=== PATIENT | female | born 1960 | race Caucasian/White ===

== ENCOUNTER 2016-09-11 18:04 | Emergency (ER) | payer BC, OTHER ==
[~2016-09-11] VITALS: Ht 167.6 cm; Wt 145.0 kg
[~2016-09-11 18:04] MED LIST: ALBUAER19 INH; ALPR-411 PO; OXYC30TA35 PO
[2016-09-11 18:11] VITALS: TEMP 36.8; Ht 167.6 cm; Wt 145.0 kg
[2016-09-11] MEDS ORDERED: ONDANSETRON INJ 2 MG/ML 2 ML VIAL IV STA (19:07)
[2016-09-11] MEDS ORDERED: MoRPHine SULFATE 10 MG/ML CARP/VIAL IV STA (19:07)
[2016-09-11 19:19] LABS: BASO % 0.4 %; BASO ABS # 0.03 K/uL (0-0.2); COMPLETE YES; EOS % 3.8 %; HEMATOCRIT 42.3 % (37-47); IG% 0.3 %; LYMPH ABS # 2.69 K/uL (1.2-3.4); MEAN CELL VOLUME 83.1 fL (80-100); MEAN CORPUSCULAR HEMOGLOBIN 26.3 pg (25-34); MEAN CORPUSCULAR HGB CONC 31.7 g/dl (32-36); MEAN PLATELET VOLUME 10.1 fL (7.4-10.4); MONO % 12.6 %; NEUT % 45.9 %; PLATELET COUNT 185 K/uL (130-400); RED BLOOD COUNT 5.09 M/uL (4.2-5.4); WHITE BLOOD COUNT 7.28 K/uL (4.8-10.8)
[2016-09-11 19:24] VITALS: O2SAT 96
[2016-09-11 19:30] LABS: PARTIAL THROMBOPLASTIN RATIO 1.1
[2016-09-11 19:35] LABS: CALCIUM 8.8 mg/dl (8.5-10.1); CREATININE 0.95 mg/dl (0.60-1.20); POTASSIUM 4.1 mmol/L (3.5-5.1)
[2016-09-11 19:38] LABS: ALB/GLOB RATIO 0.9 (0.9-2)
--- NOTE | 2016-09-11 20:35 | DIAGNOSTIC IMAGING REPORT ---
Limited abdominal ultrasound ABDOMEN FOR HERNIA CLINICAL HISTORY: LLQ abdominal buldge, painful non reducible TECHNIQUE: Ultrasound COMPARISON STUDY: CT dated 03/01/2016 FINDINGS: Probable nonreducible lateral hernia left lateral abdomen. It contains fat exclusively measures 6 x 3 x 2 cm. IMPRESSION: 1. Nonreducible lateral wall abdominal hernia containing fat exclusively. 2. This is consistent with a Spigelian hernia. Electronically signed by: Wilner Gonzalez M.D. 09/11/2016 8:33 PM Dictated Date/Time: 09/11/2016 8:29 PM
[2016-09-11 21:52] LABS: URINE APPEARANCE CLOUDY (CLEAR); URINE BILIRUBIN NEG (NEG); URINE COLOR YELLOW; URINE NITRITE NEG (NEG); URINE SPECIFIC GRAVITY 1.006 (1.000-1.030); UROBILINOGEN NEG (NEG)
[2016-09-11 21:53] LABS: MANUAL MICROSCOPIC REQUIRED? NO; REVIEW REQ? NO; ZZURINE CULT IF INDIC CATH NO
[2016-09-11] MEDS ORDERED: MoRPHine SULFATE 4 MG/ML 1 ML CARP\\VIAL IV STA (22:09)
--- NOTE | 2016-09-11 22:16 | EMERGENCY ROOM VISIT NOTE ---
History First contact with patient: 18:41 Chief Complaint: ABDOMINAL PAIN Stated Complaint: LF SIDE PAIN History of Present Illness The patient is a 55 year old female who presents to the Emergency Room via private vehicle with complaints of "left side pain". The patient states that approximately 3 weeks ago she noticed a small lump in the left lower quadrant just above the left iliac crest. She states the pain has been progressively worsening as well as the bump. She states that used to be soft in nature, and now it is hardening and feels warm to the touch. She states that when she lays on her right side the pain is alleviated. She notes pain is worst when she is sitting. She is taken the hydrocodone tablet earlier today which did not help her pain. She states that she does have some nausea at this time. She denies any vomiting, diarrhea, lightheadedness. She denies any history of hernias. Her last bowel movement was earlier today. Review of Systems A complete 10-point Review of Systems was discussed with the patient, with pertinent positives and negatives listed in the History of Present Illness. All remaining Review of Systems questions can be considered negative unless otherwise specified. Past Medical/Surgical History Medical Problems: (1) Abrasion, scalp with infection (2) Abrasion, scalp with infection (3) Acute postoperative pain of right foot (4) Arm pain, right (5) Asthma (6) Asthma, Unspecified (7) Back pain (8) blood clot, L Arm (9) Cellulitis (10) Contusion of left hip (11) E. Coli Infect Nos (12) Encounter for removal of sutures (13) Enlargement Lymph Nodes (14) Fall (15) Fall (16) Headache (17) History of neck injury (18) History of neck problems (19) Hypertension Nos (20) Left hip pain (21) Morbid Obesity (22) Otitis externa (23) Toe fracture Surgical Problems: (1) History of nephrectomy Family History Cancer Diabetes mellitus FH: kidney disease Gallbladder disease Heart disease Hypertension Lung disease Social History Smoking Status: Current Some Day Smoker Alcohol Use: none Drug Use: none Housing Status: lives with family Occupation Status: unemployed Current/Historical Medications Scheduled Hydrochlorothiazide (Hctz), 50 MG PO DAILY Levothyroxine Sodium (Synthroid), 300 MCG PO DAILY Lisinopril (Prinivil), 10 MG PO QAM Oxycodone Hcl (Oxycontin), 30 MG PO Q12 Spironolactone (Aldactone), 50 MG PO QAM Scheduled PRN Albuterol Inhaler (Ventolin Inhaler), 2 PUFFS INH Q4H PRN for Asthma Symptoms Alprazolam (Xanax), 0.5 MG PO TID PRN for Panic Attack Fluticasone Prop/Salmeterol (Advair Diskus 250/50 60 Dose), 1 PUFF INH BID PRN for Asthma Symptoms Hydrocodone/Acetaminophen ([place] 10/325 Tab), 1 TAB PO TID PRN for Pain Allergies Coded Allergies: No Known Allergies (Verified , 09/11/16) Physical Exam Vital Signs Date Time Temp Pulse Resp B/P (MAP) Pulse Ox O2 Delivery O2 Flow Rate FiO2 09/11/16 22:28 78 20 140/76 96 Room Air 09/11/16 21:47 66 20 137/72 95 Room Air 09/11/16 20:34 65 20 135/74 96 09/11/16 19:29 64 09/11/16 19:25 70 20 148/94 95 Room Air 09/11/16 19:24 96 Room Air 09/11/16 18:11 36.8 71 20 151/74 97 Room Air Physical Exam VITAL SIGNS - Vital signs and nursing notes were reviewed. Patient is afebrile , hypertensive at 151/74, non-tachycardic and is saturating well on room air 97% . GENERAL -55-year-old female appearing her stated age who is in no acute distress. Communicates well with provider and answers questions appropriately. SKIN - Without rashes. The skin overlying the left lower quadrant is unremarkable. No erythema. LUNGS - Chest wall symmetric without accessory muscle use, intercostals retractions, or central cyanosis. Normal vesicular breath sounds CTA B/L. No wheezes, rales, or rhonchi appreciated. CARDIAC - RRR with S1/S2. No murmur, rubs, or gallops appreciated. ABDOMEN - Abdominal contour without pulsations or visible masses. BS normoactive all four quadrants. In the left lower quadrant, favoring the left lateral abdominal region just superior to the left iliac crest there is a 4 cm x 4 cm palpable, nonreducible tender region. This is slightly raised. This is concerning for hernia. Medical Decision & Procedures ER Provider Diagnostic Interpretation: Limited abdominal ultrasound ABDOMEN FOR HERNIA CLINICAL HISTORY: LLQ abdominal buldge, painful non reducible TECHNIQUE: Ultrasound COMPARISON STUDY: CT dated 03/01/2016 FINDINGS: Probable nonreducible lateral hernia left lateral abdomen. It contains fat exclusively measures 6 x 3 x 2 cm. IMPRESSION: 1. Nonreducible lateral wall abdominal hernia containing fat exclusively. 2. This is consistent with a Spigelian hernia. Electronically signed by: Wilner Gonzalez M.D. 09/11/2016 8:33 PM Dictated Date/Time: 09/11/2016 8:29 PM Laboratory Results 09/11/16 19:00 Red Blood Count 5.09, Mean Corpuscular Volume 83.1, Mean Corpuscular Hemoglobin 26.3, Mean Corpuscular Hemoglobin Concent 31.7, Mean Platelet Volume 10.1, Neutrophils (%) (Auto) 45.9, Lymphocytes (%) (Auto) 37.0, Monocytes (%) (Auto) 12.6, Eosinophils (%) (Auto) 3.8, Basophils (%) (Auto) 0.4, Neutrophils # (Auto ) 3.34, Lymphocytes # (Auto) 2.69, Monocytes # (Auto) 0.92, Eosinophils # (Auto ) 0.28, Basophils # (Auto) 0.03 09/11/16 19:00 Test 09/11/16 19:00 09/11/16 21:20 White Blood Count 7.28 K/uL (4.8-10.8) Red Blood Count 5.09 M/uL (4.2-5.4) Hemoglobin 13.4 g/dL (12.0-16.0) Hematocrit 42.3 % (37-47) Mean Corpuscular Volume 83.1 fL (80-100) Mean Corpuscular Hemoglobin 26.3 pg (25-34) Mean Corpuscular Hemoglobin Concent 31.7 g/dl (32-36) Platelet Count 185 K/uL (130-400) Mean Platelet Volume 10.1 fL (7.4-10.4) Neutrophils (%) (Auto) 45.9 % Lymphocytes (%) (Auto) 37.0 % Monocytes (%) (Auto) 12.6 % Eosinophils (%) (Auto) 3.8 % Basophils (%) (Auto) 0.4 % Neutrophils # (Auto) 3.34 K/uL (1.4-6.5) Lymphocytes # (Auto) 2.69 K/uL (1.2-3.4) Monocytes # (Auto) 0.92 K/uL (0.11-0.59) Eosinophils # (Auto) 0.28 K/uL (0-0.5) Basophils # (Auto) 0.03 K/uL (0-0.2) RDW Standard Deviation 43.4 fL (36.4-46.3) RDW Coefficient of Variation 14.1 % (11.5-14.5) Immature Granulocyte % (Auto) 0.3 % Immature Granulocyte # (Auto) 0.02 K/uL (0.00-0.02) Prothrombin Time 11.0 SECONDS (9.0-12.0) Prothromb Time International Ratio 1.0 (0.9-1.1) Activated Partial Thromboplast Time 27.4 SECONDS (21.0-31.0) Partial Thromboplastin Ratio 1.1 Anion Gap 6.0 mmol/L (3-11) Est Creatinine Clear Calc Drug Dose 97.7 ml/min Estimated GFR () 77.6 Estimated GFR (Non- 67.0 BUN/Creatinine Ratio 16.0 (10-20) Calcium Level 8.8 mg/dl (8.5-10.1) Total Bilirubin 0.4 mg/dl (0.2-1) Aspartate Amino Transf (AST/SGOT) 27 U/L (15-37) Alanine Aminotransferase (ALT/SGPT) 32 U/L (12-78) Alkaline Phosphatase 95 U/L (45-117) Total Protein 7.5 gm/dl (6.4-8.2) Albumin 3.6 gm/dl (3.4-5.0) Globulin 3.9 gm/dl (2.5-4.0) Albumin/Globulin Ratio 0.9 (0.9-2) Lipase 184 U/L (73-393) Urine Color YELLOW Urine Appearance CLOUDY (CLEAR) Urine pH 6.0 (4.5-7.5) Urine Specific [place] 1.006 (1.000-1.030) Urine Protein NEG (NEG) Urine Glucose (UA) NEG (NEG) Urine Ketones NEG (NEG) Urine Occult Blood NEG (NEG) Urine Nitrite NEG (NEG) Urine Bilirubin NEG (NEG) Urine Urobilinogen NEG (NEG) Urine Leukocyte Esterase NEG (NEG) Urine WBC (Auto) 1-5 /hpf (0-5) Urine RBC (Auto) 0-4 /hpf (0-4) Urine Hyaline Casts (Auto) 0 /lpf (0-5) Urine Epithelial Cells (Auto) 10-20 /lpf (0-5) Urine Bacteria (Auto) 1+ (NEG) Medications Administered Medications (Trade) Dose Ordered Sig/Morgan Route Start Time Stop Time Status Last Admin Dose Admin Morphine Sulfate (MoRPHine SULFATE INJ) 10 mg NOW STAT IV 09/11/16 19:07 09/11/16 19:09 DC 09/11/16 19:07 10 MG Ondansetron HCl (Zofran Inj) 4 mg NOW STAT IV 09/11/16 19:07 09/11/16 19:09 DC 09/11/16 19:07 4 MG Morphine Sulfate (MoRPHine SULFATE INJ) 4 mg NOW STAT IV 09/11/16 22:09 09/11/16 22:10 DC 09/11/16 22:26 4 MG Medical Decision Patient was seen and evaluated as above. After obtaining a thorough history and physical examination IV access was initiated and the above workup was performed. She presents to us today with left lower quadrant abdominal pain, and clinically appears well. Her vital signs are stable. She is out of antihypertensive that was educated upon this, and is to follow-up with her family doctor. She requests something for pain, therefore was given 10 mg of morphine, and 4 mg of Zofran for any potential nausea. CBC reveals no leukocytosis or concerning anemia. Coagulation studies are unremarkable. CMP completely unremarkable. Urine reveals 10-20 epithelial cells, and 1+ urine bacteria. This was a catheterized sample as the patient noted that she would have great difficulty giving a clean-catch sample. The patient case was reviewed with my attending. My attending also personally evaluated the patient. Ultrasound was obtained and does reveal a exclusively fat containing hernia, without bowel. This is likely nonreproducible which I would agree clinically. There is no evidence of infection at this time. The patient I believe can follow-up in the outpatient setting for this. She is a follow-up with her family doctor, but was also provided the number for the on-call general surgeon. She was given 4 mg of morphine prior to departure. She indicated she'll he had pain medication at home that she could use. She certainly was educated upon worrisome symptoms which to return, to include but not limited to worsening abdominal pain and she was informed that the exclusive he fat-containing hernia that was present now could turn into a bowel containing hernia which would be an emergency and she certainly is to return with symptoms that would suggest this of which she was educated upon thoroughly. She had questions prior to discharge, and was discharged home in good condition. Female was driving. In evaluation treatment this patient following differential diagnoses entertained: Hernia, epiploic appendage appendicitis, mesenteric adenitis, diverticulitis, among others. Impression Primary Impression: Spigelian hernia Additional Impression: fat containing hernia of abdomen Departure Information Dispostion Home / Self-Care Condition GOOD Referrals Aly Duarte M.D. (PCP) Patient Instructions My [facility] Additional Instructions You have been treated in the Emergency Department your Abdominal Pain. Laboratory results and imaging studies have ruled out any emergent causes for your abdominal pain which would warrant admission or surgery. Your ultrasound does reveal a fat-containing hernia in your left lower quadrant. Please follow-up with your family doctor regarding this. You were also provided the phone number for a general surgeon which you may follow-up with by calling them. You may take your regular scheduled medications. Drink plenty of water and stay well hydrated. As with any trip to the Emergency Department, you should follow-up with your Primary Care Provider from today's visit. Please call them first thing tomorrow morning to schedule follow-up. If your abdominal pain was worsened, please return immediately. (DR. GIPSON [phone]) (Dr. Turk, Return to the emergency department if your symptoms persist despite treatment plan outlined above or if the following symptoms occur: increased fevers, chills , worsening nausea/vomiting, blood in your stool or urine. Please return to the emergency department with any new/concerning symptoms. Problem Qualifiers
[2016-09-11 22:28] VITALS: BP 140/76; PULSE 78; O2SAT 96
--- NOTE | 2016-09-12 01:24 | EMERGENCY ROOM VISIT NOTE ---
ED Visit Note First contact with patient: 18:41 I have personally seen and evaluated the patient with the PA. I agree with the diagnosis and management decisions and have been personally involved in the case. Patient's imaging studies were reviewed. It appears to be a fat- containing abdominal hernia. Patient is complaining of some dysuria and states she is not able to give a clean catch specimen due to a hand injury and her morbid obesity. Catheterized specimen was obtained and is negative for UTI. Patient will be referred for outpatient management. Please see NICOLE Wallis's notes for further details of the history, physical and visit.
[2016-09-17] MEDS ORDERED: LISI10TA PO (06:52)
[2016-09-17] MEDS ORDERED: HYDR50TA3 PO (07:10)
[2016-09-17] MEDS ORDERED: HYDR-4383 PO (14:31)
[2017-02-10] MEDS ORDERED: CITA40TA4 PO (08:46)
[2017-02-10] MEDS ORDERED: OXYC1TAB PO (08:46)
[2017-02-10] MEDS ORDERED: VSC/5 PO (08:46)
[2017-02-10] MEDS ORDERED: SERT-234 PO (08:46)
[2017-02-25] MEDS ORDERED: CIPR-255 PO (06:08)
[2017-02-25] MEDS ORDERED: PHEN-775 PO (07:05)
[2017-02-25] MEDS ORDERED: CEPH500C2 PO (07:05)
[2017-02-25] MEDS ORDERED: CEPH500C PO (08:02)
== END 2016-09-11 22:42 | disposition home or self-care (01) ==
LOC: C.EDB 18:05 → C.EDC 22:42
DX: K43.9 Ventral hernia without obstruction or gangrene (principal); J45.909 Unspecified asthma, uncomplicated; I10 Essential (primary) hypertension; E66.01 Morbid (severe) obesity due to excess calories; Z80.9 Family history of malignant neoplasm, unspecified; Z83.3 Family history of diabetes mellitus; Z84.1 Family history of disorders of kidney and ureter; Z82.49 Family history of ischemic heart disease and other diseases of the circulatory system; Z83.6 Family history of other diseases of the respiratory system; F17.210 Nicotine dependence, cigarettes, uncomplicated; Z79.899 Other long term (current) drug therapy

== ENCOUNTER 2016-09-17 16:16 | Emergency (ER) | payer BC, OTHER ==
[~2016-09-17] VITALS: Ht 167.6 cm; Wt 145.1 kg
[~2016-09-17 16:16] MED LIST changes: +HYDR-4383 PO; +HYDR50TA3 PO; +LISI10TA PO
[2016-09-17 16:29] VITALS: TEMP 36.7; Ht 167.6 cm; Wt 145.1 kg
[2016-09-17] MEDS ORDERED: OXYCODONE HCL IR 5 MG TAB (IMMEDIATE RELEASE) PO STA (16:44)
[2016-09-17] MEDS ORDERED: VNTHFA/IN INH (16:50)
[2016-09-17] MEDS ORDERED: OXYC20TA50 PO (16:50)
[2016-09-17] MEDS ORDERED: ADVIN25/60 INH (17:04)
[2016-09-17 17:26] LABS: BASO % 0.4 %; BASO ABS # 0.03 K/uL (0-0.2); COMPLETE YES; EOS % 3.3 %; IG% 0.1 %; LYMPH % 29.9 %; LYMPH ABS # 2.08 K/uL (1.2-3.4); MEAN CELL VOLUME 84.7 fL (80-100); MEAN CORPUSCULAR HEMOGLOBIN 27.5 pg (25-34); MEAN CORPUSCULAR HGB CONC 32.4 g/dl (32-36); MEAN PLATELET VOLUME 9.8 fL (7.4-10.4); MONO % 12.5 %; NEUT % 53.8 %; PLATELET COUNT 167 K/uL (130-400); RED BLOOD COUNT 4.84 M/uL (4.2-5.4); WHITE BLOOD COUNT 6.95 K/uL (4.8-10.8)
[2016-09-17 17:47] LABS: BLOOD UREA NITROGEN 15 mg/dl (7-18); BUN/CREATININE RATIO 15.7 (10-20); CALCIUM 8.6 mg/dl (8.5-10.1); CARBON DIOXIDE 29 mmol/L (21-32); CHLORIDE 106 mmol/L (98-107); CREATININE 0.93 mg/dl (0.60-1.20); GLUCOSE 112 mg/dl (70-99); SODIUM 140 mmol/L (136-145)
--- NOTE | 2016-09-17 18:10 | DIAGNOSTIC IMAGING REPORT ---
LEFT UPPER EXTREMITY VENOUS DOPPLER HISTORY: Left arm pain, no injury. Hx DVT COMPARISON STUDY: None. FINDINGS: The left internal jugular vein is patent. There is normal flow within the left subclavian vein. There is normal flow and compressibility within the left axillary, basilic, brachial, radial, ulnar, and visualized cephalic veins. IMPRESSION: No DVT within the left upper extremity. Electronically signed by: Quang Lee M.D. 09/17/2016 6:09 PM Dictated Date/Time: 09/17/2016 6:08 PM
[2016-09-17 18:30] VITALS: O2SAT 96
[2016-09-17 18:31] VITALS: BP 144/89; PULSE 73; O2SAT 96
--- NOTE | 2016-09-17 18:39 | EMERGENCY ROOM VISIT NOTE ---
ED Visit Note First contact with patient: 16:32 I have seen and examined this patient with Dao Melendez and generally agree with the treatment plan as discussed. Problem List Medical Problems: (1) Abrasion, scalp with infection Status: Resolved (2) Abrasion, scalp with infection Status: Resolved (3) Acute postoperative pain of right foot Status: Resolved (4) Arm pain, right Status: Resolved (5) Asthma Status: Chronic (6) Asthma, Unspecified Status: Chronic (7) Back pain Status: Resolved (8) blood clot, L Arm Status: Resolved (9) Cellulitis Status: Resolved (10) Contusion of left hip Status: Resolved (11) E. Coli Infect Nos Status: Resolved (12) Encounter for removal of sutures Status: Resolved (13) Enlargement Lymph Nodes Status: Resolved (14) Fall Status: Resolved (15) Fall Status: Resolved (16) Headache Status: Resolved (17) History of neck injury Status: Chronic (18) History of neck problems Status: Chronic (19) Hypertension Nos Status: Chronic (20) Left hip pain Status: Resolved (21) Morbid Obesity Status: Chronic (22) Otitis externa Status: Resolved (23) Toe fracture Status: Resolved Current/Historical Medications Scheduled Hydrochlorothiazide (Hctz), 50 MG PO DAILY Levothyroxine Sodium (Synthroid), 300 MCG PO DAILY Lisinopril (Prinivil), 10 MG PO QPM Spironolactone (Aldactone), 50 MG PO QPM Scheduled PRN Albuterol Hfa (Ventolin Hfa), 2 PUFFS INH Q4 PRN for Shortness of Breath Alprazolam (Xanax), 0.5 MG PO TID PRN for Panic Attack Fluticasone Prop/Salmeterol (Advair Diskus 250/50 60 Dose), 1 PUFF INH BID PRN for Asthma Symptoms Hydrocodone/Acetaminophen ([place] 10/325 Tab), 1 TAB PO TID PRN for Pain Oxycodone Hcl (Oxycontin), 30 MG PO Q12 PRN for Pain Allergies Coded Allergies: No Known Allergies (Verified , 09/17/16) Vital Signs Date Time Temp Pulse Resp B/P (MAP) Pulse Ox O2 Delivery O2 Flow Rate FiO2 09/17/16 18:31 73 19 144/89 96 09/17/16 18:30 96 Room Air 09/17/16 16:29 36.7 20 154/86 Room Air Laboratory Results 09/17/16 17:15 Red Blood Count 4.84, Mean Corpuscular Volume 84.7, Mean Corpuscular Hemoglobin 27.5, Mean Corpuscular Hemoglobin Concent 32.4, Mean Platelet Volume 9.8, Neutrophils (%) (Auto) 53.8, Lymphocytes (%) (Auto) 29.9, Monocytes (%) (Auto) 12.5, Eosinophils (%) (Auto) 3.3, Basophils (%) (Auto) 0.4, Neutrophils # (Auto ) 3.73, Lymphocytes # (Auto) 2.08, Monocytes # (Auto) 0.87, Eosinophils # (Auto ) 0.23, Basophils # (Auto) 0.03 09/17/16 17:15 Test 09/17/16 17:15 White Blood Count 6.95 K/uL (4.8-10.8) Red Blood Count 4.84 M/uL (4.2-5.4) Hemoglobin 13.3 g/dL (12.0-16.0) Hematocrit 41.0 % (37-47) Mean Corpuscular Volume 84.7 fL (80-100) Mean Corpuscular Hemoglobin 27.5 pg (25-34) Mean Corpuscular Hemoglobin Concent 32.4 g/dl (32-36) Platelet Count 167 K/uL (130-400) Mean Platelet Volume 9.8 fL (7.4-10.4) Neutrophils (%) (Auto) 53.8 % Lymphocytes (%) (Auto) 29.9 % Monocytes (%) (Auto) 12.5 % Eosinophils (%) (Auto) 3.3 % Basophils (%) (Auto) 0.4 % Neutrophils # (Auto) 3.73 K/uL (1.4-6.5) Lymphocytes # (Auto) 2.08 K/uL (1.2-3.4) Monocytes # (Auto) 0.87 K/uL (0.11-0.59) Eosinophils # (Auto) 0.23 K/uL (0-0.5) Basophils # (Auto) 0.03 K/uL (0-0.2) RDW Standard Deviation 44.8 fL (36.4-46.3) RDW Coefficient of Variation 14.5 % (11.5-14.5) Immature Granulocyte % (Auto) 0.1 % Immature Granulocyte # (Auto) 0.01 K/uL (0.00-0.02) Anion Gap 5.0 mmol/L (3-11) Est Creatinine Clear Calc Drug Dose 99.8 ml/min Estimated GFR () 79.6 Estimated GFR (Non- 68.7 BUN/Creatinine Ratio 15.7 (10-20) Calcium Level 8.6 mg/dl (8.5-10.1) Troponin I < 0.015 ng/ml (0-0.045) Medications Administered Medications (Trade) Dose Ordered Sig/Morgan Route Start Time Stop Time Status Last Admin Dose Admin Oxycodone HCl (Roxicodone Immediate Rel Tab) 5 mg NOW STAT PO 09/17/16 16:44 09/17/16 16:46 DC 09/17/16 17:10 5 MG Departure Information Referrals Aly Duarte M.D. (PCP) Patient Instructions My [facility]
--- NOTE | 2016-09-17 18:49 | EMERGENCY ROOM VISIT NOTE ---
History First contact with patient: 16:32 Chief Complaint: ARM PAIN Stated Complaint: LEFT ARM PAIN History of Present Illness The patient is a 55 year old female who presents to the Emergency Room via private vehicle accompanied by female with complaints of "left arm pain". The patient states that yesterday her left arm began throbbing throughout the entire left upper extremity. She states is from her left hand to her shoulder. She is unable to identify any trauma to the region. There is no numbness or tingling in this region. She rates her pain as a 8/10. She has pain meds at home of which have not been helping. She is really seen here in the emergency Department for a hernia and notes this pain is worse. She denies any chest pain or shortness of breath, history of heart attack or stroke. Review of Systems A complete 6-point Review of Systems was discussed with the patient, with pertinent positives and negatives listed in the History of Present Illness. All remaining Review of Systems questions can be considered negative unless otherwise specified. Past Medical/Surgical History Medical Problems: (1) Abrasion, scalp with infection (2) Abrasion, scalp with infection (3) Acute postoperative pain of right foot (4) Arm pain, right (5) Asthma (6) Asthma, Unspecified (7) Back pain (8) blood clot, L Arm (9) Cellulitis (10) Contusion of left hip (11) E. Coli Infect Nos (12) Encounter for removal of sutures (13) Enlargement Lymph Nodes (14) Fall (15) Fall (16) Headache (17) History of neck injury (18) History of neck problems (19) Hypertension Nos (20) Left hip pain (21) Morbid Obesity (22) Otitis externa (23) Toe fracture Surgical Problems: (1) History of nephrectomy Family History Cancer Diabetes mellitus FH: kidney disease Gallbladder disease Heart disease Hypertension Lung disease Social History Smoking Status: Current Some Day Smoker Alcohol Use: none Drug Use: none Housing Status: lives with family Occupation Status: unemployed Current/Historical Medications Scheduled Hydrochlorothiazide (Hctz), 50 MG PO DAILY Levothyroxine Sodium (Synthroid), 300 MCG PO DAILY Lisinopril (Prinivil), 10 MG PO QPM Spironolactone (Aldactone), 50 MG PO QPM Scheduled PRN Albuterol Hfa (Ventolin Hfa), 2 PUFFS INH Q4 PRN for Shortness of Breath Alprazolam (Xanax), 0.5 MG PO TID PRN for Panic Attack Fluticasone Prop/Salmeterol (Advair Diskus 250/50 60 Dose), 1 PUFF INH BID PRN for Asthma Symptoms Hydrocodone/Acetaminophen ([place] 10/325 Tab), 1 TAB PO TID PRN for Pain Oxycodone Hcl (Oxycontin), 30 MG PO Q12 PRN for Pain Allergies Coded Allergies: No Known Allergies (Verified , 09/17/16) Physical Exam Vital Signs Date Time Temp Pulse Resp B/P (MAP) Pulse Ox O2 Delivery O2 Flow Rate FiO2 09/17/16 18:31 73 19 144/89 96 09/17/16 18:30 96 Room Air 09/17/16 16:29 36.7 20 154/86 Room Air Physical Exam VITAL SIGNS - Vital signs and nursing notes were reviewed. Patient is afebrile , hypertensive at 154/86, non-tachycardic. GENERAL -55-year-old female appearing her stated age who is in no acute distress. Communicates well with provider and answers questions appropriately. SKIN - Without rashes. Skin overlying the left arm is unremarkable. HEAD - NC/AT. NECK: No meningismus or trauma evident. LUNGS - Chest wall symmetric without accessory muscle use, intercostals retractions, or central cyanosis. Normal vesicular breath sounds CTA B/L. No wheezes, rales, or rhonchi appreciated. CARDIAC - RRR with S1/S2. No murmur, rubs, or gallops appreciated. EXTREMITIES - No clubbing or peripheral cyanosis. No pretibial edema present. There is decreased range of motion of the entire left upper extremity, which is most noted at the left shoulder region. She is neurovascularly intact in this region. Medical Decision & Procedures ER Provider Diagnostic Interpretation: LEFT UPPER EXTREMITY VENOUS DOPPLER HISTORY: Left arm pain, no injury. Hx DVT COMPARISON STUDY: None. FINDINGS: The left internal jugular vein is patent. There is normal flow within the left subclavian vein. There is normal flow and compressibility within the left axillary, basilic, brachial, radial, ulnar, and visualized cephalic veins. IMPRESSION: No DVT within the left upper extremity. Electronically signed by: Quang Lee M.D. 09/17/2016 6:09 PM Dictated Date/Time: 09/17/2016 6:08 PM Laboratory Results 09/17/16 17:15 Red Blood Count 4.84, Mean Corpuscular Volume 84.7, Mean Corpuscular Hemoglobin 27.5, Mean Corpuscular Hemoglobin Concent 32.4, Mean Platelet Volume 9.8, Neutrophils (%) (Auto) 53.8, Lymphocytes (%) (Auto) 29.9, Monocytes (%) (Auto) 12.5, Eosinophils (%) (Auto) 3.3, Basophils (%) (Auto) 0.4, Neutrophils # (Auto ) 3.73, Lymphocytes # (Auto) 2.08, Monocytes # (Auto) 0.87, Eosinophils # (Auto ) 0.23, Basophils # (Auto) 0.03 09/17/16 17:15 Test 09/17/16 17:15 White Blood Count 6.95 K/uL (4.8-10.8) Red Blood Count 4.84 M/uL (4.2-5.4) Hemoglobin 13.3 g/dL (12.0-16.0) Hematocrit 41.0 % (37-47) Mean Corpuscular Volume 84.7 fL (80-100) Mean Corpuscular Hemoglobin 27.5 pg (25-34) Mean Corpuscular Hemoglobin Concent 32.4 g/dl (32-36) Platelet Count 167 K/uL (130-400) Mean Platelet Volume 9.8 fL (7.4-10.4) Neutrophils (%) (Auto) 53.8 % Lymphocytes (%) (Auto) 29.9 % Monocytes (%) (Auto) 12.5 % Eosinophils (%) (Auto) 3.3 % Basophils (%) (Auto) 0.4 % Neutrophils # (Auto) 3.73 K/uL (1.4-6.5) Lymphocytes # (Auto) 2.08 K/uL (1.2-3.4) Monocytes # (Auto) 0.87 K/uL (0.11-0.59) Eosinophils # (Auto) 0.23 K/uL (0-0.5) Basophils # (Auto) 0.03 K/uL (0-0.2) RDW Standard Deviation 44.8 fL (36.4-46.3) RDW Coefficient of Variation 14.5 % (11.5-14.5) Immature Granulocyte % (Auto) 0.1 % Immature Granulocyte # (Auto) 0.01 K/uL (0.00-0.02) Anion Gap 5.0 mmol/L (3-11) Est Creatinine Clear Calc Drug Dose 99.8 ml/min Estimated GFR () 79.6 Estimated GFR (Non- 68.7 BUN/Creatinine Ratio 15.7 (10-20) Calcium Level 8.6 mg/dl (8.5-10.1) Troponin I < 0.015 ng/ml (0-0.045) Medications Administered Medications (Trade) Dose Ordered Sig/Morgan Route Start Time Stop Time Status Last Admin Dose Admin Oxycodone HCl (Roxicodone Immediate Rel Tab) 5 mg NOW STAT PO 09/17/16 16:44 09/17/16 16:46 DC 09/17/16 17:10 5 MG Medical Decision Patient was seen and evaluated as above. After obtaining a thorough history and physical examination IV access was initiated above workup was performed. Patient presents to us today with atraumatic left upper extremity pain. She states it is throbbing in nature. This certainly could be from a neck etiology , however cardiac and thrombus cannot be eliminated. EKG unremarkable. Troponin negative. Ultrasound of the left upper extremity unremarkable. She was given 1 OxyIR tablet for her pain. CBC reveals no leukocytosis or anemia. PRP unremarkable. Troponin negative. EKG reveals normal sinus rhythm, and was compared to EKG of 05/10/2015. No significant change was found. I do not suspect any cardiac causes, I do not suspect any venous [place]. I suspect the patient is likely experiencing minor referred pain from the neck, or muscle pain. The patient could've slept in a position of which cause this pain. However, I do believe that follow-up is important with orthopedic doctor do not suspect any emergent cause of which would require immediate management or inpatient mission. Patient was informed upon today's findings, appeared stable for treatment the outpatient setting. She has pain medication at home. She was educated upon worrisome symptoms which to return, was fitted with an arm sling and educated upon use, had questions prior to discharge, and was discharged home in good condition. She is to follow up regarding her elevated blood pressure. 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 In the evaluation and treatment of this patient, the following differential diagnoses were considered: Shoulder Contusion, Shoulder Fracture, DE, PE, Shoulder Dislocation, Thoracic Outlet Syndrome, Adhesive Capsulitis, Rotator Cuff Tear, Proximal Clavicle Head Fracture, Apical Pneumonia, Pneumothorax, Hemothorax, or TB. Impression Primary Impression: Arm pain, left Departure Information Dispostion Home / Self-Care Condition GOOD Referrals Aly Duarte M.D. (PCP) Mg Alvarez M.D. Patient Instructions [facility] Additional Instructions You have been treated in the Emergency Department for left arm pain. You have received pain medicine in the emergency department which impairs your ability to operate a vehicle. It is illegal for you to drive after receiving these medicines. You may use your regular prescribed medication for pain. If this is a recent injury (<24 hrs), ice can be applied to the area of pain for the first 3 days to help decrease pain and inflammation. You have been provided the number for an Orthopaedic Surgeon. You should call this number as soon as possible to establish a follow-up visit from today's Emergency Department visit. Keep the shoulder brace/sling in place until evaluated by Orthopedics. Continue to perform range of motion exercises several times per day to help prevent the development of a "frozen shoulder". Return to the Emergency Department if your current symptoms worsen despite treatment course outlined above, or if you develop any of the following symptoms : intractable pain despite aforementioned treatment course or new onset of numbness or tingling of the arm. Please return to the emergency department with any new/concerning symptoms.
[2016-09-17] MEDS ORDERED: LEVO300T2 PO (21:17)
[2016-09-17] MEDS ORDERED: SPIR50TA2 PO (23:51)
[2017-02-10] MEDS ORDERED: OXYC1TAB PO (08:46)
[2017-02-10] MEDS ORDERED: VSC/5 PO (08:46)
[2017-02-10] MEDS ORDERED: CITA40TA4 PO (08:46)
[2017-02-10] MEDS ORDERED: SERT-234 PO (08:46)
[2017-02-25] MEDS ORDERED: CIPR-255 PO (06:08)
[2017-02-25] MEDS ORDERED: CEPH500C2 PO (07:05)
[2017-02-25] MEDS ORDERED: PHEN-775 PO (07:05)
[2017-02-25] MEDS ORDERED: CEPH500C PO (08:02)
== END 2016-09-17 19:41 | disposition home or self-care (01) ==
LOC: C.EDB 16:17 → C.EDD 19:41
DX: M79.622 Pain in left upper arm (principal); I10 Essential (primary) hypertension; J45.909 Unspecified asthma, uncomplicated; F17.200 Nicotine dependence, unspecified, uncomplicated; Z86.19 Personal history of other infectious and parasitic diseases; Z87.81 Personal history of (healed) traumatic fracture; Z91.81 History of falling; Z79.899 Other long term (current) drug therapy; Z98.890 Other specified postprocedural states; Z80.9 Family history of malignant neoplasm, unspecified; Z83.3 Family history of diabetes mellitus; Z84.1 Family history of disorders of kidney and ureter; Z83.79 Family history of other diseases of the digestive system; Z82.49 Family history of ischemic heart disease and other diseases of the circulatory system

== ENCOUNTER → 2016-11-12 | Outpatient (CLI) | payer BC, OTHER ==
[~2016-11-12] MED LIST changes: +ADVIN25/60 INH; -ALBUAER19 INH; +LEVO300T2 PO; +OXYC20TA50 PO; -OXYC30TA35 PO; +SPIR50TA2 PO; +VNTHFA/IN INH
--- NOTE | 2016-11-12 16:32 | DIAGNOSTIC IMAGING REPORT ---
ABD/PELVIS NO IV OR ORAL CONT CT DOSE: 1267.70 mGycm HISTORY: Pain ABDOMINAL PAIN TECHNIQUE: Multiaxial CT images of the abdomen and pelvis were performed without contrast. A dose lowering technique was utilized adhering to the principles of ALARA. COMPARISON STUDY: 03/01/2016. Limited abdominal ultrasound 09/11/2016 FINDINGS: Lung bases are clear. Liver spleen pancreas are unremarkable. Fatty replacement of the pancreas. Stable calcified granuloma central spleen. Prior left nephrectomy. Subtle nodularity right adrenal unchanged. Right kidney shows moderate cortical scarring but is negative for hydronephrosis. Small lateral spigelian hernia at the level of the inferior margin of the spleen evident maximum transaxial dimension of 2.2 cm. No evidence for associated bowel herniation. Appears to be exclusively fat-containing. Abdominal wall is otherwise intact. Bladder is midline. Prior left hip arthroplasty with associated heterotopic bone formation. This is unchanged. IMPRESSION: 1. Small left flank spigelian hernia containing fat exclusively. 2. This correlates with the patient's prior ultrasound evaluation and currently has a maximum dimension of 2.2 cm not including the extruded fat component. 3. No evidence of bowel containment or obstructive characteristics. 4. Chronic changes as noted The above report was generated using voice recognition software. It may contain grammatical, syntax or spelling errors. Electronically signed by: Wilner Gonzalez M.D. 11/12/2016 4:30 PM Dictated Date/Time: 11/12/2016 4:25 PM
== END | disposition home or self-care (01) ==
LOC: C.CTS 16:07
PROVIDERS: ATTEND Surgery
DX: R10.9 Unspecified abdominal pain (principal); K43.9 Ventral hernia without obstruction or gangrene

== ENCOUNTER → 2017-02-25 | Day surgery (SDC) | payer BC, OTHER ==
[2017-02-10 08:47] VITALS: BMI 51.0
--- NOTE | 2017-02-10 09:23 | PAT Medication Instructions ---
Service Date Feb 10, 2017. Current Home Medication List Albuterol Hfa (Ventolin Hfa), 2 PUFFS INH Q4 PRN for Shortness of Breath Alprazolam (Xanax), 0.5 MG PO TID PRN for Panic Attack Citalopram (Citalopram Hydrobromide), 1 TAB PO DAILY Fluticasone Prop/Salmeterol (Advair Diskus 250/50 60 Dose), 1 PUFF INH BID PRN for Asthma Symptoms Hydrocodone/Acetaminophen ([place] 10/325 Tab), 1 TAB PO TID PRN for Pain Levothyroxine Sodium (Synthroid), 300 MCG PO HS Oxycodone Ir (Roxicodone Ir), 1 TAB PO BID PRN for N Sertraline (Zoloft), 100 MG PO HS Solifenacin (Vesicare), 5 MG PO HS Spironolactone (Aldactone), 50 MG PO QPM Medication Instructions For Your Scheduled Surgery - Take the following medications the morning of surgery with a sip of water: Oxycodone Ir (Roxicodone Ir), 1 TAB PO BID PRN for N (okay to take up to 4 hours prior to surgery if needed) Hydrocodone/Acetaminophen ([place] 10/325 Tab), 1 TAB PO TID PRN for Pain (okay to take up to 4 hours prior to surgery if needed) Fluticasone Prop/Salmeterol (Advair Diskus 250/50 60 Dose), 1 PUFF INH BID PRN for Asthma Symptoms (if needed) Albuterol Hfa (Ventolin Hfa), 2 PUFFS INH Q4 PRN for Shortness of Breath (if needed) Alprazolam (Xanax), 0.5 MG PO TID PRN for Panic Attack (if needed) Citalopram (Citalopram Hydrobromide), 1 TAB PO DAILY (if needed) - Take the following medications as scheduled the night before surgery: Spironolactone (Aldactone), 50 MG PO QPM Sertraline (Zoloft), 100 MG PO HS Solifenacin (Vesicare), 5 MG PO HS Oxycodone Ir (Roxicodone Ir), 1 TAB PO BID PRN for N (if needed) Levothyroxine Sodium (Synthroid), 300 MCG PO HS Hydrocodone/Acetaminophen ([place] 10/325 Tab), 1 TAB PO TID PRN for Pain (if needed) Fluticasone Prop/Salmeterol (Advair Diskus 250/50 60 Dose), 1 PUFF INH BID PRN for Asthma Symptoms (if needed) Albuterol Hfa (Ventolin Hfa), 2 PUFFS INH Q4 PRN for Shortness of Breath (if needed) Alprazolam (Xanax), 0.5 MG PO TID PRN for Panic Attack (if needed) If you have any questions please call us at [phone] or [phone] or [phone]
--- NOTE | 2017-02-10 09:53 | DIAGNOSTIC IMAGING REPORT ---
CHEST PREADMISSION(PA/LAT) CLINICAL HISTORY: Preoperative chest COMPARISON STUDY: May 10, 2015 FINDINGS: The cardiac and mediastinal contours are normal. There is no evidence of focal pulmonary consolidation. There is no evidence of failure. No pleural effusions are visualized.[ IMPRESSION: No active disease in the chest. Electronically signed by: Jamal Nguyễn M.D. 02/10/2017 9:52 AM Dictated Date/Time: 02/10/2017 9:52 AM
[2017-02-10 10:09] LABS: BASO % 0.3 %; BASO ABS # 0.02 K/uL (0-0.2); COMPLETE YES; EOS % 2.9 %; HEMATOCRIT 41.4 % (37-47); IG% 0.3 %; LYMPH % 34.1 %; LYMPH ABS # 2.14 K/uL (1.2-3.4); MEAN CELL VOLUME 83.8 fL (80-100); MEAN CORPUSCULAR HEMOGLOBIN 27.9 pg (25-34); MEAN CORPUSCULAR HGB CONC 33.3 g/dl (32-36); MEAN PLATELET VOLUME 10.8 fL (7.4-10.4); MONO % 8.3 %; NEUT % 54.1 %; PLATELET COUNT 191 K/uL (130-400); RED BLOOD COUNT 4.94 M/uL (4.2-5.4); WHITE BLOOD COUNT 6.28 K/uL (4.8-10.8)
[2017-02-10 10:21] LABS: BUN/CREATININE RATIO 19.2 (10-20); CALCIUM 9.3 mg/dl (8.5-10.1); CREATININE 0.98 mg/dl (0.60-1.20); POTASSIUM 4.2 mmol/L (3.5-5.1)
[2017-02-10 10:25] LABS: URINE APPEARANCE CLEAR (CLEAR); URINE BILIRUBIN NEG (NEG); URINE COLOR YELLOW; URINE NITRITE NEG (NEG); URINE SPECIFIC GRAVITY 1.021 (1.000-1.030); UROBILINOGEN NEG (NEG)
[2017-02-10 10:34] LABS: MANUAL MICROSCOPIC REQUIRED? NO; REVIEW REQ? NO
[~2017-02-25] VITALS: Ht 162.6 cm; Wt 136.4 kg
[~2017-02-25] MED LIST changes: +ATROPINE SULFATE 0.1 MG/ML 5ML SYR IV PRN; +CEFAZOLIN 3000MG IV PUSH 15 ML IV SCH; +CEPH500C PO; +CEPH500C2 PO; +CIPR-255 PO; +CITA40TA4 PO; +CONRAY 30% 150ML BOTTLE ONE; +EpHEDrine SULFATE INJ 50 MG/ML AMP IV PRN; +FENTANYL CITRATE INJ 50 MCG/1 ML 2 ML VIAL IV PRN; +FENTANYL CITRATE INJ 50 MCG/1 ML 2 ML VIAL ONE; -HYDR50TA3 PO; +HYDROmorphone INJ 1 MG/ML SYR IV PRN; +KETAMINE HCL INJ 50 MG/ML 10 ML VIAL ONE; +LACTATED RINGER'S 1000ML 1,000 ML IV SCH; +LIDOCAINE HCL 2% 2 ML VIAL (20MG/ML) ONE; -LISI10TA PO; +MIDAZOLAM HCL 1 MG/ML 2ML VIAL ONE; +NAPR-1169 PO; +ONDANSETRON INJ 2 MG/ML 2 ML VIAL IV PRN; +OXYC1TAB PO; -OXYC20TA50 PO; +OXYCODONE/ACETAMINOPHEN 7.5-325 TAB PO PRN; +PHEN-775 PO; +PHENYLEPHRINE HCL INJ 10 MG/ML VIAL ONE; +PROMETHAZINE HCL INJ 12.5 MG in SODIUM CHLORIDE 0.9% 50ML 50 ML IV PRN; +PROPOFOL IV EMULSION 10 MG/ML 20 ML VIAL IV ONE; +SERT-234 PO; +VSC/5 PO
[2017-02-25 06:10] VITALS: BP 158/97; PULSE 65; TEMP 36.5; O2SAT 97; Ht 162.6 cm; Wt 136.4 kg
--- NOTE | 2017-02-25 07:00 | History & Physical Bridge Note ---
H&P Re-Evaluation Bridge Note: I have examined the patient, reviewed the History & Physical and in the interval since the performance of the History & Physical I have noted the following changes of clinical significance: No changes noted
--- NOTE | 2017-02-25 07:03 | [facility] Operative Report ---
Operative Report Operative Date Feb 25, 2017. 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 Bladder has signs of significant cystitis cystica and bullous edema likely from long standing chronic inflammation. Significant grade 3 cystocele. Specimens None Drains None Anesthesia MAC Complication(s) None Disposition Recovery Room / PACU Indications Hematuria and dysuria with complicated urologic history. Description of Procedure Patient was consented and brought back to the operating room. Patient was placed under anesthesia in the supine position. Patient was prepped and draped in the regular sterile fashion. A time out was completed. A 30degree Cystoscope was placed into the bladder and the entire bladder was examined. The UO's were identified. The Right was cannulized with a catheter and a retrograde pyelogram was completed. The left kidney is surgically absent. Throughout the bladder multiple cystic lesions, likely bullous edema and cystitis cystica. Due to wide spread, inflammed nature, no biopsy was taken. Images were saved and added to the patient's chart. The bladder was emptied. The scope was removed. The patient was cleaned, aroused from anesthesia, and transferred to the pacu in stable condition having tolerated the procedure well with no complications. I was present and participated in all aspects of the procedure. The patient will be monitored in the PACU until transferred. I attest to the content of the Intraoperative Record and any orders documented therein. Any exceptions are noted below.
--- NOTE | 2017-02-25 07:11 | Discharge Instructions ---
Discharge Instructions Date of Service Feb 25, 2017. Admission Reason for Admission: Urine Incontinence Discharge Discharge Diagnosis / Problem: Hematuria, Dysuria, Incontinence Discharge Goals Goal(s): Decrease discomfort, Improve function Activity Recommendations Activity Limitations: resume your previous activity Lifting Limitations: none Exercise/Sports Limitations: none Shower/Bathe: no limitations . Instructions / Follow-Up Instructions / Follow-Up May have pelvic discomfort and blood in urine. Call if any issues. Call if any fevers. Current Hospital Diet Patient's current hospital diet: Reg Discharge Diet Recommended Diet: Regular Diet Procedures Procedures Performed: Cystoscopy, Right Retrograde pyelogram Pending Studies Studies pending at discharge: no Medical Emergencies . Who to Call and When: Medical Emergencies: If at any time you feel your situation is an emergency, please call 911 immediately. . Non-Emergent Contact Non-Emergency issues call your: Primary Care Provider, Urologist Call Non-Emergent contact if: you have a fever, temperature is above 101, temperature is above 101.5, your pain is not controlled, your pain is worsening . . "Provider Documentation" section prepared by Trever Méndez,. . VTE Core Measure Inpt VTE Proph given/why not?: Kurtis Rg, SCD's
--- NOTE | 2017-02-25 08:01 | Anesthesiology Progress Note ---
Anesthesia Post Op Note Date & Time Feb 25, 2017 at 08:00 Vital Signs Pain Intensity: 0 Vital Signs Past 12 Hours Date Time Temp Pulse Resp B/P (MAP) Pulse Ox O2 Delivery O2 Flow Rate FiO2 02/25/17 07:50 69 19 167/71 97 Room Air 02/25/17 07:44 36.8 72 18 185/92 100 Oxymask 10 02/25/17 06:10 36.5 65 18 158/97 (117) 97 Room Air Notes Mental Status: alert / awake / arousable, participated in evaluation Pt Amnestic to Procedure: Yes Nausea / Vomiting: adequately controlled Pain: adequately controlled Airway Patency, RR, SpO2: stable & adequate BP & HR: stable & adequate Hydration State: stable & adequate Anesthetic Complications: no major complications apparent Awake, doing well, no complaints. VSS
[2017-02-25 08:05] VITALS: BP 137/68; PULSE 65; TEMP 36.5; O2SAT 96
[2017-02-25 09:05] VITALS: BP 138/65; PULSE 72; TEMP 36.6; O2SAT 97
--- NOTE | 2017-02-25 09:11 | DIAGNOSTIC IMAGING REPORT ---
RETROGRADE INCLUDES KUB HISTORY: 56 years-old Female RT CYSTO/RETROGRADE prior left-sided nephrectomy. COMPARISON: CT abdomen and pelvis 11/12/2016 TECHNIQUE: 4 spot fluoroscopic images of the right abdomen and pelvis were obtained utilizing 4.9 seconds fluoroscopy time. FINDINGS: Right-sided ureteroscope is noted. There is contrast opacification of a nondilated right ureter, right renal pelvis and renal collecting system. There is mild prominence of the superior pole calyces without focal filling defect identified. IMPRESSION: Fluoroscopic assistance as above. Please see procedural report for further details. The above report was generated using voice recognition software. It may contain grammatical, syntax or spelling errors. Electronically signed by: Zachary Troy M.D. 02/25/2017 9:10 AM Dictated Date/Time: 02/25/2017 9:07 AM
== END | disposition home or self-care (01) ==
LOC: C.ACU 05:33
PROVIDERS: ATTEND Urology
DX: N30.81 Other cystitis with hematuria (principal); N81.10 Cystocele, unspecified; E03.9 Hypothyroidism, unspecified; J45.909 Unspecified asthma, uncomplicated; F41.9 Anxiety disorder, unspecified; F32.9 Major depressive disorder, single episode, unspecified; E66.01 Morbid (severe) obesity due to excess calories; E28.2 Polycystic ovarian syndrome; Q60.0 Renal agenesis, unilateral; N18.9 Chronic kidney disease, unspecified; Z79.899 Other long term (current) drug therapy

== ENCOUNTER 2017-03-02 07:12 | Emergency (ER) | payer BC, OTHER ==
[~2017-03-02] VITALS: Ht 167.6 cm; Wt 139.0 kg
[~2017-03-02 07:12] MED LIST changes: -ATROPINE SULFATE 0.1 MG/ML 5ML SYR IV PRN; -CEFAZOLIN 3000MG IV PUSH 15 ML IV SCH; -CEPH500C2 PO; -CONRAY 30% 150ML BOTTLE ONE; -EpHEDrine SULFATE INJ 50 MG/ML AMP IV PRN; -FENTANYL CITRATE INJ 50 MCG/1 ML 2 ML VIAL IV PRN; -FENTANYL CITRATE INJ 50 MCG/1 ML 2 ML VIAL ONE; -HYDROmorphone INJ 1 MG/ML SYR IV PRN; -KETAMINE HCL INJ 50 MG/ML 10 ML VIAL ONE; -LACTATED RINGER'S 1000ML 1,000 ML IV SCH; -LIDOCAINE HCL 2% 2 ML VIAL (20MG/ML) ONE; -MIDAZOLAM HCL 1 MG/ML 2ML VIAL ONE; -NAPR-1169 PO; -ONDANSETRON INJ 2 MG/ML 2 ML VIAL IV PRN; -OXYCODONE/ACETAMINOPHEN 7.5-325 TAB PO PRN; -PHENYLEPHRINE HCL INJ 10 MG/ML VIAL ONE; -PROMETHAZINE HCL INJ 12.5 MG in SODIUM CHLORIDE 0.9% 50ML 50 ML IV PRN; -PROPOFOL IV EMULSION 10 MG/ML 20 ML VIAL IV ONE
[2017-03-02 07:19] VITALS: TEMP 36.6; Ht 167.6 cm; Wt 139.0 kg
[2017-03-02 08:12] LABS: BASO % 0.5 %; BASO ABS # 0.03 K/uL (0-0.2); COMPLETE YES; EOS % 3.3 %; HEMATOCRIT 39.8 % (37-47); IG% 0.2 %; LYMPH % 34.7 %; LYMPH ABS # 2.19 K/uL (1.2-3.4); MEAN CELL VOLUME 83.8 fL (80-100); MEAN CORPUSCULAR HEMOGLOBIN 27.8 pg (25-34); MEAN CORPUSCULAR HGB CONC 33.2 g/dl (32-36); MEAN PLATELET VOLUME 10.7 fL (7.4-10.4); MONO % 11.6 %; NEUT % 49.7 %; PLATELET COUNT 171 K/uL (130-400); RED BLOOD COUNT 4.75 M/uL (4.2-5.4); WHITE BLOOD COUNT 6.31 K/uL (4.8-10.8)
[2017-03-02 08:26] LABS: INR 1.1 (0.9-1.1); PROTHROMBIN TIME (PATIENT) 11.5 SECONDS (9.0-12.0)
[2017-03-02 08:34] LABS: BUN/CREATININE RATIO 15.6 (10-20); CALCIUM 8.8 mg/dl (8.5-10.1); CREATININE 1.02 mg/dl (0.60-1.20); POTASSIUM 4.1 mmol/L (3.5-5.1)
--- NOTE | 2017-03-02 08:37 | DIAGNOSTIC IMAGING REPORT ---
RIGHT KNEE 3 VIEWS CLINICAL HISTORY: Right knee pain. No reported history of trauma. FINDINGS: AP, crosstable lateral, and sunrise views of the right knee are compared to study dated 04/10/2012. The skeletal structures are osteopenic. No fracture is seen. There is moderate tricompartmental degenerative joint space narrowing. There are patellar enthesophytes, marginal osteophytes, and degenerative beaking of the tibial spine. Chondrocalcinosis is seen in the medial and lateral compartments. A calcified fabella is incidentally noted. There is no large joint effusion. Mild soft tissue swelling is seen around the knee. Venous varicosities are noted in the overlying soft tissues. IMPRESSION: 1. Soft tissue swelling with no acute bony abnormality identified. 2. Osteopenia with arthritic change and chondrocalcinosis as above. Electronically signed by: Akash Glover M.D. 03/02/2017 8:36 AM Dictated Date/Time: 03/02/2017 8:34 AM
--- NOTE | 2017-03-02 08:47 | DIAGNOSTIC IMAGING REPORT ---
LEFT KNEE 3 VIEWS CLINICAL HISTORY: Left knee pain. No reported history of trauma. FINDINGS: AP, crosstable lateral, and sunrise views of the left knee are obtained. No prior studies are available for comparison at the time of dictation. The AP view is significantly degraded by patient rotation. The skeletal structures are osteopenic. No fracture is seen. There is moderate tricompartmental degenerative joint space narrowing. There are patellar enthesophytes, marginal osteophytes, and degenerative beaking of the tibial spine. Chondrocalcinosis is suggested in the medial and lateral compartments which are not well evaluated. There is no large joint effusion. Mild soft tissue swelling is seen around the knee. Venous varicosities are noted in the overlying soft tissues. IMPRESSION: 1. Soft tissue swelling with no acute bony abnormality identified. 2. Osteopenia and arthritic change as above. Electronically signed by: Akash Glover M.D. 03/02/2017 8:46 AM Dictated Date/Time: 03/02/2017 8:37 AM
[2017-03-02] MEDS ORDERED: ONDANSETRON INJ 2 MG/ML 2 ML VIAL IV STA (09:00)
[2017-03-02] MEDS ORDERED: MoRPHine SULFATE 4 MG/ML 1 ML CARP\\VIAL IV STA (09:00)
--- NOTE | 2017-03-02 09:20 | DIAGNOSTIC IMAGING REPORT ---
ULTRASOUND BILATERAL LOWER EXTREMITY VENOUS CLINICAL HISTORY: Bilateral knee pain and leg swelling. COMPARISON STUDY: Bilateral lower extremity venous ultrasound dated 05/10/15. TECHNIQUE: Real-time, grayscale, and color Doppler sonography of the deep veins of the right and left lower extremity was performed from the inguinal crease to the calf. Compression and augmentation were utilized. FINDINGS: There is no sonographic evidence of deep venous thrombosis identified in the right or left lower extremity. The common femoral, superficial femoral, and popliteal veins are patent and normally compressible bilaterally. The greater saphenous vein and the profunda femoris vein at the junction with the common femoral vein are clear in both legs. The visualized calf veins are patent bilaterally. IMPRESSION: There is no sonographic evidence of deep venous thrombosis identified in the right or left lower extremity. Electronically signed by: Akash Glover M.D. 03/02/2017 9:18 AM Dictated Date/Time: 03/02/2017 9:18 AM
[2017-03-02] MEDS ORDERED: NAPR-1169 PO (10:45)
[2017-03-02 11:04] VITALS: BP 143/81; PULSE 57; O2SAT 97
--- NOTE | 2017-03-02 15:49 | EMERGENCY ROOM VISIT NOTE ---
ED Visit Note First contact with patient: 07:21 Chief Complaint: My knees hurt. History of Present Illness: Ms. Lovell is a 56-year-old white female who ambulates into the ED complaining of bilateral knee pain. Historically patient reports on February 24 she had a cystoscope under conscious sedation and was diagnosed with a urinary tract infection. She reports after the procedure she had bilateral knee pain. She reports that she felt the knee pain was she just related to positioning during her procedure but it has been persistent. She contacted her family doctor who recommended that she come to the emergency department to rule out DVT. Historically patient does reports she's had a left upper extremity DVT in the past. Currently patient is complaining of bilateral knee pain. She reports at rest her pain as an achy sensation in mild but with flexion and extension and movement the pain is more intense and is sharp. She currently rates her discomfort 5/10. Pain is primarily located over the anterior and medial aspects of the knees. She has been using Percocet for pain with minimal relief of her discomfort. Associated with her pain she does report she feels like her left knee is swelling over the anterior aspect. Associated with her pain she does reports she's been having some chills but no alba fevers. She denies any recent trauma to the knees, previous surgeries on the knees, skin eruptions, skin color changes, upper respiratory tract symptoms, chest pain , shortness of breath, palpitations, abdominal pain, decreased appetite, cramping, claudication, leg weakness/numbness/tingling. Review of Systems: As noted above in history of present illness. All body systems were reviewed and found to be negative as noted above. Past Medical History: As previously noted, asthma, bronchitis, cellulitis, hypertension, kidney stones, morbid obesity, status post nephrectomy. Current Medications: Medications Dose Route/Sig Max Daily Dose Days Date Category Keflex (Cephalexin Monohydrate) 500 Mg Cap 500 Mg PO BID 02/25/17 Rx Roxicodone Ir (Oxycodone HCl) 30 Mg Tab 1 Tab PO BID PRN 02/10/17 Reported Zoloft (Sertraline HCl) 100 Mg Tab 100 Mg PO HS 02/10/17 Reported Citalopram Hydrobromide (Citalopram) 40 Mg Tab 1 Tab PO DAILY 90 02/10/17 Reported Vesicare (Solifenacin) 5 Mg Tab 5 Mg PO HS 02/10/17 Reported Ventolin Hfa (Albuterol) 200 Puffs/44130 Mcg Aers 2 Puffs INH Q4 PRN 09/17/16 Reported Advair Diskus 250/50 60 Dose (Fluticasone Prop/Salmeterol) 1 Ea Aerp 1 Puff INH BID PRN 06/29/14 Reported [place] 10/325 Tab (Acetaminophen/Hydrocodone Bitart) 1 Tab Tab 1 Tab PO TID PRN 12/31/13 Reported Synthroid (Levothyroxine Sodium) 300 Mcg Tab 300 Mcg PO HS 04/10/12 Reported Xanax (Alprazolam) 0.5 Mg Tab 0.5 Mg PO TID PRN 04/13/11 Reported Aldactone (Spironolactone) 50 Mg Tab 50 Mg PO QPM 01/06/11 Reported Allergies to Medications: Trospium Social History: Patient is unemployed; she feels safe in her home environment; she denies tobacco and alcohol use. Physical Examination: Vital Signs: Date Time Temp Pulse Resp B/P (MAP) Pulse Ox O2 Delivery O2 Flow Rate FiO2 03/02/17 11:04 57 18 143/81 97 03/02/17 09:08 52 18 156/82 95 03/02/17 07:19 36.6 64 20 151/80 94 Room Air GENERAL: 56-year-old female in mild to moderate distress due to pain, nontoxic- appearing, afebrile and hemodynamically stable. NEUROLOGICAL: Awake, alert and oriented to person, place and time. Answering questions appropriately and following commands. Normal gait. Good hand eye coordination. No focal motor sensory deficits. SKIN: Warm, dry and pink. HEENT: Atraumatic and normocephalic. Sclera white and conjunctiva pink. Airway patent. Pharynx is nonerythematous or edematous. Speech normal. No lymphadenopathy. Trachea midline. No jugular venous distention. THORAX: Lungs sounds are clear to auscultation and equal bilaterally with symmetrical chest wall. No wheezing, rales or rhonchi. No crepitus, tenderness , subcutaneous air or deformities noted. HEART: Regular rate and rhythm. No gallops, rubs or murmurs are appreciated. ABDOMEN: Obese, soft and nontender. Positive bowel sounds in all quadrants. No guarding, rigidity or organomegaly. LOWER EXTREMITIES: No gross bony deformity. No shortening or malrotation. No tenderness over the hips, thighs, ankles or feet. Mild tenderness over the anterior medial aspect of the left knee with mild swelling. No bony deformity or crepitus. Full range of motion in flexion and extension. No laxity of the collateral cruciate ligaments. Negative ballottement test. Negative patellar apprehension test. No tenderness over the [place] tendon or quadriceps tendon structures. Difficulty to assess meniscus due to morbid obesity. The right knee shows minimal tenderness over the anterior medial aspect of the knee. Negative ballottement test. Negative patellar apprehension test. No laxity of the collateral cruciate ligaments. Meniscus task was difficult to obtain due to morbid obesity. Full range of motion in flexion and extension. Bilateral dependent edema was noted. No calf tenderness or cords. Distal pulses were intact and equal bilaterally. Capillary refill is brisk. She was able to distinguish light sensations through all dermatomes of the feet. ED Course: Patient is assessed as noted above. Patient's medication list was reviewed. Laboratory Testing: Test 03/02/17 07:54 Range/Units White Blood Count 6.31 4.8-10.8 K/uL Red Blood Count 4.75 4.2-5.4 M/uL Hemoglobin 13.2 12.0-16.0 g/dL Hematocrit 39.8 37-47 % Mean Corpuscular Volume 83.8 80-100 fL Mean Corpuscular Hemoglobin 27.8 25-34 pg Mean Corpuscular Hemoglobin Concent 33.2 32-36 g/dl Platelet Count 171 130-400 K/uL Mean Platelet Volume 10.7 7.4-10.4 fL Neutrophils (%) (Auto) 49.7 % Lymphocytes (%) (Auto) 34.7 % Monocytes (%) (Auto) 11.6 % Eosinophils (%) (Auto) 3.3 % Basophils (%) (Auto) 0.5 % Neutrophils # (Auto) 3.14 1.4-6.5 K/uL Lymphocytes # (Auto) 2.19 1.2-3.4 K/uL Monocytes # (Auto) 0.73 0.11-0.59 K/uL Eosinophils # (Auto) 0.21 0-0.5 K/uL Basophils # (Auto) 0.03 0-0.2 K/uL RDW Standard Deviation 41.3 36.4-46.3 fL RDW Coefficient of Variation 13.5 11.5-14.5 % Immature Granulocyte % (Auto) 0.2 % Immature Granulocyte # (Auto) 0.01 0.00-0.02 K/uL Prothrombin Time 11.5 9.0-12.0 SECONDS Prothromb Time International Ratio 1.1 0.9-1.1 Activated Partial Thromboplast Time 27.2 21.0-31.0 SECONDS Partial Thromboplastin Ratio 1.0 Sodium Level 136 136-145 mmol/L Potassium Level 4.1 3.5-5.1 mmol/L Chloride Level 102 98-107 mmol/L Carbon Dioxide Level 27 21-32 mmol/L Anion Gap 7.0 3-11 mmol/L Blood Urea Nitrogen 16 7-18 mg/dl Creatinine 1.02 0.60-1.20 mg/dl Est Creatinine Clear Calc Drug Dose 87.6 ml/min Estimated GFR () 70.7 Estimated GFR (Non- 61.0 BUN/Creatinine Ratio 15.6 10-20 Random Glucose 86 70-99 mg/dl Calcium Level 8.8 8.5-10.1 mg/dl Total Bilirubin 0.3 0.2-1 mg/dl Direct Bilirubin 0-0.2 mg/dl Aspartate Amino Transf (AST/SGOT) 25 15-37 U/L Alanine Aminotransferase (ALT/SGPT) 19 12-78 U/L Alkaline Phosphatase 84 45-117 U/L Total Protein 7.3 6.4-8.2 gm/dl Albumin 3.5 3.4-5.0 gm/dl Chemistry Specimen Hemolysis Right Knee X-Rays: Was read by myself and read by the radiologist showing no acute fractures or dislocations. Moderate tricompartment degenerative changes. Mild soft tissue swelling around the knee. Left Knee X-Rays: Was read by myself and the radiologist showing no acute fractures or dislocations. Moderate tricompartment degenerative changes. Mild soft tissue swelling around the knee. Bilateral Lower Leg Venous Doppler Ultrasound: Was reviewed by myself and read by the radiologist showing no sonographic evidence of deep vein thrombus. Patient received 4 mg of morphine IV for pain and 4 mg of Zofran IV. Patient was reassessed multiple times during her stay in the emergency department. Patient was educated about today's findings and instructed on her treatment plan ; she verbalized understanding and agreement with this plan. Clinical Impression: Bilateral knee pain. Decision-Making: Initially in the differential diagnosis I consider DVTs, gout, arthritis exacerbation, ligamentous strain, occult fractures and other causes. Patient's blood pressure: Elevated Blood pressure disposition: Situational Disposition: Patient discharged home in stable condition accompanied by her ; prior to departure she was reassessed and subjectively reported she was feeling well and rated her discomfort 4/10. Plan: Patient was encouraged to continue prescribed medications. Patient was prescribed 500 mg of Naprosyn every 6 hours as needed for pain. Other comfort measures including rest, ice and elevation were discussed with the patient. Patient is encouraged to contact her family physician and request follow-up care and treatment. Patient was encouraged return ED for worsening pain, worsening swelling, leg weakness/numbness/tingling or any new/concerning symptoms.
== END 2017-03-02 11:06 | disposition home or self-care (01) ==
LOC: C.EDB 07:13 → C.EDA 11:06
DX: M25.561 Pain in right knee (principal); M25.562 Pain in left knee; J45.909 Unspecified asthma, uncomplicated; I10 Essential (primary) hypertension; Z87.442 Personal history of urinary calculi; E66.01 Morbid (severe) obesity due to excess calories

== ENCOUNTER 2017-04-11 06:24 | Emergency (ER) | payer BC, OTHER ==
[~2017-04-11] VITALS: Ht 167.6 cm; Wt 142.0 kg
[~2017-04-11 06:24] MED LIST changes: -CIPR-255 PO; -PHEN-775 PO
[2017-04-11 06:28] VITALS: TEMP 36.4; Ht 167.6 cm; Wt 142.0 kg
--- NOTE | 2017-04-11 06:52 | EMERGENCY ROOM VISIT NOTE ---
History Report prepared by Iban: Nathaniel Bella Under the Supervision of: Dr. Rivas Rosales M.D. First contact with patient: 06:33 Chief Complaint: ANKLE PAIN Stated Complaint: LUMP ABOVE RT ANKLE History of Present Illness The patient is a 56 year old female who presents to the Emergency Room with concerns over a lump in her right ankle that she first noticed last night. The patient is also concerned about noticing "veins sticking out of the top of her foot" when she stands for a prolonged time. The patient has had surgery on the right ankle. She has a history of blood clots. She is not currently on any blood thinners. 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 A total of 6 systems reviewed and were otherwise negative. Past Medical & Surgical Medical Problems: (1) Abrasion, scalp with infection (2) Abrasion, scalp with infection (3) Acute postoperative pain of right foot (4) Arm pain, right (5) Asthma (6) Asthma, Unspecified (7) Back pain (8) blood clot, L Arm (9) Cellulitis (10) Contusion of left hip (11) E. Coli Infect Nos (12) Encounter for removal of sutures (13) Enlargement Lymph Nodes (14) Fall (15) Fall (16) Headache (17) History of neck injury (18) History of neck problems (19) Hypertension Nos (20) Left hip pain (21) Morbid Obesity (22) Otitis externa (23) Toe fracture Surgical Problems: (1) History of nephrectomy Family History Cancer Diabetes mellitus FH: kidney disease Gallbladder disease Heart disease Hypertension Lung disease Social History Smoking Status: Former Smoker Alcohol Use: none Drug Use: none Housing Status: lives with family Occupation Status: unemployed Current/Historical Medications Scheduled Citalopram (Citalopram Hydrobromide), 40 MG PO DAILY Levothyroxine Sodium (Synthroid), 300 MCG PO HS Solifenacin (Vesicare), 5 MG PO HS Spironolactone (Aldactone), 50 MG PO QPM Scheduled PRN Albuterol Hfa (Ventolin Hfa), 2 PUFFS INH Q4 PRN for Shortness of Breath Alprazolam (Xanax), 0.5 MG PO TID PRN for Panic Attack Fluticasone Prop/Salmeterol (Advair Diskus 250/50 60 Dose), 1 PUFF INH BID PRN for Asthma Symptoms Hydrocodone/Acetaminophen ([place] 10/325 Tab), 1 TAB PO TID PRN for Pain Oxycodone Ir (Roxicodone Ir), 30 MG PO BID PRN for Pain Allergies Coded Allergies: Trospium (Verified Allergy, Unknown, TROSPIUM CHLORIDE-URINARY RETNETION, 04/11/17) Physical Exam Vital Signs Date Time Temp Pulse Resp B/P (MAP) Pulse Ox O2 Delivery O2 Flow Rate FiO2 04/11/17 09:00 59 18 148/86 95 04/11/17 08:14 53 18 138/75 95 Room Air 04/11/17 06:28 36.4 60 20 162/95 97 Room Air Physical Exam GENERAL: Patient is a healthy-appearing well-nourished female HEAD: Normocephalic atraumatic EYES: Ocular movements intact pupils equal and react to light OROPHARYNX mucous membranes are moist no exudates present no erythema or edema present NECK: Supple no nuchal rigidity CHEST: Good equal expansion LUNGS: Clear and equal to auscultation CARDIAC: Normal S1 and S2 ABDOMEN: Soft nontender no guarding BACK: No CVA tenderness EXTREMITIES: No pain upon palpation normal muscle strength in all groups no clubbing cyanosis or edema NEURO: Patient is following commands and answering questions appropriately. Alert and oriented x3 Cranial Nerves 2-12 grossly intact Medical Decision & Procedures ER Provider Diagnostic Interpretation: Radiology results as stated below per my review and radiologist interpretation: ULTRASOUND RIGHT LOWER EXTREMITY VENOUS CLINICAL HISTORY: Right leg swelling. COMPARISON STUDY: Bilateral lower extremity venous ultrasound dated 03/02/2017. TECHNIQUE: Real-time, grayscale, and color Doppler sonography of the deep veins of the right lower extremity was performed from the inguinal crease to the calf. Compression and augmentation were utilized. FINDINGS: There is no sonographic evidence of deep venous thrombosis identified in the right lower extremity. The common femoral, superficial femoral, and popliteal veins are patent and normally compressible. The greater saphenous vein and the profunda femoris vein at the junction with the common femoral vein are clear. The visualized calf veins are patent. A 4.8 x 1.5 x 3.4 cm popliteal cyst is noted. IMPRESSION: 1. There is no sonographic evidence of deep venous thrombosis identified in the right lower extremity. 2. Popliteal cyst. Electronically signed by: Akash Glover M.D. 04/11/2017 7:57 AM Dictated Date/Time: 04/11/2017 7:56 AM ED Course 0646: Past medical records reviewed. The patient was evaluated in room A2. A complete history and physical examination was performed. 0832: Upon reexamination the patient is in no distress. I discussed results and treatment plan with the patient. She verbalizes agreement and understanding. The patient is ready for discharge. Medical Decision Differential Diagnosis Includes; Deep vein thrombosis, Superficial clot, ankle fracture, ankle dislocation, ankle subluxation. This is a 56-year-old female who presents emergency department complaining of bulging veins in her right foot. I do believe that the patient is most likely suffering from varicose veins. She has had surgery at this area in the past. There is no evidence of cellulitis or infection at the area. Ultrasound of the right lower extremity does not show any evidence of a blood clot. I stressed wearing compression stockings to the patient and asked her to follow-up with orthopedics. Patient was in agreement with the treatment plan. Impression Primary Impression: Swelling of right ankle joint Scribe Attestation The scribe's documentation has been prepared under my direction and personally reviewed by me in its entirety. I confirm that the note above accurately reflects all work, treatment, procedures, and medical decision making performed by me. Departure Information Dispostion Home / Self-Care Referrals Mani Alvarado PA-C (PCP) Forms HOME CARE DOCUMENTATION FORM, IMPORTANT VISIT INFORMATION Patient Instructions My [facility] Additional Instructions Follow up with DR Tucker's office You have been examined and treated today on an emergency basis only. This is not a substitute for, or an effort to provide, complete comprehensive medical care. It is impossible to recognize and treat all injuries or illnesses in a single emergency department visit. It is therefore important that you follow up closely with your PCP. Call as soon as possible for an appointment. Thank you for your time and consideration. I look forward to speaking with you again soon. Please don't hesitate to call us if you have any questions.
[2017-04-11] MEDS ORDERED: OXYC1TAB PO (06:58)
--- NOTE | 2017-04-11 07:58 | DIAGNOSTIC IMAGING REPORT ---
ULTRASOUND RIGHT LOWER EXTREMITY VENOUS CLINICAL HISTORY: Right leg swelling. COMPARISON STUDY: Bilateral lower extremity venous ultrasound dated 03/02/2017. TECHNIQUE: Real-time, grayscale, and color Doppler sonography of the deep veins of the right lower extremity was performed from the inguinal crease to the calf. Compression and augmentation were utilized. FINDINGS: There is no sonographic evidence of deep venous thrombosis identified in the right lower extremity. The common femoral, superficial femoral, and popliteal veins are patent and normally compressible. The greater saphenous vein and the profunda femoris vein at the junction with the common femoral vein are clear. The visualized calf veins are patent. A 4.8 x 1.5 x 3.4 cm popliteal cyst is noted. IMPRESSION: 1. There is no sonographic evidence of deep venous thrombosis identified in the right lower extremity. 2. Popliteal cyst. Electronically signed by: Akash Glover M.D. 04/11/2017 7:57 AM Dictated Date/Time: 04/11/2017 7:56 AM
[2017-04-11 09:00] VITALS: BP 148/86; PULSE 59; O2SAT 95
== END 2017-04-11 09:05 | disposition home or self-care (01) ==
LOC: C.EDB 06:25 → C.EDA 09:05
DX: M79.89 Other specified soft tissue disorders (principal); Z86.718 Personal history of other venous thrombosis and embolism; J45.909 Unspecified asthma, uncomplicated; I10 Essential (primary) hypertension; E66.01 Morbid (severe) obesity due to excess calories; Z80.9 Family history of malignant neoplasm, unspecified; Z83.3 Family history of diabetes mellitus; Z84.1 Family history of disorders of kidney and ureter; Z82.49 Family history of ischemic heart disease and other diseases of the circulatory system; Z83.6 Family history of other diseases of the respiratory system; Z87.891 Personal history of nicotine dependence; Z79.899 Other long term (current) drug therapy

== ENCOUNTER → 2017-06-11 | Outpatient (CLI) | payer BC, OTHER ==
[~2017-06-11] MED LIST changes: -CEPH500C PO; -SERT-234 PO
== END | disposition home or self-care (01) ==
LOC: C.LABSPEC 10:32
PROVIDERS: ATTEND Urology
DX: N39.0 Urinary tract infection, site not specified (principal); R39.15 Urgency of urination

== ENCOUNTER 2023-10-23 21:22 | Inpatient (IN) ==
[2023-10-23 22:29] LABS: Basophils # (auto) 0.04 K/uL (0.00-0.20); Basophils % (auto) 0.6 %; Eosinophils # (auto) 0.17 K/uL (0.00-0.50); Eosinophils % (auto) 2.6 %; Hematocrit (blood only) 43.7 % (37.0-47.0); Hemoglobin 14.3 g/dl (12.0-16.0); Immature Granulocytes # (auto) 0.03 K/uL (0.01-0.20); Immature Granulocytes % (auto) 0.5 %; Lymphocytes # (auto) 1.18 K/uL (1.20-3.40); Lymphocytes % (auto) 18.4 %; Mean Corpuscular Hemoglobin 27.3 pg (25.0-34.0); Mean Corpuscular Hgb Conc 32.7 g/dL (32.0-36.0); Mean Corpuscular Volume 83.6 fL (80.0-100.0); Mean Platelet Volume 10.2 fL (9.4-12.4); Monocytes # (auto) 0.58 K/uL (0.11-0.59); Neutrophils # (auto) 4.43 K/uL (1.40-6.50); Neutrophils % (auto) 68.9 %; Platelet Count 164 K/uL (130-400); RDW Coefficient of Variation 13.5 % (11.5-14.5); RDW Standard Deviation 41.2 fL (36.4-46.3); Red Blood Count 5.23 M/uL (4.20-5.40); White Blood Count 6.43 K/ul (4.8-10.8)
--- NOTE | 2023-10-23 22:29 | Emergency Department Note ---
Impression & Plan Exertional dyspnea, Orthopnea ED Provider Note NAME: LISS VALLEJO AGE: 62 SEX: F : 1960 ARRIVES VIA: Walk-In INFORMANT: Patient, ED PROVIDER(S): Uziel Seymour MD CHIEF COMPLAINT: Shortness of breath HPI: This is a 62-year-old female presenting for shortness of breath. Patient states with past 2 days she has had increasing shortness of breath. She has exertional dyspnea as well. She is having trouble laying flat which is new for her. She has new/worsening lower extremity edema. This never happened before. She notes slight chest discomfort specifically with breathing as well. No pleurisy however. No nausea, vomiting or diarrhea. She has no history of asthma and has had a slight headache with this as well. ROS: See above HPI for pertinent positives & negatives. A total of 10 systems reviewed and were otherwise negative. PHYSICAL EXAMINATION: General: resting comfortably in no acute distress, significant elevated BMI Head: Normocephalic and atraumatic Eyes: Normal inspection, extraocular muscles intact Ear, nose, throat: Normal external exam Neck: Normal range of motion Respiratory: lungs clear to auscultation bilaterally Cardiovascular: Regular rate/rhythm, no murmur GI: soft, nontender, no guarding or rebound Extremities: nontender, moves all extremities, 2+ pitting edema to bilateral extremities Neuro: The patient awake and alert, appropriately conversive, no focal deficits, symmetric faces Skin: Warm, dry, and intact MEDICAL DECISION MAKING: This is a 62-year-old female presenting for shortness of breath. Concern for CHF versus asthma exacerbation, low concern for PE as patient not hypoxic, tachycardic or tachypneic. She does have slight wheezing in the upper lobes with crackles at the bases. -Blood work shows no anemia, electrolytes show a slight hyponatremia to 133. Otherwise glucose elevated. BNP is not significantly elevated however patient is standing out of BMI, possibly also negative. TSH is reviewed with normal T4. -Chest Xray independently interpreted by me showing no pneumothorax, focal opacity, or pleural effusions. -Patient has no orthopnea, exertional dyspnea, leg swelling. Concern for new onset CHF. Will admit for further workup. Differential diagnosis: CHF, pneumonia, PE, dissection, ACS ER treatment provided: See below Diagnostics interpreted by me: ECG: ECG independently interpreted by me with normal sinus rhythm, rate of 75, normal NJ, normal QRS, normal QTc, no ST segment elevations consistent with STEMI criteria Cardiac Monitoring: An order was placed for continuous cardiac monitoring. The monitor shows a rate of 75 with sinus rhythm. Laboratory studies: As stated above and show below. Imaging studies: See below. Past Med/Surg History Problem List (Updated 10/25/23 @ 11:14 by Uziel Seymour MD) Orthopnea (Acute) Exertional dyspnea (Acute) Hypercalcemia SOB (shortness of breath) Mixed incontinence Seroma of breast Malignant neoplasm of central portion of right breast in female, estrogen receptor positive (Chronic 11/30/21) Dyspnea Encounter for removal of sutures Contusion of left hip Vaginitis Urge incontinence of urine Invasive ductal carcinoma of right breast Biopsy on 11/30/21 Interstitial cystitis Per records, pt unaware Urge and stress incontinence Urinary urgency S/P hip replacement left History of neck problems from remote traumatic accident History of neck injury from remote traumatic accident History of nephrectomy left (from a stone that may have damaged the kidney from childhood) Morbid obesity with BMI of 50.0-59.9, adult Medical History History of DVT (deep vein thrombosis) ~2012, previously on AC (per remote anesthesia records) Left arm History of blood transfusion s/p blood transfusion Osteoarthritis Chronic back pain Hypothyroidism History of strabismus Hypertension Post traumatic stress disorder Depression Anxiety Asthma stable Cellulitis Surgical History History of lumpectomy of right breast (01/01/22) Right Breast Central Lumpectomy, right axillary [place] Lymph Node Biopsy(Right) - Klaus Reyes DO History of breast biopsy 11/2021 -- right breast cancer History of difficult intubation Left SUHA: 02/19/2006: per records done under GA (no mention of reason for GA; DL --> LMA --> fiberoptic with difficulty seeing cords//per operative report, patient had bronchospasm as well which was treated medically) S/P SONNY-BSO History of dilatation and curettage History of open reduction and internal fixation (ORIF) procedure right ankle - metal hardware in place History of incision and drainage left hip wound x2 () History of cystoscopy History of tonsillectomy Family History Son Family history of diabetes mellitus Daughter Family history of diabetes mellitus Mother , 72yo COPD (chronic obstructive pulmonary disease) Hypertension Diabetes Endometrial cancer Father , in his 60s Cirrhosis of liver Alcoholism Brother Medical history unknown Sister Suicide Sister COVID Sister Gastric bypass status for obesity Smoker Sister Diabetes Hypertension Endometrial cancer Daughter Prematurity Son Diabetes Daughter Diabetes Daughter Hypertension Social History Smoking Status: Former smoker Second Hand Exposure: Yes; Do You Dip or Chew Tobacco: No; Hx Alcohol Use: Yes Hx Substance Use: Yes Non-Prescribed Medications: Marijuana Last Used Substance: Unknown Last Used Substance Other:: 1 weeks ago Preferred Language: Beninese Communication Ability: Effective Visual Impairment: No Limitations Hearing Ability: Normal Winch Operator Required: No Beliefs That Will Affect Care: None marital status: Current Living Situation: Family Current Living Situation Comment: Lives with daughter and grandson current occupational status: disabled How many Children do You have: 3 Feels Safe at Home: Yes Safety Concerns: Feels Safe At This Time Diet: regular caffeine: Yes (3 cups/day) during the past year weight has: remained stable Assistive Devices: Walker Allergies Allergies Allergy/AdvReac Type Severity Reaction Status Date / Time No Known Allergies Allergy Verified 10/23/23 22:35 Home Meds Home Medications Medication Instructions Recorded Confirmed albuterol sulfate 90 mcg/actuation 2 puff inhalation Q4H PRN 03/19/18 10/23/23 aerosol inhaler (Ventolin HFA) Shortness Of Breath Or Wheezing alprazolam 0.5 mg tablet 0.5 mg PO TID PRN Anxiety 03/19/18 10/23/23 fluticasone 250 mcg-salmeterol 50 1 inh inhalation BID PRN Shortness 03/19/18 10/23/23 mcg/dose blistr powdr for Of Breath Or Wheezing inhalation (Advair Diskus) levothyroxine 300 mcg tablet 300 mcg PO QAM 03/19/18 10/23/23 spironolactone 50 mg tablet 50 mg PO QAM 03/19/18 10/23/23 hydrocodone 10 mg-acetaminophen 1 - 2 tab PO Q6H PRN Pain 01/29/19 10/23/23 325 mg tablet sertraline 100 mg tablet 200 mg PO QAM 01/29/19 10/23/23 buspirone 10 mg tablet 10 mg PO BID 01/29/22 10/23/23 oxycodone 30 mg tablet 30 mg PO BID PRN Pain 10/24/23 10/24/23 Results & Data (ED) Vital Signs Vital Signs - 24 hr 10/23/23 21:24 10/23/23 22:00 10/23/23 22:00 Temperature 36.8 C Temperature Source Temporal Artery Scan Pulse Rate 93 H Respiratory Rate 22 Respiratory Effort / Characteristics Non-Labored Respiratory Depth Normal Respiratory Pattern Regular Blood Pressure 181/90 H Blood Pressure Mean 120 Pulse Oximetry 96 93 Oxygen Delivery Method Room Air Room Air Room Air Sepsis Recent Fever Within 48 Hours No Sepsis New/Unexplained Change in Mental Status N/A Sepsis Action Taken by Nursing No Action Required Pulse Oximetry Post Tiitration 93 Laboratory Data 10/25/23 07:22 10/25/23 07:22 Lab Results 10/23/23 Range/Units 22:10 WBC 6.43 (4.8-10.8) K/ul RBC 5.23 (4.20-5.40) M/uL Hgb 14.3 (12.0-16.0) g/dl Hct 43.7 (37.0-47.0) % MCV 83.6 (80.0-100.0) fL MCH 27.3 (25.0-34.0) pg MCHC 32.7 (32.0-36.0) g/dL RDW Std Deviation 41.2 (36.4-46.3) fL RDW Coeff of Ada 13.5 (11.5-14.5) % Plt Count 164 (130-400) K/uL MPV 10.2 (9.4-12.4) fL Immature Gran % (Auto) 0.5 % Neut % (Auto) 68.9 % Lymph % (Auto) 18.4 % Holmes % (Auto) 9.0 % Eos % (Auto) 2.6 % Baso % (Auto) 0.6 % Neut # (Auto) 4.43 (1.40-6.50) K/uL Lymph # (Auto) 1.18 L (1.20-3.40) K/uL Holmes # (Auto) 0.58 (0.11-0.59) K/uL Eos # (Auto) 0.17 (0.00-0.50) K/uL Baso # (Auto) 0.04 (0.00-0.20) K/uL Immature Gran # (Auto) 0.03 (0.01-0.20) K/uL PT 11.4 (9.0-12.0) Seconds INR 1.1 (0.9-1.1) APTT 25 (21-31) Seconds PTT Ratio 0.9 Sodium 133 L (136-145) mmol/L Potassium 4.3 (3.5-5.1) mmol/L Chloride 100 (98-107) mmol/L Carbon Dioxide 28 (21-32) mmol/L Anion Gap 5 (3-11) BUN 15 (6-23) mg/dl Creatinine 0.86 (0.6-1.2) mg/dl Est Cr Clr Drug Dosing 97.6 ml/min Est GFR ( Amer) 83.3 ml/min Est GFR (Non-Af Amer) 71.9 ml/min BUN/Creatinine Ratio 17.4 (10-20) Glucose 228 H (70-99(Fasting)) mg/dl Calcium 11.4 H (8.6-10.3) mg/dl Phosphorus 2.7 (2.5-4.9) mg/dl Magnesium 1.7 (1.7-2.4) mg/dl Total Bilirubin 0.9 (0.2-1.0) mg/dl AST 25 (13-39) U/L ALT 21 (7-52) U/L Alkaline Phosphatase 117 H (34-104) U/L Troponin I High Sens 6.2 (0-14) pg/ml B-Natriuretic Peptide 22 (0-100) pg/ml Total Protein 7.4 (6.0-8.3) gm/dl Albumin 4.0 (3.4-5.0) gm/dl Globulin 3.4 (2.5-4.0) gm/dl Albumin/Globulin Ratio 1.2 (0.9-2) TSH 6.080 H (0.300-4.500) uIu/ml Free T4 0.90 (0.61-1.60) ng/dl Administered Medications Acetaminophen (Acetaminophen 325 Mg Tab) 325 mg PO Q6H PRN PRN Reason: fever/pain Stop: 11/23/23 06:38 Last Admin: 10/25/23 06:36 Dose: 325 mg Documented By: IGLESIA Hydrocodone Bitart/Acetaminophen (Hydrocodone/Acetaminophen 10/325 Tab) 1 - 2 tab PO Q6H PRN PRN Reason: Pain Stop: 11/07/23 06:04 Last Admin: 10/25/23 10:59 Dose: 2 tab Documented By: Admin: 10/24/23 15:54 Dose: 1 tab Documented By: Admin: 10/24/23 06:14 Dose: 2 tab Documented By: SUPRIYA Alprazolam (Alprazolam 0.5 Mg Tablet) 0.5 mg PO TID PRN PRN Reason: Anxiety Stop: 11/23/23 00:43 Last Admin: 10/24/23 21:33 Dose: 0.5 mg Documented By: IGLESIA Buspirone HCl (Buspirone 5 Mg Tab) 10 mg PO BID [facility] Stop: 11/23/23 08:59 Last Admin: 10/25/23 08:43 Dose: 10 mg Documented By: Admin: 10/24/23 21:34 Dose: 10 mg Documented By: Admin: 10/24/23 09:20 Dose: 10 mg Documented By: HELEN Doxycycline Hyclate (Doxycycline Hyclate 100 Mg Cap) 100 mg PO BID [facility] Stop: 10/31/23 20:59 Last Admin: 10/25/23 08:44 Dose: 100 mg Documented By: Admin: 10/24/23 21:34 Dose: 100 mg Documented By: IGLESIA Enoxaparin Sodium (Enoxaparin Inj 40 Mg/0.4 Ml Syr) 40 mg SQ QAM ABDULKADIR Stop: 11/23/23 08:59 Last Admin: 10/25/23 08:42 Dose: 40 mg Documented By: Admin: 10/24/23 09:20 Dose: 40 mg Documented By: HELEN Ergocalciferol (Ergocalciferol 1250 Mcg (50,000 Units) Cap) 1,250 mcg PO Q7D [facility] Stop: 11/23/23 12:59 Last Admin: 10/24/23 18:13 Dose: 1,250 mcg Documented By: ARUN Ceftriaxone Sodium (Rocephin) 2,000 mg in 50 mls @ 100 mls/hr IV Q24H [facility] Stop: 11/04/23 05:59 Last Infusion: 10/25/23 07:03 Dose: Infused Documented By: Admin: 10/25/23 06:33 Dose: 100 mls/hr Documented By: IGLESIA Insulin Aspart (Insulin Aspart Per Unit Charge) 0 units SC ACHS [facility] Stop: 11/23/23 07:29 Last Admin: 10/25/23 08:49 Dose: 10 units Documented By: ADOLPH Co-signed By: ARNOL Admin: 10/24/23 21:32 Dose: 1 units Documented By: IGLESIA Co-signed By: LUCHO Admin: 10/24/23 17:20 Dose: 7 units Documented By: PETERSON Co-signed By: ARUN Admin: 10/24/23 13:03 Dose: 7 units Documented By: HELEN Co-signed By: KIRAN Admin: 10/24/23 09:19 Dose: 6 units Documented By: HELEN Co-signed By: KIRK Insulin Glargine (Lantus Per Unit Charge) 10 units SC DAILY [facility] Stop: 11/24/23 08:59 Last Admin: 10/25/23 08:57 Dose: 10 units Documented By: ADOLPH Co-signed By: [id number] Levothyroxine Sodium (Levothyroxine Sodium 150 Mcg Tablet) 300 mcg PO DAILYBB [facility] Stop: 11/23/23 06:29 Last Admin: 10/25/23 06:16 Dose: 300 mcg Documented By: Admin: 10/24/23 08:10 Dose: 300 mcg Documented By: HELEN Oxycodone HCl (Oxycodone Hcl Ir 5 Mg Tab (Immediate Release)) 30 mg PO BID PRN PRN Reason: Pain-not relieved by Hydrocodo Stop: 11/07/23 11:48 Last Admin: 10/25/23 04:04 Dose: 30 mg Documented By: Admin: 10/24/23 12:01 Dose: 30 mg Documented By: HELEN Sertraline HCl (Sertraline Hcl 100 Mg Tablet) 200 mg PO QAM [facility] Stop: 11/23/23 08:59 Last Admin: 10/25/23 08:43 Dose: 200 mg Documented By: Admin: 10/24/23 09:20 Dose: 200 mg Documented By: HELEN Spironolactone (Spironolactone 25 Mg Tab) 50 mg PO QAM ABDULKADIR Stop: 11/23/23 08:59 Last Admin: 10/25/23 08:43 Dose: 50 mg Documented By: Admin: 10/24/23 09:20 Dose: 50 mg Documented By: HELEN Discontinued Medications Acetaminophen (Acetaminophen 325 Mg Tab) 650 mg PO QID PRN PRN Reason: pain/fever Stop: 11/23/23 00:43 Last Admin: 10/24/23 02:16 Dose: 650 mg Documented By: SUPRIYA Albuterol (Albut/Ipratrop 3mg/0.5mg Neb 3 Ml Vial) 3 ml NEB NOW STA; Protocol Stop: 10/24/23 03:25 Last Admin: 10/24/23 06:04 Dose: Not Given Documented By: SUPRIYA Furosemide (Furosemide Inj 20 Mg/2 Ml Vial) 20 mg IV ONE STA Stop: 10/24/23 03:13 Last Admin: 10/24/23 04:19 Dose: 20 mg Documented By: SUPRIYA Albumin Human (Albumin 25%) 25 gm in 100 mls @ 50 mls/hr IV ONE STA Stop: 10/24/23 02:12 Last Infusion: 10/24/23 03:23 Dose: Infused Documented By: Admin: 10/24/23 00:56 Dose: 50 mls/hr Documented By: SUPRIYA Doxycycline Hyclate 100 mg/ (Dextrose) 100 mls @ 50 mls/hr IV NOW STA Stop: 10/24/23 05:16 Last Infusion: 10/24/23 06:33 Dose: Infused Documented By: Admin: 10/24/23 04:22 Dose: 50 mls/hr Documented By: SUPRIYA Ceftriaxone Sodium (Rocephin) 2,000 mg in 50 mls @ 100 mls/hr IV ONE STA Stop: 10/24/23 04:02 Last Infusion: 10/24/23 06:06 Dose: Infused Documented By: Admin: 10/24/23 04:22 Dose: 100 mls/hr Documented By: SUPRIYA Magnesium Sulfate/Dextrose (Magnesium Sulfate / D5w) 1 gm in 100 mls @ 50 mls/hr IV Q2H ABDULKADIR Stop: 10/24/23 16:59 Last Infusion: 10/24/23 17:51 Dose: Infused Documented By: Admin: 10/24/23 15:51 Dose: 50 mls/hr Documented By: Infusion: 10/24/23 15:51 Dose: Infused Documented By: Admin: 10/24/23 14:06 Dose: 50 mls/hr Documented By: BRITTANIE Insulin Aspart (Insulin Aspart Per Unit Charge) 0 units SC ONE STA Stop: 10/24/23 00:52 Last Admin: 10/24/23 01:43 Dose: 3 units Documented By: SUPRIYA Co-signed By: WESLEY Insulin Glargine (Lantus Per Unit Charge) 5 units SQ ONE STA Stop: 10/24/23 02:54 Last Admin: 10/24/23 03:19 Dose: 5 units Documented By: SUPRIYA Co-signed By: KRISTAL Insulin Glargine (Lantus Per Unit Charge) 10 units SQ 1630 ONE Stop: 10/24/23 16:31 Last Admin: 10/24/23 17:13 Dose: 10 units Documented By: PETERSON Co-signed By: ARUN Ioversol (Optiray 320 125ml) 119 ml IV ONCE ONE Stop: 10/24/23 01:31 Last Admin: 10/24/23 01:30 Dose: 119 ml Documented By: HUSSEIN Oxycodone HCl (Oxycodone Hcl Ir 5 Mg Tab (Immediate Release)) 5 - 10 mg PO QID PRN PRN Reason: Pain Stop: 11/07/23 00:44 Last Admin: 10/24/23 03:24 Dose: 5 mg Documented By: SUPRIYA Discharge Plan Visit Data Chief Complaint: Shortness of Breath/Dyspnea Stated Complaint: SOB, COUGH, FATIGUE, HAS ASTHMA ED Provider: Uziel Seymour Discharge Problem: Exertional dyspnea, Orthopnea Patient Disposition: Admitted As Inpatient Discharge Instructions Interventions: ED Discharge Assessment Last Done: 10/24/23 06:01
[2023-10-23 22:49] LABS: Albumin Globulin Ratio 1.2 (0.9-2); BUN Creatinine Ratio 17.4 (10-20); Bilirubin,Total 0.9 mg/dl (0.2-1.0); Calcium 11.4 mg/dl (8.6-10.3); Creatinine Clr Calc Pharmacy 97.6 ml/min; Est GFR (African American) 83.3 ml/min; Est GFR (Non-African American) 71.9 ml/min; Globulin 3.4 gm/dl (2.5-4.0); Potassium 4.3 mmol/L (3.5-5.1); Total Protein 7.4 gm/dl (6.0-8.3)
[2023-10-23 22:56] LABS: Troponin I High Sensitivity 6.2 pg/ml (0-14)
[2023-10-23 23:00] LABS: INR 1.1 (0.9-1.1); Partial Thromboplastin Ratio 0.9; Partial Thromboplastin Time 25 Seconds (21-31); Prothrombin Time 11.4 Seconds (9.0-12.0)
--- NOTE | 2023-10-24 00:38 | History & Physical Report ---
Date of Service October 24, 2023 Assessment & Plan (1) SOB (shortness of breath): Plan: Secondary to atypical pneumonia No sepsis for now Anxiety contributory Complicated UTI, no sepsis for now Hypercalcemia likely from primary hyperparathyroidism Bilateral leg swelling rule out DVT hypertension, stable bronchial asthma, not in acute exacerbation right breast cancer status post surgery/incomplete radiation hx upper extremity DVT status post Coumadin hypothyroidism, TSH slightly elevated hx urolithiasis status post surgery Marked hyperglycemia likely DM, noted on from 2021 Admit to medical telemetry Doxycycline for atypical pneumonia Anxiolytic as needed Urine CS, Ceftriaxone Lasix 1 dose for hypercalcemia given presence of peripheral edema Nephrology consult Re: Hypercalcemia, primary hyperparathyroidism LE venous Dopplers rule out DVT Basal bolus insulin, ISS BG goal 1 10-1 40, carb count coverage, check hemoglobin A1c DM education contingent on hemoglobin A1c results Recheck TSH next month DVT prophylaxis. Lovenox subcu Full code Text document was generated using [employer], a division of [employer] voice recognition software. It may contain grammatical or spelling errors. Kindly contact undersigned for clarification of any documentation item in questi on. History of Present Illness Chief Complaint: Shortness of breath Primary Care Provider: Mani Alvarado PA-C History obtained from patient and records. Medical history significant for hypertension, bronchial asthma, right breast cancer status post surgery/incomplete radiation, upper extremity DVT status post Coumadin, hypothyroidism, urolithiasis status post surgery, morbid obesity, anxiety/mood disorder, chronic pain, past tobacco abuse. Last confinement 2009 for left-sided chest pain. Few days history of shortness of breath with transient left-sided pleuritic chest pain. Dry cough symptoms. Patient not sure about sick contacts. Denies aspiration. Bilateral leg swelling without recollection of recent trauma. Denies weight gain, patient actually losing weight. Past sleep study negative for sleep apnea as per patient Not moving a lot the last few weeks due to depression denies suicidality. Transient achy abdominal discomfort possibly from nerves as per patient. 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 Allergies Allergy/AdvReac Type Severity Reaction Status Date / Time No Known Allergies Allergy Verified 10/23/23 22:35 Home Medications Medication Instructions Recorded Confirmed Type albuterol sulfate 90 mcg/actuation 2 puff inhalation Q4H PRN 03/19/18 10/23/23 History aerosol inhaler (Ventolin HFA) Shortness Of Breath Or Wheezing alprazolam 0.5 mg tablet 0.5 mg PO TID PRN Anxiety 03/19/18 10/23/23 History fluticasone 250 mcg-salmeterol 50 1 inh inhalation BID PRN Shortness 03/19/18 10/23/23 History mcg/dose blistr powdr for Of Breath Or Wheezing inhalation (Advair Diskus) levothyroxine 300 mcg tablet 300 mcg PO QAM 03/19/18 10/23/23 History oxycodone 30 mg tablet,crush 30 mg PO BID PRN Pain 03/19/18 10/23/23 History resistant,extended release 12 hr spironolactone 50 mg tablet 50 mg PO QAM 03/19/18 10/23/23 History hydrocodone 10 mg-acetaminophen 1 - 2 tab PO Q6H PRN Pain 01/29/19 10/23/23 History 325 mg tablet sertraline 100 mg tablet 200 mg PO QAM 01/29/19 10/23/23 History buspirone 10 mg tablet 10 mg PO BID 01/29/22 10/23/23 History Past Med/Surg History Problem List (Updated 10/24/23 @ 03:22 by Franco Mccullough MD) SOB (shortness of breath) Mixed incontinence Seroma of breast Malignant neoplasm of central portion of right breast in female, estrogen receptor positive (Chronic 11/30/21) Dyspnea Encounter for removal of sutures Contusion of left hip Vaginitis Urge incontinence of urine Invasive ductal carcinoma of right breast Biopsy on 11/30/21 Interstitial cystitis Per records, pt unaware Urge and stress incontinence Urinary urgency S/P hip replacement left History of neck problems from remote traumatic accident History of neck injury from remote traumatic accident History of nephrectomy left (from a stone that may have damaged the kidney from childhood) Morbid obesity with BMI of 50.0-59.9, adult Medical History History of DVT (deep vein thrombosis) ~2012, previously on AC (per remote anesthesia records) Left arm History of blood transfusion 1980's s/p blood transfusion Osteoarthritis Chronic back pain Hypothyroidism History of strabismus Hypertension Post traumatic stress disorder Depression Anxiety Asthma stable Cellulitis Surgical History History of lumpectomy of right breast (01/01/22) Right Breast Central Lumpectomy, right axillary [place] Lymph Node Biopsy(Right) - Klaus Reyes, History of breast biopsy 11/2021 -- right breast cancer History of difficult intubation Left SUHA: 02/19/2006: per records done under [place] (no mention of reason for GA; DL --> LMA --> fiberoptic with difficulty seeing cords//per operative report, patient had bronchospasm as well which was treated medically) S/P SONNY-BSO History of dilatation and curettage History of open reduction and internal fixation (ORIF) procedure right ankle - metal hardware in place History of incision and drainage left hip wound x2 () History of cystoscopy History of tonsillectomy Family History Son Family history of diabetes mellitus Daughter Family history of diabetes mellitus Mother , 72yo COPD (chronic obstructive pulmonary disease) Hypertension Diabetes Endometrial cancer Father , in his 60s Cirrhosis of liver Alcoholism Brother Medical history unknown Sister Suicide Sister COVID Sister Gastric bypass status for obesity Smoker Sister Diabetes Hypertension Endometrial cancer Daughter Prematurity Son Diabetes Daughter Diabetes Daughter Hypertension Social History Smoking Status: Former smoker Second Hand Exposure: Yes; Do You Dip or Chew Tobacco: No; Hx Alcohol Use: No Hx Substance Use: Yes (Once in awhile) Non-Prescribed Medications: Marijuana Last Used Substance Other:: 1 weeks ago Preferred Language: Indonesian Communication Ability: Effective Visual Impairment: No Limitations Hearing Ability: Normal Sugar Cane Grower Required: No Beliefs That Will Affect Care: None marital status: Current Living Situation: Spouse and Family Current Living Situation Comment: Lives w/ and daughter current occupational status: disabled How many Children do You have: 3 Feels Safe at Home: Yes Diet: regular caffeine: Yes (3 cups/day) during the past year weight has: remained stable Assistive Devices: Walker Review of Systems Review of Systems: As per HPI, all other systems reviewed and negative Physical Exam Physical Exam: GENERAL: Comfortable, morbidly obese, slightly anxious, no respiratory distress SKIN: Normal color, warm HEENT: [place] palpebral conjunctivae, no ptosis, dry buccal mucosa NECK : Supple, short neck, no tenderness CHEST : Decreased breath sounds, no tenderness HEART : RRR, no obvious murmurs ABDOMEN: Marked distention, minimal hypogastric tenderness EXTREMITIES : Bilateral LE swelling without LE tenderness, no other conspicuous deformities noted NEUROLOGIC : Coherent, no facial asymmetry, no other gross focality Results & Data Results & Data Vital Signs (Past 12 Hours) Vital Signs Temp Pulse Pulse Resp BP BP Pulse Ox 10/24/23 00:03 63 10/23/23 22:35 68 16 134/69 96 10/23/23 22:00 93 10/23/23 22:00 10/23/23 21:24 36.8 C 93 H 22 181/90 H 96 O2 Del Method 10/24/23 00:03 10/23/23 22:35 Room Air 10/23/23 22:00 Room Air 10/23/23 22:00 Room Air 10/23/23 21:24 Room Air Laboratory Results Laboratory Results WBC 6.43 K/ul (4.8-10.8) 10/23/23 22:10 RBC 5.23 M/uL (4.20-5.40) 10/23/23 22:10 Hgb 14.3 g/dl (12.0-16.0) 10/23/23 22:10 Hct 43.7 % (37.0-47.0) 10/23/23 22:10 MCV 83.6 fL (80.0-100.0) 10/23/23 22:10 MCH 27.3 pg (25.0-34.0) 10/23/23 22:10 MCHC 32.7 g/dL (32.0-36.0) 10/23/23 22:10 RDW Std Deviation 41.2 fL (36.4-46.3) 10/23/23 22:10 RDW Coeff of Ada 13.5 % (11.5-14.5) 10/23/23 22:10 Plt Count 164 K/uL (130-400) 10/23/23 22:10 MPV 10.2 fL (9.4-12.4) 10/23/23 22:10 Immature Gran % (Auto) 0.5 % 10/23/23 22:10 Neut % (Auto) 68.9 % 10/23/23 22:10 Lymph % (Auto) 18.4 % 10/23/23 22:10 [place] % (Auto) 9.0 % 10/23/23 22:10 Eos % (Auto) 2.6 % 10/23/23 22:10 Baso % (Auto) 0.6 % 10/23/23 22:10 Neut # (Auto) 4.43 K/uL (1.40-6.50) 10/23/23 22:10 Lymph # (Auto) 1.18 K/uL (1.20-3.40) L 10/23/23 22:10 [place] # (Auto) 0.58 K/uL (0.11-0.59) 10/23/23 22:10 Eos # (Auto) 0.17 K/uL (0.00-0.50) 10/23/23 22:10 Baso # (Auto) 0.04 K/uL (0.00-0.20) 10/23/23 22:10 Immature Gran # (Auto) 0.03 K/uL (0.01-0.20) 10/23/23 22:10 PT 11.4 Seconds (9.0-12.0) 10/23/23 22:10 INR 1.1 (0.9-1.1) 10/23/23 22:10 APTT 25 Seconds (21-31) 10/23/23 22:10 PTT Ratio 0.9 10/23/23 22:10 Sodium 133 mmol/L (136-145) L 10/23/23 22:10 Potassium 4.3 mmol/L (3.5-5.1) 10/23/23 22:10 Chloride 100 mmol/L (98-107) 10/23/23 22:10 Carbon Dioxide 28 mmol/L (21-32) 10/23/23 22:10 Anion Gap 5 (3-11) 10/23/23 22:10 BUN 15 mg/dl (6-23) 10/23/23 22:10 Creatinine 0.86 mg/dl (0.6-1.2) 10/23/23 22:10 Est Cr Clr Drug Dosing 97.6 ml/min 10/23/23 22:10 Est GFR ( Amer) 83.3 ml/min 10/23/23 22:10 Est GFR (Non-Af Amer) 71.9 ml/min 10/23/23 22:10 BUN/Creatinine Ratio 17.4 (10-20) 10/23/23 22:10 Glucose 228 mg/dl (70-99(Fasting)) H 10/23/23 22:10 Calcium 11.4 mg/dl (8.6-10.3) H 10/23/23 22:10 Total Bilirubin 0.9 mg/dl (0.2-1.0) 10/23/23 22:10 AST 25 U/L (13-39) 10/23/23 22:10 ALT 21 U/L (7-52) 10/23/23 22:10 Alkaline Phosphatase 117 U/L (34-104) H 10/23/23 22:10 Troponin I High Sens 6.2 pg/ml (0-14) 10/23/23 22:10 B-Natriuretic Peptide 22 pg/ml (0-100) 10/23/23 22:10 Total Protein 7.4 gm/dl (6.0-8.3) 10/23/23 22:10 Albumin 4.0 gm/dl (3.4-5.0) 10/23/23 22:10 Globulin 3.4 gm/dl (2.5-4.0) 10/23/23 22:10 Albumin/Globulin Ratio 1.2 (0.9-2) 10/23/23 22:10 CT chest: 1. No acute pulmonary embolism. 2. Linear scarring in the RIGHT upper lobe. Mild superimposed pneumonia not excluded, correlate for RIGHT upper lobe pneumonia. CT abdomen pelvis: No acute findings in the abdomen or pelvis. Diagnostic Findings EKG as per my interpretation : Rate 75, NSR, normal axis, no ischemia
[2023-10-24 00:41] LABS: Magnesium 1.7 mg/dl (1.7-2.4); Phosphorus 2.7 mg/dl (2.5-4.9)
[2023-10-24] MEDS ORDERED: DEXTROSE 50% 50 ML SYRINGE IV PRN (00:43)
[2023-10-24] MEDS ORDERED: CARBOHYDRATES FOR HYPOGLYCEMIA PO PRN (00:43)
[2023-10-24] MEDS ORDERED: GLUCAGON FOR INJ 1 MG VIAL SQ PRN (00:43)
[2023-10-24] MEDS ORDERED: GLUCOSE 10 TAB/TUBE PO PRN (00:43)
[2023-10-24] MEDS ORDERED: GLUCOSE 40% GEL 15 GM TUBE PO PRN (00:43)
[2023-10-24] MEDS ORDERED: oxyCODONE HCL IR 5 MG TAB (IMMEDIATE RELEASE) PO PRN (00:44)
[2023-10-24] MEDS ORDERED: FLUTICASONE/VILANTEROL 100/25MCG 14 PUFFS/INHALER INH PRN (00:53)
[2023-10-24] MEDS: ALBUMIN 25% 25 GM/100 ML VIAL IV STA (00:56)
[2023-10-24 00:57] LABS: Thyroid Stimulating Hormone 6.08 uIu/ml (0.300-4.500)
[2023-10-24] MEDS: OPTIRAY 320 125ml IV ONE (01:30)
[2023-10-24 01:33] LABS: T4 Free Thyroxine 0.9 ng/dl (0.61-1.60)
[2023-10-24] MEDS: INSULIN ASPART PER UNIT CHARGE SC STA (01:43)
[2023-10-24 01:44] LABS: Troponin I High Sensitivity 7.1 pg/ml (0-14)
[2023-10-24] MEDS: ACETAMINOPHEN 325 MG TAB PO PRN (02:16)
[2023-10-24 02:57] LABS: Appearance Urine Cloudy (Clear); Bacteria Urine Automated 4+ (None Seen); Bilirubin Urine Negative (Negative); Blood Urine Negative (Negative); Cast Urine Automated 0-2 /lpf (0-2); Color Urine Yellow; Epithelial Cell Urine Auto 0-2 /hpf (0-2); Glucose Urine UA Negative (Negative); Ketones Urine Negative (Negative); Leukocyte Esterase Urine 3+ (Negative); Nitrite Urine Positive (Negative); Protein Urine Negative (Negative); RBC Urine Automated 0-2 /hpf (0-2); Specific Gravity Urine 1.044 (1.000-1.030); Urobilinogen Urine Negative (Negative); WBC Urine Automated >50 /hpf (0-5)
[2023-10-24 03:07] LABS: Adenovirus PCR Not Detected (NotDetected); Bordetella parapertussis PCR Not Detected (NotDetected); Bordetella pertussis PCR Not Detected (NotDetected); Chlamydia pneumoniae PCR Not Detected (NotDetected); Coronavirus 229E PCR Not Detected (NotDetected); Coronavirus CoV-2 (COVID19)PCR Not Detected (NotDetected); Coronavirus HKU1 PCR Not Detected (NotDetected); Coronavirus NL63 PCR Not Detected (NotDetected); Coronavirus OC43PCR Not Detected (NotDetected); Human Metapneumovirus PCR Not Detected (NotDetected); Influenza A PCR Not Detected (NotDetected); Influenza B PCR Not Detected (NotDetected); Mycoplasma pneumoniae PCR Not Detected (NotDetected); Parainfluenza Virus 1 PCR Not Detected (NotDetected); Parainfluenza Virus 2 PCR Not Detected (NotDetected); Parainfluenza Virus 3 PCR Not Detected (NotDetected); Parainfluenza Virus 4 PCR Not Detected (NotDetected); Respiratory Syncytial VirusPCR Not Detected (NotDetected); Rhinovirus/Enterovirus PCR Not Detected (NotDetected)
--- NOTE | 2023-10-24 03:09 | CT Scan Report ---
Exam(s): CTA CHEST IV Amt: 119 cc opti 320 EXAM: CT Angiography Chest With Intravenous Contrast CLINICAL HISTORY: Reason for exam: cp sob. TECHNIQUE: Axial computed tomographic angiography images of the chest with intravenous contrast. CTDI is 28.14 mGy and DLP is 1542.04 mGy-cm. Automated exposure control was utilized for the study. A dose lowering technique was utilized adhering to the principles of ALARA. MIP reconstructed images were created and reviewed. COMPARISON: No relevant prior studies available. FINDINGS: Pulmonary arteries: Unremarkable. No acute pulmonary embolism. Aorta: No acute findings. No thoracic aortic aneurysm. Lungs: Linear scarring in the RIGHT upper lobe. Mild superimposed pneumonia not excluded, correlate for RIGHT upper lobe pneumonia. Pleural space: Unremarkable. No significant effusion. No pneumothorax. Heart: Unremarkable. No cardiomegaly. No significant pericardial effusion. No evidence of RV dysfunction. Bones/joints: Degenerative changes of the spine. No acute fracture. No dislocation. Soft tissues: Unremarkable. Lymph nodes: Unremarkable. No enlarged lymph nodes. Spleen: Calcified splenic granuloma. IMPRESSION: 1. No acute pulmonary embolism. 2. Linear scarring in the RIGHT upper lobe. Mild superimposed pneumonia not excluded, correlate for RIGHT upper lobe pneumonia. Electronically signed by: Luis Eduardo Beverly MD 10/24/23 03:09 AM
[2023-10-24] MEDS: LANTUS PER UNIT CHARGE SQ STA (03:19)
[2023-10-24] MEDS: oxyCODONE HCL IR 5 MG TAB (IMMEDIATE RELEASE) PO PRN ×2 (03:24→12:01)
--- NOTE | 2023-10-24 03:25 | CT Scan Report ---
Exam(s): CT ABDOMEN + PELVIS With Contrast IV Amt: 119 cc opti 320 EXAM: CT Abdomen and Pelvis With Intravenous Contrast CLINICAL HISTORY: Reason for exam: abd pain. TECHNIQUE: Axial computed tomography images of the abdomen and pelvis with intravenous contrast. CTDI is 28.14 mGy and DLP is 1542.04 mGy-cm. Automated exposure control was utilized for the study. A dose lowering technique was utilized adhering to the principles of ALARA. CONTRAST: Patient received 119 cc opti 320 of IV contrast COMPARISON: 08/14/2018 FINDINGS: Lung bases: Unremarkable. No mass. No consolidation. ABDOMEN: Liver: Fatty infiltration of liver. Gallbladder and bile ducts: Unremarkable. No calcified stones. No ductal dilation. Pancreas: Unremarkable. No mass. No ductal dilation. Spleen: Calcified granulomas within the spleen. Adrenals: 1.3 cm right adrenal gland mass unchanged from prior. Kidneys and ureters: Postoperative changes left nephrectomy. Stomach and bowel: Unremarkable. No obstruction. No mucosal thickening. PELVIS: Appendix: No findings to suggest acute appendicitis. Bladder: Unremarkable. No mass. Reproductive: Unremarkable as visualized. ABDOMEN and PELVIS: Intraperitoneal space: Unremarkable. No free air. No significant fluid collection. Bones/joints: Postoperative changes of left hip arthroplasty. No acute fracture. No dislocation. Soft tissues: Unremarkable. Vasculature: Unremarkable. No abdominal aortic aneurysm. Lymph nodes: Unremarkable. No enlarged lymph nodes. IMPRESSION: No acute findings in the abdomen or pelvis. Electronically signed by: Carrillo Jewell MD 10/24/23 03:24 AM
[2023-10-24] MEDS: FUROSEMIDE INJ 20 MG/2 ML VIAL IV STA (04:19)
[2023-10-24] MEDS: cefTRIAXone SODIUM 2,000 MG/50 ML BAG IV STA (04:22)
[2023-10-24] MEDS: DOXYCYCLINE HYCLATE 100 MG in DEXTROSE 5% MINI-B 100 ML IV STA (04:22)
--- NOTE | 2023-10-24 04:25 | Ultrasound Report ---
Exam(s): US VENOUS BILATERAL LOWER EXTREMITIES EXAM: US Duplex Bilateral Lower Extremities Veins CLINICAL HISTORY: Reason for exam: leg swelling. TECHNIQUE: Real-time duplex ultrasound scan of the bilateral lower extremity veins integrating B-mode two-dimensional vascular structure, Doppler spectral analysis, color flow Doppler imaging and compression. COMPARISON: No relevant prior studies available. FINDINGS: Right deep veins: Unremarkable. No DVT in the right common femoral, femoral, proximal deep femoral or popliteal veins. The veins demonstrate normal color flow, are normally compressible, with normal phasic flow and/or augmentation response. Right superficial veins: Unremarkable. No thrombus in the visualized right great saphenous vein. Left deep veins: Unremarkable. No DVT in the left common femoral, femoral, proximal deep femoral or popliteal veins. The veins demonstrate normal color flow, are normally compressible, with normal phasic flow and/or augmentation response. Left superficial veins: Unremarkable. No thrombus in the visualized left great saphenous vein. Soft tissues: No acute findings. No popliteal cyst. IMPRESSION: Normal bilateral lower extremity duplex venous ultrasound. Electronically signed by: Carrillo Jewell MD 10/24/23 04:24 AM
[2023-10-24] MEDS: ALBUT/IPRATROP 3MG/0.5MG NEB 3 ML VIAL NEB STA (06:04)
[2023-10-24] MEDS ORDERED: oxyCODONE HCL 15 MG TABCR (OxyCONTIN) PO PRN (06:05)
[2023-10-24] MEDS: HYDROcodone/ACETAMINOPHEN 10/325 TAB PO PRN (06:14)
[2023-10-24] MEDS ORDERED: oxyCODONE HCL IR 30 MG TAB (IMMEDIATE RELEASE) PO PRN (06:43)
[2023-10-24 07:22] LABS: Estimated Average Glucose 278 mg/dl; Hemoglobin A1C 11.3 % (4.5-5.6)
[2023-10-24 07:29] LABS: Basophils # (auto) 0.06 K/uL (0.00-0.20); Eosinophils # (auto) 0.17 K/uL (0.00-0.50); Eosinophils % (auto) 2.7 %; Hematocrit (blood only) 41.4 % (37.0-47.0); Hemoglobin 13.8 g/dl (12.0-16.0); Immature Granulocytes # (auto) 0.02 K/uL (0.01-0.20); Immature Granulocytes % (auto) 0.3 %; Lymphocytes # (auto) 1.73 K/uL (1.20-3.40); Lymphocytes % (auto) 27.8 %; Mean Corpuscular Hemoglobin 27.4 pg (25.0-34.0); Mean Corpuscular Hgb Conc 33.3 g/dL (32.0-36.0); Mean Corpuscular Volume 82.1 fL (80.0-100.0); Mean Platelet Volume 9.9 fL (9.4-12.4); Monocytes # (auto) 0.61 K/uL (0.11-0.59); Monocytes % (auto) 9.8 %; Neutrophils # (auto) 3.63 K/uL (1.40-6.50); Neutrophils % (auto) 58.4 %; Platelet Count 150 K/uL (130-400); RDW Coefficient of Variation 13.7 % (11.5-14.5); RDW Standard Deviation 40.9 fL (36.4-46.3); Red Blood Count 5.04 M/uL (4.20-5.40); White Blood Count 6.22 K/ul (4.8-10.8)
[2023-10-24 07:46] LABS: BUN Creatinine Ratio 19.2 (10-20); Creatinine Clr Calc Pharmacy 106.1 ml/min; Est GFR (African American) 93.8 ml/min; Est GFR (Non-African American) 80.9 ml/min
--- NOTE | 2023-10-24 07:52 | XRay Report ---
XR chest 1V not portable HISTORY: 62 years-old Female Chest pain, nonspecific COMPARISON: CTA chest 10/24/2023, 08/20/2023. TECHNIQUE: AP view of the chest FINDINGS: Cardiomediastinal and hilar silhouettes are within normal limits. Mild emphysema. Right lung volume l oss with linear scarring in the right upper lobe. Right hemidiaphragmatic elevation. No pneumothorax, pleural effusion or pulmonary edema. Bones appear grossly intact. IMPRESSION: 1. No acute process. 2. Linear scarring of the right upper lobe redemonstrated. ACT 112: Negative or not required by law. The above report was generated using voice recognition software. It may contain grammatical, syntax o r spelling errors. Electronically signed by: Drake Troy M.D. 10/24/2023 7:51 AM
[2023-10-24] MEDS: LEVOTHYROXINE SODIUM 150 MCG TABLET PO SCH (08:10)
[2023-10-24] MEDS: INSULIN ASPART PER UNIT CHARGE SC SCH (09:19)
[2023-10-24] MEDS: busPIRone 5 MG TAB PO SCH (09:20)
[2023-10-24] MEDS: SERTRALINE HCL 100 MG TABLET PO SCH (09:20)
[2023-10-24] MEDS: SPIRONOLACTONE 25 MG TAB PO SCH (09:20)
[2023-10-24] MEDS: ENOXAPARIN INJ 40 MG/0.4 ML SYR SQ SCH (09:20)
[2023-10-24 11:42] LABS: Albumin Level 3.9 gm/dl (3.4-5.0); Calcium 10.9 mg/dl (8.6-10.3); Creatinine Clr Calc Pharmacy 92.9 ml/min; Est GFR (African American) 79.9 ml/min; Magnesium 1.6 mg/dl (1.7-2.4); Phosphorus 2.5 mg/dl (2.5-4.9); Potassium 3.7 mmol/L (3.5-5.1)
--- NOTE | 2023-10-24 12:37 | Nephrology Consultation ---
Date of Consultation October 24, 2023 Assessment & Plan (1) Hypercalcemia: she has had hypercalcemia for the last few months at least. Calcium was 10.9 even back in July 2023. calcium on admission was 11.4 with associated high PTH level of 141. kidney function was normal. Given this combination quite possible she has primary hyperparathyroidism. however worth noting that she only has single kidney and in this situation even though PTH is high there is no absolute guarantee that this is a case of p rimary hyperparathyroidism. would still do PTH related peptide as well as vitamin-D level and 125 dihydroxy vitamin-D level. will also do parathyroid nuclear scan. will also do 24 hour urine for calcium and creatinine. the results will not be back at the time of discharge but that is acceptable and will continue the workup and further evaluation as an outpatient. her most recent calcium is already down to 10.9 which although high is not at critical range. Given that time planning to do nuclear scan would prefer not to give her calcitonin or Zometa. in any case she does not need for the current level of 10.9. (2) SOB (shortness of breath): she has history of asthma with exacerbation. On current imaging there is some suspicion of pneumonia in the right upper lobe which is being treated with antibiotics. Plan time spent 50 minutes History of Present Illness Reason for Consultation: Hypercalcemia Attending Physician: Sonido Whiting MD History of Present Illness 62-year-old female who has had intermittent hypercalcemia for the last 6 months or so. her left kidney was removed in the 1980s because of kidney stone complication but despite that she has normal kidney function. Her last outpatient blood work from July 2023 also showed serum calcium of 10.9. creatinine of 0.9. she presented to the hospital yesterday because of shortness of breath. she has history of DVT so CT angiogram was done and was negative for PE as well as duplex for DVT. CT abdomen and pelvis was also done and was unremarkable. no kidney stone noted. she was found to have serum calcium of 11.4. She did not get a IV fluid but actually got Lasix 1 dose. it does not appear patient is taking any vitamin-D supplement or calcium supplement. This morning serum calcium is now down to 10.9. PTH was inappropriately elevated at 141. she does not recall any family members having issues with primary hyperparathyroidism. review of systems positive for shortness of breath with dry cough. She did have some chest pressure but otherwise no fever chills rigors. she does have some edema related with her obesity but was not any worse than usual. otherwise 12 systems reviewed and negative. physical examination middle-aged white female who does appear. to be in some mild respiratory distress. awake alert oriented x3. Normal speech. obesity + with a BMI of 52 neck is short and can not appreciate JVD supple. mucous membrane is moist chest bilateral decreased breath sound poor inspiratory effort occasional wheezing CVS S1 and S2 regular no murmur heard abdomen is soft nontender obese extremities shows 1+ edema related with the obesity Allergies Allergy/AdvReac Type Severity Reaction Status Date / Time No Known Allergies Allergy Verified 10/23/23 22:35 Home Medications Medication Instructions Recorded Confirmed Type albuterol sulfate 90 mcg/actuation 2 puff inhalation Q4H PRN 03/19/18 10/23/23 History aerosol inhaler (Ventolin HFA) Shortness Of Breath Or Wheezing alprazolam 0.5 mg tablet 0.5 mg PO TID PRN Anxiety 03/19/18 10/23/23 History fluticasone 250 mcg-salmeterol 50 1 inh inhalation BID PRN Shortness 03/19/18 10/23/23 History mcg/dose blistr powdr for Of Breath Or Wheezing inhalation (Advair Diskus) levothyroxine 300 mcg tablet 300 mcg PO QAM 03/19/18 10/23/23 History spironolactone 50 mg tablet 50 mg PO QAM 03/19/18 10/23/23 History hydrocodone 10 mg-acetaminophen 1 - 2 tab PO Q6H PRN Pain 01/29/19 10/23/23 History 325 mg tablet sertraline 100 mg tablet 200 mg PO QAM 01/29/19 10/23/23 History buspirone 10 mg tablet 10 mg PO BID 01/29/22 10/23/23 History oxycodone 30 mg tablet 30 mg PO BID PRN Pain 10/24/23 10/24/23 History Patient History Medical History History of DVT (deep vein thrombosis) ~2012, previously on AC (per remote anesthesia records) Left arm History of blood transfusion s/p blood transfusion Osteoarthritis Chronic back pain Hypothyroidism History of strabismus Hypertension Post traumatic stress disorder Depression Anxiety Asthma stable Cellulitis Surgical History History of lumpectomy of right breast (01/01/22) Right Breast Central Lumpectomy, right axillary [place] Lymph Node Biopsy(Right) - Klaus Reyes DO History of breast biopsy 11/2021 -- right breast cancer History of difficult intubation Left SUHA: 02/19/2006: per records done under [place] (no mention of reason for GA; DL --> LMA --> fiberoptic with difficulty seeing cords//per operative report, patient had bronchospasm as well which was treated medically) S/P SONNY-BSO History of dilatation and curettage History of open reduction and internal fixation (ORIF) procedure right ankle - metal hardware in place History of incision and drainage left hip wound x2 () History of cystoscopy History of tonsillectomy Family History Son Family history of diabetes mellitus Daughter Family history of diabetes mellitus Mother , 72yo COPD (chronic obstructive pulmonary disease) Hypertension Diabetes Endometrial cancer Father , in his 60s Cirrhosis of liver Alcoholism Brother Medical history unknown Sister Suicide Sister COVID Sister Gastric bypass status for obesity Smoker Sister Diabetes Hypertension Endometrial cancer Daughter Prematurity Son Diabetes Daughter Diabetes Daughter Hypertension Social History Smoking Status: Former smoker Second Hand Exposure: Yes; Do You Dip or Chew Tobacco: No; Hx Alcohol Use: Yes Hx Substance Use: Yes Non-Prescribed Medications: Marijuana Last Used Substance: Unknown Last Used Substance Other:: 1 weeks ago Preferred Language: Kazakh Communication Ability: Effective Visual Impairment: No Limitations Hearing Ability: Normal Light Fixture 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 Required: No Beliefs That Will Affect Care: None marital status: Current Living Situation: Family Current Living Situation Comment: Lives with daughter and grandson current occupational status: disabled How many Children do You have: 3 Feels Safe at Home: Yes Safety Concerns: Feels Safe At This Time Diet: regular caffeine: Yes (3 cups/day) during the past year weight has: remained stable Assistive Devices: Walker Results & Data Vital Signs (Past 12 Hours) Vital Signs Temp Pulse Pulse Resp BP BP Pulse Ox 10/24/23 11:56 36.9 C 63 19 136/69 96 10/24/23 09:00 71 16 141/72 H 94 10/24/23 06:54 62 10/24/23 06:36 36.8 C 60 18 138/76 96 10/24/23 06:33 60 15 138/76 96 10/24/23 06:01 10/24/23 04:26 59 L Pulse Ox O2 Del Method O2 Del Method 10/24/23 11:56 Room Air 10/24/23 09:00 Room Air 10/24/23 06:54 10/24/23 06:36 Room Air 10/24/23 06:33 Room Air 10/24/23 06:01 96 Room Air 10/24/23 04:26 Laboratory Results reviewed her recent outpatient renal panel from July 2023. all the labs done as an inpatient which includes CBC renal panel CT angiogram of the chest CT abdomen and pelvis chest x-ray duplex of the lower extremity were all reviewed in detail
--- NOTE | 2023-10-24 12:52 | Communication Note ---
Date of Service: October 24, 2023 Patient was seen and examined at bedside. 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 Patient also reported some dry cough for about the same duration. Patient denies aspiration. She is being managed for the following: Shortness of breath/likely atypical pneumonia: No sepsis POA Admitting chest imaging negative for PE, concern for mild right upper lobe pneumonia. Admitting CTAP with no acute finding. RVP neg. Patient reports improving shortness of breath and dry cough. Continue doxycycline 10/23. Will need follow-up chest imaging in about 6 weeks time to document resolution. 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 Continue with Rocephin 10/23, follow urine culture. Mild hyponatremia: Appears chronic, continue to monitor. Likely T2DM: New diagnosis, A1c of 11.3 this admission. agricultural extension educator consulted, glycemic pharmacy consult. Patient will likely need oral medication and insulin at discharge. Such as been discussed with the patient, she is agreeable. Repeat A1c in 3 months. Lifestyle modification including daily exercise regimen and cooperation has been discussed with the patient. Hypercalcemia/Likely primary hyperparathyroidism: Calcium of 11.4 at presentation, PTH 141.3. nephrology on board, follow-up on PTH RP/vitamin D level, 24-hour urine for calcium and creatinine, parathyroid scan. Vitamin D deficiency: Vitamin D level of 12.7 at presentation, initiate vitamin D supplementation. Elevated TSH iso acute illness/ ho hypothyroidism: TSH at 6.08 with free T4 of 0.90. Continue with home levothyroxine 300 mcg daily. Repeat TFT in 6 weeks time. Bilateral leg swelling, rule out DVT: Admitting US venous Doppler BLE negative for DVT. Other chronic medical conditions: Continue with/resume home meds as and when able. hypertension, stable bronchial asthma, not in acute exacerbation right breast cancer status post surgery/incomplete radiation hx upper extremity DVT status post Coumadin hx urolithiasis status post surgery DVT prophylaxis. Lovenox subcu Full code For detailed information on the patient, refer to today's H&P note. Text document was generated using [employer] voice recognition software. It may contain grammatical or spelling errors. Kindly contact undersigned for clarification of any documentation item in question.
[2023-10-24] MEDS ORDERED: PHARMACY GLYCEMIC MGMT CONSULT PRN (13:28)
[2023-10-24] MEDS: MAGNESIUM SULFATE / D5W 1 GM/100 ML BAG IV SCH (14:06)
--- NOTE | 2023-10-24 14:11 | Pharmacy Report ---
Pharmacy Glycemic Short Note 2 - Date of Service October 24, 2023 - Glycemic Short BSG Results (Last 24 hours): 10/23/23 10/24/23 10/24/23 22:10 01:14 07:15 Glucose 228 H 189 H POC Glucose 207 H 10/24/23 10/24/23 10/24/23 09:06 11:02 11:52 Glucose 250 H POC Glucose 192 H 221 H OUTPATIENT ANTIDIABETIC REGIMEN: * none * A1c = 11.3% ASSESSMENT: * Melia is a 62 yo F who presented with shortness of breath. Also found to have hyperglycemia. A1c = 11.3%. New DM diagnosis. * Basal + bolus SC insulin initiated. Patient received Lantus 5 units overnight and 6 units of Novolog with breakfast. BSG continues to trend upward. * Will give additional basal insulin with dinner and tighten carb coverage. Continue to titrate insulin dosing per BSG trend. PLAN FOR INPATIENT GLYCEMIC CONTROL: * Basal insulin * Lantus 10 units SQ with dinner x 1 * Reassess basal insulin on 10/24 * Bolus insulin * NovoLog per scale ACHS or Q6hrs while NPO * Goal Range: Low 110 mg/dL - High 140 mg/dL * Correction Factor: 25 mg/dL/unit * Nutritional / Prandial insulin per carb ratio of 1 unit per 9 grams CHO consumed
[2023-10-24] MEDS: LANTUS PER UNIT CHARGE SQ ONE (17:13)
[2023-10-24] MEDS: ERGOCALCIFEROL 1250 MCG (50,000 UNITS) CAP PO SCH (18:13)
--- NOTE | 2023-10-24 20:59 | Electrocardiogram Report ---
Test Reason : Blood Pressure : / mmHG Vent. Rate : 075 BPM Atrial Rate : 075 BPM P-R Int : 176 ms QRS Dur : 092 ms QT Int : 374 ms P-R-T Axes : 042 012 045 degrees QTc Int : 417 ms Normal sinus rhythm Normal ECG When compared with ECG of 19-AUG-2023 20:40, No significant change was found Confirmed by Issa Joe ([id number]) on 10/24/2023 8:59:20 PM Referred By: REFERRED SELF Confirmed By:Issa Joe
[2023-10-24] MEDS: ALPRAZolam 0.5 MG TABLET PO PRN (21:33)
[2023-10-24] MEDS: DOXYCYCLINE HYCLATE 100 MG CAP PO SCH (21:34)
[2023-10-25] MEDS: cefTRIAXone SODIUM 2,000 MG/50 ML BAG IV SCH (06:33)
[2023-10-25] MEDS: ACETAMINOPHEN 325 MG TAB PO PRN (06:36)
[2023-10-25 07:45] LABS: Hematocrit (blood only) 40.8 % (37.0-47.0); Hemoglobin 13.4 g/dl (12.0-16.0); Mean Corpuscular Hemoglobin 27.3 pg (25.0-34.0); Mean Corpuscular Hgb Conc 32.8 g/dL (32.0-36.0); Mean Corpuscular Volume 83.1 fL (80.0-100.0); Mean Platelet Volume 10.2 fL (9.4-12.4); Platelet Count 156 K/uL (130-400); RDW Coefficient of Variation 13.4 % (11.5-14.5); Red Blood Count 4.91 M/uL (4.20-5.40); White Blood Count 4.81 K/ul (4.8-10.8)
[2023-10-25 08:15] LABS: BUN Creatinine Ratio 18.1 (10-20); Calcium 10.2 mg/dl (8.6-10.3); Creatinine Clr Calc Pharmacy 88.5 ml/min; Est GFR (African American) 74.8 ml/min; Est GFR (Non-African American) 64.6 ml/min; Magnesium 1.8 mg/dl (1.7-2.4); Phosphorus 2.9 mg/dl (2.5-4.9); Potassium 4.2 mmol/L (3.5-5.1)
[2023-10-25] MEDS: LANTUS PER UNIT CHARGE SC SCH (08:57)
[2023-10-25] MEDS ORDERED: LANTUS PER UNIT CHARGE SQ SCH (09:00)
--- NOTE | 2023-10-25 14:34 | Pharmacy Report ---
Pharmacy Glycemic Short Note 2 - Date of Service October 25, 2023 - Glycemic Short BSG Results (Last 24 hours): 10/24/23 10/24/23 10/25/23 16:33 20:25 07:22 Glucose 220 H POC Glucose 168 H 146 H 10/25/23 10/25/23 08:14 12:03 Glucose POC Glucose 200 H 98 OUTPATIENT ANTIDIABETIC REGIMEN: * none * A1c = 11.3% ASSESSMENT: 10/24: * Melia received 36 units of insulin yesterday (15 were basal) * Fasting BSG this AM above goal range, will not adjust at this time to account for basal deficiency, will consider adjustment tomorrow if fasting BSG still elevated * Metformin ER started at dinner (do not carry 750mg tablets as recommended per CDE for discharge), Novolog loosened some to account for additional coverage with metformin. * She continues on ceftriaxone and oral doxycycline. 10/23: * Melia is a 62 yo F who presented with shortness of breath. Also found to have hyperglycemia. A1c = 11.3%. New DM diagnosis. * Basal + bolus SC insulin initiated. Patient received Lantus 5 units overnight and 6 units of Novolog with breakfast. BSG continues to trend upward. * Will give additional basal insulin with dinner and tighten carb coverage. Continue to titrate insulin dosing per BSG trend. PLAN FOR INPATIENT GLYCEMIC CONTROL: * Basal insulin * Lantus 10 units SQ QAM * Bolus insulin * NovoLog per scale ACHS or Q6hrs while NPO * Goal Range: Low 110 mg/dL - High 140 mg/dL * Correction Factor: 30 mg/dL/unit * Nutritional / Prandial insulin per carb ratio of 1 unit per 11 grams CHO consumed
--- NOTE | 2023-10-25 15:52 | Hospitalist Progress Note ---
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 Patient also reported some dry cough for about the same duration. Patient denies aspiration. She is being managed for the following: Shortness of breath/likely atypical pneumonia: No sepsis POA Admitting chest imaging negative for PE, concern for mild right upper lobe pneumonia. Admitting CTAP with no acute finding. RVP neg. Continue doxycycline 10/23. Will need follow-up chest imaging in about 6 weeks time to document resolution. 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 Continue with Rocephin 10/23, follow urine culture. Likely T2DM: New diagnosis, A1c of 11.3 this admission. welfare investigator consulted, glycemic pharmacy consult. Patient will likely need oral medication and insulin at discharge. Such as been discussed with the patient, she is agreeable. Repeat A1c in 3 months. Lifestyle modification including daily e xercise regimen and cooperation has been discussed with the patient. Hypercalcemia/Likely primary hyperparathyroidism: Calcium of 11.4 at presentation, PTH 141.3. nephrology on board, follow-up on PTH RP/vitamin D level, 24-hour urine for calcium and creatinine, parathyroid scan. Mild hyponatremia: Appears chronic, continue to monitor. Vitamin D deficiency: Vitamin D level of 12.7 at presentation, c/w vitamin D supplementation. Elevated TSH iso acute illness/ ho hypothyroidism: TSH at 6.08 with free T4 of 0.90. Continue with home levothyroxine 300 mcg daily. Repeat TFT in 6 weeks time. Bilateral leg swelling, rule out DVT: Admitting US venous Doppler BLE negative for DVT. Other chronic medical conditions: Continue with/resume home meds as and when able. hypertension, stable bronchial asthma, not in acute exacerbation right breast cancer status post surgery/incomplete radiation hx upper extremity DVT status post Coumadin hx urolithiasis status post surgery DVT prophylaxis. Lovenox subcu Full code Text document was generated using [employer] voice recognition software. It may contain grammatical or spelling errors. Kindly contact undersigned for clarification of any documentation item in question. Admission and Anticipated Discharge Date Admission Date: October 24, 2023 Subjective Patient was seen and examined at bedside. Patient was lying in bed, on room air, NAD, not in any acute distress. Patient reports cough, start making mucus. Patient reports eating okay. Denies fever. Denies any new acute event overnight. Physical Exam Physical Exam: GENERAL: Comfortable, morbidly obese, slightly anxious, no respiratory distress SKIN: Normal color, warm HEENT: [place] palpebral conjunctivae, no ptosis, moist buccal mucosa NECK : Supple, short neck, no tenderness CHEST : Decreased breath sounds, no tenderness HEART : RRR, no obvious murmurs ABDOMEN: Marked distention, minimal hypogastric tenderness EXTREMITIES : Bilateral LE swelling without LE tenderness, no other conspicuous deformities noted NEUROLOGIC : Coherent, no facial asymmetry, no other gross focality Results & Data Results & Data Vital Signs (Past 12 Hours) Vital Signs Temp Pulse Pulse Resp BP Pulse Ox O2 Del Method 10/25/23 15:41 36.7 C 71 18 142/71 H 95 Room Air 10/25/23 11:52 36.4 C L 67 16 121/84 95 Room Air 10/25/23 08:26 36.4 C L 72 16 152/79 H 96 Room Air 10/25/23 08:00 Room Air 10/25/23 07:34 65 10/25/23 04:01 36.6 C 58 L 18 127/77 93 Room Air
[2023-10-25] MEDS: metFORMIN HCL ER 500 MG TABCR PO SCH (17:42)
[2023-10-25 21:29] LABS: Creatinine 24 Hour Urine 1.8 gm/24 HR (0.6-2.5)
[2023-10-26 07:40] LABS: Hematocrit (blood only) 42.3 % (37.0-47.0); Hemoglobin 13.8 g/dl (12.0-16.0); Mean Corpuscular Hemoglobin 27.3 pg (25.0-34.0); Mean Corpuscular Hgb Conc 32.6 g/dL (32.0-36.0); Mean Corpuscular Volume 83.8 fL (80.0-100.0); Platelet Count 149 K/uL (130-400); RDW Coefficient of Variation 13.4 % (11.5-14.5); RDW Standard Deviation 41.2 fL (36.4-46.3); Red Blood Count 5.05 M/uL (4.20-5.40); White Blood Count 4.52 K/ul (4.8-10.8)
[2023-10-26 08:08] LABS: BUN Creatinine Ratio 21.2 (10-20); Calcium 10.2 mg/dl (8.6-10.3); Creatinine Clr Calc Pharmacy 97.8 ml/min; Est GFR (African American) 84.5 ml/min; Est GFR (Non-African American) 72.9 ml/min; Magnesium 1.7 mg/dl (1.7-2.4); Phosphorus 2.7 mg/dl (2.5-4.9); Potassium 3.9 mmol/L (3.5-5.1)
--- NOTE | 2023-10-26 15:26 | Hospitalist Progress Note ---
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 Patient also reported some dry cough for about the same duration. Patient denies aspiration. She is being managed for the following: Shortness of breath/likely atypical pneumonia: No sepsis POA Admitting chest imaging negative for PE, concern for mild right upper lobe pneumonia. Admitting CTAP with no acute finding. RVP neg. Continue doxycycline 10/23. Still w/ some sob, will add steroid. Will send nocturnal pulse ox. she will benefit from OP sleep study. Will need follow-up chest imaging in about 6 weeks time to document resolution. Complicated UTI: Patient reported burning with passing urine for 1 day ENGINEER. Continue with Rocephin 10/23. Likely T2DM: New diagnosis, A1c of 11.3 this admission. natural resources extension educator consulted, glycemic pharmacy consult. Patient will likely need oral medication and insulin at discharge. Such as been discussed with the patient, she is agreeable. Repeat A1c in 3 months. Lifestyle modification including daily exercise regimen and cooperation has been discussed with the patient. Hypercalcemia/Likely primary hyperparathyroidism: Calcium of 11.4 at presentation, PTH 141.3. nephrology on board, follow-up on PTH RP/vitamin D level, 24-hour urine for calcium and creatinine, parathyroid scan. Mild hyponatremia: Appears chronic, continue to monitor. Vitamin D deficiency: Vitamin D level of 12.7 at presentation, c/w vitamin D supplementation. Elevated TSH iso acute illness/ ho hypothyroidism: TSH at 6.08 with free T4 of 0.90. Continue with home levothyroxine 300 mcg daily. Repeat TFT in 6 weeks time. Bilateral leg swelling, rule out DVT: Admitting US venous Doppler BLE negative for DVT. Swelling improved. Other chronic medical conditions: Continue with/resume home meds as and when able. hypertension, stable bronchial asthma, not in acute exacerbation right breast cancer status post surgery/incomplete radiation hx upper extremity DVT status post Coumadin hx urolithiasis status post surgery DVT prophylaxis. Lovenox subcu Full code Text document was generated using [employer] voice recognition software. It may contain grammatical or spelling errors. Kindly contact undersigned for clarification of any documentation item in question. Admission and Anticipated Discharge Date Admission Date: October 24, 2023 Subjective Patient was seen and examined at bedside. Patient was sitting up in chair, on room air, NAD, not in any acute distress. Patient reports cough, sob w/ lying down. Patient reports eating okay. Denies fever. Pt's son guilherme at bedside, updated him and answered all his questions. Physical Exam Physical Exam: GENERAL: Comfortable, morbidly obese, slightly anxious, no respiratory distress SKIN: Normal color, warm HEENT: [place] palpebral conjunctivae, no ptosis, moist buccal mucosa NECK : Supple, short neck, no tenderness CHEST : Decreased breath sounds, no tenderness, no wheeze noted. HEART : RRR, no obvious murmurs ABDOMEN: Marked distention, minimal hypogastric tenderness EXTREMITIES : -ve ble edema, no other conspicuous deformities noted NEUROLOGIC : Coherent, no facial asymmetry, no other gross focality Results & Data Results & Data Vital Signs (Past 12 Hours) Vital Signs Temp Pulse Resp BP Pulse Ox O2 Del Method 10/26/23 07:12 36.5 C 60 18 153/84 H 93 Room Air 10/26/23 07:10 Room Air
[2023-10-26] MEDS: FUROSEMIDE 40 MG/4 ML VIAL IV ONE (17:35)
[2023-10-26] MEDS: methylPREDNISolone 40 MG in SYRINGE 0 ML IV ONE (17:44)
[2023-10-26] MEDS: predniSONE 20 MG TAB PO STA (21:27)
[2023-10-26] MEDS: FUROSEMIDE 40 MG TAB PO ONE (21:27)
[2023-10-26] MEDS: PROMETHAZINE HCL 12.5 MG in SODIUM CHLORIDE 0.9% 50 ML IV PRN (21:42)
[2023-10-27] MEDS: LANTUS PER UNIT CHARGE SC SCH (09:58)
[2023-10-27] MEDS: CEFDINIR 300 MG CAP PO SCH (10:01)
[2023-10-27] MEDS: predniSONE 20 MG TAB PO SCH (10:02)
[2023-10-27 10:26] LABS: BUN Creatinine Ratio 20.8 (10-20); Calcium 10.8 mg/dl (8.6-10.3); Creatinine Clr Calc Pharmacy 86.6 ml/min; Est GFR (African American) 72.9 ml/min; Est GFR (Non-African American) 62.9 ml/min; Magnesium 1.7 mg/dl (1.7-2.4); Phosphorus 2.3 mg/dl (2.5-4.9); Potassium 4.1 mmol/L (3.5-5.1)
--- NOTE | 2023-10-27 11:16 | Pharmacy Report ---
Pharmacy Glycemic Short Note 2 - Date of Service October 27, 2023 - Glycemic Short BSG Results (Last 24 hours): 10/26/23 10/26/23 10/26/23 11:27 16:45 20:56 Glucose POC Glucose 111 H 181 H 181 H 10/27/23 10/27/23 07:43 09:47 Glucose 292 H POC Glucose 278 H OUTPATIENT ANTIDIABETIC REGIMEN: * none * A1c = 11.3% ASSESSMENT: 10/26: * BSGs largely within goal yesterday: [phone]/dL. Fasting BSG elevated this AM to 278mg/dL. Received 10 units of basal and 22 units of bolus insulin yesterday. * Continues on antibiotics and tolerating PO. Steroids initiated yesterday (prednisone 40mg daily). * Increase basal to 15 units this AM given elevated fasting BSG. Novolog tightened for improved prandial coverage in setting of steroids. 10/24: * Melia received 36 units of insulin yesterday (15 were basal) * Fasting BSG this AM above goal range, will not adjust at this time to account for basal deficiency, will consider adjustment tomorrow if fasting BSG still elevated * Metformin ER started at dinner (do not carry 750mg tablets as recommended per CDE for discharge), Novolog loosened some to account for additional coverage with metformin. * She continues on ceftriaxone and oral doxycycline. 10/23: * Melia is a 62 yo F who presented with shortness of breath. Also found to have hyperglycemia. A1c = 11.3%. New DM diagnosis. * Basal + bolus SC insulin initiated. Patient received Lantus 5 units overnight and 6 units of Novolog with breakfast. BSG continues to trend upward. * Will give additional basal insulin with dinner and tighten carb coverage. Continue to titrate insulin dosing per BSG trend. PLAN FOR INPATIENT GLYCEMIC CONTROL: * Basal insulin * Lantus 15 units SQ QAM * Bolus insulin * NovoLog per scale ACHS or Q6hrs while NPO * Goal Range: Low 110 mg/dL - High 140 mg/dL * Correction Factor: 25 mg/dL/unit * Nutritional / Prandial insulin per carb ratio of 1 unit per 8 grams CHO consumed
--- NOTE | 2023-10-27 14:35 | Nuclear Medicine Report ---
NM parathyroid CLINICAL HISTORY: 62 years-old Female with Hypercalcemia with high PTH. TECHNIQUE: Following the intravenous injection of 20.3 mCi of technetium-99m Sestamibi, images of th e neck and upper chest were acquired at approximately 15 min and 2 hours. SPECT images were not obtai katiana due to the patient's body habitus. COMPARISON: None. FINDINGS: There is expected tracer uptake in the salivary glands, thyroid, heart, liver and spleen. There is a persistent focus of radiotracer uptake on the delayed sequences adjacent to the lower pole the left thyroid lobe. IMPRESSION: A small persistent focus of radiotracer uptake on the delayed sequences adjacent to the lower pole of the left thyroid lobe. This could represent a parathyroid adenoma. ACT 112: Negative or not required by law. Electronically signed by: Quang Lee M.D. 10/27/2023 2:34 PM
--- NOTE | 2023-10-27 15:08 | Hospitalist Progress Note ---
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 Patient also reported some dry cough for about the same duration. Patient denies aspiration. She is being managed for the following: Shortness of breath/likely atypical pneumonia: No sepsis POA Admitting chest imaging negative for PE, concern for mild right upper lobe pneumonia. Admitting CTAP with no acute finding. RVP neg. Continue doxycycline 10/23. Still w/ some sob, added steroid 10/25-->Taper. Nocturnal pulse oximetry positive, will need HS oxygen at discharge.She will benefit from OP sleep study. Will need follow-up chest imaging in about 6 weeks time to document resolution. Will possibly benefit from two-step test prior to discharge. 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 Continue with Rocephin 10/23 --> Cefdinir 10/26. Likely T2DM: New diagnosis, A1c of 11.3 this admission. peer educator consulted, glycemic pharmacy consult. Patient will likely need oral medication and insulin at discharge. Such as been discussed with the patient, she is agreeable. Repeat A1c in 3 months. Lifestyle modification including daily exercise regimen and cooperation has been discussed with the patient. Hypercalcemia/Likely primary hyperparathyroidism: Calcium of 11.4 at presentation, PTH 141.3. nephrology on board, follow-up on PTH RP/vitamin D level, 24-hour urine for calcium and creatinine. 10/26 parathyroid scan s/o parathyroid adenoma. Mild hyponatremia: Appears chronic, continue to monitor. Vitamin D deficiency: Vitamin D level of 12.7 at presentation, c/w vitamin D supplementation. Elevated TSH iso acute illness/ ho hypothyroidism: TSH at 6.08 with free T4 of 0.90. Continue with home levothyroxine 300 mcg daily. Repeat TFT in 6 weeks time. Bilateral leg swelling, rule out DVT: Admitting US venous Doppler BLE negative for DVT. Swelling improved. Other chronic medical conditions: Continue with/resume home meds as and when able. hypertension, stable bronchial asthma, not in acute exacerbation right breast cancer status post surgery/incomplete radiation hx upper extremity DVT status post Coumadin hx urolithiasis status post surgery DVT prophylaxis. Lovenox subcu Full code Text document was generated using [facility] voice recognition software. It may contain grammatical or spelling errors. Kindly contact undersigned for clarification of any documentation item in question. Admission and Anticipated Discharge Date Admission Date: October 24, 2023 Subjective Patient was seen and examined at bedside. Patient was sitting up in chair, on room air, NAD, not in any acute distress. Patient reports improving cough, some improvement in her shortness of breath. Patient reports eating okay and moving bowels okay, denies fever. Physical Exam Physical Exam: GENERAL: Comfortable, morbidly obese, slightly anxious, no respiratory distress SKIN: Normal color, warm HEENT: [place] palpebral conjunctivae, no ptosis, moist buccal mucosa NECK : Supple, short neck, no tenderness CHEST : Decreased breath sounds, no tenderness, no wheeze noted. HEART : RRR, no obvious murmurs ABDOMEN: Marked distention, minimal hypogastric tenderness EXTREMITIES : -ve ble edema, no other conspicuous deformities noted NEUROLOGIC : Coherent, no facial asymmetry, no other gross focality Results & Data Results & Data Vital Signs (Past 12 Hours) Vital Signs Temp Pulse Pulse Resp BP Pulse Ox Pulse Ox 10/27/23 07:46 10/27/23 07:16 36.6 C 65 16 102/65 94 10/27/23 04:30 62 92 O2 Del Method O2 Del Method 10/27/23 07:46 Room Air 10/27/23 07:16 Room Air 10/27/23 04:30 Room Air
[2023-10-28 08:41] LABS: BUN Creatinine Ratio 23.3 (10-20); Calcium 10.4 mg/dl (8.6-10.3); Creatinine Clr Calc Pharmacy 92.4 ml/min; Est GFR (African American) 78.9 ml/min; Magnesium 1.6 mg/dl (1.7-2.4); Phosphorus 2.3 mg/dl (2.5-4.9); Potassium 3.8 mmol/L (3.5-5.1)
[2023-10-28] MEDS: LANTUS PER UNIT CHARGE SC SCH (08:54)
[2023-10-28] MEDS: ALBUT/IPRATROP 3MG/0.5MG NEB 3 ML VIAL NEB PRN (09:19)
[2023-10-28] MEDS: DOCUSATE SODIUM/SENNA 50/8.6MG TAB PO SCH (09:33)
[2023-10-28] MEDS: POLYETHYLENE (MIRALAX) 17 GM PACK PO PRN (11:53)
--- NOTE | 2023-10-28 14:50 | Pharmacy Report ---
Pharmacy Glycemic Short Note 2 - Date of Service October 28, 2023 - Glycemic Short BSG Results (Last 24 hours): 10/27/23 10/27/23 10/28/23 17:24 20:43 07:44 Glucose 194 H POC Glucose 271 H 256 H 10/28/23 10/28/23 08:00 11:28 Glucose POC Glucose 184 H 228 H OUTPATIENT ANTIDIABETIC REGIMEN: * none * A1c = 11.3% ASSESSMENT: 10/27: * BSGs yesterday were elevated [phone] mg/dl. Fasting BSG today was 184 mg/dl. * Basal insulin increased to 25 units this morning. Patient continues on Prednisone 40 mg daily. * Novolog parameters tightened to stress of 3 for steroids. 10/26: * BSGs largely within goal yesterday: [phone]/dL. Fasting BSG elevated this AM to 278mg/dL. Received 10 units of basal and 22 units of bolus insulin yesterday. * Continues on antibiotics and tolerating PO. Steroids initiated yesterday (prednisone 40mg daily). * Increase basal to 15 units this AM given elevated fasting BSG. Novolog tightened for improved prandial coverage in setting of steroids. 10/24: * Melia received 36 units of insulin yesterday (15 were basal) * Fasting BSG this AM above goal range, will not adjust at this time to account for basal deficiency, will consider adjustment tomorrow if fasting BSG still elevated * Metformin ER started at dinner (do not carry 750mg tablets as recommended per CDE for discharge), Novolog loosened some to account for additional coverage with metformin. * She continues on ceftriaxone and oral doxycycline. 10/23: * Melia is a 62 yo F who presented with shortness of breath. Also found to have hyperglycemia. A1c = 11.3%. New DM diagnosis. * Basal + bolus SC insulin initiated. Patient received Lantus 5 units overnight and 6 units of Novolog with breakfast. BSG continues to trend upward. * Will give additional basal insulin with dinner and tighten carb coverage. Continue to titrate insulin dosing per BSG trend. PLAN FOR INPATIENT GLYCEMIC CONTROL: * Basal insulin * Lantus 25 units SQ QAM * Bolus insulin * NovoLog per scale ACHS or Q6hrs while NPO * Goal Range: Low 110 mg/dL - High 140 mg/dL * Correction Factor: 20 mg/dL/unit * Nutritional / Prandial insulin per carb ratio of 1 unit per 6 grams CHO consumed
--- NOTE | 2023-10-28 15:09 | XRay Report ---
XR chest 1V portable CLINICAL HISTORY: f/u pna, still w/ some sob. TECHNIQUE: Single frontal radiograph of the chest was obtained. Comparison: Comparison is made to chest radiograph 10/23/2023 FINDINGS: Exam is limited by underpenetration. Cardiomegaly is noted. Linear scarring of the right upper lobe i s seen. Lungs are otherwise clear. No evidence of pleural effusion or pneumothorax. IMPRESSION: No acute abnormalities and in particular no radiographic evidence of pneumonia. ACT 112: Negative or not required by law. Electronically signed by: Gary Olsen M.D. 10/28/2023 3:08 PM
--- NOTE | 2023-10-28 17:00 | Hospitalist Progress Note ---
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 Patient also reported some dry cough for about the same duration. Patient denies aspiration. She is being managed for the following: Shortness of breath/likely atypical pneumonia: No sepsis POA Admitting chest imaging negative for PE, concern for mild right upper lobe pneumonia. Admitting CTAP with no acute finding. RVP neg. Continue doxycycline 10/23. Still w/ some sob, added steroid 10/25-->Taper. Nocturnal pulse oximetry positive, will need HS oxygen at discharge.She will benefit from OP sleep study. Will need follow-up chest imaging in about 6 weeks time to document resolution. Will possibly benefit from two-step test prior to discharge. 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 Continue with Rocephin 10/23 --> Cefdinir 10/26. Likely T2DM: New diagnosis, A1c of 11.3 this admission. diabetic educator consulted, glycemic pharmacy consult. Patient will likely need oral medication and insulin at discharge. Such as been discussed with the patient, she is agreeable. Repeat A1c in 3 months. Lifestyle modification including daily exercise regimen and cooperation has been discussed with the patient. D/w art educator, appreciate recs. Hypercalcemia/Likely primary hyperparathyroidism: Calcium of 11.4 at presentation, PTH 141.3. nephrology on board, follow-up on PTH RP/vitamin D level, 24-hour urine for calcium and creatinine. 10/26 parathyroid scan s/o parathyroid adenoma. Endo as OP. Mild hyponatremia: Appears chronic, continue to monitor. Vitamin D deficiency: Vitamin D level of 12.7 at presentation, c/w vitamin D supplementation. Elevated TSH iso acute illness/ ho hypothyroidism: TSH at 6.08 with free T4 of 0.90. Continue with home levothyroxine 300 mcg daily. Repeat TFT in 6 weeks time. Bilateral leg swelling, rule out DVT: Admitting US venous Doppler BLE negative for DVT. Swelling improved. Other chronic medical conditions: Continue with/resume home meds as and when able. hypertension, stable bronchial asthma, not in acute exacerbation right breast cancer status post surgery/incomplete radiation hx upper extremity DVT status post Coumadin hx urolithiasis status post surgery DVT prophylaxis. Lovenox subcu Full code Dispo: awaiting snf. Text document was generated using [employer] voice recognition software. It may contain grammatical or spelling errors. Kindly contact undersigned for clarification of any documentation item in question. Admission and Anticipated Discharge Date Admission Date: October 24, 2023 Subjective Patient was seen and examined at bedside. Patient was lying in bed, on room air, NAD, not in any acute distress. Patient reports improving cough, some improvement in her shortness of breath. CXR repeated, no acute findings. Patient reports eating okay and moving bowels okay, denies fever. Physical Exam Physical Exam: GENERAL: Comfortable, morbidly obese, slightly anxious, no respiratory distress SKIN: Normal color, warm HEENT: [place] palpebral conjunctivae, no ptosis, moist buccal mucosa NECK : Supple, short neck, no tenderness CHEST : Decreased breath sounds, no tenderness, no wheeze noted. HEART : RRR, no obvious murmurs ABDOMEN: Marked distention, minimal hypogastric tenderness EXTREMITIES : -ve ble edema, no other conspicuous deformities noted NEUROLOGIC : Coherent, no facial asymmetry, no other gross focality Results & Data Results & Data Vital Signs (Past 12 Hours) Vital Signs Temp Pulse Resp BP Pulse Ox O2 Del Method 10/28/23 15:33 36.8 C 69 16 159/52 H 93 Room Air 10/28/23 09:19 82 18 97 Room Air 10/28/23 07:43 36.7 C 59 L 16 131/79 95 Room Air 10/28/23 07:35 Room Air
[2023-10-28] MEDS: POLYETHYLENE (MIRALAX) 17 GM PACK PO ONE (17:14)
[2023-10-28] MEDS: LACTULOSE SYRUP 20 GM/30 ML UDC PO ONE (17:14)
[2023-10-28] MEDS: POT PHOSPHATE MONOBASIC W/ SOD TAB PO SCH (17:38)
[2023-10-28] MEDS: MAGNESIUM OXIDE 400 MG TAB PO SCH (20:41)
[2023-10-29] MEDS: LANTUS PER UNIT CHARGE SC SCH (08:45)
[2023-10-29 08:53] LABS: BUN Creatinine Ratio 24.7 (10-20); Calcium 10.2 mg/dl (8.6-10.3); Creatinine Clr Calc Pharmacy 97.8 ml/min; Est GFR (African American) 84.5 ml/min; Est GFR (Non-African American) 72.9 ml/min; Magnesium 1.8 mg/dl (1.7-2.4); Potassium 4.2 mmol/L (3.5-5.1)
[2023-10-29] MEDS ORDERED: INSULIN HUMAN NPH SC SCH (09:00)
--- NOTE | 2023-10-29 10:22 | Communication Note ---
Date of Service: October 29, 2023 Neph consulted this admission for hypercalcemia attributed after our eval to primary HPTH. Calcium remains wnl. Reference labs such as PTHrp, specialized vitamin D levels still pending >> drawn 10/23. NM parathyroid scan completed. >Agree w/ OP endocrine evaluation of this issue. No further nephro follow up needed as inpt or outpt; pls call us if ?.
--- NOTE | 2023-10-29 14:51 | Hospitalist Progress Note ---
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 Patient also reported some dry cough for about the same duration. Patient denies aspiration. She is being managed for the following: Shortness of breath/likely atypical pneumonia: No sepsis POA Admitting chest imaging negative for PE, concern for mild right upper lobe pneumonia. Admitting CTAP with no acute finding. RVP neg. Currently on doxycycline Reports history of asthma Reduced prednisone dose to 20mg to complete 5 days treatment Nocturnal pulse oximetry noted spO2 <88% for 5min 38sec. CM provided script for nocturnal oxygen TTE showed EF 65-70%, mild conc LVH, no gross valvular abnormalities Patient needs sleep study outpatient PCP can get follow-up chest imaging in about 6 weeks time to document resolution. 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 UCx grew E coli Was on ceftriaxone now transitioned to cefdinir to complete treatment Likely T2DM: New diagnosis, A1c of 11.3 this admission. DM educator provided education about DM, insulin Provided more education on DM, Lifestyle modification including daily exercise regimen Plan to dc on once daily Lantus and po Metformin ER 500mg with dinner Hypercalcemia Likely primary hyperparathyroidism: Calcium of 11.4 at presentation, PTH 141.3. Nephrology eval noted Follow-up on PTH RP/vitamin D level, 24-hour urine for calcium and creatinine. 10/26 parathyroid scan noted findings suggestive of parathyroid adenoma. Patient needs to follow up Endocrinology outpatient Suspicion for Metabolic syndrome as well Mild hyponatremia: Appears chronic, continue to monitor. Vitamin D deficiency: Vitamin D level of 12.7 at presentation, c/w vitamin D supplementation. Elevated TSH iso acute illness/ ho hypothyroidism: TSH at 6.08 with free T4 of 0.90. Continue with home levothyroxine 300 mcg daily. Repeat TFT in 6 weeks time. Bilateral leg swelling, rule out DVT: Admitting US venous Doppler BLE negative for DVT. Swelling improved. Other chronic medical conditions: Continue with/resume home meds as and when able. hypertension, stable bronchial asthma, not in acute exacerbation right breast cancer status post surgery/incomplete radiation hx upper extremity DVT status post Coumadin hx urolithiasis status post surgery DVT prophylaxis. Lovenox subcu Full code Dispo: awaiting snf. I spent a total of 50 minutes coordinating, documenting and providing care for this patient excluding time spent in performance of separately billed services Admission and Anticipated Discharge Date Admission Date: October 24, 2023 Subjective Reports dyspnea especially with exertion Reports feeling flushing earlier Denied chest pain, cough, nausea, vomiting Reports some weakness No fever, chills No diarrhea, dysuria, freq, urgency Physical Exam Constitutional: + well hydrated and + morbidly obese; no acute distress Eyes: PERRL, conjunctivae normal, anicteric sclerae ENMT: external ear and nose normal, oropharynx normal Respiratory: normal respiratory effort, lungs clear to auscultation Cardiovascular: Rate/Rhythm: regular rate and regular rhythm Gastrointestinal (Abdomen): normal bowel sounds, soft, nontender, no hepatosplenomegaly Musculoskeletal: No pedal edema Neurologic: PERRL, EOMI, accommodation nl, no face palsy, no dysarthria Psychiatric: A+Ox3, euthymic affect Results & Data Results & Data Vital Signs (Past 12 Hours) Vital Signs Temp Pulse Resp BP Pulse Ox O2 Del Method 10/29/23 11:24 36.8 C 77 17 170/76 H 93 Room Air 10/29/23 10:56 67 16 96 Room Air 10/29/23 07:40 Room Air 10/29/23 07:29 36.6 C 63 17 146/82 H 95 Room Air Laboratory Results Abnormal lab results 10/28/23 10/28/23 10/29/23 Range/Units 16:40 19:50 07:28 Sodium (136-145) mmol/L BUN/Creatinine Ratio (10-20) Glucose (70-99(Fasting)) mg/dl POC Glucose 249 H 287 H 224 H (70-99) mg/dl 10/29/23 10/29/23 Range/Units 08:04 11:29 Sodium 134 L (136-145) mmol/L BUN/Creatinine Ratio 24.7 H (10-20) Glucose 203 H (70-99(Fasting)) mg/dl POC Glucose 215 H (70-99) mg/dl
[2023-10-29] MEDS: metFORMIN HCL ER 500 MG TABCR PO SCH (17:34)
[2023-10-30 07:05] LABS: Hematocrit (blood only) 39.8 % (37.0-47.0); Mean Corpuscular Hemoglobin 27.5 pg (25.0-34.0); Mean Corpuscular Hgb Conc 32.7 g/dL (32.0-36.0); Mean Corpuscular Volume 84.1 fL (80.0-100.0); Platelet Count 176 K/uL (130-400); RDW Coefficient of Variation 13.8 % (11.5-14.5); RDW Standard Deviation 42.2 fL (36.4-46.3); Red Blood Count 4.73 M/uL (4.20-5.40); White Blood Count 8.27 K/ul (4.8-10.8)
[2023-10-30 07:25] LABS: BUN Creatinine Ratio 24.4 (10-20); Calcium 10.1 mg/dl (8.6-10.3); Creatinine Clr Calc Pharmacy 106.6 ml/min; Est GFR (African American) 93.8 ml/min; Est GFR (Non-African American) 80.9 ml/min; Potassium 4.1 mmol/L (3.5-5.1)
[2023-10-30] MEDS: LANTUS PER UNIT CHARGE SC SCH (08:26)
[2023-10-30] MEDS: predniSONE 20 MG TAB PO SCH (08:27)
--- NOTE | 2023-10-30 14:01 | Hospitalist Progress Note ---
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 Wilma ent also reported some dry cough for about the same duration. Patient denies aspiration. She is being managed for the following: Shortness of breath/likely atypical pneumonia: No sepsis POA Admitting chest imaging negative for PE, concern for mild right upper lobe pneumonia. Admitting CTAP with no acute finding. RVP neg. Reports history of asthma On prednisone taper Complete doxycycline today Nocturnal pulse oximetry noted spO2 <88% for 5min 38sec. CM provided script for nocturnal oxygen TTE showed EF 65-70%, mild conc LVH, no gross valvular abnormalities Patient needs sleep study outpatient PCP can get follow-up chest imaging in about 6 weeks time to document resolution. 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 UCx grew E coli Was on ceftriaxone now transitioned to cefdinir to complete treatment Likely T2DM: New diagnosis, A1c of 11.3 this admission. DM educator provided education about DM, insulin Provided more education on DM, Lifestyle modification including daily exercise regimen Plan to dc on once daily Lantus and po Metformin ER 500mg with dinner Hypercalcemia Likely primary hyperparathyroidism: Calcium of 11.4 at presentation, PTH 141.3. Nephrology eval noted Follow-up on PTH RP/vitamin D level, 24-hour urine for calcium and creatinine. 10/26 parathyroid scan noted findings suggestive of parathyroid adenoma. Patient needs to follow up Endocrinology outpatient Suspicion for Metabolic syndrome as well Mild hyponatremia: Appears chronic, continue to monitor. Vitamin D deficiency: Vitamin D level of 12.7 at presentation, c/w vitamin D supplementation. Elevated TSH iso acute illness/ ho hypothyroidism: TSH at 6.08 with free T4 of 0.90. Continue with home levothyroxine 300 mcg daily. Repeat TFT in 6 weeks time. Bilateral leg swelling, rule out DVT: Admitting US venous Doppler BLE negative for DVT. Swelling improved. Other chronic medical conditions: Continue with/resume home meds as and when able. hypertension, stable bronchial asthma, not in acute exacerbation right breast cancer status post surgery/incomplete radiation hx upper extremity DVT status post Coumadin hx urolithiasis status post surgery DVT prophylaxis. Lovenox subcu Full code Dispo: awaiting snf. I spent a total of 45 minutes coordinating, documenting and providing care for this patient excluding time spent in performance of separately billed services Admission and Anticipated Discharge Date Admission Date: October 24, 2023 Subjective Patient seen and examined Reports feeling better today. No SOB or CHEN today Reports weakness is improving Denied other complaints Physical Exam Constitutional: + well hydrated and + morbidly obese; no acute distress Eyes: PERRL, conjunctivae normal, anicteric sclerae ENMT: external ear and nose normal, oropharynx normal Respiratory: normal respiratory effort, lungs clear to auscultation Cardiovascular: Rate/Rhythm: regular rate and regular rhythm S1 S2 Gastrointestinal (Abdomen): normal bowel sounds, soft, nontender, no hepatosplenomegaly Musculoskeletal: No pedal edema Neurologic: PERRL, EOMI, accommodation nl, no face palsy, no dysarthria Psychiatric: A+Ox3, euthymic affect Results & Data Results & Data Vital Signs (Past 12 Hours) Vital Signs Temp Pulse Resp BP Pulse Ox O2 Del Method O2 Flow Rate 10/30/23 08:49 94 H 20 96 10/30/23 07:38 Room Air, Nasal Cannula 2 10/30/23 07:34 36.4 C L 61 18 118/78 97 Room Air Laboratory Results Abnormal lab results 10/29/23 10/29/23 10/30/23 Range/Units 16:27 20:27 05:41 BUN/Creatinine Ratio 24.4 H (10-20) Glucose 133 H (70-99(Fasting)) mg/dl POC Glucose 275 H 187 H (70-99) mg/dl 10/30/23 10/30/23 Range/Units 07:31 11:39 BUN/Creatinine Ratio (10-20) Glucose (70-99(Fasting)) mg/dl POC Glucose 153 H 235 H (70-99) mg/dl
[2023-10-31 08:01] VITALS: RESP 16
[2023-10-31] MEDS: LANTUS PER UNIT CHARGE SC SCH (09:17)
[2023-10-31] MEDS: amLODIPine BESYLATE 5 MG TAB PO SCH (10:36)
--- NOTE | 2023-10-31 13:43 | Discharge Summary ---
Date of Service October 31, 2023 Admission HPI Per Admitting Provider History obtained from patient and records. Medical history significant for hypertension, bronchial asthma, right breast cancer status post surgery/incomplete radiation, upper extremity DVT status post Coumadin, hypothyroidism, urolithiasis status post surgery, morbid obesity, anxiety/mood disorder, chronic pain, past tobacco abuse. Last confinement 2009 for left-sided chest pain. Few days history of shortness of breath with transient left-sided pleuritic chest pain. Dry cough symptoms. Patient not sure about sick contacts. Denies aspiration. Bilateral leg swelling without recollection of recent trauma. Denies weight gain, patient actually losing weight. Past sleep study negative for sleep apnea as per patient Not moving a lot the last few weeks due to depression denies suicidality. Transient achy abdominal discomfort possibly from nerves as per patient. 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 Admission Exam Per Admitting Provider GENERAL: Comfortable, morbidly obese, slightly anxious, no respiratory distress SKIN: Normal color, warm HEENT: [place] palpebral conjunctivae, no ptosis, dry buccal mucosa NECK : Supple, short neck, no tenderness CHEST : Decreased breath sounds, no tenderness HEART : RRR, no obvious murmurs ABDOMEN: Marked distention, minimal hypogastric tenderness EXTREMITIES : Bilateral LE swelling without LE tenderness, no other conspicuous deformities noted NEUROLOGIC : Coherent, no facial asymmetry, no other gross focality Principal Diagnosis Urinary tract infection Asthma excerbation New Diabetes mellitus Hypercalcemia Vitamin D deficiency Hypertension Discharge Exam Constitutional + well hydrated and + morbidly obese; no acute distress Eyes PERRL, conjunctivae normal, anicteric sclerae ENMT external ear and nose normal, oropharynx normal Respiratory normal respiratory effort, lungs clear to auscultation Cardiovascular Rate/Rhythm: regular rate and regular rhythm Gastrointestinal (Abdomen) normal bowel sounds, soft, nontender, no hepatosplenomegaly Musculoskeletal No pedal edema Neurologic PERRL, EOMI, accommodation nl, no face palsy, no dysarthria Psychiatric A+Ox3, euthymic affect Discharge Data Allergies Allergy/AdvReac Type Severity Reaction Status Date / Time No Known Allergies Allergy Verified 07/25/24 22:35 Consultations 10/24/23 00:15 ED Decision to Admit Stat Ordered Studies 10/24/23 00:42 CT Abd and Pelvis [CT abd pelvis IV con only] Stat CT angio chest PE protocol Stat US venous doppler LE BI Stat Diabetes Follow up Diabetes Follow-up Needed for HgbA1c >9%,Newly Diagnosed Diabetes Hospital Course (1) Urinary tract infection: Plan 62-year-old lady with PMH of HTN, bronchial asthma, right breast cancer status post surgery/incomplete radiation, upper extremity DVT status post Coumadin, hypothyroidism, urolithiasis status post surgery, morbid obesity, anxiety/mood disorder, chronic pain, past tobacco abuse presented to the ED with complaint of shortness of breath associated with pleuritic chest pain for 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 Patient also reported some dry cough for about the same duration. Patient denies aspiration. She is being managed for the following: Shortness of breath Possible pneumonia Possible asthma exacerbation No sepsis POA Admitting chest imaging negative for PE, concern for mild right upper lobe pneumonia. Admitting CTA noted linear scarring in RUL. Superimposed pneumonia cannot be excluded. No PE Reports history of asthma This was managed with nebs, steroid and antibiotics inpatient Nocturnal pulse oximetry noted spO2 <88% for 5min 38sec. 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 UCx grew E coli Was on ceftriaxone now transitioned to cefdinir and completed treatment Urinary symptoms resolved Likely T2DM: New diagnosis, A1c of 11.3 this admission. Provided DM education Discharged on Lantus 15U AM and Metformin ER 500mg with dinner. Script for DM supplies sent to her pharm Advised to keep home blood glucose log for PCP Hypercalcemia Likely primary hyperparathyroidism: Calcium of 11.4 at presentation, PTH 141.3. Nephrology evaluated 10/26 parathyroid scan noted findings suggestive of parathyroid adenoma. PCP to follow-up on PTH RP/vitamin D level, 24-hour urine for calcium and creatinine. Patient needs to follow up Endocrinology outpatient Suspicion for Metabolic syndrome as well Vitamin D deficiency: Vitamin D level of 12.7 at presentation Continue po Vit D repletion. PCP to monitor Elevated TSH iso acute illness/ ho hypothyroidism: TSH at 6.08 with free T4 of 0.90. Continue with home levothyroxine 300 mcg daily. PCP to repeat TFT in 6 weeks time. Other chronic medical conditions: hypertension, stable bronchial asthma, not in acute exacerbation right breast cancer status post surgery/incomplete radiation hx upper extremity DVT status post Coumadin hx urolithiasis status post surgery Total Time Total Time Spent Total Time Spent (In Minutes): 35 Total Time Includes: Examination of the Patient, Discharge Planning, Medication Reconciliation and Other Discharge Plan Discharge Items Patient Disposition: Home - Self-Care Reason For Visit: SOB, HYPERCALCEMIA Discharge Diagnosis: Urinary tract infection Asthma excerbation New Diabetes mellitus Hypercalcemia Vitamin D deficiency Hypertension Activity: Resume your previous activity Non-emergency contact: Primary Care Provider and Specialist Call non-emergency contact if: you have any medication questions Follow-up/Referrals: Mani Alvarado PA-C [Primary Care Provider] - Diet: Carb Consistent or DM2, Heart Healthy and Low Sodium (2gm) Addtl Attending Provider Instructions: Mrs San. You came to the hospital and was managed for the above listed diagnoses. You completed antibiotics in the hospital You were started on diabetes medications. Please take insulin glargine (lantus) 15 Units in the morning and Metformin with dinner. Please monitor your blood glucose and keep a record for your Primary Doctor. You were also started on Vitamin D for low vitamin D levels. Parathyroid scan done was concerning for possible Parathyroid adenoma. Please ensure follow up with Endocrinology for management of these issues as we discussed. Your Family Doctor can assist with making arrangement. You also need to get a sleep study done as you need oxygen at bedtime at 2L while sleeping. You were started on low dose amlodipine for elevated blood pressure. Please ensure follow up with your Primary Doctor. It was a pleasure taking care of you. Pending Studies at Discharge: Yes (Hypercalcemia related labs such as PTrP) Stand-Alone Forms: My [facility], Smoking Cessation Medications and DC Order Prescriptions: New amlodipine [Norvasc] 5 mg Tablet 2.5 mg PO QAM 30 Days Qty: 15 0RF ergocalciferol (vitamin D2) 1,250 mcg (50,000 unit) Capsule 1,250 mcg PO Q7D 30 Days Qty: 5 0RF metformin 500 mg Tablet Extended Release 24 Hr 500 mg PO QDD 30 Days Qty: 30 0RF insulin glargine [Lantus Solostar U-100 Insulin] 100 unit/mL (3 mL) insulin pen 15 unit subcut QAM Qty: 15 0RF (DME) blood-glucose meter [[place]Touch [place]io Flex meter[place] [facility] [place] .Route Qty: 1 0RF Rx Instructions: As directed. Check once a day (DME) OneTouch Verio test strips Strip See Rx Instructions .Route Qty: 100 0RF Rx Instructions: As directed. Check once a day (DME) lancets [OneTouch Delica Plus Lancet] 33 gauge [facility] [place] See Rx Instructions .Route Qty: 100 0RF Rx Instructions: As directed. Check once a day (DME) insulin admin supplies Insulin Pen See Rx Instructions .Route Qty: 1 0RF Rx Instructions: Insulin pen needles. Use once a day with insulin pen Continued fluticasone propion-salmeterol [Advair Diskus] 250-50 mcg/dose Blister With Device 1 inh INHALATION BID PRN (Reason: Shortness Of Breath Or Wheezing) levothyroxine 300 mcg tablet 300 mcg PO QAM alprazolam 0.5 mg tablet 0.5 mg PO TID PRN (Reason: Anxiety) albuterol sulfate [Ventolin HFA] 90 mcg/actuation Hfa Aerosol Inhaler 2 puff INHALATION Q4H PRN (Reason: Shortness Of Breath Or Wheezing) spironolactone 50 mg tablet 50 mg PO QAM buspirone 10 mg tablet 10 mg PO BID sertraline 100 mg tablet 200 mg PO QAM oxycodone 30 mg tablet 30 mg PO BID PRN (Reason: Pain) Discontinued hydrocodone-acetaminophen 10-325 mg tablet 1 - 2 tab PO Q6H PRN (Reason: Pain) Discharge Orders: Discharge Order (Routine); Ordered 10/31/23 Ordered By: Vanessa Zhong Admission Data Admit Date/Time: 10/24/23 00:39 Attending Provider: Vanessa Zhong I. Admit Provider: Franco Mccullough Primary Care Provider: Mani Alvarado Other Providers: Franco Mccullough; [facility]; [place]Care; Alfonzo Dobson [facility]; Sharath Mares,Rehab; [place],Rishikesh Other Interventions: Discharge Summary Assessment (RN) Last Done: 10/31/23 15:43
[2023-10-31 15:32] VITALS: BP 161/91; PULSE 60; TEMP 97.9; O2SAT 95
[2023-10-31 16:02] LABS: PTH Related Protein 9 pg/mL (11-20); Vitamin D 1,25 43 pg/mL (18-72); Vitamin D2,1,25 <8 pg/mL; Vitamin D3,1,25 43 pg/mL
== END 2023-10-31 18:33 | disposition home or self-care (01) | DRG 194 ==
LOC: ED 21:22 → SUATTDRO 10-24 00:39 → EDINP 10-24 00:39 → 2W 10-24 06:01 → 3N 10-25 22:17
DX: Z85.3 Personal history of malignant neoplasm of breast; E66.01 Morbid (severe) obesity due to excess calories; E55.9 Vitamin D deficiency, unspecified; E21.0 Primary hyperparathyroidism; N39.0 Urinary tract infection, site not specified; E87.1 Hypo-osmolality and hyponatremia; Z68.43 Body mass index [BMI] 50.0-59.9, adult; J18.9 Pneumonia, unspecified organism; J45.901 Unspecified asthma with (acute) exacerbation; Z92.3 Personal history of irradiation; Z90.5 Acquired absence of kidney; Z86.718 Personal history of other venous thrombosis and embolism; B96.20 Unspecified Escherichia coli [E. coli] as the cause of diseases classified elsewhere; Z83.3 Family history of diabetes mellitus; E11.65 Type 2 diabetes mellitus with hyperglycemia; Z87.891 Personal history of nicotine dependence; I10 Essential (primary) hypertension; Z79.890 Hormone replacement therapy; E03.9 Hypothyroidism, unspecified

== ENCOUNTER 2024-12-15 22:44 | Inpatient (IN) ==
--- NOTE | 2024-12-15 23:55 | Emergency Department Note ---
Impression & Plan Sepsis, Acute UTI, Elevated troponin admit to the [facility] ED Provider Note NAME: LISS VALLEJO AGE: 64 SEX: Female INFORMANT: Patient ED PROVIDER(S): Saranya Lieberman DO CHIEF COMPLAINT: diaphoresis and urinary symptoms PLAN: Disposition: admit to the [facility] MEDICAL DECISION MAKING: This is a 64-year-old female patient who has been having weakness, diaphoresis, headache and urinary symptoms Intermittently for the past 2 weeks. at 3:00 today, the patient's symptoms seem to worsen significantly. She had persistent sweating, headache, right hip pain and was unable to urinate. Laboratory studies reveal a white blood cell count of 33.6 with normal H&H. There is significant left shift. Both procalcitonin and lactate were elevated. Glucose was 201. The patient's creatinine is elevated at 1.89 along with a troponin at 27.7. Patient was considered septic and bolused with 30 mL/kg of crystalloid According to her ideal body weight. She was also empirically treated with IV cefepime. It took some time for nurses to obtain a urinalysis as initial bladder scan showed no urine in the bladder. Patient remained hemodynamically stable while here in the emergency department. Care/management discussed with: [facility] Triage Nursing notes: reviewed and agree With them. Vital Signs: reviewed and remarkable for tachycardia Chronic Medical/Social Conditions affecting care: morbid obesity Prior/ Outside/ External records reviewed: I reviewed previous inpatient medical records for this patient Differential Diagnosis: sepsis, UTI, hypoglycemia, obstructive uropathy, intra-abdominal pathology Diagnostics, independently interpreted by me: ECG: sinus tachycardia at a rate of 109 with first-degree AV block and PVCs. Cardiac Monitoring: Sinus tachycardia at 113 Imaging studies: portable chest x-ray: no acute pulmonary infiltrate or consolidation as per my independent interpretation HPI: 64 year old Female arrives for evaluation of Diaphoresis, weakness and urinary symptoms. at 3:00 today, the patient's symptoms seem to worsen significantly. She had persistent sweating, headache, right hip pain and was unable to urinate. over the past 2 weeks, patient has been having symptoms intermittently. PAST MEDICAL HISTORY: See Below, PAST SURGICAL HISTORY: See Below, SOCIAL HISTORY: See Below, HOME MEDICATIONS: See list ALLERGIES: none VITALS: See Below PHYSICAL EXAMINATION: HEENT: Head - normocephalic and atraumatic. Pupils are equal, round, and reactive to light. Extraocular eye muscles are intact, and sclera are anicteric. Nose - moist nasal mucosa without discharge. Mouth - moist buccal mucosa. Oropharynx is nonerythematous and there is no tonsillar exudate or edema noted. Neck: Supple; no Cervical lymphadenopathy Heart: tachycardic rate and regular rhythm. There is a normal S1 and S2 with no murmurs, clicks, or gallops appreciated. Lungs: Clear to auscultation bilaterally with no wheezes, rales, or rhonchi. Abdomen: Soft, completely nontender, nondistended, with good bowel sounds. There are no palpable pulsatile masses or hepatosplenomegaly. There is no guarding, rigidity, or rebound noted. Extremities: No evidence of cyanosis, clubbing, or edema. There are easily palpable peripheral pulses. Skin: warm and dry with good turgor and no rashes. Emergency Department treatment: IV normal saline bolus-30 mL/kg; IV cefepime Emergency department course: patient was evaluated in room A-12-B. A complete history and physical was performed. Patient was noted to have a white blood cell count greater than 33,000. A septic protocol was then performed. patient was bolused with IV normal saline. She was given 30 mL/kg of normal saline according to ideal body weight. Bladder scan was performed and did not show much urine within the bladder. She was given a dose of IV cefepime after blood cultures were obtained. Patient was finally able to to be cathed for urine. [facility] will [facility] for further inpatient care. I have personally spent greater than 50 minutes of critical care time in the direct management of this patient. This includes bedside care, interpretation of diagnostic studies, and testing, discussion with consultants, patient, and family members, and other required patient management activities. This 50 minutes is in excess of all separately billable procedures. Past Med/Surg History Problem List Acute kidney injury with acute tubular necrosis Morbidly obese Acute metabolic encephalopathy Severe sepsis with acute organ dysfunction Demand ischemia of myocardium Septic shock due to urinary tract infection Severe sepsis Elevated troponin (Acute) Acute UTI (Acute) Sepsis (Acute) Nephrolithiasis Hypothyroidism Hypertension Depression Primary hyperparathyroidism Diabetes mellitus type 2 in obese Exertional dyspnea (Acute) Hypercalcemia Mixed incontinence (Chronic) Vaginitis Interstitial cystitis Per records, pt unaware History of neck injury from remote traumatic accident History of nephrectomy (Chronic) left (from a stone that may have damaged the kidney from childhood) Morbid obesity with BMI of 50.0-59.9, adult Medical History History of breast cancer Vitamin D deficiency History of DVT (deep vein thrombosis) ~2012, previously on AC (per remote anesthesia records) Left arm History of blood transfusion s/p blood transfusion Osteoarthritis Chronic back pain History of strabismus Post traumatic stress disorder Anxiety Asthma stable Surgical History S/P hip replacement left History of lumpectomy of right breast (01/01/22) Right Breast Central Lumpectomy, right axillary [place] Lymph Node Biopsy(Right) - Klaus Reyes DO History of breast biopsy 11/2021 -- right breast cancer History of difficult intubation Left SUHA: 02/19/2006: per records done under GA (no mention of reason for GA; DL --> LMA --> fiberoptic with difficulty seeing cords//per operative report, patient had bronchospasm as well which was treated medically) S/P SONNY-BSO History of dilatation and curettage History of open reduction and internal fixation (ORIF) procedure right ankle - metal hardware in place History of incision and drainage left hip wound x2 () History of cystoscopy History of tonsillectomy Family History Son Family history of diabetes mellitus Daughter Family history of diabetes mellitus Mother , 72yo COPD (chronic obstructive pulmonary disease) Hypertension Diabetes Endometrial cancer Father , in his 60s Cirrhosis of liver Alcoholism Brother Medical history unknown Sister Suicide Sister COVID Sister Gastric bypass status for obesity Smoker Sister Diabetes Hypertension Endometrial cancer Daughter Prematurity Son Diabetes Daughter Diabetes Daughter Hypertension Social History Smoking Status: Never smoker Tobacco Type: E-cigarettes / Vaping Second Hand Exposure: No; Do You Dip or Chew Tobacco: No; Tobacco Cessation Education Requested by Patient: No Hx Alcohol Use: No Hx Substance Use: Yes Non-Prescribed Medications: Marijuana Last Used Substance: Days (ago) Last Used Substance Other:: 1 weeks ago Preferred Language: Kiswahili Communication Ability: Effective Visual Impairment: No Limitations Hearing Ability: Normal Industrial Chemist Required: No Beliefs That Will Affect Care: None marital status: Current Living Situation: Family Current Living Situation Comment: sister current occupational status: disabled How many Children do You have: 3 Other Information That Helps Us Care for You: No Feels Safe at Home: Yes Safety Concerns: Feels Safe At This Time Diet: regular caffeine: Yes (3 cups/day) during the past year weight has: remained stable Assistive Devices: Hospital Bed and Walker Allergies Allergies Allergy/AdvReac Type Severity Reaction Status Date / Time No Known Allergies Allergy Verified 11/17/24 11:11 Home Meds Home Medications Medication Instructions Recorded Confirmed albuterol sulfate 90 mcg/actuation 2 puff inhalation Q4H PRN 03/19/18 12/15/24 aerosol inhaler (Ventolin HFA) Shortness Of Breath Or Wheezing alprazolam 0.5 mg tablet 0.5 mg PO TID PRN Anxiety 03/19/18 12/15/24 fluticasone 250 mcg-salmeterol 50 1 inh inhalation BID PRN Shortness 03/19/18 12/15/24 mcg/dose blistr powdr for Of Breath Or Wheezing inhalation (Advair Diskus) levothyroxine 300 mcg tablet 300 mcg PO QAM 03/19/18 12/15/24 sertraline 100 mg tablet 200 mg PO QAM 01/29/19 12/15/24 hydrocodone 10 mg-acetaminophen 1 tab PO Q8 PRN Pain 03/05/24 12/15/24 325 mg tablet oxycodone 30 mg tablet 30 mg PO BID 03/05/24 12/15/24 amlodipine 2.5 mg tablet 2.5 mg PO DAILY 05/18/24 12/15/24 aripiprazole 5 mg tablet 5 mg PO DAILY 05/18/24 12/15/24 Previous Rx's Medication Instructions Recorded blood-glucose meter (Arius ResearchTouch #1 ea 10/31/23 Verio Flex Meter) insulin admin supplies #1 ea 10/31/23 lancets 33 gauge (OneTouch Delica #100 ea 10/31/23 Plus Lancet) cholecalciferol (vitamin D3) 50 50 mcg PO DAILY #90 caps 07/01/24 mcg (2,000 unit) capsule metformin 500 mg tablet,extended 500 mg PO BID #180 tabs 08/03/24 release 24 hr sitagliptin phosphate 100 mg 100 mg PO DAILY #30 tabs 09/13/24 tablet (Januvia) blood sugar diagnostic (OneTouch #100 ea 09/24/24 Verio test strips) cholecalciferol (vitamin D3) 1,250 50,000 unit PO .COMPLEX #8 caps 10/04/24 mcg (50,000 unit) capsule insulin glargine 100 unit/mL (3 30 unit (0.3 mL) subcut QAM #45 mL 12/02/24 mL) subcutaneous pen (Lantus Solostar U-100 Insulin) cinacalcet 30 mg tablet 30 mg PO DAILY #90 tabs 12/06/24 Results & Data (ED) Vital Signs Vital Signs - 24 hr 12/16/24 00:18 12/16/24 01:06 12/16/24 01:30 Temperature 36.8 C Temperature Source Oral Pulse Rate 102 H 92 H Pulse Rate [Apical] 100 H Pulse Rate from SpO2 Sensor 92 H Respiratory Rate 17 22 24 Blood Pressure 112/61 112/79 Blood Pressure [Right Arm] 112/79 Blood Pressure Mean 78 90 Blood Pressure Mean [Right Arm] 90 Pulse Oximetry 95 97 97 Oxygen Delivery Method Nasal Cannula Nasal Cannula Nasal Cannula Oxygen Flow Rate 2 2 2 12/16/24 02:09 12/16/24 02:30 Temperature Temperature Source Pulse Rate 97 H 93 H Pulse Rate [Apical] Pulse Rate from SpO2 Sensor 94 H Respiratory Rate 12 18 Blood Pressure Blood Pressure [Right Arm] Blood Pressure Mean Blood Pressure Mean [Right Arm] Pulse Oximetry 97 97 Oxygen Delivery Method Nasal Cannula Nasal Cannula Oxygen Flow Rate 2 2 Laboratory Data 12/16/24 07:52 12/16/24 18:22 Lab Results 12/15/24 12/15/24 12/16/24 Range/Units 23:42 23:43 00:41 WBC 33.69 H* (4.8-10.8) K/ul RBC 5.32 (4.20-5.40) M/uL Hgb 13.5 (12.0-16.0) g/dl Hct 42.4 (37.0-47.0) % MCV 79.7 L (80.0-100.0) fL MCH 25.4 (25.0-34.0) pg MCHC 31.8 L (32.0-36.0) g/dL RDW Std Deviation 40.6 (36.4-46.3) fL RDW Coeff of Ada 14.1 (11.5-14.5) % Plt Count 219 (130-400) K/uL MPV 9.7 (9.4-12.4) fL Immature Gran % (Auto) 1.3 % Neut % (Auto) 95.3 % Lymph % (Auto) 1.4 % [place] % (Auto) 1.5 % Eos % (Auto) 0.0 % Baso % (Auto) 0.5 % Neut # (Auto) 32.09 H (1.40-6.50) K/uL Lymph # (Auto) 0.46 L (1.20-3.40) K/uL [place] # (Auto) 0.51 (0.11-0.59) K/uL Eos # (Auto) 0.01 (0.00-0.50) K/uL Baso # (Auto) 0.17 (0.00-0.20) K/uL Immature Gran # (Auto) 0.45 H (0.01-0.20) K/uL Toxic Vacuolation 1+ Sodium 131 L (136-145) mmol/L Potassium 4.6 (3.5-5.1) mmol/L Chloride 98 (98-107) mmol/L Carbon Dioxide 24 (21-32) mmol/L Anion Gap 9 (3-11) BUN 22 (6-23) mg/dl Creatinine 1.89 H (0.6-1.2) mg/dl Est Cr Clr Drug Dosing 45.1 ml/min eGFR 29.12 BUN/Creatinine Ratio 11.6 (10-20) Glucose 201 H (70-99(Fasting)) mg/dl Lactate 4.1 H* (0.4-2.0) mmol/L Calcium 9.9 (8.6-10.3) mg/dl Magnesium 1.1 L (1.7-2.4) mg/dl Total Bilirubin 0.6 (0.2-1.0) mg/dl AST 29 (13-39) U/L ALT 17 (7-52) U/L Alkaline Phosphatase 124 H (34-104) U/L Troponin I High Sens 27.7 H (0-14) pg/ml Total Protein 7.4 (6.0-8.3) gm/dl Albumin 3.3 L (3.4-5.0) gm/dl Globulin 4.1 H (2.5-4.0) gm/dl Albumin/Globulin Ratio 0.8 L (0.9-2) Procalcitonin 12.20 H (0-0.5) ng/ml TSH 13.171 H (0.300-4.500) uIu/ml Free T4 1.00 (0.61-1.60) ng/dl Urine Color Urine Appearance (Clear) Urine pH (4.5-7.5) Ur Specific [place] (1.000-1.030) Urine Protein (Negative) Urine Glucose (UA) (Negative) Urine Ketones (Negative) Urine Blood (Negative) Urine Nitrite (Negative) Urine Bilirubin (Negative) Urine Urobilinogen (Negative) Ur Leukocyte Esterase (Negative) Urine Comment Enterobacterales (PCR) DETECTED A (NotDetected) E. coli (PCR) DETECTED A (NotDetected) mcr-1 Colistin Res Gene PCR Not Detected (NotDetected) blaIMP Car res Gene PCR Not Detected (NotDetected) KPC-Carbap Res Gene PCR Not Detected (NotDetected) blaNDM Car Res Gene PCR Not Detected (NotDetected) OXA-48 Carbapenem Resis Gene (PCR) Not Detected (NotDetected) blaVIM Car Res Gene PCR Not Detected (NotDetected) CTX-M Gene Resistance (PCR) Not Detected (NotDetected) Bld Cult ID Panel PCR See PCR Comment (NotDetected) 12/16/24 Range/Units 02:14 WBC (4.8-10.8) K/ul RBC (4.20-5.40) M/uL Hgb (12.0-16.0) g/dl Hct (37.0-47.0) % MCV (80.0-100.0) fL MCH (25.0-34.0) pg MCHC (32.0-36.0) g/dL RDW Std Deviation (36.4-46.3) fL RDW Coeff of Ada (11.5-14.5) % Plt Count (130-400) K/uL MPV (9.4-12.4) fL Immature Gran % (Auto) % Neut % (Auto) % Lymph % (Auto) % [place] % (Auto) % Eos % (Auto) % Baso % (Auto) % Neut # (Auto) (1.40-6.50) K/uL Lymph # (Auto) (1.20-3.40) K/uL [place] # (Auto) (0.11-0.59) K/uL Eos # (Auto) (0.00-0.50) K/uL Baso # (Auto) (0.00-0.20) K/uL Immature Gran # (Auto) (0.01-0.20) K/uL Toxic Vacuolation Sodium (136-145) mmol/L Potassium (3.5-5.1) mmol/L Chloride (98-107) mmol/L Carbon Dioxide (21-32) mmol/L Anion Gap (3-11) BUN (6-23) mg/dl Creatinine (0.6-1.2) mg/dl Est Cr Clr Drug Dosing ml/min eGFR BUN/Creatinine Ratio (10-20) Glucose (70-99(Fasting)) mg/dl Lactate (0.4-2.0) mmol/L Calcium (8.6-10.3) mg/dl Magnesium (1.7-2.4) mg/dl Total Bilirubin (0.2-1.0) mg/dl AST (13-39) U/L ALT (7-52) U/L Alkaline Phosphatase (34-104) U/L Troponin I High Sens (0-14) pg/ml Total Protein (6.0-8.3) gm/dl Albumin (3.4-5.0) gm/dl Globulin (2.5-4.0) gm/dl Albumin/Globulin Ratio (0.9-2) Procalcitonin (0-0.5) ng/ml TSH (0.300-4.500) uIu/ml Free T4 (0.61-1.60) ng/dl Urine Color Dark Yellow Urine Appearance Cloudy A (Clear) Urine pH 7.0 (4.5-7.5) Ur Specific [place] 1.020 (1.000-1.030) Urine Protein 3+ H (Negative) Urine Glucose (UA) Negative (Negative) Urine Ketones Negative (Negative) Urine Blood 3+ H (Negative) Urine Nitrite Positive A (Negative) Urine Bilirubin 1+ H (Negative) Urine Urobilinogen Negative (Negative) Ur Leukocyte Esterase Trace H (Negative) Urine Comment Enterobacterales (PCR) (NotDetected) E. coli (PCR) (NotDetected) mcr-1 Colistin Res Gene PCR (NotDetected) blaIMP Car res Gene PCR (NotDetected) KPC-Carbap Res Gene PCR (NotDetected) blaNDM Car Res Gene PCR (NotDetected) OXA-48 Carbapenem Resis Gene (PCR) (NotDetected) blaVIM Car Res Gene PCR (NotDetected) CTX-M Gene Resistance (PCR) (NotDetected) Bld Cult ID Panel PCR (NotDetected) Administered Medications Acetaminophen (Acetaminophen 325 Mg Tab) 650 mg PO QID PRN PRN Reason: pain/fever Stop: 01/15/25 02:49 Last Admin: 12/16/24 16:11 Dose: 650 mg Documented By: ISMAEL Alprazolam (Alprazolam 0.5 Mg Tablet) 0.5 mg PO TID PRN PRN Reason: Anxiety Stop: 01/15/25 02:46 Last Admin: 12/16/24 03:24 Dose: 0.5 mg Documented By: YOGI Aripiprazole (Aripiprazole 5 Mg Tab) 5 mg PO DAILY ABDULKADIR Stop: 01/15/25 08:59 Last Admin: 12/16/24 08:30 Dose: Not Given Documented By: ISMAEL Heparin Sodium (Porcine) (Heparin Sod 5,000 Unit/0.5 Ml Vial) 7,500 units SQ Q8 ABDULKADIR Stop: 01/15/25 21:59 Last Admin: 12/16/24 21:38 Dose: 7,500 units Documented By: ISMAEL Hydromorphone HCl (Hydromorphone Inj 1 Mg/Ml Syringe) 1 mg IV Q6H PRN PRN Reason: Pain Stop: 12/30/24 02:48 Last Admin: 12/16/24 11:20 Dose: 1 mg Documented By: Admin: 12/16/24 04:49 Dose: 1 mg Documented By: HORTENSIA Hydromorphone HCl (Hydromorphone Hcl 2 Mg Tab) 2 mg PO Q4H PRN PRN Reason: Pain Stop: 12/30/24 02:49 Last Admin: 12/16/24 17:20 Dose: 2 mg Documented By: ISMAEL Norepinephrine Bitartrate (Levophed/D5w) 4 mg in 250 mls @ 0 mls/hr IV .Q0M REPLACED BY [facility]; Protocol Stop: 01/15/25 05:59 Last Admin: 12/16/24 23:05 Dose: Not Given Documented By: [id number] Titration: 12/16/24 16:42 Dose: 0 mcg/kg/min, 0 mls/hr Documented By: ISMAEL Co-signed By: AMS Titration: 12/16/24 16:24 Dose: 0.01 mcg/kg/min, 5.8 mls/hr Documented By: ISMAEL Co-signed By: AMS Titration: 12/16/24 16:14 Dose: 0.03 mcg/kg/min, 17.4 mls/hr Documented By: ISMAEL Co-signed By: AMS Titration: 12/16/24 16:07 Dose: 0.05 mcg/kg/min, 29.1 mls/hr Documented By: ISMAEL Co-signed By: CB Titration: 12/16/24 15:20 Dose: 0.07 mcg/kg/min, 40.7 mls/hr Documented By: ISMAEL Co-signed By: AMS Titration: 12/16/24 14:50 Dose: 0.09 mcg/kg/min, 52.3 mls/hr Documented By: ISMAEL Co-signed By: AMS Titration: 12/16/24 14:30 Dose: 0.11 mcg/kg/min, 63.9 mls/hr Documented By: ISMAEL Co-signed By: AMS Admin: 12/16/24 14:02 Dose: 0.13 mcg/kg/min, 75.6 mls/hr Documented By: ISMAEL Co-signed By: CB Titration: 12/16/24 13:57 Dose: Infused Documented By: ISMAEL Co-signed By: CB Titration: 12/16/24 11:48 Dose: 0.13 mcg/kg/min, 75.6 mls/hr Documented By: ISMAEL Co-signed By: MTP Titration: 12/16/24 11:21 Dose: 0.11 mcg/kg/min, 63.9 mls/hr Documented By: ISMAEL Co-signed By: JB Admin: 12/16/24 10:34 Dose: 0.13 mcg/kg/min, 75.6 mls/hr Documented By: ISMAEL Co-signed By: AMS Titration: 12/16/24 10:34 Dose: Infused Documented By: ISMAEL Co-signed By: AMS Titration: 12/16/24 09:38 Dose: 0.13 mcg/kg/min, 75.6 mls/hr Documented By: ISMAEL Co-signed By: AMB Titration: 12/16/24 08:10 Dose: 0.11 mcg/kg/min, 63.9 mls/hr Documented By: ISMAEL Co-signed By: AMS Titration: 12/16/24 08:01 Dose: 0.09 mcg/kg/min, 52.3 mls/hr Documented By: ISMAEL Co-signed By: CRW Titration: 12/16/24 07:17 Dose: 0.07 mcg/kg/min, 40.7 mls/hr Documented By: ISMAEL Co-signed By: YASH Admin: 12/16/24 06:56 Dose: 0.05 mcg/kg/min, 29.1 mls/hr Documented By: BRANDON Co-signed By: YASH Lactated Ringer's (Lr) 1,000 mls @ 125 mls/hr IV .Q8H ABDULKADIR Stop: 12/18/24 10:14 Last Admin: 12/16/24 21:43 Dose: 125 mls/hr Documented By: Infusion: 12/16/24 21:43 Dose: Infused Documented By: Admin: 12/16/24 14:41 Dose: 125 mls/hr Documented By: Infusion: 12/16/24 14:41 Dose: Infused Documented By: Admin: 12/16/24 10:32 Dose: 125 mls/hr Documented By: ISMAEL Ceftriaxone Sodium (Rocephin) 2,000 mg in 50 mls @ 100 mls/hr IV Q12H ABDULKADIR Stop: 12/30/24 14:59 Last Infusion: 12/16/24 15:47 Dose: Infused Documented By: Admin: 12/16/24 14:59 Dose: 100 mls/hr Documented By: ISMAEL Insulin Aspart (Insulin Aspart Per Unit Charge) 0 units SC [facility] Stop: 01/15/25 16:29 Last Admin: 12/16/24 20:50 Dose: 4 units Documented By: ISMAEL Co-signed By: TP Admin: 12/16/24 16:54 Dose: 7 units Documented By: ISMAEL Co-signed By: MILY Insulin Glargine (Lantus Per Unit Charge) 15 units SQ [facility] Stop: 01/15/25 08:59 Last Admin: 12/16/24 08:30 Dose: Not Given Documented By: ISMAEL Levothyroxine Sodium (Levothyroxine Sodium 150 Mcg Tablet) [facility] Stop: 01/15/25 06:29 Last Admin: 12/16/24 07:20 Dose: Not Given Documented By: ISMAEL Oxycodone HCl (Oxycodone Hcl Ir 30 Mg Tab (Immediate Release)) 30 mg PO BID REPLACED BY [facility] Stop: 12/30/24 08:59 Last Admin: 12/16/24 20:50 Dose: 30 mg Documented By: Admin: 12/16/24 08:31 Dose: Not Given Documented By: ISMAEL Sertraline HCl (Sertraline Hcl 100 Mg Tablet) 200 mg PO [facility] Stop: 01/15/25 08:59 Last Admin: 12/16/24 08:31 Dose: Not Given Documented By: ISMAEL Tamsulosin HCl (Tamsulosin Hcl 0.4 Mg Cap) 0.4 mg PO [facility] Stop: 01/15/25 08:59 Last Admin: 12/16/24 08:31 Dose: Not Given Documented By: ISMAEL Discontinued Medications Sodium Chloride (Nss) 1,000 mls @ 999 mls/hr IV .Q1H1M ONE Stop: 12/16/24 01:54 Last Infusion: 12/16/24 02:53 Dose: Infused Documented By: Admin: 12/16/24 01:09 Dose: 999 mls/hr Documented By: AISHWARYA Cefepime HCl (Maxipime 2000mg) 2,000 mg in 20 mls @ 5 mls/min IV NOW STA; Protocol Stop: 12/16/24 01:11 Last Admin: 12/16/24 02:01 Dose: 5 mls/min Documented By: AISHWARYA Sodium Chloride (Nss) 500 mls @ 999 mls/hr IV .Q31M ONE Stop: 12/16/24 01:39 Last Infusion: 12/16/24 02:53 Dose: Infused Documented By: Admin: 12/16/24 02:21 Dose: 999 mls/hr Documented By: AISHWARYA Sodium Chloride (Nss) 250 mls @ 999 mls/hr IV .Q16M ONE Stop: 12/16/24 01:24 Last Infusion: 12/16/24 02:53 Dose: Infused Documented By: Admin: 12/16/24 02:21 Dose: 999 mls/hr Documented By: AISHWARYA Magnesium Sulfate/Dextrose (Magnesium Sulfate / D5w) 1 gm in 100 mls @ 50 mls/hr IV Q2H ABDULKADIR Stop: 12/16/24 09:59 Last Infusion: 12/16/24 14:16 Dose: Infused Documented By: Admin: 12/16/24 12:11 Dose: 50 mls/hr Documented By: Infusion: 12/16/24 12:11 Dose: Infused Documented By: Admin: 12/16/24 10:32 Dose: 50 mls/hr Documented By: Infusion: 12/16/24 09:32 Dose: Infused Documented By: Admin: 12/16/24 07:32 Dose: 50 mls/hr Documented By: Infusion: 12/16/24 06:53 Dose: Infused Documented By: Admin: 12/16/24 04:53 Dose: 50 mls/hr Documented By: HORTENSIA Acetaminophen (Ofirmev) 1,000 mg in 100 mls @ 400 mls/hr IV NOW STA Stop: 12/16/24 02:59 Last Infusion: 12/16/24 03:51 Dose: Infused Documented By: Admin: 12/16/24 03:18 Dose: 400 mls/hr Documented By: YOGI Cefepime HCl (Maxipime 2000mg) 2,000 mg in 20 mls @ 5 mls/min IV Q12H ABDULKADIR; Protocol Stop: 12/26/24 13:59 Last Admin: 12/16/24 14:39 Dose: Not Given Documented By: IMSAEL Lactated Ringer's (Lr) 1,000 mls @ 500 mls/hr IV .Q2H STA Stop: 12/16/24 04:54 Last Infusion: 12/16/24 11:18 Dose: Infused Documented By: Admin: 12/16/24 04:45 Dose: 500 mls/hr Documented By: HORTENSIA Lactated Ringer's (Lr) 1,000 mls @ 500 mls/hr IV .Q2H ABDULKADIR Stop: 12/19/24 05:59 Last Admin: 12/16/24 10:28 Dose: Not Given Documented By: Admin: 12/16/24 10:28 Dose: Not Given Documented By: Infusion: 12/16/24 07:59 Dose: Infused Documented By: Admin: 12/16/24 06:00 Dose: 500 mls/hr Documented By: ISMAEL Daptomycin 600 mg/ Syringe 12 mls @ 6 mls/min IV Q2D ABDULKADIR; Protocol Stop: 12/26/24 05:59 Last Admin: 12/16/24 05:42 Dose: 6 mls/min Documented By: HORTENSIA Thiamine HCl 200 mg/ Sodium (Chloride) 52 mls @ 210 mls/hr IV 1030 ONE Stop: 12/16/24 10:44 Last Infusion: 12/16/24 11:42 Dose: Infused Documented By: Admin: 12/16/24 11:10 Dose: 210 mls/hr Documented By: ISMAEL Insulin Aspart (Insulin Aspart Per Unit Charge) 0 units SC Q6 ABDULKADIR Stop: 01/15/25 04:44 Last Admin: 12/16/24 12:10 Dose: 5 units Documented By: ISMAEL Co-signed By: ALYSSIA Admin: 12/16/24 07:19 Dose: Not Given Documented By: ISMAEL Metoprolol Tartrate (Metoprolol Tartrate 1 Mg/Ml Vial) 2.5 mg IV NOW STA Stop: 12/16/24 04:25 Last Admin: 12/16/24 04:59 Dose: 2.5 mg Documented By: HORTENSIA Imaging Data Radiologist's Impression: Chest X-Ray 12/15/24 23:42 EXAM: XR chest 1V portable CLINICAL HISTORY: weakness TECHNIQUE: An X-ray image of the chest was obtained in AP projection. Suboptimal inspiratory effort with low lung volumes. COMPARISON: Compared with X-ray dated 09/08/2024 FINDINGS: Pulmonary Parenchyma: No interval change is seen regarding the atelectatic band in the right middle lung zone. No evidence of consolidation, collapse, or focal opacities. No pulmonary nodules are identified. No evidence of pleural effusion or pleural thickening. Heart and Mediastinum: Heart size and shape are normal. No mediastinal widening or masses are present. No hilar or mediastinal lymphadenopathy. Bony Thorax: The bony thorax appears intact, without fractures or deformities. Soft Tissues: The soft tissues overlying the chest wall are unremarkable. A small right diaphragmatic hump is noted. IMPRESSION: 1. No acute cardiopulmonary abnormalities are identified. 2. No interval change regarding the atelectatic band seen in the right middle lung zone. Electronically signed by Vini Lugo 12-16-2024 02:22 AM Discharge Plan Visit Data Chief Complaint: Weakness Stated Complaint: WEAKNESS ED Provider: Saranya Lieberman Discharge Problem: Sepsis, Acute UTI, Elevated troponin Patient Disposition: Admitted As Inpatient Condition: Critical Discharge Instructions Interventions: ED Discharge Assessment Last Done: 12/16/24 04:29
[2024-12-16 00:13] LABS: Hematocrit (blood only) 42.4 % (37.0-47.0); Hemoglobin 13.5 g/dl (12.0-16.0); Mean Corpuscular Hemoglobin 25.4 pg (25.0-34.0); Mean Corpuscular Volume 79.7 fL (80.0-100.0); Platelet Count 219 K/uL (130-400); RDW Standard Deviation 40.6 fL (36.4-46.3); Red Blood Count 5.32 M/uL (4.20-5.40); White Blood Count 33.69 K/ul (4.8-10.8)
[2024-12-16 00:19] LABS: Alanine Aminotransferase 17.0 U/L (7-52); Albumin Globulin Ratio 0.8 (0.9-2); Albumin Level 3.3 gm/dl (3.4-5.0); Alkaline Phosphatase 124.0 U/L (34-104); Anion Gap 9.0 (3-11); Bilirubin,Total 0.6 mg/dl (0.2-1.0); Blood Urea Nitrogen 22.0 mg/dl (6-23); Calcium 9.9 mg/dl (8.6-10.3); Carbon Dioxide 24.0 mmol/L (21-32); Chloride 98.0 mmol/L (98-107); Creatinine Clr Calc Pharmacy 45.1 ml/min; Globulin 4.1 gm/dl (2.5-4.0); Glucose 201.0 mg/dl (70-99(Fasting)); Immature Granulocytes # (auto) 0.45 K/uL (0.01-0.20); Immature Granulocytes % (auto) 1.3 %; Potassium 4.6 mmol/L (3.5-5.1); Sodium 131.0 mmol/L (136-145); Total Protein 7.4 gm/dl (6.0-8.3); Toxic Vacuolation 1+
[2024-12-16 00:33] LABS: Thyroid Stimulating Hormone 13.171 uIu/ml (0.300-4.500)
[2024-12-16 00:45] LABS: Magnesium 1.1 mg/dl (1.7-2.4)
[2024-12-16] MEDS: SODIUM CHLORIDE 0.9% 1,000 ML IV ONE (01:09)
[2024-12-16 01:52] LABS: T4 Free Thyroxine 1.0 ng/dl (0.61-1.60)
[2024-12-16] MEDS: CEFEPIME 2000MG 2,000 MG/20 ML SYR IV STA (02:01)
[2024-12-16] MEDS: SODIUM CHLORIDE 0.9% 500 ML IV ONE (02:21)
[2024-12-16] MEDS: SODIUM CHLORIDE 0.9% 250 ML IV ONE (02:21)
--- NOTE | 2024-12-16 02:27 | XRay Report ---
EXAM: XR chest 1V portable CLINICAL HISTORY: weakness TECHNIQUE: An X-ray image of the chest was obtained in AP projection. Suboptimal inspiratory effort with low lung volumes. COMPARISON: Compared with X-ray dated 09/08/2024 FINDINGS: Pulmonary Parenchyma: No interval change is seen regarding the atelectatic band in the right middle lung zone. No evidence of consolidation, collapse, or focal opacities. No pulmonary nodules are identified. No evidence of pleural effusion or pleural thickening. Heart and Mediastinum: Heart size and shape are normal. No mediastinal widening or masses are present. No hilar or mediastinal lymphadenopathy. Bony Thorax: The bony thorax appears intact, without fractures or deformities. Soft Tissues: The soft tissues overlying the chest wall are unremarkable. A small right diaphragmatic hump is noted. IMPRESSION: 1. No acute cardiopulmonary abnormalities are identified. 2. No interval change regarding the atelectatic band seen in the right middle lung zone. Electronically signed by Vini Lugo 12-16-2024 02:22 AM
--- NOTE | 2024-12-16 02:30 | History & Physical Report ---
Date of Service December 16, 2024 Assessment & Plan (1) Severe sepsis: Plan: Assessment and plan below following discussion of case with ED provider and reviewing patient history/pertinent normal/abnormal diagnostic test results. Severe sepsis SIRS plus ARF plus lactic acidosis Secondary to complicated UTI Rule out recurrent kidney stone given flank pain complaints, history primary hyperparathyroidism hypertension, slightly elevated secondary to discomfort bronchial asthma not in acute exacerbation DUTCH right breast cancer status post surgery/incomplete radiation, in remission upper extremity DVT status post Coumadin DM 2 insulin requiring, suboptimal control as of recent hemoglobin A1c of 8.8 last month hypothyroidism, TSH elevated with normal T4 morbid obesity anxiety/mood disorder, patient anxious during exam hx chronic pain on [id number] oxycodone Hypomagnesemia past tobacco abuse Admit to medical telemetry CS, cefepime Follow creatinine and lactic acid response to IVF CT abdomen pelvis re: flank pain rule out kidney stone N.p.o. until CT resulted Basal bolus insulin adjusted for n.p.o. status, ISS BG goal 1 10-1 40 Recheck TSH next month DVT prophylaxis. SCDs for now until CT resulted Full code Text document was generated using [employer] voice recognition software. It may contain grammatical or spelling errors. Kindly contact undersigned for clarification of any documentation item in question. ADDENDUM : 5:15 AM Patient SBP noted to be 70 to 80s post IV Lopressor and Dilaudid administration from an hour ago as per RN. Lactic acid 9.[address] abdomen pelvis A small obstructing stone (5 mm) is seen at the right ureterovesical junction, with consequent mild to moderate dilatation of the right pelvicalyceal system and, to a lesser extent, the ureter, with perinephric fat stranding. AP Septic shock Increase maintenance IVF rate Add daptomycin to cefepime Urology consult re: obstructive uropathy/sepsis Hold amlodipine for now. Flomax once normotensive. Outpatient ENT referral for parathyroidectomy given recurrent kidney stones on discharge. Urgent OR contemplated and ICU transfer recommended as per urology provider. IV Levophed initiated for septic shock. History of Present Illness Chief Complaint: Flank pain, migraine headache Primary Care Provider: Mani Alvarado PA-C History obtained from patient and records. Medical history significant for hypertension, bronchial asthma, DUTCH, right breast cancer status post surgery/incomplete radiation, upper extremity DVT status post Coumadin, DM 2 insulin requiring, hypothyroidism, primary hyperparathyroidism, urolithiasis status post surgery, migraine headache, morbid obesity, anxiety/mood disorder, chronic pain, past tobacco abuse. Last confinement October 2023 for complicated UTI and possible pneumonia. Patient feeling ill since last week. Intermittent achy right flank pain which later was noted to be constant. No hematuria. Denies chest pain. SOB from flank pain. Poor appetite with nausea symptoms. Migraine headache from pain. IV cefepime administered at the ER. 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 Allergies Allergy/AdvReac Type Severity Reaction Status Date / Time No Known Allergies Allergy Verified 11/17/24 11:11 Home Medications Medication Instructions Recorded Confirmed Type albuterol sulfate 90 mcg/actuation 2 puff inhalation Q4H PRN 03/19/18 12/15/24 History aerosol inhaler (Ventolin HFA) Shortness Of Breath Or Wheezing alprazolam 0.5 mg tablet 0.5 mg PO TID PRN Anxiety 03/19/18 12/15/24 History fluticasone 250 mcg-salmeterol 50 1 inh inhalation BID PRN Shortness 03/19/18 12/15/24 History mcg/dose blistr powdr for Of Breath Or Wheezing inhalation (Advair Diskus) levothyroxine 300 mcg tablet 300 mcg PO QAM 03/19/18 12/15/24 History sertraline 100 mg tablet 200 mg PO QAM 01/29/19 12/15/24 History blood-glucose meter (BalayaTouch #1 ea 10/31/23 12/15/24 Rx Verio Flex Meter) insulin admin supplies #1 ea 10/31/23 12/15/24 Rx lancets 33 gauge (OneTouch Delica #100 ea 10/31/23 12/15/24 Rx Plus Lancet) hydrocodone 10 mg-acetaminophen 1 tab PO Q8 PRN Pain 03/05/24 12/15/24 History 325 mg tablet oxycodone 30 mg tablet 30 mg PO BID 03/05/24 12/15/24 History amlodipine 2.5 mg tablet 2.5 mg PO DAILY 05/18/24 12/15/24 History aripiprazole 5 mg tablet 5 mg PO DAILY 05/18/24 12/15/24 History cholecalciferol (vitamin D3) 50 50 mcg PO DAILY #90 caps 07/01/24 12/15/24 Rx mcg (2,000 unit) capsule metformin 500 mg tablet,extended 500 mg PO BID #180 tabs 08/03/24 12/15/24 Rx release 24 hr sitagliptin phosphate 100 mg 100 mg PO DAILY #30 tabs 09/13/24 12/15/24 Rx tablet (Januvia) blood sugar diagnostic (OneTouch #100 ea 09/24/24 12/15/24 Rx Verio test strips) cholecalciferol (vitamin D3) 1,250 50,000 unit PO .COMPLEX #8 caps 10/04/24 12/15/24 Rx mcg (50,000 unit) capsule insulin glargine 100 unit/mL (3 30 unit (0.3 mL) subcut QAM #45 mL 12/02/24 12/15/24 Rx mL) subcutaneous pen (Lantus Solostar U-100 Insulin) cinacalcet 30 mg tablet 30 mg PO DAILY #90 tabs 12/06/24 12/15/24 Rx Past Med/Surg History Problem List (Updated 12/16/24 @ 07:21 by Franco Mccullough MD) Severe sepsis Elevated troponin (Acute) Acute UTI (Acute) Sepsis (Acute) Nephrolithiasis Hypothyroidism Hypertension Depression Primary hyperparathyroidism Diabetes mellitus type 2 in obese Exertional dyspnea (Acute) Hypercalcemia Mixed incontinence (Chronic) Vaginitis Interstitial cystitis Per records, pt unaware History of neck injury from remote traumatic accident History of nephrectomy (Chronic) left (from a stone that may have damaged the kidney from childhood) Morbid obesity with BMI of 50.0-59.9, adult Medical History History of breast cancer Vitamin D deficiency History of DVT (deep vein thrombosis) ~2012, previously on AC (per remote anesthesia records) Left arm History of blood transfusion s/p blood transfusion Osteoarthritis Chronic back pain History of strabismus Post traumatic stress disorder Anxiety Asthma stable Surgical History S/P hip replacement left History of lumpectomy of right breast (01/01/22) Right Breast Central Lumpectomy, right axillary [place] Lymph Node Biopsy(Right) - Klaus Reyes, DO History of breast biopsy 11/2021 -- right breast cancer History of difficult intubation Left SUHA: 02/19/2006: per records done under [place] (no mention of reason for GA; DL --> LMA --> fiberoptic with difficulty seeing cords//per operative report, patient had bronchospasm as well which was treated medically) S/P SONNY-BSO History of dilatation and curettage History of open reduction and internal fixation (ORIF) procedure right ankle - metal hardware in place History of incision and drainage left hip wound x2 () History of cystoscopy History of tonsillectomy Family History Son Family history of diabetes mellitus Daughter Family history of diabetes mellitus Mother , 72yo COPD (chronic obstructive pulmonary disease) Hypertension Diabetes Endometrial cancer Father , in his 60s Cirrhosis of liver Alcoholism Brother Medical history unknown Sister Suicide Sister COVID Sister Gastric bypass status for obesity Smoker Sister Diabetes Hypertension Endometrial cancer Daughter Prematurity Son Diabetes Daughter Diabetes Daughter Hypertension Social History Smoking Status: Never smoker Tobacco Type: E-cigarettes / Vaping Second Hand Exposure: No; Do You Dip or Chew Tobacco: No; Tobacco Cessation Education Requested by Patient: No Hx Alcohol Use: No Hx Substance Use: Yes Non-Prescribed Medications: Marijuana Last Used Substance: Days (ago) Last Used Substance Other:: 1 weeks ago Preferred Language: Vincentian Communication Ability: Effective Visual Impairment: No Limitations Hearing Ability: Normal Press Brake Operator Required: No Beliefs That Will Affect Care: None marital status: Current Living Situation: Family Current Living Situation Comment: sister current occupational status: disabled How many Children do You have: 3 Other Information That Helps Us Care for You: No Feels Safe at Home: Yes Safety Concerns: Feels Safe At This Time Diet: regular caffeine: Yes (3 cups/day) during the past year weight has: remained stable Assistive Devices: Denture - Upper, Denture - Lower, Oxygen - at Night and Walker Review of Systems Review of Systems: As per HPI, all other systems reviewed and negative Physical Exam Physical Exam: GENERAL: uncomfortable, morbidly obese, anxious, no respiratory distress SKIN: Normal color, warm HEENT: [place] palpebral conjunctivae, no ptosis, dry buccal mucosa NECK : Supple, short neck, no tenderness CHEST : Decreased breath sounds, no tenderness HEART : RRR, no obvious murmurs ABDOMEN: Marked distention, minimal hypogastric tenderness EXTREMITIES : Bilateral LE swelling without LE tenderness, no other conspicuous deformities noted NEUROLOGIC : Coherent, no facial asymmetry, no other gross focality Results & Data Results & Data Vital Signs (Past 12 Hours) Vital Signs Temp Pulse Pulse Resp BP BP Pulse Ox 12/16/24 02:09 97 H 12 97 12/16/24 01:30 92 H 24 112/79 97 12/16/24 01:06 36.8 C 100 H 22 112/79 97 12/16/24 00:18 102 H 17 112/61 95 12/15/24 22:48 37 C 113 H 26 H 117/84 96 O2 Del Method O2 Flow Rate 12/16/24 02:09 Nasal Cannula 2 12/16/24 01:30 Nasal Cannula 2 12/16/24 01:06 Nasal Cannula 2 12/16/24 00:18 Nasal Cannula 2 12/15/24 22:48 Nasal Cannula 2 Laboratory Results Laboratory Results WBC 33.69 K/ul (4.8-10.8) H* 12/15/24 23:42 RBC 5.32 M/uL (4.20-5.40) 12/15/24 23:42 Hgb 13.5 g/dl (12.0-16.0) 12/15/24 23:42 Hct 42.4 % (37.0-47.0) 12/15/24 23:42 MCV 79.7 fL (80.0-100.0) L 12/15/24 23:42 MCH 25.4 pg (25.0-34.0) 12/15/24 23:42 MCHC 31.8 g/dL (32.0-36.0) L 12/15/24 23:42 RDW Std Deviation 40.6 fL (36.4-46.3) 12/15/24 23:42 RDW Coeff of Ada 14.1 % (11.5-14.5) 12/15/24 23:42 Plt Count 219 K/uL (130-400) 12/15/24 23:42 MPV 9.7 fL (9.4-12.4) 12/15/24 23:42 Immature Gran % (Auto) 1.3 % 12/15/24 23:42 Neut % (Auto) 95.3 % 12/15/24 23:42 Lymph % (Auto) 1.4 % 12/15/24 23:42 [place] % (Auto) 1.5 % 12/15/24 23:42 Eos % (Auto) 0.0 % 12/15/24 23:42 Baso % (Auto) 0.5 % 12/15/24 23:42 Neut # (Auto) 32.09 K/uL (1.40-6.50) H 12/15/24 23:42 Lymph # (Auto) 0.46 K/uL (1.20-3.40) L 12/15/24 23:42 [place] # (Auto) 0.51 K/uL (0.11-0.59) 12/15/24 23:42 Eos # (Auto) 0.01 K/uL (0.00-0.50) 12/15/24 23:42 Baso # (Auto) 0.17 K/uL (0.00-0.20) 12/15/24 23:42 Immature Gran # (Auto) 0.45 K/uL (0.01-0.20) H 12/15/24 23:42 Toxic Vacuolation 1+ 12/15/24 23:42 Sodium 131 mmol/L (136-145) L 12/15/24 23:42 Potassium 4.6 mmol/L (3.5-5.1) 12/15/24 23:42 Chloride 98 mmol/L (98-107) 12/15/24 23:42 Carbon Dioxide 24 mmol/L (21-32) 12/15/24 23:42 Anion Gap 9 (3-11) 12/15/24 23:42 BUN 22 mg/dl (6-23) 12/15/24 23:42 Creatinine 1.89 mg/dl (0.6-1.2) H 12/15/24 23:42 Est Cr Clr Drug Dosing 45.1 ml/min 12/15/24 23:42 eGFR 29.12 12/15/24 23:42 BUN/Creatinine Ratio 11.6 (10-20) 12/15/24 23:42 Glucose 201 mg/dl (70-99(Fasting)) H 12/15/24 23:42 Lactate 4.1 mmol/L (0.4-2.0) H* 12/16/24 00:41 Calcium 9.9 mg/dl (8.6-10.3) 12/15/24 23:42 Magnesium 1.1 mg/dl (1.7-2.4) L 12/15/24 23:42 Total Bilirubin 0.6 mg/dl (0.2-1.0) 12/15/24 23:42 AST 29 U/L (13-39) 12/15/24 23:42 ALT 17 U/L (7-52) 12/15/24 23:42 Alkaline Phosphatase 124 U/L (34-104) H 12/15/24 23:42 Troponin I High Sens 27.7 pg/ml (0-14) H 12/15/24 23:42 Total Protein 7.4 gm/dl (6.0-8.3) 12/15/24 23:42 Albumin 3.3 gm/dl (3.4-5.0) L 12/15/24 23:42 Globulin 4.1 gm/dl (2.5-4.0) H 12/15/24 23:42 Albumin/Globulin Ratio 0.8 (0.9-2) L 12/15/24 23:42 Procalcitonin 12.20 ng/ml (0-0.5) H 12/15/24 23:43 TSH 13.171 uIu/ml (0.300-4.500) H 12/15/24 23:42 Free T4 1.00 ng/dl (0.61-1.60) 12/15/24 23:42 Impressions Chest X-Ray 12/15/24 23:42 EXAM: XR chest 1V portable CLINICAL HISTORY: weakness TECHNIQUE: An X-ray image of the chest was obtained in AP projection. Suboptimal inspiratory effort with low lung volumes. COMPARISON: Compared with X-ray dated 09/08/2024 FINDINGS: Pulmonary Parenchyma: No interval change is seen regarding the atelectatic band in the right middle lung zone. No evidence of consolidation, collapse, or focal opacities. No pulmonary nodules are identified. No evidence of pleural effusion or pleural thickening. Heart and Mediastinum: Heart size and shape are normal. No mediastinal widening or masses are present. No hilar or mediastinal lymphadenopathy. Bony Thorax: The bony thorax appears intact, without fractures or deformities. Soft Tissues: The soft tissues overlying the chest wall are unremarkable. A small right diaphragmatic hump is noted. IMPRESSION: 1. No acute cardiopulmonary abnormalities are identified. 2. No interval change regarding the atelectatic band seen in the right middle lung zone. Electronically signed by Vini Lugo 12-16-2024 02:22 AM Diagnostic Findings EKG as per my interpretation :Rate 110, sinus tachycardia, normal axis, 1 AVB, no ischemia, PVCs
[2024-12-16] MEDS ORDERED: PROMETHAZINE 12.5 MG/50.5 ML BAG IV PRN (02:50)
[2024-12-16 02:52] LABS: Appearance Urine Cloudy (Clear); Glucose Urine UA Negative (Negative)
[2024-12-16] MEDS: ACETAMINOPHEN 1,000 MG/100 ML VIAL IV STA (03:18)
[2024-12-16] MEDS ORDERED: CARBOHYDRATES FOR HYPOGLYCEMIA PO PRN (04:28)
[2024-12-16] MEDS ORDERED: GLUCAGON FOR INJ 1 MG VIAL SQ PRN (04:28)
[2024-12-16] MEDS ORDERED: GLUCOSE 10 TAB/TUBE PO PRN (04:28)
[2024-12-16] MEDS ORDERED: DEXTROSE 50% 50 ML SYRINGE IV PRN (04:28)
[2024-12-16] MEDS ORDERED: GLUCOSE 40% GEL 15 GM TUBE PO PRN (04:28)
[2024-12-16 04:42] LABS: Chlamydia pneumoniae PCR Not Detected (NotDetected); Coronavirus 229E PCR Not Detected (NotDetected); Coronavirus CoV-2 (COVID19)PCR Not Detected (NotDetected); Coronavirus HKU1 PCR Not Detected (NotDetected); Coronavirus NL63 PCR Not Detected (NotDetected); Coronavirus OC43PCR Not Detected (NotDetected); Human Metapneumovirus PCR Not Detected (NotDetected); Parainfluenza Virus 1 PCR Not Detected (NotDetected); Parainfluenza Virus 2 PCR Not Detected (NotDetected); Parainfluenza Virus 3 PCR Not Detected (NotDetected); Parainfluenza Virus 4 PCR Not Detected (NotDetected); Respiratory Syncytial VirusPCR Not Detected (NotDetected); Rhinovirus/Enterovirus PCR Not Detected (NotDetected)
[2024-12-16] MEDS: LACTATED RINGER'S 1,000 ML IV STA (04:45)
[2024-12-16] MEDS: HYDROmorphone INJ 1 MG/ML SYRINGE IV PRN (04:49)
[2024-12-16] MEDS: MAGNESIUM SULFATE / D5W 1 GM/100 ML BAG IV SCH (04:53)
[2024-12-16] MEDS: METOPROLOL TARTRATE 1 MG/ML VIAL IV STA (04:59)
--- NOTE | 2024-12-16 05:25 | CT Scan Report ---
EXAM: CT abd pelvis wo con CLINICAL HISTORY: R flank pain TECHNIQUE: Non-contrast CT of the abdomen and pelvis was performed, using the following protocol: axial images, as well as reconstructed coronal and sagittal images. No intravenous contrast was administered. One of the following dose reduction techniques was utilized for this exam: automated exposure control, adjustment of the mA and/or kV according to patient size, and use of iterative reconstruction. COMPARISON: 10/24/2023 FINDINGS: Abdomen: Liver: Fatty infiltration of the liver. No focal lesions, cysts, or masses are identified. Gallbladder and Biliary System: The gallbladder is normal in size and shape. No wall thickening, pericholecystic fluid, or gallstones are identified. Pancreas: The pancreatic head, body, and tail are visualized and appear normal in size and density, except for fatty atrophy. No pancreatic masses or calcifications are noted. Spleen: Mildly enlarged in size (147 mm). A 2 cm splenule is noted. Few calcific foci are noted (unchanged). No splenic lesions or masses are identified. Kidneys and Adrenal Glands: The left kidney is not visualized, likely surgically removed. Surgical clips are present at the left renal bed and along the course of the left ureter. The right kidney is mildly enlarged in size, with mild to moderate dilatation of its pelvicalyceal system and, to a lesser extent, the ureter, with surrounding fat edema. A small obstructing stone (5 mm) is seen at the right ureterovesical junction. Cortical thickness is within normal limits. A 1.3 cm right adrenal gland nodule, unchanged from prior. Appendix: No findings to suggest acute appendicitis. Pelvis: Urinary bladder: Normal in contour and wall thickness. No intraluminal lesions. Uterus: Small in size. No masses. Ovaries: Not well visualized, but no gross abnormalities are noted. Peritoneal and Retroperitoneal Structures: No free fluid or abnormal fluid collections are identified within the abdomen or pelvis. No lymphadenopathy is noted. Bowel: The visualized bowel loops are normal in caliber and appearance. No evidence of bowel obstruction or wall thickening. Bones and Soft Tissues: Left total hip replacement. Lumbar spondylotic changes. Atrophic changes of rectus abdominis muscles, more pronounced on the left. IMPRESSION: A small obstructing stone (5 mm) is seen at the right ureterovesical junction, with consequent mild to moderate dilatation of the right pelvicalyceal system and, to a lesser extent, the ureter, with perinephric fat stranding. No other interval changes. Electronically signed by Vini Lugo 12-16-2024 05:24 AM
[2024-12-16] MEDS: DAPTOmycin 600 MG in SYRINGE 0 ML IV SCH (05:42)
[2024-12-16] MEDS ORDERED: STAT IV Infusion **Titration per Protocol STA (05:56)
[2024-12-16] MEDS: LACTATED RINGER'S 1,000 ML IV SCH ×2 (06:00→10:32)
--- NOTE | 2024-12-16 06:12 | Urology Consultation ---
Date of Consultation December 16, 2024 Assessment & Plan (1) Nephrolithiasis: I was contacted to evaluate the patient by the hospitalist service at approximately 5:45 AM. I reported the bedside immediately Upon my arrival to the floor the patient was noted to be hypotensive and febrile. Urologic recommendations are as follows: Patient has been n.p.o. appropriately for surgical procedure She is receiving broad-spectrum antibiotics in form of cefepime and vancomycin Appropriate cultures have been sent and these can be used to tailor further antibiotic therapy as these are resulted She is also receiving intravenous fluids As the patient appears septic from urinary source and obstructing kidney stone she will be taken emergently to the operating room for cystoscopy and probable ureteral stent placement I have discussed with the hospitalist service as well as the jammer hooker servicethe patient is currently being transferred to the intensive care unit as it appears that the patient may require vasopressor support The operating room has been notified Additional recommendations will be forthcoming based on operative findings and her postoperative recovery thereafter Supervising Physician Co-Signing Physician Notes Patient seen independently event after discussion with him She was evaluated in the ICU as central line placement was occurring Already on Levophed and still with a blood pressure only of 100 She is an acutely ill female with an obstructing calculus on her right side and she has status post prior left radical nephrectomy This is an acute and life-threatening emergency we will move her to the operating room MARYELLEN in an effort to place a stent and a unobstruct her right kidney She will continue to require ICU support after the surgery as anticipate she could get worse before she improves History of Present Illness Reason for Consultation: Sepsis from obstructing right kidney stone Attending Physician: Ilya Chahal DO History of Present Illness This is a 64-year-old female who was admitted to [facility] earlier this evening. The patient did present to the emergency department secondary to right flank pain as well as urinary symptoms such as difficulty urinating and dysuria. She states that she has been having urinary symptoms for approximately 2 weeks but they have gotten slightly worse over the past few hours prompting her to present to the emergency department. Since arrival/admission to the hospital patient has had labs and imaging which I independently reviewed the chest x-ray showed no evidence of pneumonia. She was admitted to the floor and subsequently had a CT scan of the abdomen pelvis that showed the patient had a 5 mm obstructing kidney stone in the right ureterovesical junction resulting in dilatation of the renal collecting system. Labs including CBC were white blood cell count was elevated 33.6. Hemoglobin and hematocrit were normal. Platelet count was also normal. Chemistry profile showed sodium is 131 with a normal potassium. BUN and creatinine were 22 and 1.8 (her baseline creatinine typically runs within the normal range). Urinalysis showed cloudy urine which was positive for nitrites and had trace leukocyte esterase. At the time of my interview the patient was resting in bed. She continued to have right flank pain. She was in no overt distress however. Allergies Allergy/AdvReac Type Severity Reaction Status Date / Time No Known Allergies Allergy Verified 11/17/24 11:11 Home Medications Medication Instructions Recorded Confirmed Type albuterol sulfate 90 mcg/actuation 2 puff inhalation Q4H PRN 03/19/18 12/15/24 History aerosol inhaler (Ventolin HFA) Shortness Of Breath Or Wheezing alprazolam 0.5 mg tablet 0.5 mg PO TID PRN Anxiety 03/19/18 12/15/24 History fluticasone 250 mcg-salmeterol 50 1 inh inhalation BID PRN Shortness 03/19/18 12/15/24 History mcg/dose blistr powdr for Of Breath Or Wheezing inhalation (Advair Diskus) levothyroxine 300 mcg tablet 300 mcg PO QAM 03/19/18 12/15/24 History sertraline 100 mg tablet 200 mg PO QAM 01/29/19 12/15/24 History blood-glucose meter (OneTouch #1 ea 10/31/23 12/15/24 Rx Verio Flex Meter) insulin admin supplies #1 ea 10/31/23 12/15/24 Rx lancets 33 gauge (OneTouch Delica #100 ea 10/31/23 12/15/24 Rx Plus Lancet) hydrocodone 10 mg-acetaminophen 1 tab PO Q8 PRN Pain 03/05/24 12/15/24 History 325 mg tablet oxycodone 30 mg tablet 30 mg PO BID 03/05/24 12/15/24 History amlodipine 2.5 mg tablet 2.5 mg PO DAILY 05/18/24 12/15/24 History aripiprazole 5 mg tablet 5 mg PO DAILY 05/18/24 12/15/24 History cholecalciferol (vitamin D3) 50 50 mcg PO DAILY #90 caps 07/01/24 12/15/24 Rx mcg (2,000 unit) capsule metformin 500 mg tablet,extended 500 mg PO BID #180 tabs 08/03/24 12/15/24 Rx release 24 hr sitagliptin phosphate 100 mg 100 mg PO DAILY #30 tabs 09/13/24 12/15/24 Rx tablet (Januvia) blood sugar diagnostic (OneTouch #100 ea 09/24/24 12/15/24 Rx Verio test strips) cholecalciferol (vitamin D3) 1,250 50,000 unit PO .COMPLEX #8 caps 10/04/2411/29 Rx mcg (50,000 unit) capsule insulin glargine 100 unit/mL (3 30 unit (0.3 mL) subcut QAM #45 mL 12/02/24 12/15/24 Rx mL) subcutaneous pen (Lantus Solostar U-100 Insulin) cinacalcet 30 mg tablet 30 mg PO DAILY #90 tabs 12/06/24 12/15/24 Rx Patient History Medical History History of breast cancer Vitamin D deficiency History of DVT (deep vein thrombosis) ~2012, previously on AC (per remote anesthesia records) Left arm History of blood transfusion s/p blood transfusion Osteoarthritis Chronic back pain History of strabismus Post traumatic stress disorder Anxiety Asthma stable Surgical History S/P hip replacement left History of lumpectomy of right breast (01/01/22) Right Breast Central Lumpectomy, right axillary [place] Lymph Node Bi opsy(Right) - Klaus Reyes DO History of breast biopsy 11/2021 -- right breast cancer History of difficult intubation Left SUHA: 02/19/2006: per records done under [place] (no mention of reason for GA; DL --> LMA --> fiberoptic with difficulty seeing cords//per operative report, patient had bronchospasm as well which was treated medically) S/P SONNY-BSO History of dilatation and curettage History of open reduction and internal fixation (ORIF) procedure right ankle - metal hardware in place History of incision and drainage left hip wound x2 () History of cystoscopy History of tonsillectomy Family History Son Family history of diabetes mellitus Daughter Family history of diabetes mellitus Mother , 72yo COPD (chronic obstructive pulmonary disease) Hypertension Diabetes Endometrial cancer Father , in his 60s Cirrhosis of liver Alcoholism Brother Medical history unknown Sister Suicide Sister COVID Sister Gastric bypass status for obesity Smoker Sister Diabetes Hypertension Endometrial cancer Daughter Prematurity Son Diabetes Daughter Diabetes Daughter Hypertension Social History Smoking Status: Never smoker Tobacco Type: E-cigarettes / Vaping Second Hand Exposure: No; Do You Dip or Chew Tobacco: No; Tobacco Cessation Education Requested by Patient: No Hx Alcohol Use: No Hx Substance Use: Yes Non-Prescribed Medications: Marijuana Last Used Substance : Days (ago) Last Used Substance Other:: 1 weeks ago Preferred Language: Montserratian Communication Ability: Effective Visual Impairment: No Limitations Hearing Ability: Normal Relay Telegrapher Required: No Beliefs That Will Affect Care: None marital status: Current Living Situation: Family Current Living Situation Comment: sister current occupational status: disabled How many Children do You have: 3 Other Information That Helps Us Care for You: No Feels Safe at Home: Yes Safety Concerns: Feels Safe At This Time Diet: regular caffeine: Yes (3 cups/day) during the past year weight has: remained stable Assistive Devices: Denture - Upper, Denture - Lower, Oxygen - at Night and Walker Review of Systems Review of Systems: All systems reviewed & are unremarkable except as noted in HPI & below Physical Exam Constitutional: + obese; no acute distress Eyes: no conjunctival abnormality ENMT: Ears: no hearing impairment and no external ear abnormality Mouth: no oropharynx abnormality Neck: trachea midline Respiratory: normal respiratory effort; no respiratory distress and no labored breathing Cardiovascular: Rate/Rhythm: regular rate and regular rhythm Gastrointestinal (Abdomen): Abdomen is rotund and soft. There is no rebound tenderness or guarding but some slight tenderness to palpation on the right side Musculoskeletal: No calf tenderness Skin: no rashes Neurologic: moves all extremities Psychiatric: A+Ox3, euthymic affect Genitourinary: CVA tenderness noted with percussion on the right side Results & Data Vital Signs (Past 12 Hours) Vital Signs Temp Pulse Pulse Resp BP BP BP 12/16/24 05:57 98 H 76/44 L 12/16/24 04:59 126 H 172/81 H 12/16/24 04:28 37.5 C 126 H 22 172/81 H 12/16/24 03:48 38.2 C H 133 H 28 H 145/87 H 12/16/24 03:07 94 H 12/16/24 03:00 117 H 26 H 12/16/24 02:30 93 H 18 12/16/24 02:09 97 H 12 12/16/24 01:30 92 H 24 112/79 12/16/24 01:06 36.8 C 100 H 22 112/79 12/16/24 00:18 102 H 17 112/61 12/15/24 22:48 37 C 113 H 26 H 117/84 Pulse Ox O2 Del Method O2 Flow Rate 12/16/24 05:57 12/16/24 04:59 12/16/24 04:28 93 Nasal Cannula 6 12/16/24 03:48 96 Nasal Cannula 2 12/16/24 03:07 12/16/24 03:00 97 Nasal Cannula 2 12/16/24 02:30 97 Nasal Cannula 2 12/16/24 02:09 97 Nasal Cannula 2 12/16/24 01:30 97 Nasal Cannula 2 12/16/24 01:06 97 Nasal Cannula 2 12/16/24 00:18 95 Nasal Cannula 2 12/15/24 22:48 96 Nasal Cannula 2 PG Care Time/CCT Total # of Minutes Spent Total Time Spent with Patient: Total time spent is greater than 50% in coordination of care (as documented) at patient's floor/unit and/or counseling patient: Coding Level of Care Code 69490 INT INP/OBS CARE 75MIN Diagnoses Nephrolithiasis N20.0
[2024-12-16] MEDS ORDERED: PROPOFOL IV EMULSION 10 MG/ML 20 ML VIAL IV ONE (06:47)
[2024-12-16] MEDS ORDERED: LIDOCAINE 2% 2 ML VIAL/AMP(20MG/ML) INFIL ONE (06:47)
[2024-12-16] MEDS: NOREPINEPHRINE/D5W 4 MG/250 ML PLCT IV SCH (06:56)
--- NOTE | 2024-12-16 07:15 | Anesthesiology Consultation ---
Date of Service December 16, 2024 Assessment & Plan Chart Review Chart Review: Acceptable Risk for Surgery and Patient NOT seen in Pre Admission Testing Consults Requested none History Surgery Operation Date: 12/16/24 07:00 Proposed Procedures p Cystoscopy Right Stent Placement - Craig Brasher MD Height/Weight Height: 5 ft 5 in Weight: 153.031 kg Allergies Allergy/AdvReac Type Severity Reaction Status Date / Time No Known Allergies Allergy Verified 11/17/24 11:11 Medications Home Medications Medication Instructions Recorded Confirmed Last Taken albuterol sulfate 90 mcg/actuation 2 puff inhalation Q4H PRN 03/19/18 12/15/24 12/30/21 16:00 aerosol inhaler (Ventolin HFA) Shortness Of Breath Or Wheezing alprazolam 0.5 mg tablet 0.5 mg PO TID PRN Anxiety 03/19/18 12/15/24 01/01/22 04:30 fluticasone 250 mcg-salmeterol 50 1 inh inhalation BID PRN Shortness 03/19/18 12/15/24 12/30/21 14:00 mcg/dose blistr powdr for Of Breath Or Wheezing inhalation (Advair Diskus) levothyroxine 300 mcg tablet 300 mcg PO QAM 03/19/18 12/15/24 10/23/23 sertraline 100 mg tablet 200 mg PO QAM 01/29/19 12/15/24 10/23/23 blood-glucose meter (OneTouch #1 ea 10/31/23 12/15/24 Unknown Verio Flex Meter) insulin admin supplies #1 ea 10/31/23 12/15/24 Unknown lancets 33 gauge (OneTouch Delica #100 ea 10/31/23 12/15/24 Unknown Plus Lancet) hydrocodone 10 mg-acetaminophen 1 tab PO Q8 PRN Pain 03/05/24 12/15/24 Unknown 325 mg tablet oxycodone 30 mg tablet 30 mg PO BID 03/05/24 12/15/24 Unknown amlodipine 2.5 mg tablet 2.5 mg PO DAILY 05/18/24 12/15/24 Unknown aripiprazole 5 mg tablet 5 mg PO DAILY 05/18/24 12/15/24 Unknown cholecalciferol (vitamin D3) 50 50 mcg PO DAILY #90 caps 07/01/24 12/15/24 Unknown mcg (2,000 unit) capsule metformin 500 mg tablet,extended 500 mg PO BID #180 tabs 08/03/24 12/15/24 Unknown release 24 hr sitagliptin phosphate 100 mg 100 mg PO DAILY #30 tabs 09/13/24 12/15/24 Unknown tablet (Januvia) blood sugar diagnostic (OneTouch #100 ea 09/24/24 12/15/24 Unknown Verio test strips) cholecalciferol (vitamin D3) 1,250 50,000 unit PO .COMPLEX #8 caps 10/04/24 12/15/24 Unknown mcg (50,000 unit) capsule insulin glargine 100 unit/mL (3 30 unit (0.3 mL) subcut QAM #45 mL 12/02/24 12/15/24 Unknown mL) subcutaneous pen (Lantus Solostar U-100 Insulin) cinacalcet 30 mg tablet 30 mg PO DAILY #90 tabs 12/06/24 12/15/24 Unknown Active Medications Generic Name Dose Route Start Last Admin Trade Name Freq PRN Reason Stop Dose Admin Alprazolam 0.5 mg 12/16/24 02:47 12/16/24 03:24 Alprazolam 0.5 Mg Tablet PO 01/15/25 02:46 0.5 mg TID PRN Administration Anxiety Hydromorphone HCl 1 mg 12/16/24 02:49 12/16/24 04:49 Hydromorphone Inj 1 Mg/Ml Syringe IV 12/30/24 02:48 1 mg Q6H PRN Administration Pain Magnesium Sulfate/Dextrose 1 gm in 100 mls @ 50 mls/hr 12/16/24 02:00 12/16/24 04:53 Magnesium Sulfate / D5w IV 12/16/24 09:59 50 mls/hr Q2H ABDULKADIR Administration Daptomycin 600 mg/ Syringe 12 mls @ 6 mls/min 12/16/24 06:00 12/16/24 05:42 IV 12/26/24 05:59 6 mls/min Q2D ABDULKADIR Administration Protocol Norepinephrine Bitartrate 4 mg in 250 mls @ 29.063 mls/hr 12/16/24 06:00 12/16/24 06:56 Levophed/D5w IV 01/15/25 05:59 0.05 mcg/kg/min .Q8H37M ABDULKADIR 29.1 mls/hr Administration Protocol 0.05 MCG/KG/MIN Past Medical History Medical History History of breast cancer Vitamin D deficiency History of DVT (deep vein thrombosis) ~2012, previously on AC (per remote anesthesia records) Left arm History of blood transfusion s/p blood transfusion Osteoarthritis Chronic back pain History of strabismus Post traumatic stress disorder Anxiety Asthma stable Past Family History Family History Son Family history of diabetes mellitus Daughter Family history of diabetes mellitus Mother , 72yo COPD (chronic obstructive pulmonary disease) Hypertension Diabetes Endometrial cancer Father , in his 60s Cirrhosis of liver Alcoholism Brother Medical history unknown Sister Suicide Sister COVID Sister Gastric bypass status for obesity Smoker Sister Diabetes Hypertension Endometrial cancer Daughter Prematurity Son Diabetes Daughter Diabetes Daughter Hypertension Past Surgical History Surgical History S/P hip replacement left History of lumpectomy of right breast (01/01/22) Right Breast Central Lumpectomy, right axillary [place] Lymph Node Biopsy(Right) - Klaus Reyes, DO History of breast biopsy 11/2021 -- right breast cancer History of difficult intubation Left SUHA: 02/19/2006: per records done under [place] (no mention of reason for GA; DL --> LMA --> fiberoptic with difficulty seeing cords//per operative report, patient had bronchospasm as well which was treated medically) S/P SONNY-BSO History of dilatation and curettage History of open reduction and internal fixation (ORIF) procedure right ankle - metal hardware in place History of incision and drainage left hip wound x2 () History of cystoscopy History of tonsillectomy Social History Smoking Status: Never smoker tobacco type: cigarettes Do You Dip or Chew Tobacco: No Hx Alcohol Use: No alcohol intake frequency: holidays/special occasions only Hx Substance Use: Yes substance use type: marijuana Last Used Substance: Days (ago) Last Used Substance Other:: 1 weeks ago Physical Exam Vital Signs Last Vital Signs Temp 37.5 C 12/16/24 04:28 Pulse 98 H 12/16/24 05:57 Resp 22 12/16/24 04:28 BP 76/44 L 12/16/24 05:57 Pulse Ox 93 12/16/24 04:28 O2 Del Method Nasal Cannula 12/16/24 04:45 O2 Flow Rate 7 12/16/24 04:45 Testing Laboratory Results 12/15/24 23:42 12/15/24 23:42 Urine Color Dark Yellow 12/16/24 02:14 Urine Appearance Cloudy (Clear) A 12/16/24 02:14 Urine pH 7.0 (4.5-7.5) 12/16/24 02:14 Ur Specific [place] 1.020 (1.000-1.030) 12/16/24 02:14 Urine Protein 3+ (Negative) H 12/16/24 02:14 Urine Glucose (UA) Negative (Negative) 12/16/24 02:14 Urine Ketones Negative (Negative) 12/16/24 02:14 Urine Nitrite Positive (Negative) A 12/16/24 02:14 Ur Leukocyte Esterase Trace (Negative) H 12/16/24 02:14 12/16/24 05:01 POC Glucose 167 H
[2024-12-16] MEDS: INSULIN ASPART PER UNIT CHARGE SC SCH ×2 (07:19→16:54)
[2024-12-16] MEDS: LEVOTHYROXINE SODIUM 150 MCG TABLET PO SCH (07:20)
--- NOTE | 2024-12-16 08:07 | XRay Report ---
EXAM: XR chest 1V portable CLINICAL HISTORY: Central line placement. TECHNIQUE: An X-ray image of the chest was obtained in AP portable projection. COMPARISON: 12/14/2024 CR. FINDINGS: Left central line placement is seen, reaching the left subclavian vein. Pulmonary Parenchyma: No interval change is seen regarding the atelectatic band in the right middle lung zone. There is no evidence of consolidation, collapse, or focal opacities. No pulmonary nodules are identified. There is no evidence of pleural effusion or pleural thickening. Heart and Mediastinum: Mild cardiomegaly is present. There is no mediastinal widening or masses. No hilar or mediastinal lymphadenopathy is seen. Bony Thorax: The bony thorax appears intact, without fractures or deformities. Soft Tissues: The soft tissues overlying the chest wall are unremarkable. IMPRESSION: 1. Left central line placement is seen, with the tip reaching the left subclavian/axillary vein. Repositioning is needed. New. 2. No interval change is seen regarding the atelectatic band in the right middle lung zone. Electronically signed by Vini Lugo 12-16-2024 08:07 AM
[2024-12-16 08:17] LABS: Hematocrit (blood only) 38.0 % (37.0-47.0); Hemoglobin 12.7 g/dl (12.0-16.0); Mean Corpuscular Hemoglobin 27.0 pg (25.0-34.0); Mean Corpuscular Volume 80.7 fL (80.0-100.0); Platelet Count 217 K/uL (130-400); RDW Standard Deviation 41.7 fL (36.4-46.3); Red Blood Count 4.71 M/uL (4.20-5.40); White Blood Count 43.24 K/ul (4.8-10.8)
--- NOTE | 2024-12-16 08:17 | Procedure Note ---
Procedure Note Date of Service December 16, 2024 Procedure: Internal Jugular Central Line Placement Proceduralist: Ernst SALDAÑA (ACNP-[id number]) Attending: Dr. Knapp Indication: Central Drug Administration, Poor Venous Access, Multiple Lab Draws Necessary, etc. Anesthesia: [x]Lidocaine 1% Verbal Consent obtained from patient as delegated to me by Dr. Knapp was obtained from patient. Risks and benefits were discussed to include but not limited to, pain, infection, injury to vessels, inadvertent arterial puncture, pneumothorax, and risk for further procedures. A time-out was completed verifying correct patient, procedure, site, positioning, and implants(s) or special equipment if applicable. Patients Neck was cleansed and both sides were scouted with ultrasound. LEFT side was chosen as appropriate target was identified and overall a better target. The LEFT neck was prepped and draped in the typical sterile fashion using Chloraprep. The Internal Jugular Vein and Carotid Artery were identified using ultrasound. The superficial tissue was anesthetized using 4 mL of 1% lidocaine without epinephrine under direct visualization with the ultrasound. After adequate anesthetization was achieved, the Internal Jugular vein was cannulated under direct ultrasound guidance using an introducer needle on a syringe. Good venous blood return was maintained prior to removal of syringe from introducer needle. Using Seldinger Technique, a guide wire was advanced through the introducer needle without resistance. The introducer needle was removed and ultrasound images were obtained of the guide wire within the Internal Jugular Vein and saved to the patients medical record. A small incision was made in penetrating fashion at the guide wire insertion site utilizing an 11 blade scalpel. The dilator was advanced to the vessel without resistance. The dilator was exchanged for the triple lumen catheter which was advanced into the vessel without resistance. The guide wire was removed intact from the catheter without issue. Claves were placed on each catheter tip with confirmation of good blood flow from each lumen. Each port was easily flushed with sterile saline. The catheter was placed at 20 cm and sutured in place. BioPatch was applied to the catheter and a sterile Tegaderm dressing was applied over the catheter with careful attention to sterility. Patient tolerated procedure well. No immediate complications were met., however imaging showed inappropriate placement (see below) Post procedure x-ray was completed, placement was noted to go down IJ track, turn left and head down to subclavian towards brachiocephalic. Line was then removed and pressure held. Procedural Ultrasound Guidance: Procedure Date: Indication: Vasopressors poor IV access Artery AND Vein visualized: YES Compressible Vein: YES Guidewire or Short Catheter seen in vein prior to dilation: YES [facility] [place] Procedure Codes (Charges) Tubes, Drains, and Vasc Access Procedure 1: Tubes, Drains, and Vasc Access: [id number] Insertion Of Non-tunneled Catheter Age 4 Yrs> Coding CPT Codes Tubes, Drains, and Vasc Access - Tubes, Drains, and Vasc Access: [id number] Insertion Of Non-tunneled Catheter Age 4 Yrs> ([id number]) Additional Codes Date of Service ([facility].[email or web address])
--- NOTE | 2024-12-16 08:27 | XRay Report ---
EXAM: XR chest 1V portable CLINICAL HISTORY: Central line confirmed. TECHNIQUE: An X-ray image of the chest was obtained in an AP projection. COMPARISON: Chest x ray 12-16-2024 05:46:21 EXTERIOR DESIGNER FINDINGS: Line and tubes: Removal of the left-sided venous tube reaching the neck. Newly applied right-sided venous line reaching the neck, likely misplaced in the right internal jugular vein. Pulmonary Parenchyma: No interval change is seen regarding the atelectatic band in the right middle lung zone. No evidence of consolidation, collapse, or focal opacities. No pulmonary nodules are identified. No evidence of pleural effusion or pleural thickening. Heart and Mediastinum: Heart size and shape are normal. No mediastinal widening or masses. No hilar or mediastinal lymphadenopathy. Bony Thorax: The bony thorax appears intact without fractures or deformities. Soft Tissues: Soft tissues overlying the chest wall are unremarkable. IMPRESSION: 1. Removal of the left-sided venous tube reaching the neck. 2. Newly applied right-sided venous line reaching the neck, likely misplaced in the right internal jugular vein. Reintroduction in the SVC is recommended. 3. No interval change is seen regarding the atelectatic band in the right middle lung zone. [facility] ER was called at [phone] at 07:25 AM EXTERIOR DESIGNER, 12/16/2024, and Nurse, [place] was informed regarding the presence of critical medical findings in the report Electronically signed by Vini Lugo 12-16-2024 08:27 AM
[2024-12-16 08:28] LABS: Anion Gap 11.0 (3-11); Blood Urea Nitrogen 26.0 mg/dl (6-23); Calcium 9.1 mg/dl (8.6-10.3); Carbon Dioxide 20.0 mmol/L (21-32); Chloride 101.0 mmol/L (98-107); Creatinine Clr Calc Pharmacy 31.5 ml/min; Glucose 210.0 mg/dl (70-99(Fasting)); Magnesium 1.1 mg/dl (1.7-2.4); Potassium 4.4 mmol/L (3.5-5.1); Sodium 132.0 mmol/L (136-145)
[2024-12-16] MEDS: LANTUS PER UNIT CHARGE SQ SCH (08:30)
[2024-12-16] MEDS: ARIPiprazole 5 MG TAB PO SCH (08:30)
[2024-12-16] MEDS: SERTRALINE HCL 100 MG TABLET PO SCH (08:31)
[2024-12-16] MEDS: TAMSULOSIN HCL 0.4 MG CAP PO SCH (08:31)
[2024-12-16 08:35] LABS: Immature Granulocytes # (auto) 1.45 K/uL (0.01-0.20); Immature Granulocytes % (auto) 3.4 %; Polychromasia 1+; Toxic Vacuolation 3+
[2024-12-16] MEDS ORDERED: PHENYLEPHRINE 100MCG/ML 5ML SYR ONE (08:38)
--- NOTE | 2024-12-16 08:48 | Operative Report ---
PG Post Operative Report Pre & Post Diagnosis Operation Date: 12/16/24 07:00 Pre-Op Diagnosis: Nephrolithiasis Post-Op Diagnosis: Nephrolithiasis I identified the patient and participated in the time-out.: Yes Procedure Operation Date: 12/16/24 07:00 Actual Procedures p Cystoscopy, Right Stent Placement(Right) - Craig Brasher MD Surgeon Craig Brasher MD Logistics Engineering Manager none Estimated Blood Loss 0 Findings Consistent with Post-Op Diagnosis Specimens none Description of Procedure Of note, this is an acutely ill patient who was transported directly from the ICU to the operating room. She was seen in the ICU, the time from identification of the underlying problem and sepsis until the OR was spent placing central line access and beginning to support her blood pressure. She was transported to the operating room as soon as she was stabilized enough. She is a large woman with very limited hip mobility, positioning was challenging but she was placed in dorsal lithotomy position. She was sterilely prepped and draped in standard fashion. A 21 [place] cystoscope was passed per urethra with some difficulty in accessing the vaginal vault and urethra. Entry into the bladder revealed an excessively irritated bladder with ureteral orifices identified and in orthotopic position. I cannulated the right UO and advanced a wire to the kidney and there was an immediate discharge of pus from the right kidney. Placed a 6 [place] by 24 cm double-J stent with a good curl in the kidney as well as the bladder. There was pus draining through and around the stent. I left a wire in the bladder and placed a 16 [place] tip catheter over the wire. She was then taken back to the ICU and remains in quite guarded condition. There is some anticipation that she could worsen before she improves after surgery of this nature. I attest to the content of the Intraoperative Record and any orders documented therein. Any exceptions are noted below.
--- NOTE | 2024-12-16 09:15 | Fluoroscopy Report ---
FL KUB CLINICAL HISTORY: CYSTO RT STENT COMPARISON STUDY: None FLUOROSCOPY TIME: 4 seconds FLUOROSCOPY IMAGES: 2 EXPOSURE DOSE: 3 mGy FINDINGS: Fluoroscopy was provided for urologic procedure. IMPRESSION: Intraoperative fluoroscopy. ACT 112: Negative or not required by law. Electronically signed by: Diogo Valerio M.D. 12/16/2024 9:13 AM
--- NOTE | 2024-12-16 10:08 | Critical Care Consultation ---
Date of Consultation December 16, 2024 Assessment & Plan (1) Acute kidney injury with acute tubular necrosis: Reason Critically Ill: Severe sepsis secondary to nephrolithiasis PLAN: Neuro: Encephalopathy improved Resp: History of obstructive sleep apnea - Home CPAP use CV: Hypotension - Levophed wean as tolerated Fluids/Renal: Acute kidney injury - Discussed with nephrology Hyponatremia: History of prior in past, this may represent acute phase reaction ID: Leukemoid reaction secondary to underlying sepsis - Transition from cefepime to ceftriaxone, discontinuing vancomycin as patient's blood cultures have turned positive for gram-negative organism GI/Nutrition: Tolerating type 2 diabetes carb consistent diet - [] Heme: Heparin 7500 3 times daily for DVT prophylaxis Endocrine: ICU hyperglycemia protocol Vascular access: Utilize 8 cm catheter at this time, difficulty placing central venous access other sites relatively contraindicated and vasoactive medications are decreasing Code Status: Full code Disposition: ICU (2) Morbidly obese: (3) Severe sepsis with acute organ dysfunction: (4) Septic shock due to urinary tract infection: (5) Diabetes mellitus type 2 in obese: (6) History of nephrectomy: Supervising Physician Co-Signing Physician Notes I have personally spent 85 minutes of critical care time in the direct management of this patient. This is a life/limb threatening event. This includes time spent evaluating patient, direct bedside care, chart review, placing orders, interpretation of diagnostic studies, discussion with consultants, patient, and/or family members regarding treatment decisions, as well as other required patient management activities. This time is exclusive of all separately billable procedures, and teaching time and separate from and in addition to any other critical care service time. History of Present Illness Reason for Consultation: Severe sepsis secondary to impacted kidney stone Attending Physician: Ilya Chahal DO History of Present Illness Patient is a 64-year-old female with a significant past medical history for hypertension, asthma, obstructive sleep apnea, riced breast cancer status post mastectomy with radiation, history of upper extremity DVT with prior Coumadin use, type 2 diabetes, hypothyroidism, prior nephrectomy and history of nephrolithiasis. Patient had felt ill for the last couple of days with possible urinary tract infection signs and symptoms, this had progressively gotten worse to the point that she stopped urinating she presented to the emergency department was started on broad-spectrum antibiotics and urology was consulted for an obstructing nephrolithiasis On arrival in the ICU patient required arterial line placement by anesthesia and multiple attempts at central venous access. Ultimately she went to the operating room with urology and a ureteral stent was successfully placed. Since return to the ICU her vasoactive's have been able to be weaned slightly Allergies Allergy/AdvReac Type Severity Reaction Status Date / Time No Known Allergies Allergy Verified 11/17/24 11:11 Home Medications Medication Instructions Recorded Confirmed Type albuterol sulfate 90 mcg/actuation 2 puff inhalation Q4H PRN 03/19/18 12/15/24 History aerosol inhaler (Ventolin HFA) Shortness Of Breath Or Wheezing alprazolam 0.5 mg tablet 0.5 mg PO TID PRN Anxiety 03/19/18 12/15/24 History fluticasone 250 mcg-salmeterol 50 1 inh inhalation BID PRN Shortness 03/19/18 12/15/24 History mcg/dose blistr powdr for Of Breath Or Wheezing inhalation (Advair Diskus) levothyroxine 300 mcg tablet 300 mcg PO QAM 03/19/18 12/15/24 History sertraline 100 mg tablet 200 mg PO QAM 01/29/19 12/15/24 History blood-glucose meter (OffSite VISIONTouch #1 ea 10/31/23 12/15/24 Rx Verio Flex Meter) insulin admin supplies #1 ea 10/31/23 12/15/24 Rx lancets 33 gauge (OneTouch Delica #100 ea 10/31/23 12/15/24 Rx Plus Lancet) hydrocodone 10 mg-acetaminophen 1 tab PO Q8 PRN Pain 03/05/24 12/15/24 History 325 mg tablet oxycodone 30 mg tablet 30 mg PO BID 03/05/24 12/15/24 History amlodipine 2.5 mg tablet 2.5 mg PO DAILY 05/18/24 12/15/24 History aripiprazole 5 mg tablet 5 mg PO DAILY 05/18/24 12/15/24 History cholecalciferol (vitamin D3) 50 50 mcg PO DAILY #90 caps 07/01/24 12/15/24 Rx mcg (2,000 unit) capsule metformin 500 mg tablet,extended 500 mg PO BID #180 tabs 08/03/24 12/15/24 Rx release 24 hr sitagliptin phosphate 100 mg 100 mg PO DAILY #30 tabs 09/13/24 12/15/24 Rx tablet (Januvia) blood sugar diagnostic (OneTouch #100 ea 09/24/24 12/15/24 Rx Verio test strips) cholecalciferol (vitamin D3) 1,250 50,000 unit PO .COMPLEX #8 caps 10/04/24 12/15/24 Rx mcg (50,000 unit) capsule insulin glargine 100 unit/mL (3 30 unit (0.3 mL) subcut QAM #45 mL 12/02/24 12/15/24 Rx mL) subcutaneous pen (Lantus Solostar U-100 Insulin) cinacalcet 30 mg tablet 30 mg PO DAILY #90 tabs 12/06/24 12/15/24 Rx Patient History Medical History History of breast cancer Vitamin D deficiency History of DVT (deep vein thrombosis) ~2012, previously on AC (per remote anesthesia records) Left arm History of blood transfusion s/p blood transfusion Osteoarthritis Chronic back pain History of strabismus Post traumatic stress disorder Anxiety Asthma stable Surgical History S/P hip replacement left History of lumpectomy of right breast (01/01/22) Right Breast Central Lumpectomy, right axillary [place] Lymph Node Biopsy(Right) - Klaus Reyes DO History of breast biopsy 11/2021 -- right breast cancer History of difficult intubation Left SUHA: 02/19/2006: per records done under GA (no mention of reason for GA; DL --> LMA --> fiberoptic with difficulty seeing cords//per operative report, patient had bronchospasm as well which was treated medically) S/P SONNY-BSO History of dilatation and curettage History of open reduction and internal fixation (ORIF) procedure right ankle - metal hardware in place History of incision and drainage left hip wound x2 () History of cystoscopy History of tonsillectomy Family History Son Family history of diabetes mellitus Daughter Family history of diabetes mellitus Mother , 72yo COPD (chronic obstructive pulmonary disease) Hypertension Diabetes Endometrial cancer Father , in his 60s Cirrhosis of liver Alcoholism Brother Medical history unknown Sister Suicide Sister COVID Sister Gastric bypass status for obesity Smoker Sister Diabetes Hypertension Endometrial cancer Daughter Prematurity Son Diabetes Daughter Diabetes Daughter Hypertension Social History Smoking Status: Never smoker Tobacco Type: E-cigarettes / Vaping Second Hand Exposure: No; Do You Dip or Chew Tobacco: No; Tobacco Cessation Education Requested by Patient: No Hx Alcohol Use: No Hx Substance Use: Yes Non-Prescribed Medications: Marijuana Last Used Substance: Days (ago) Last Used Substance Other:: 1 weeks ago Preferred Language: Estonian Communication Ability: Effective Visual Impairment: No Limitations Hearing Ability: Normal Conveyor Loader Required: No Beliefs That Will Affect Care: None marital status: Current Living Situation: Family Current Living Situation Comment: sister current occupational status: disabled How many Children do You have: 3 Other Information That Helps Us Care for You: No Feels Safe at Home: Yes Safety Concerns: Feels Safe At This Time Diet: regular caffeine: Yes (3 cups/day) during the past year weight has: remained stable Assistive Devices: Hospital Bed and Walker Physical Exam Physical Exam: General: Alert. nontoxic. Skin: Warm, dry, Head: Atraumatic Ears, nose, mouth and throat: airway patent Cardiovascular: Normal peripheral perfusion Respiratory: no respiratory distress Gastrointestinal: Non distended Musculoskeletal: No deformity Results & Data Results & Data Vital Signs (Past 12 Hours) Vital Signs Temp Pulse Pulse Resp BP BP BP 12/16/24 09:40 92 H 24 94/54 L 12/16/24 09:35 91 H 24 85/50 L 12/16/24 09:25 92 H 24 87/50 L 12/16/24 09:15 89 24 88/52 L 12/16/24 09:05 88 22 86/51 L 12/16/24 08:55 36.9 C 91 H 22 91/52 L 12/16/24 05:57 98 H 76/44 L 12/16/24 05:14 98 H 86/54 L 12/16/24 04:59 126 H 172/81 H 12/16/24 04:45 12/16/24 04:28 37.5 C 126 H 22 172/81 H 12/16/24 04:23 127 H 12/16/24 03:48 38.2 C H 133 H 28 H 145/87 H 12/16/24 03:07 94 H 09/18/25 03:00 117 H 26 H 12/16/24 02:30 93 H 18 12/16/24 02:09 97 H 12 12/16/24 01:30 92 H 24 112/79 12/16/24 01:06 36.8 C 100 H 22 112/79 12/16/24 00:18 102 H 17 112/61 12/15/24 22:48 37 C 113 H 26 H 117/84 Pulse Ox O2 Del Method O2 Flow Rate 12/16/24 09:40 96 Oxymask 4 12/16/24 09:35 96 Oxymask 4 12/16/24 09:25 96 Oxymask 4 12/16/24 09:15 96 Oxymask 4 12/16/24 09:05 96 Oxymask 4 12/16/24 08:55 97 Oxymask 4 12/16/24 05:57 12/16/24 05:14 12/16/24 04:59 12/16/24 04:45 Nasal Cannula 7 12/16/24 04:28 93 Nasal Cannula 6 12/16/24 04:23 12/16/24 03:48 96 Nasal Cannula 2 12/16/24 03:07 12/16/24 03:00 97 Nasal Cannula 2 12/16/24 02:30 97 Nasal Cannula 2 12/16/24 02:09 97 Nasal Cannula 2 12/16/24 01:30 97 Nasal Cannula 2 12/16/24 01:06 97 Nasal Cannula 2 12/16/24 00:18 95 Nasal Cannula 2 12/15/24 22:48 96 Nasal Cannula 2 Critical Care Results & Data Vital Signs (Past 12 Hours) Vital Signs Temp Pulse Pulse Resp BP BP BP 12/16/24 12:38 12/16/24 09:40 92 H 24 94/54 L 12/16/24 09:35 91 H 24 85/50 L 12/16/24 09:25 92 H 24 87/50 L 12/16/24 09:15 89 24 88/52 L 12/16/24 09:05 88 22 86/51 L 12/16/24 08:55 36.9 C 91 H 22 91/52 L 12/16/24 05:57 98 H 76/44 L 12/16/24 05:14 98 H 86/54 L 12/16/24 04:59 126 H 172/81 H 12/16/24 04:45 12/16/24 04:28 37.5 C 126 H 22 172/81 H 12/16/24 04:23 127 H Pulse Ox O2 Del Method O2 Flow Rate 12/16/24 12:38 Oxymask 4 12/16/24 09:40 96 Oxymask 4 12/16/24 09:35 96 Oxymask 4 12/16/24 09:25 96 Oxymask 4 12/16/24 09:15 96 Oxymask 4 12/16/24 09:05 96 Oxymask 4 12/16/24 08:55 97 Oxymask 4 12/16/24 05:57 12/16/24 05:14 12/16/24 04:59 12/16/24 04:45 Nasal Cannula 7 12/16/24 04:28 93 Nasal Cannula 6 12/16/24 04:23 Lab & Micro Results (Past 24 Hours) RBC 4.71 M/uL (4.20-5.40) 12/16/24 WBC 43.24 K/ul (4.8-10.8) H* 12/16/24 Hgb 12.7 g/dl (12.0-16.0) 12/16/24 Hct 38.0 % (37.0-47.0) 12/16/24 MCV 80.7 fL (80.0-100.0) 12/16/24 MCH 27.0 pg (25.0-34.0) 12/16/24 MCHC 33.4 g/dL (32.0-36.0) 12/16/24 RDW Standard Deviation 41.7 fL (36.4-46.3) 12/16/24 RDW Coefficient of Variation 14.2 % (11.5-14.5) 12/16/24 Plt Count 217 K/uL (130-400) 12/16/24 MPV 10.2 fL (9.4-12.4) 12/16/24 Neutrophils (%) (Auto) 93.6 % 12/16/24 Lymphocytes (%) (Auto) 1.7 % 12/16/24 Monocytes # (Auto) 0.45 K/uL (0.11-0.59) 12/16/24 Eosinophils # (Auto) 0.00 K/uL (0.00-0.50) 12/16/24 Immature Granulocyte % (Auto) 3.4 % 12/16/24 Neutrophils # (Auto) 40.46 K/uL (1.40-6.50) H 12/16/24 Lymphocytes # (Auto) 0.73 K/uL (1.20-3.40) L 12/16/24 Monocytes # (Auto) 0.45 K/uL (0.11-0.59) 12/16/24 Eosinophils # (Auto) 0.00 K/uL (0.00-0.50) 12/16/24 Basophils # (Auto) 0.15 K/uL (0.00-0.20) 12/16/24 Immature Granulocyte # (Auto) 1.45 K/uL (0.01-0.20) H 12/16 Polychromasia 1+ 12/16/24 Toxic Vacuolation 3+ 12/16/24 Na 130 mmol/L (136-145) L 12/16/24 K 4.4 mmol/L (3.5-5.1) 12/16/24 Cl 99 mmol/L (98-107) 12/16/24 CO2 20 mmol/L (21-32) L 12/16/24 Anion Gap 11 (3-11) 12/16/24 BUN 29 mg/dl (6-23) H 12/16/24 Creatinine 2.64 mg/dl (0.6-1.2) H 12/16/24 BUN/Creatinine Ratio 11.0 (10-20) 12/16/24 Glu 299 mg/dl (70-99(Fasting)) H 12/16/24 Ca 8.9 mg/dl (8.6-10.3) 12/16/24 Total Bilirubin 0.6 mg/dl (0.2-1.0) 12/15/24 AST 29 U/L (13-39) 12/15/24 ALT 17 U/L (7-52) 12/15/24 Alkaline Phosphatase 124 U/L (34-104) H 12/15/24 TP 7.4 gm/dl (6.0-8.3) 12/15/24 Albumin 3.3 gm/dl (3.4-5.0) L 12/15/24 Globulin 4.1 gm/dl (2.5-4.0) H 12/15/24 Albumin/Globulin Ratio 0.8 (0.9-2) L 12/15/24 Mg 1.1 mg/dl (1.7-2.4) L 12/16/24 07:52 Calcium Level 8.9 mg/dl (8.6-10.3) 12/16/24 12:44 Microbiology 12/16/24 00:41 Aerobic Blood Culture - Preliminary Blood Gram negative bacilli Anaerobic Blood Culture - Preliminary Gram negative bacilli 12/16/24 00:41 Aerobic Blood Culture - Preliminary Blood Gram negative bacilli Anaerobic Blood Culture - Preliminary Gram negative bacilli Diagnostic Findings (Past 24 Hours) Chest X-Ray 12/15/24 23:42 EXAM: XR chest 1V portable CLINICAL HISTORY: weakness TECHNIQUE: An X-ray image of the chest was obtained in AP projection. Suboptimal inspiratory effort with low lung volumes. COMPARISON: Compared with X-ray dated 09/08/2024 FINDINGS: Pulmonary Parenchyma: No interval change is seen regarding the atelectatic band in the right middle lung zone. No evidence of consolidation, collapse, or focal opacities. No pulmonary nodules are identified. No evidence of pleural effusion or pleural thickening. Heart and Mediastinum: Heart size and shape are normal. No mediastinal widening or masses are present. No hilar or mediastinal lymphadenopathy. Bony Thorax: The bony thorax appears intact, without fractures or deformities. Soft Tissues: The soft tissues overlying the chest wall are unremarkable. A small right diaphragmatic hump is noted. IMPRESSION: 1. No acute cardiopulmonary abnormalities are identified. 2. No interval change regarding the atelectatic band seen in the right middle lung zone. Electronically signed by Vini Lugo 12-16-2024 02:22 AM Abdomen Fluoroscopy 12/16/24 00:00 FL KUB CLINICAL HISTORY: CYSTO RT STENT COMPARISON STUDY: None FLUOROSCOPY TIME: 4 seconds FLUOROSCOPY IMAGES: 2 EXPOSURE DOSE: 3 mGy FINDINGS: Fluoroscopy was provided for urologic procedure. IMPRESSION: Intraoperative fluoroscopy. ACT 112: Negative or not required by law. Electronically signed by: Diogo Valerio M.D. 12/16/2024 9:13 AM Abdomen/Pelvis CT 12/16/24 02:47 EXAM: CT abd pelvis wo con CLINICAL HISTORY: R flank pain TECHNIQUE: Non-contrast CT of the abdomen and pelvis was performed, using the following protocol: axial images, as well as reconstructed coronal and sagittal images. No intravenous contrast was administered. One of the following dose reduction techniques was utilized for this exam: automated exposure control, adjustment of the mA and/or kV according to patient size, and use of iterative reconstruction. COMPARISON: 10/24/2023 FINDINGS: Abdomen: Liver: Fatty infiltration of the liver. No focal lesions, cysts, or masses are identified. Gallbladder and Biliary System: The gallbladder is normal in size and shape. No wall thickening, pericholecystic fluid, or gallstones are identified. Pancreas: The pancreatic head, body, and tail are visualized and appear normal in size and density, except for fatty atrophy. No pancreatic masses or calcifications are noted. Spleen: Mildly enlarged in size (147 mm). A 2 cm splenule is noted. Few calcific foci are noted (unchanged). No splenic lesions or masses are identified. Kidneys and Adrenal Glands: The left kidney is not visualized, likely surgically removed. Surgical clips are present at the left renal bed and along the course of the left ureter. The right kidney is mildly enlarged in size, with mild to moderate dilatation of its pelvicalyceal system and, to a lesser extent, the ureter, with surrounding fat edema. A small obstructing stone (5 mm) is seen at the right ureterovesical junction. Cortical thickness is within normal limits. A 1.3 cm right adrenal gland nodule, unchanged from prior. Appendix: No findings to suggest acute appendicitis. Pelvis: Urinary bladder: Normal in contour and wall thickness. No intraluminal lesions. Uterus: Small in size. No masses. Ovaries: Not well visualized, but no gross abnormalities are noted. Peritoneal and Retroperitoneal Structures: No free fluid or abnormal fluid collections are identified within the abdomen or pelvis. No lymphadenopathy is noted. Bowel: The visualized bowel loops are normal in caliber and appearance. No evidence of bowel obstruction or wall thickening. Bones and Soft Tissues: Left total hip replacement. Lumbar spondylotic changes. Atrophic changes of rectus abdominis muscles, more pronounced on the left. IMPRESSION: A small obstructing stone (5 mm) is seen at the right ureterovesical junction, with consequent mild to moderate dilatation of the right pelvicalyceal system and, to a lesser extent, the ureter, with perinephric fat stranding. No other interval changes. Electronically signed by Vini Lugo 12-16-2024 05:24 AM Chest X-Ray 12/16/24 06:50 EXAM: XR chest 1V portable CLINICAL HISTORY: Central line placement. TECHNIQUE: An X-ray image of the chest was obtained in AP portable projection. COMPARISON: 12/14/2024 CR. FINDINGS: Left central line placement is seen, reaching the left subclavian vein. Pulmonary Parenchyma: No interval change is seen regarding the atelectatic band in the right middle lung zone. There is no evidence of consolidation, collapse, or focal opacities. No pulmonary nodules are identified. There is no evidence of pleural effusion or pleural thickening. Heart and Mediastinum: Mild cardiomegaly is present. There is no mediastinal widening or masses. No hilar or mediastinal lymphadenopathy is seen. Bony Thorax: The bony thorax appears intact, without fractures or deformities. Soft Tissues: The soft tissues overlying the chest wall are unremarkable. IMPRESSION: 1. Left central line placement is seen, with the tip reaching the left subclavian/axillary vein. Repositioning is needed. New. 2. No interval change is seen regarding the atelectatic band in the right middle lung zone. Electronically signed by Vini Lugo 12-16-2024 08:07 AM Chest X-Ray 12/16/24 07:31 EXAM: XR chest 1V portable CLINICAL HISTORY: Central line confirmed. TECHNIQUE: An X-ray image of the chest was obtained in an AP projection. COMPARISON: Chest x ray 12-16-2024 05:46:21 EYE DROPPER ASSEMBLER FINDINGS: Line and tubes: Removal of the left-sided venous tube reaching the neck. Newly applied right-sided venous line reaching the neck, likely misplaced in the right internal jugular vein. Pulmonary Parenchyma: No interval change is seen regarding the atelectatic band in the right middle lung zone. No evidence of consolidation, collapse, or focal opacities. No pulmonary nodules are identified. No evidence of pleural effusion or pleural thickening. Heart and Mediastinum: Heart size and shape are normal. No mediastinal widening or masses. No hilar or mediastinal lymphadenopathy. Bony Thorax: The bony thorax appears intact without fractures or deformities. Soft Tissues: Soft tissues overlying the chest wall are unremarkable. IMPRESSION: 1. Removal of the left-sided venous tube reaching the neck. 2. Newly applied right-sided venous line reaching the neck, likely misplaced in the right internal jugular vein. Reintroduction in the SVC is recommended. 3. No interval change is seen regarding the atelectatic band in the right middle lung zone. [facility] was called at [phone] at 07:25 AM EYE DROPPER ASSEMBLER, 12/16/2024, and Nurse, Destin was informed regarding the presence of critical medical findings in the report Electronically signed by Vini Lugo 12-16-2024 08:27 AM I & O Totals 24 Hours 12/15/24 12/16/24 12/17/24 06:59 06:59 06:59 Intake Total 1950 / 1950 3471.686 / 3471.686 Output Total 175 / 175 Balance 194 / 194 3296.686 / 3296.686 Cumulative 12/15/24 22:37 thru 12/16/24 16:07 Intake Total 5421.686 Output Total 180 Balance 5241.686 RT Ventilator Mngmt (Last Documented) Ventilator Ordered Settings Respiratory Rate 24 12/16/24 09:40 Ventilator - PT Measurements Respiratory Rate 24 Coding Level of Care Code 24051 CRITICAL CARE 1ST 30-74M Additional Critical Care Time Additional 30min Critical Care Time: Yes - 05311 Diagnoses Acute kidney injury with acute tubular necrosis N17.0 Morbidly obese E66.01 Severe sepsis with acute organ dysfunction A41.9; R65.20 Septic shock due to urinary tract infection A41.9; R65.21; N39.0 Diabetes mellitus type 2 in obese E11.69; E66.9 History of nephrectomy Z90.5 Additional Codes Critical Care Time - Additional 30min Critical Care Time: Yes - [id number] ([id number])
--- NOTE | 2024-12-16 10:42 | Hospitalist Progress Note ---
Date of Service December 16, 2024 Assessment & Plan (1) Septic shock due to urinary tract infection: (2) Demand ischemia of myocardium: (3) Acute kidney injury with acute tubular necrosis: (4) Severe sepsis with acute organ dysfunction: (5) Acute metabolic encephalopathy: (6) Nephrolithiasis: (7) Hypothyroidism: (8) Hypertension: (9) Primary hyperparathyroidism: (10) Diabetes mellitus type 2 in obese: (11) Morbidly obese: Plan Patient 64-year-old female critically ill with septic shock due to presumed gram-negative bacteremia from urinary tract infection and nephrolithiasis. Evidence of organ dysfunction with demand ischemia and acute kidney injury. Patient requires hospital level care, intensive care management, monitoring, laboratory studies and specialty consultations. Continue broad-spectrum antibiotics, suspect can narrow to a gram-negative coverage Continue IV pressor support to maintain adequate MAP Patient underwent surgical intervention with stent placement in the right kidney for nephrolithiasis Continue monitor glucose with insulin coverage Replace electrolytes Patient's TSH significantly elevated, free T4 normal range's may be acute phase reactant in the setting of acute sepsis will continue to evaluate need for ongoing within adjustments in her levothyroxine Continue monitor cultures Continue monitoring laboratory studies as needed Consider echocardiogram, suspect troponin is due to demand ischemia in the setting of septic shock Phone update to patient's sister Michaelle continue care as coordinated through warehouse handler Admission and Anticipated Discharge Date Admission Date: December 16, 2024 Subjective Patient seen after urological operative intervention. Is able to respond. Denies any chest pain or shortness of breath. Physical Exam Physical Exam: Constitutional: Alert, acutely ill, no respiratory distress HEENT: Mucous membranes moist., IJ venous access Lungs: Decreased breath sounds CV: S1-S2, regular Abdomen: Obese, soft Extremities: No significant edema Neuro: Weak Psych: Responsive Results & Data Results & Data Vital Signs (Past 12 Hours) Vital Signs Temp Pulse Pulse Resp BP BP BP 12/16/24 09:40 92 H 24 94/54 L 12/16/24 09:35 91 H 24 85/50 L 12/16/24 09:25 92 H 24 87/50 L 12/16/24 09:15 89 24 88/52 L 12/16/24 09:05 88 22 86/51 L 12/16/24 08:55 36.9 C 91 H 22 91/52 L 12/16/24 05:57 98 H 76/44 L 09/18/25 05:14 98 H 86/54 L 12/16/24 04:59 126 H 172/81 H 12/16/24 04:45 12/16/24 04:28 37.5 C 126 H 22 172/81 H 12/16/24 04:23 127 H 12/16/24 03:48 38.2 C H 133 H 28 H 145/87 H 12/16/24 03:07 94 H 12/16/24 03:00 117 H 26 H 12/16/24 02:30 93 H 18 12/16/24 02:09 97 H 12 12/16/24 01:30 92 H 24 112/79 12/16/24 01:06 36.8 C 100 H 22 112/79 12/16/24 00:18 102 H 17 112/61 12/15/24 22:48 37 C 113 H 26 H 117/84 Pulse Ox O2 Del Method O2 Flow Rate 12/16/24 09:40 96 Oxymask 4 12/16/24 09:35 96 Oxymask 4 12/16/24 09:25 96 Oxymask 4 12/16/24 09:15 96 Oxymask 4 12/16/24 09:05 96 Oxymask 4 12/16/24 08:55 97 Oxymask 4 12/16/24 05:57 12/16/24 05:14 12/16/24 04:59 12/16/24 04:45 Nasal Cannula 7 12/16/24 04:28 93 Nasal Cannula 6 12/16/24 04:23 12/16/24 03:48 96 Nasal Cannula 2 12/16/24 03:07 12/16/24 03:00 97 Nasal Cannula 2 12/16/24 02:30 97 Nasal Cannula 2 12/16/24 02:09 97 Nasal Cannula 2 12/16/24 01:30 97 Nasal Cannula 2 12/16/24 01:06 97 Nasal Cannula 2 12/16/24 00:18 95 Nasal Cannula 2 12/15/24 22:48 96 Nasal Cannula 2 Diagnostic Findings Reviewed imaging, laboratory and diagnostic studies. Pertinent findings as below. WBCs 43.2 Hemoglobin 12.7 Sodium 132 Creatinine 2.68 Lactate 4.8, improving Magnesium 1.1 Troponin 47.1 Procalcitonin 12.2 TSH 13.1 Urine culture from prior to admission growing Klebsiella Critical Care Time Prolonged Care Time 45 minutes
[2024-12-16 10:52] LABS: A calco-baum cmplx NotReported Not Detected (NotDetected); Bact fragilis Not Reported Not Detected (NotDetected); Blood Culture Id Panel See PCR Comment (NotDetected); C auris Not Reported Not Detected (NotDetected); CTX-M Resistant Gene Not Detected (NotDetected); Calbicans Not Reported Not Detected (NotDetected); Candida glabrata Not Reported Not Detected (NotDetected); Candida krusei Not Reported Not Detected (NotDetected); Cneoformans/gatti Not Reported Not Detected (NotDetected); Cparapsilosis Not Reported Not Detected (NotDetected); Ctropicalis Not Reported Not Detected (NotDetected); E cloacae compx Not Reported Not Detected (NotDetected); Efaecalis Not Reported Not Detected (NotDetected); Efaecium Not Reported Not Detected (NotDetected); Enterobacterales Not Reported DETECTED (NotDetected); Escherichia coli Not Reported DETECTED (NotDetected); H influenzae Not Reported Not Detected (NotDetected); IMP Resistant Gene Not Detected (NotDetected); K aerogenes Not Reported Not Detected (NotDetected); KPC Resistant Gene Not Detected (NotDetected); Koxytoca Not Reported Not Detected (NotDetected); Kpneumoniae grp Not Reported Not Detected (NotDetected); Lmonocyt Not Reported Not Detected (NotDetected); N meningitidis Not Reported Not Detected (NotDetected); NDM Resistant Gene Not Detected (NotDetected); OXA 48 Like Resistant Gene Not Detected (NotDetected); P aeruginosa Not Reported Not Detected (NotDetected); Proteus spp Not Reported Not Detected (NotDetected); Salmonella spp Not Reported Not Detected (NotDetected); Staph lugdunensis Not Reported Not Detected (NotDetected); Staph spp. Not Reported Not Detected (NotDetected); Staphaureus Not Reported Not Detected (NotDetected); Staphepi Not Reported Not Detected (NotDetected); Stenmaltophilia Not Reported Not Detected (NotDetected); Strep agal(GrpB) Not Reported Not Detected (NotDetected); Strep pneum Not Reported Not Detected (NotDetected); Strep pyog (GrpA) Not Reported Not Detected (NotDetected); Strep spp Not Reported Not Detected (NotDetected); VIM Resistant Gene Not Detected (NotDetected); mcr-1 Colistin Resistant Gene Not Detected (NotDetected)
[2024-12-16 10:55] LABS: Enterobacterales DETECTED (NotDetected)
[2024-12-16] MEDS: THIAMINE HCL 200 MG in SODIUM CHLORIDE 0.9% 50 ML IV ONE (11:10)
--- NOTE | 2024-12-16 11:53 | Nephrology Consultation ---
Date of Consultation December 16, 2024 Assessment & Plan (1) Acute kidney injury with acute tubular necrosis: KIMBERLY most likely obstructive but given sepsis with bacteremia and low BP could be ATN also. or Some combination of both. BP is getting better. Also has ureteric stent in her right kidney and this should help. She has only one kidney. Continue IVF as being done. Avoid Low BP. Avoid contrast agents and NSAIDs. Daily labs. tomorrow AM labs will be very critical to determine the direction she will go. if still rising creat , will prove she got into ATN. mag is low and will correct--got 4 gm already. check again in AM. check lactic Acid, mag and renal panel later today. hold her home metfromin. (2) Sepsis: from urinary source triggered by obstructive ureteric stone. Bp starting to be better so hopefully worse is over. getting Iv abx. Cefepime is sensitive for Klebsiella. this is not really nephrotoxic. (3) Nephrolithiasis: Long standing h/o this. would recommend she attend nephrology clinic for Stone risk assessment and management post discharge. will need urorisk assessment and all but cannot be done inpt with KIMBERLY. Hold cinacalcet for today. Plan Case complexity high. time spent 63 mins History of Present Illness Reason for Consultation: KIMBERLY with obstructive renal stone Attending Physician: Ilya Chahal, History of Present Illness 64/F with single kidney after left nephrectomy in 1982 ( stone related complications) but despite that had normal creat as of august 2024. Also has hypertension, bronchial asthma, DUTCH, right breast cancer status post surgery/incomplete radiation, upper extremity DVT status post Coumadin, DM 2 insulin requiring, hypothyroidism, primary hyperparathyroidism, urolithiasis status post surgery, migraine headache, morbid obesity, anxiety/mood disorder, chronic pain, past tobacco abuse.Came in because of feeling ill since last week. Also had Intermittent right flank pain and was getting worse.No hematuria. Denies chest pain. Also had Poor appetite with nausea symptoms. Migraine headache from pain. Labs showed very elevated WBC, KIMBERLY. Hher BP dropped and went into Septic Shock from urinary source. Blood and urine C/s growing klebsiella. CT scan of the abdomen pelvis showed the patient had a 5 mm obstructing kidney stone in the right ureterovesical junction resulting in dilatation of the renal collecting system. KIMBERLY--creat was 1.9 and this AM was even higher at 2.7. Since then taken to OR and now has Rt ureteric stent. Making urine and has lambert. Still needing Levophed and also on IVF--ringer lactate currently. ROS----as in HPI. otherwise 12 Systems negative. Physical Exam Constitutional: + obese; no acute distress Neck: Neck Short and obese. No JVD Respiratory: normal respiratory effort; no respiratory distress and no labored breathing Cardiovascular: Rate/Rhythm: regular rate and regular rhythm Gastrointestinal (Abdomen): Abdomen is soft. No tenderness. Musculoskeletal: No calf tenderness Skin: no rashes Neurologic: moves all extremities Psychiatric: A+Ox3, euthymic affect Genitourinary: CVA tenderness noted right side Allergies Allergy/AdvReac Type Severity Reaction Status Date / Time No Known Allergies Allergy Verified 11/17/24 11:11 Home Medications Medication Instructions Recorded Confirmed Type albuterol sulfate 90 mcg/actuation 2 puff inhalation Q4H PRN 03/19/18 12/15/24 History aerosol inhaler (Ventolin HFA) Shortness Of Breath Or Wheezing alprazolam 0.5 mg tablet 0.5 mg PO TID PRN Anxiety 03/19/18 12/15/24 History fluticasone 250 mcg-salmeterol 50 1 inh inhalation BID PRN Shortness 03/19/18 12/15/24 History mcg/dose blistr powdr for Of Breath Or Wheezing inhalation (Advair Diskus) levothyroxine 300 mcg tablet 300 mcg PO QAM 03/19/18 12/15/24 History sertraline 100 mg tablet 200 mg PO QAM 01/29/19 12/15/24 History blood-glucose meter ([employer] #1 ea 10/31/23 12/15/24 Rx Verio Flex Meter) insulin admin supplies #1 ea 10/31/23 12/15/24 Rx lancets 33 gauge (OneTouch Delica #100 ea 10/31/23 12/15/24 Rx Plus Lancet) hydrocodone 10 mg-acetaminophen 1 tab PO Q8 PRN Pain 03/05/24 12/15/24 History 325 mg tablet oxycodone 30 mg tablet 30 mg PO BID 03/05/24 12/15/24 History amlodipine 2.5 mg tablet 2.5 mg PO DAILY 05/18/24 12/15/24 History aripiprazole 5 mg tablet 5 mg PO DAILY 05/18/24 12/15/24 History cholecalciferol (vitamin D3) 50 50 mcg PO DAILY #90 caps 07/01/24 12/15/24 Rx mcg (2,000 unit) capsule metformin 500 mg tablet,extended 500 mg PO BID #180 tabs 08/03/24 12/15/24 Rx release 24 hr sitagliptin phosphate 100 mg 100 mg PO DAILY #30 tabs 09/13/24 12/15/24 Rx tablet (Januvia) blood sugar diagnostic (OneTouch #100 ea 09/24/24 12/15/24 Rx Verio test strips) cholecalciferol (vitamin D3) 1,250 50,000 unit PO .COMPLEX #8 caps 10/04/24 12/15/24 Rx mcg (50,000 unit) capsule insulin glargine 100 unit/mL (3 30 unit (0.3 mL) subcut QAM #45 mL 12/02/24 12/15/24 Rx mL) subcutaneous pen (Lantus Solostar U-100 Insulin) cinacalcet 30 mg tablet 30 mg PO DAILY #90 tabs 12/06/24 12/15/24 Rx Patient History Medical History History of breast cancer Vitamin D deficiency History of DVT (deep vein thrombosis) ~2012, previously on AC (per remote anesthesia records) Left arm History of blood transfusion s/p blood transfusion Osteoarthritis Chronic back pain History of strabismus Post traumatic stress disorder Anxiety Asthma stable Surgical History S/P hip replacement left History of lumpectomy of right breast (01/01/22) Right Breast Central Lumpectomy, right axillary [place] Lymph Node Biopsy(Right) - Klaus Reyes DO History of breast biopsy 11/2021 -- right breast cancer History of difficult intubation Left SUHA: 02/19/2006: per records done under GA (no mention of reason for GA; DL --> LMA --> fiberoptic with difficulty seeing cords//per operative report, patient had bronchospasm as well which was treated medically) S/P SONNY-BSO History of dilatation and curettage History of open reduction and internal fixation (ORIF) procedure right ankle - metal hardware in place History of incision and drainage left hip wound x2 () History of cystoscopy History of tonsillectomy Family History Son Family history of diabetes mellitus Daughter Family history of diabetes mellitus Mother , 72yo COPD (chronic obstructive pulmonary disease) Hypertension Diabetes Endometrial cancer Father , in his 60s Cirrhosis of liver Alcoholism Brother Medical history unknown Sister Suicide Sister COVID Sister Gastric bypass status for obesity Smoker Sister Diabetes Hypertension Endometrial cancer Daughter Prematurity Son Diabetes Daughter Diabetes Daughter Hypertension Social History Smoking Status: Never smoker Tobacco Type: E-cigarettes / Vaping Second Hand Exposure: No; Do You Dip or Chew Tobacco: No; Tobacco Cessation Education Requested by Patient: No Hx Alcohol Use: No Hx Substance Use: Yes Non-Prescribed Medications: Marijuana Last Used Substance: Days (ago) Last Used Substance Other:: 1 weeks ago Preferred Language: [place]ralt[place] Communication Ability: Effective Visual Impairment: No Limitations Hearing Ability: Normal Field Talent Qualification Specialist Required: No Beliefs That Will Affect Care: None marital status: Current Living Situation: Family Current Living Situation Comment: sister current occupational status: disabled How many Children do You have: 3 Other Information That Helps Us Care for You: No Feels Safe at Home: Yes Safety Concerns: Feels Safe At This Time Diet: regular caffeine: Yes (3 cups/day) during the past year weight has: remained stable Assistive Devices: Denture - Upper, Denture - Lower, Oxygen - at Night and Walker Results & Data Vital Signs (Past 12 Hours) Vital Signs Temp Pulse Pulse Resp BP BP BP 12/16/24 09:40 92 H 24 94/54 L 12/16/24 09:35 91 H 24 85/50 L 12/16/24 09:25 92 H 24 87/50 L 12/16/24 09:15 89 24 88/52 L 12/16/24 09:05 88 22 86/51 L 12/16/24 08:55 36.9 C 91 H 22 91/52 L 12/16/24 05:57 98 H 76/44 L 12/16/24 05:14 98 H 86/54 L 12/16/24 04:59 126 H 172/81 H 12/16/24 04:45 12/16/24 04:28 37.5 C 126 H 22 172/81 H 12/16/24 04:23 127 H 12/16/24 03:48 38.2 C H 133 H 28 H 145/87 H 12/16/24 03:07 94 H 12/16/24 03:00 117 H 26 H 12/16/24 02:30 93 H 18 12/16/24 02:09 97 H 12 12/16/24 01:30 92 H 24 112/79 12/16/24 01:06 36.8 C 100 H 22 112/79 12/16/24 00:18 102 H 17 112/61 Pulse Ox O2 Del Method O2 Flow Rate 12/16/24 09:40 96 Oxymask 4 12/16/24 09:35 96 Oxymask 4 12/16/24 09:25 96 Oxymask 4 12/16/24 09:15 96 Oxymask 4 12/16/24 09:05 96 Oxymask 4 12/16/24 08:55 97 Oxymask 4 12/16/24 05:57 12/16/24 05:14 12/16/24 04:59 12/16/24 04:45 Nasal Cannula 7 12/16/24 04:28 93 Nasal Cannula 6 12/16/24 04:23 12/16/24 03:48 96 Nasal Cannula 2 12/16/24 03:07 12/16/24 03:00 97 Nasal Cannula 2 12/16/24 02:30 97 Nasal Cannula 2 12/16/24 02:09 97 Nasal Cannula 2 12/16/24 01:30 97 Nasal Cannula 2 12/16/24 01:06 97 Nasal Cannula 2 12/16/24 00:18 95 Nasal Cannula 2 Laboratory Results CBC, urine, renal panel Diagnostic Findings CXr and CT abdomen
--- NOTE | 2024-12-16 12:22 | Anesthesiology Progress Note ---
Date of Service December 16, 2024 Anesthesia Post Procedure Vital Signs Vital Signs: Temp Pulse Pulse Resp BP BP BP 12/16/24 09:40 92 H 24 94/54 L 12/16/24 09:35 91 H 24 85/50 L 12/16/24 09:25 92 H 24 87/50 L 12/16/24 09:15 89 24 88/52 L 12/16/24 09:05 88 22 86/51 L 12/16/24 08:55 36.9 C 91 H 22 91/52 L 12/16/24 05:57 98 H 76/44 L 12/16/24 05:14 98 H 86/54 L 12/16/24 04:59 126 H 172/81 H 12/16/24 04:45 12/16/24 04:28 37.5 C 126 H 22 172/81 H 12/16/24 04:23 127 H 12/16/24 03:48 38.2 C H 133 H 28 H 145/87 H 12/16/24 03:07 94 H 12/16/24 03:00 117 H 26 H 12/16/24 02:30 93 H 18 12/16/24 02:09 97 H 12 12/16/24 01:30 92 H 24 112/79 12/16/24 01:06 36.8 C 100 H 22 112/79 12/16/24 00:18 102 H 17 112/61 12/15/24 22:48 37 C 113 H 26 H 117/84 Pulse Ox O2 Del Method O2 Flow Rate 12/16/24 09:40 96 Oxymask 4 12/16/24 09:35 96 Oxymask 4 12/16/24 09:25 96 Oxymask 4 12/16/24 09:15 96 Oxymask 4 12/16/24 09:05 96 Oxymask 4 12/16/24 08:55 97 Oxymask 4 12/16/24 05:57 12/16/24 05:14 12/16/24 04:59 12/16/24 04:45 Nasal Cannula 7 12/16/24 04:28 93 Nasal Cannula 6 12/16/24 04:23 12/16/24 03:48 96 Nasal Cannula 2 12/16/24 03:07 12/16/24 03:00 97 Nasal Cannula 2 09/18/25 02:30 97 Nasal Cannula 2 12/16/24 02:09 97 Nasal Cannula 2 12/16/24 01:30 97 Nasal Cannula 2 12/16/24 01:06 97 Nasal Cannula 2 12/16/24 00:18 95 Nasal Cannula 2 12/15/24 22:48 96 Nasal Cannula 2 Pain Intensity Lower Abdomen: Pain Intensity: 7 Back: Pain Intensity: 10 Transfer of Care Handoff Completed per policy Notes Mental Status: alert / awake / arousable Patient Amnestic to Procedure: Yes Nausea / Vomiting: adequately controlled Pain: adequately controlled Airway Patency, RR, SpO2: stable & adequate BP & HR: stable & adequate Hydration State: stable & adequate Anesthetic Complications: no major complications apparent and Pt Satisfied with anesthetic care
[2024-12-16 13:18] LABS: Anion Gap 11.0 (3-11); Blood Urea Nitrogen 29.0 mg/dl (6-23); Calcium 8.9 mg/dl (8.6-10.3); Carbon Dioxide 20.0 mmol/L (21-32); Chloride 99.0 mmol/L (98-107); Creatinine Clr Calc Pharmacy 32.0 ml/min; Glucose 299.0 mg/dl (70-99(Fasting)); Potassium 4.4 mmol/L (3.5-5.1); Sodium 130.0 mmol/L (136-145)
[2024-12-16] MEDS ORDERED: Nursing to Pharmacy Communication SCH (14:15)
[2024-12-16] MEDS: CEFEPIME 2000MG 2,000 MG/20 ML SYR IV SCH (14:39)
[2024-12-16] MEDS: cefTRIAXone SODIUM 2,000 MG/50 ML BAG IV SCH (14:59)
--- NOTE | 2024-12-16 16:03 | Procedure Note ---
Procedure Note Date of Service December 16, 2024 Procedure date: Noted above Procedure: Central venous access Pre-procedure indication: Need for vasoactive medication administration Post-procedure Diagnosis: same as above Prior to Procedure: Informed Consent: The risks, benefits, indications, potential complications, and alternatives were explained to the patient and verbal informed consent obtained. Attending Staff: Liv Knapp DO Resident/APC: Anuj Skin Prep: Chlorhexidine Anesthesia: 4 mL 1% lidocaine without epinephrine The identity of the patient was confirmed and a bedside time out was performed. Prior to procedure with regards to site selection patient had already had attempted left internal jugular vein which was technically difficult per report. Patient's BMI is 56, patient requiring vasoactive medication which she is currently running through small bore ultrasound-guided peripheral IV, she has a 22-gauge in her hand. She needs additional vascular access. Groins are relatively contraindicated given body habitus with significant pannus overlap over entry point. Patient has a single kidney, care should be taken to avoid subclavian vessels if possible given need for possible fistula in future. Initial left-sided IJ was unable to be floated into SVC and instead went down subclavian vein so this was discontinued. Description of Procedure: After sterile prep and sterile drape utilizing standard sterile technique the superficial skin of the right internal jugular area was anesthetized. The target vessel was identified and entered with an 18- gauge needle. Dark venous blood return was noted. A guidewire was inserted through the needle and into the vessel with some difficulty. The needle was withdrawn and a skin ritika was made. A tissue dilator was advanced via Seldinger technique and removed. A triple lumen catheter was inserted via Seldinger technique and the guidewire removed. All ports eve and flushed easily. A Biopatch was placed, and the catheter was secured via silk suture. A sterile dressing was then applied. Complications: After chest x-ray this central venous catheter also transversed down into the subclavian vein and was subsequently discontinued Estimated blood loss: Trace [facility] Procedure Codes (Charges) Tubes, Drains, and Vasc Access Procedure 1: Tubes, Drains, and Vasc Access: [id number] Insertion Of Non-tunneled Catheter Age 4 Yrs> Coding CPT Codes Tubes, Drains, and Vasc Access - Tubes, Drains, and Vasc Access: [id number] Insertion Of Non-tunneled Catheter Age 4 Yrs> ([id number]) Additional Codes Date of Service ([email or web address].SURGERY)
[2024-12-16] MEDS: ACETAMINOPHEN 325 MG TAB PO PRN (16:11)
--- NOTE | 2024-12-16 16:13 | Procedure Note ---
Procedure Note Date of Service December 16, 2024 Procedure date: Noted above Procedure: Venous access requiring the skill of a physician Pre-procedure indication: Need for vasoactive medication administration Post-procedure Diagnosis: same as above Prior to Procedure: Attending Staff: Liv Knapp DO Resident/APC: Anuj Description of Procedure: Utilizing sterile prep and drape a guidewire was inserted down the existing triple-lumen catheter. Maintaining positive control of the guidewire the triple-lumen catheter was retracted and removed with the guidewire remaining in place. Next a 8 cm peripheral catheter was passed via Seldinger technique over the guidewire. The guidewire was removed, the lumens flushed and it was secured via silk suture. Complications: None [facility] Procedure Codes (Charges) Tubes, Drains, and Vasc Access Procedure 1: Tubes, Drains, and Vasc Access: [id number] Venipuncture, Age 2/>Req phys skill, (sep proc), Dx/Tx (not rtn) Coding CPT Codes Tubes, Drains, and Vasc Access - Tubes, Drains, and Vasc Access: [id number] Venipuncture, Age 2/>Req phys skill, (sep proc), Dx/Tx (not rtn) ([id number]) Additional Codes Date of Service ([facility].SURGERY)
[2024-12-16 19:00] LABS: Anion Gap 9.0 (3-11); Blood Urea Nitrogen 30.0 mg/dl (6-23); Calcium 8.9 mg/dl (8.6-10.3); Carbon Dioxide 22.0 mmol/L (21-32); Chloride 99.0 mmol/L (98-107); Creatinine Clr Calc Pharmacy 34.5 ml/min; Glucose 270.0 mg/dl (70-99(Fasting)); Potassium 5.3 mmol/L (3.5-5.1); Sodium 130.0 mmol/L (136-145)
[2024-12-16] MEDS: HEPARIN SOD 5,000 UNIT/0.5 ML VIAL SQ SCH (21:38)
[2024-12-17 01:19] LABS: Anion Gap 6.0 (3-11); Blood Urea Nitrogen 34.0 mg/dl (6-23); Calcium 8.6 mg/dl (8.6-10.3); Carbon Dioxide 25.0 mmol/L (21-32); Chloride 100.0 mmol/L (98-107); Creatinine Clr Calc Pharmacy 35.9 ml/min; Glucose 181.0 mg/dl (70-99(Fasting)); Potassium 5.2 mmol/L (3.5-5.1); Sodium 131.0 mmol/L (136-145)
[2024-12-17 05:24] LABS: Hematocrit (blood only) 34.6 % (37.0-47.0); Hemoglobin 11.6 g/dl (12.0-16.0); Mean Corpuscular Hemoglobin 26.6 pg (25.0-34.0); Mean Corpuscular Volume 79.4 fL (80.0-100.0); Platelet Count 146 K/uL (130-400); RDW Standard Deviation 41.7 fL (36.4-46.3); Red Blood Count 4.36 M/uL (4.20-5.40); White Blood Count 43.35 K/ul (4.8-10.8)
[2024-12-17 05:32] LABS: Anion Gap 7.0 (3-11); Blood Urea Nitrogen 34.0 mg/dl (6-23); Calcium 8.8 mg/dl (8.6-10.3); Carbon Dioxide 24.0 mmol/L (21-32); Chloride 100.0 mmol/L (98-107); Creatinine Clr Calc Pharmacy 39.3 ml/min; Glucose 150.0 mg/dl (70-99(Fasting)); Magnesium 1.9 mg/dl (1.7-2.4); Potassium 5.0 mmol/L (3.5-5.1); Sodium 131.0 mmol/L (136-145)
[2024-12-17 05:58] LABS: Immature Granulocytes # (auto) 2.02 K/uL (0.01-0.20); Immature Granulocytes % (auto) 4.7 %; Toxic Vacuolation 3+
--- NOTE | 2024-12-17 07:48 | Critical Care Progress Note ---
Date of Service December 17, 2024 Assessment & Plan (1) E. coli bacteremia: (2) Ureteral stone: (3) Acute kidney injury with acute tubular necrosis: (4) Morbidly obese: (5) Acute metabolic encephalopathy: (6) Severe sepsis with acute organ dysfunction: (7) Demand ischemia of myocardium: (8) Septic shock due to urinary tract infection: (9) Severe sepsis: (10) Elevated troponin: (11) Acute UTI: (12) Sepsis: (13) Nephrolithiasis: (14) Hypothyroidism: (15) Hypertension: (16) Morbid obesity with BMI of 50.0-59.9, adult: (17) History of nephrectomy: (18) History of neck injury: (19) Interstitial cystitis: Plan Reason Critically Ill: Severe sepsis secondary to nephrolithiasis PLAN: Neuro: Encephalopathy improved Resp: History of obstructive sleep apnea - Home CPAP use CV: Hypotension - Levophed wean as tolerated. currently on 0.01 mcg/kg/min, Midodrine 10mg PO TID Fluids/Renal: Acute kidney injury - Discussed with nephrology Hyponatremia: History of prior in past, this may represent acute phase reaction ID: Leukemoid reaction secondary to underlying sepsis - Transition from cefepime to ceftriaxone, discontinuing vancomycin as patient's blood cultures have turned positive for gram-negative organism GI/Nutrition: Tolerating type 2 diabetes carb consistent diet - [] Heme: Heparin 7500 3 times daily for DVT prophylaxis Endocrine: ICU hyperglycemia protocol Vascular access: Utilize 8 cm catheter at this time, difficulty placing central venous access other sites relatively contraindicated and vasoactive medications are decreasing Code Status: Full code Admission and Anticipated Discharge Date Admission Date: December 16, 2024 Supervising Physician Co-Signing Physician Notes Dr. Quinonez was resident physician during care of patient. I separately evaluated patient for webb portions of the history and the exam. I was present during the critical portion of medical decision making, and I discussed the case with the resident. I generally agree with the findings and plan. Vasoactives were able to be discontinued at 6 AM this morning however blood pressure is marginal, clinically she appears to be doing better. Creatinine has decreased, decrease fluids to 80 for today and then stop, able to eat and drink. Hyponatremia slowly improving potassium has come down. Repeat blood cultures have been obtained, E. coli bacteremia anticipate 10-day duration continuing IV Rocephin at this time, does meet criteria for complicated urinary tract infection. I have personally spent 45 minutes of critical care time in the direct management of this patient. This is a life/limb threatening event. This includes time spent evaluating patient, direct bedside care, chart review, placing orders, interpretation of diagnostic studies, discussion with consultants, patient, and/or family members regarding treatment decisions, as well as other required patient management activities. This time is exclusive of all separately billable procedures, and teaching time and separate from and in addition to any other critical care service time. Subjective Patient reports feeling significantly better this morning. Reports feeling little nauseous but denies vomiting, abdominal pain, dizziness or chest pain Review of Systems Review of Systems: As per HPI Physical Exam Physical Exam: Constitutional: Alert, morbidly obese, moderately ill in appearance HEENT: Mucous membranes moist. Central line in right jugular Lungs: Clear to auscultation, decreased, no wheezes rales or rhonchi CV: S1-S2, regular Abdomen: Soft, mild diffuse tenderness nondistended Extremities: No significant edema Neuro: No focal deficits, generally weak Psych: Cooperative, normal mood Results & Data Results & Data Vital Signs (Past 12 Hours) Vital Signs Temp Pulse Pulse Resp BP BP BP 12/17/24 06:42 79 15 12/17/24 06:09 78 14 12/17/24 05:39 83 19 12/17/24 05:00 89 21 12/17/24 04:57 87 12 12/17/24 04:01 94/54 L 12/17/24 04:01 94/54 L 12/17/24 04:00 84 16 12/17/24 03:30 88 22 12/17/24 03:09 82 24 12/17/24 03:01 83/50 L 12/17/24 02:51 79 24 12/17/24 02:36 81 20 12/17/24 02:06 83 17 12/17/24 02:01 112/79 12/17/24 02:01 112/79 12/17/24 02:01 112/12/17/24 02:00 36.8 C 79 24 12/17/24 01:33 80 22 12/17/24 01:01 84/55 L 12/17/24 01:00 77 22 12/17/24 00:51 133/88 12/17/24 00:42 83 22 12/17/24 00:33 85 27 H 12/17/24 00:15 84 27 H 12/16/24 23:53 12/16/24 23:36 83 12/16/24 23:30 86 18 12/16/24 23:29 84 24 91/52 L 104/51 L 12/16/24 21:36 87 25 H 12/16/24 21:01 125/61 12/16/24 21:00 87 27 H 12/16/24 20:09 86 28 H 12/16/24 20:01 109/55 L 12/16/24 19:57 88 28 H Pulse Ox O2 Del Method O2 Flow Rate 12/17/24 06:42 96 12/17/24 06:09 97 Oxymask 12/17/24 05:39 98 12/17/24 05:00 92 Oxymask 12/17/24 04:57 92 Oxymask 12/17/24 04:01 12/17/24 04:01 12/17/24 04:00 96 Oxymask 4 12/17/24 03:30 94 12/17/24 03:09 93 Oxymask 12/17/24 03:01 12/17/24 02:51 93 12/17/24 02:36 93 12/17/24 02:06 98 Mechanical Vent 12/17/24 02:01 12/17/24 02:01 12/17/24 02:01 12/17/24 02:00 92 Oxymask 4 12/17/24 01:33 93 12/17/24 01:01 12/17/24 01:00 97 Oxymask 12/17/24 00:51 12/17/24 00:42 97 12/17/24 00:33 97 Oxymask 4 12/17/24 00:15 97 Oxymask 4 12/16/24 23:53 Oxymask 6 12/16/24 23:36 12/16/24 23:30 96 Oxymask 6 12/16/24 23:29 97 Oxymask 6 12/16/24 21:36 99 12/16/24 21:01 12/16/24 21:00 100 12/16/24 20:09 98 12/16/24 20:01 12/16/24 19:57 98 Coding Level of Care Code 27322 CRITICAL CARE 1ST 30-74M Diagnoses E. coli bacteremia R78.81; B96.20 Ureteral stone N20.1 Acute kidney injury with acute tubular necrosis N17.0 Morbidly obese E66.01 Acute metabolic encephalopathy G93.41 Severe sepsis with acute organ dysfunction A41.9; R65.20 Demand ischemia of myocardium I24.89 Septic shock due to urinary tract infection A41.9; R65.21; N39.0 Severe sepsis A41.9; R65.20 Elevated troponin R79.89 Acute UTI N39.0 Sepsis A41.9 Nephrolithiasis N20.0 Hypothyroidism E03.9 Hypertension I10 Morbid obesity with BMI of 50.0-59.9, adult E66.01; Z68.43 History of nephrectomy Z90.5 History of neck injury Z87.828 Interstitial cystitis N30.10 Resident Activity Tracking Resident Involvement: Resident Care Provided Care Provided: Adult [facility] Medicine
[2024-12-17] MEDS: THIAMINE HCL 200 MG in SODIUM CHLORIDE 0.9% 50 ML IV SCH (08:27)
--- NOTE | 2024-12-17 10:23 | Billing Data ---
Date of Service December 17, 2024 Coding Level of Care Code 13632 CRITICAL CARE
--- NOTE | 2024-12-17 10:24 | Nephrology Progress Note ---
Date of Service December 17, 2024 Assessment & Plan Admission and Anticipated Discharge Date Admission Date: December 16, 2024 Subjective Assessment & Plan (1) Acute kidney injury with acute tubular necrosis: KIMBERLY most likely obstructive but given sepsis with bacteremia and low BP could be ATN also. or Some combination of both. BP is still low so need to support BP better. Now has ureteric stent in her right kidney and this should help. She has only one kidney. Continue IVF as being done. Avoid Low BP. Avoid contrast agents and NSAIDs. Creat today is less than yesterday and made 1200 ml urine so hopefully worse is over. mag and phos both normal today after IV supplement. no need of more . Check mag in AM + lactic acid. hold her home metformin. (2) Sepsis: from urinary source triggered by obstructive ureteric stone. Bp starting to be better so hopefully worse is over. getting Iv abx. Cefepime is sensitive for Klebsiella. this is not really nephrotoxic. (3) Nephrolithiasis: Long standing h/o this. would recommend she attend nephrology clinic for Stone risk assessment and management post discharge. will need urorisk assessment and all but cannot be done inpt with KIMBERLY. Hold cinacalcet for today. S--BP still somewhat low. No levophed now. made 1275 ml urine and labs better. No new issues, Overall better. Physical Exam Constitutional: + obese; no acute distress Neck: Neck Short and obese. No JVD Respiratory: normal respiratory effort; no respiratory distress and no labored breathing Cardiovascular: Rate/Rhythm: regular rate and regular rhythm Gastrointestinal (Abdomen): Abdomen is soft. No tenderness. Musculoskeletal: No calf tenderness Skin: no rashes Neurologic: moves all extremities Psychiatric: A+Ox3, euthymic affect Genitourinary: CVA tenderness noted right side Results & Data Vital Signs (Past 12 Hours) Vital Signs Temp Pulse Pulse Resp BP BP BP 12/17/24 09:42 80 15 12/17/24 09:03 85 18 12/17/24 09:01 89/60 L 12/17/24 09:01 89/60 L 12/17/24 08:57 89 19 12/17/24 08:39 87 22 12/17/24 08:12 88 19 12/17/24 08:01 103/64 12/17/24 08:01 103/64 12/17/24 08:01 36.5 C 12/17/24 07:56 12/17/24 07:54 95 H 23 12/17/24 07:06 81 14 12/17/24 06:45 77 15 12/17/24 06:42 79 15 12/17/24 06:09 78 14 12/17/24 05:39 83 19 12/17/24 05:00 89 21 12/17/24 04:57 87 12 12/17/24 04:01 94/54 L 12/17/24 04:01 94/54 L 12/17/24 04:00 84 16 12/17/24 03:30 88 22 12/17/24 03:09 82 24 12/17/24 03:01 83/50 L 12/17/24 02:51 79 24 12/17/24 02:36 81 20 12/17/24 02:06 83 17 12/17/24 02:01 112/79 12/17/24 02:01 112/79 12/17/24 02:01 112/79 12/17/24 02:00 36.8 C 79 24 12/17/24 01:33 80 22 12/17/24 01:01 84/55 L 12/17/24 01:00 77 22 12/17/24 00:51 133/88 12/17/24 00:42 83 22 12/17/24 00:33 85 27 H 12/17/24 00:15 84 27 H 12/16/24 23:53 12/16/24 23:36 83 12/16/24 23:30 86 18 12/16/24 23:29 84 24 91/52 L 104/51 L Pulse Ox O2 Del Method O2 Flow Rate 12/17/24 09:42 96 Nasal Cannula 4 12/17/24 09:03 97 12/17/24 09:01 12/17/24 09:01 12/17/24 08:57 97 12/17/24 08:39 98 12/17/24 08:12 98 12/17/24 08:01 12/17/24 08:01 12/17/24 08:01 12/17/24 07:56 Oxymask 4 12/17/24 07:54 99 Oxymask 4 12/17/24 07:06 96 12/17/24 06:45 94 12/17/24 06:42 96 12/17/24 06:09 97 Oxymask 12/17/24 05:39 98 12/17/24 05:00 92 Oxymask 12/17/24 04:57 92 Oxymask 12/17/24 04:01 12/17/24 04:01 12/17/24 04:00 96 Oxymask 4 12/17/24 03:30 94 12/17/24 03:09 93 Oxymask 12/17/24 03:01 12/17/24 02:51 93 12/17/24 02:36 93 12/17/24 02:06 98 Mechanical Vent 12/17/24 02:01 12/17/24 02:01 12/17/24 02:01 12/17/24 02:00 92 Oxymask 4 12/17/24 01:33 93 12/17/24 01:01 12/17/24 01:00 97 Oxymask 12/17/24 00:51 12/17/24 00:42 97 12/17/24 00:33 97 Oxymask 4 12/17/24 00:15 97 Oxymask 4 12/16/24 23:53 Oxymask 6 12/16/24 23:36 12/16/24 23:30 96 Oxymask 6 12/16/24 23:29 97 Oxymask 6
--- NOTE | 2024-12-17 11:20 | Urology Progress Note ---
Date of Service December 17, 2024 Assessment & Plan (1) Sepsis: (2) Acute UTI: (3) Ureteral stone: (4) History of nephrectomy: Plan 64yo F with a hx of left nephrectomy who was admitted with sepsis and an obstructing right ureteral stone POD #1 s/p cystoscopy and right stent placement Remains in ICU Afebrile, off pressors since this morning Labs- WBCs 33.69- 43.24- 43.35 today; Creatinine downtrending, 2.15 today Urine culture pending; Blood culture prelim E.coli, repeat pending On Ceftriaxone Patino draining clear yellow urine Maintain Patino catheter Continue antibiotic therapy Continue supportive care and management per primary/ICU team Will arrange outpatient follow-up with our service. Urology will follow peripherally, please contact us with any questions/concerns or changes in patient's status. Admission and Anticipated Discharge Date Admission Date: December 16, 2024 Subjective Patient seen at beside in the ICU. Awake and resting in bed. NAD. Patino draining yellow urine. Review of Systems Constitutional: as per Subjective / HPI Genitourinary: as per Subjective / HPI Physical Exam Constitutional: + obese; no acute distress Respiratory: no respiratory distress and no labored breathing O2 via NC Neurologic: awake Psychiatric: Orientation: alert, oriented x 3 and cooperative Genitourinary: Patino intact Results & Data Vital Signs (Past 12 Hours) Vital Signs Temp Pulse Pulse Resp BP BP BP 12/17/24 09:42 80 15 12/17/24 09:03 85 18 12/17/24 09:01 89/60 L 12/17/24 09:01 89/60 L 12/17/24 08:57 89 19 12/17/24 08:39 87 22 12/17/24 08:12 88 19 12/17/24 08:01 103/64 12/17/24 08:01 103/64 12/17/24 08:01 36.5 C 12/17/24 07:56 12/17/24 07:54 95 H 23 12/17/24 07:06 81 14 12/17/24 06:45 77 15 12/17/24 06:42 79 15 12/17/24 06:09 78 14 12/17/24 05:39 83 19 12/17/24 05:00 89 21 12/17/24 04:57 87 12 12/17/24 04:01 94/54 L 12/17/24 04:01 94/54 L 12/17/24 04:00 84 16 12/17/24 03:30 88 22 12/17/24 03:09 82 24 12/17/24 03:01 83/50 L 12/17/24 02:51 79 24 12/17/24 02:36 81 20 12/17/24 02:06 83 17 12/17/24 02:01 112/79 12/17/24 02:01 112/79 12/17/24 02:01 112/79 12/17/24 02:00 36.8 C 79 24 12/17/24 01:33 80 22 12/17/24 01:01 84/55 L 12/17/24 01:00 77 22 12/17/24 00:51 133/88 12/17/24 00:42 83 22 12/17/24 00:33 85 27 H 12/17/24 00:15 84 27 H 12/16/24 23:53 12/16/24 23:36 83 12/16/24 23:30 86 18 12/16/24 23:29 84 24 91/52 L 104/51 L Pulse Ox O2 Del Method O2 Flow Rate 12/17/24 09:42 96 Nasal Cannula 4 12/17/24 09:03 97 12/17/24 09:01 12/17/24 09:01 12/17/24 08:57 97 12/17/24 08:39 98 12/17/24 08:12 98 12/17/24 08:01 12/17/24 08:01 12/17/24 08:01 12/17/24 07:56 Oxymask 4 12/17/24 07:54 99 Oxymask 4 12/17/24 07:06 96 12/17/24 06:45 94 12/17/24 06:42 96 12/17/24 06:09 97 Oxymask 12/17/24 05:39 98 12/17/24 05:00 92 Oxymask 12/17/24 04:57 92 Oxymask 12/17/24 04:01 12/17/24 04:01 12/17/24 04:00 96 Oxymask 4 12/17/24 03:30 94 12/17/24 03:09 93 Oxymask 12/17/24 03:01 12/17/24 02:51 93 12/17/24 02:36 93 12/17/24 02:06 98 Mechanical Vent 12/17/24 02:01 12/17/24 02:01 12/17/24 02:01 12/17/24 02:00 92 Oxymask 4 12/17/24 01:33 93 12/17/24 01:01 12/17/24 01:00 97 Oxymask 12/17/24 00:51 12/17/24 00:42 97 12/17/24 00:33 97 Oxymask 4 12/17/24 00:15 97 Oxymask 4 12/16/24 23:53 Oxymask 6 12/16/24 23:36 12/16/24 23:30 96 Oxymask 6 12/16/24 23:29 97 Oxymask 6 PG Care Time/CCT Total # of Minutes Spent Total Time Spent with Patient: Total time spent is greater than 50% in coordination of care (as documented) at patient's floor/unit and/or counseling patient: Coding Level of Care Code 44096 SUB INP/OBS CARE 2/35MIN Diagnoses Sepsis A41.9 Acute UTI N39.0 Ureteral stone N20.1 History of nephrectomy Z90.5
--- NOTE | 2024-12-17 12:51 | Hospitalist Progress Note ---
Date of Service December 17, 2024 Assessment & Plan (1) Septic shock due to urinary tract infection: (2) Severe sepsis with acute organ dysfunction: (3) E. coli bacteremia: (4) Demand ischemia of myocardium: (5) Acute kidney injury with acute tubular necrosis: (6) Acute metabolic encephalopathy: (7) Nephrolithiasis: (8) Hypothyroidism: (9) Hypertension: (10) Primary hyperparathyroidism: (11) Diabetes mellitus type 2 in obese: (12) Morbidly obese: Plan Patient 64-year-old female with E. coli bacteremia and septic shock seems to be improved today after urological intervention antibiotics., She remains critically ill requiring hospital level care. Continue monitor blood pressure off Levophed, A-line in place Continue current antibiotics Communication with nephrology, please with improvement in renal function, anticipate will continue to improve as her overall medical condition improves Continue to monitor laboratory studies Anticipate patient will need therapies once her overall clinical status improves. Continue to monitor glucose and cover with insulin Continue other oral medications as prescribed Admission and Anticipated Discharge Date Admission Date: December 16, 2024 Subjective Patient feeling significantly better this morning. Tolerated breakfast. No significant chest pain or shortness of breath. Reports a little bit of right flank pain. Nursing reports patient has been off Levophed since early this morning. Physical Exam Physical Exam: Constitutional: Alert, morbidly obese, moderately ill in appearance HEENT: Mucous membranes moist. Central line in right jugular Lungs: Clear to auscultation, decreased, no wheezes rales or rhonchi CV: S1-S2, regular Abdomen: Soft, mild diffuse tenderness nondistended Extremities: No significant edema Neuro: No focal deficits, generally weak Psych: Cooperative, normal mood Results & Data Results & Data Vital Signs (Past 12 Hours) Vital Signs Temp Pulse Resp BP Pulse Ox O2 Del Method O2 Flow Rate 12/17/24 09:42 80 15 96 Nasal Cannula 4 12/17/24 09:03 85 18 97 12/17/24 09:01 89/60 L 12/17/24 09:01 89/60 L 12/17/24 08:57 89 19 97 12/17/24 08:39 87 22 98 12/17/24 08:12 88 19 98 12/17/24 08:01 103/64 12/17/24 08:01 103/64 12/17/24 08:01 36.5 C 12/17/24 07:56 Oxymask 4 12/17/24 07:54 95 H 23 99 Oxymask 4 12/17/24 07:06 81 14 96 12/17/24 06:45 77 15 94 12/17/24 06:42 79 15 96 12/17/24 06:09 78 14 97 Oxymask 12/17/24 05:39 83 19 98 12/17/24 05:00 89 21 92 Oxymask 12/17/24 04:57 87 12 92 Oxymask 12/17/24 04:01 94/54 L 12/17/24 04:01 94/54 L 12/17/24 04:00 84 16 96 Oxymask 4 12/17/24 03:30 88 22 94 12/17/24 03:09 82 24 93 Oxymask 12/17/24 03:01 83/50 L 12/17/24 02:51 79 24 93 12/17/24 02:36 81 20 93 12/17/24 02:06 83 17 98 Mechanical Vent 12/17/24 02:01 112/79 12/17/24 02:01 112/79 12/17/24 02:01 112/79 12/17/24 02:00 36.8 C 79 24 92 Oxymask 4 12/17/24 01:33 80 22 93 12/17/24 01:01 84/55 L 12/17/24 01:00 77 22 97 Oxymask 12/17/24 00:51 133/88 Diagnostic Findings Reviewed imaging, laboratory and diagnostic studies. Pertinent findings as below. WBCs 43.3 Hemoglobin 0.6 Creatinine 2.15, improved Blood cultures growing E. coli
[2024-12-17] MEDS: MIDODRINE HCL 10 MG TAB PO SCH (16:32)
[2024-12-18 04:39] LABS: Anion Gap 6.0 (3-11); Blood Urea Nitrogen 32.0 mg/dl (6-23); Calcium 8.7 mg/dl (8.6-10.3); Carbon Dioxide 26.0 mmol/L (21-32); Chloride 98.0 mmol/L (98-107); Creatinine Clr Calc Pharmacy 52.7 ml/min; Glucose 162.0 mg/dl (70-99(Fasting)); Hematocrit (blood only) 32.6 % (37.0-47.0); Hemoglobin 10.3 g/dl (12.0-16.0); Magnesium 1.9 mg/dl (1.7-2.4); Mean Corpuscular Hemoglobin 25.5 pg (25.0-34.0); Mean Corpuscular Volume 80.7 fL (80.0-100.0); Platelet Count 131 K/uL (130-400); Potassium 4.7 mmol/L (3.5-5.1); RDW Standard Deviation 42.9 fL (36.4-46.3); Red Blood Count 4.04 M/uL (4.20-5.40); Sodium 130.0 mmol/L (136-145); White Blood Count 28.56 K/ul (4.8-10.8)
[2024-12-18 05:40] LABS: Dohle Bodies 1+; Immature Granulocytes # (auto) 1.44 K/uL (0.01-0.20); Immature Granulocytes % (auto) 5.0 %; Toxic Granulation 1+
--- NOTE | 2024-12-18 06:39 | Electrocardiogram Report ---
Test Reason : Blood Pressure : */* mmHG Vent. Rate : 109 BPM Atrial Rate : 109 BPM P-R Int : 160 ms QRS Dur : 84 ms QT Int : 330 ms P-R-T Axes : 56 7 21 degrees QTcB Int : 444 ms Sinus tachycardia with Premature supraventricular complexes Otherwise normal ECG When compared with ECG of 08-Sep-2024 17:43, Premature supraventricular complexes are now Present Confirmed by Issa Joe ([id number]) on 12/18/2024 6:39:15 AM Referred By: REFERRED SELF Confirmed By: Issa Joe
--- NOTE | 2024-12-18 07:45 | Critical Care Progress Note ---
Date of Service December 18, 2024 Assessment & Plan (1) E. coli bacteremia: (2) Ureteral stone: (3) Acute kidney injury with acute tubular necrosis: (4) Morbidly obese: (5) Acute metabolic encephalopathy: (6) Severe sepsis with acute organ dysfunction: (7) Demand ischemia of myocardium: (8) Septic shock due to urinary tract infection: (9) Severe sepsis: (10) Elevated troponin: (11) Acute UTI: (12) Sepsis: (13) Nephrolithiasis: (14) Hypothyroidism: (15) Hypertension: (16) Morbid obesity with BMI of 50.0-59.9, adult: (17) History of nephrectomy: (18) History of neck injury: (19) Interstitial cystitis: Plan Reason Critically Ill: Severe sepsis secondary to nephrolithiasis PLAN: Neuro: Encephalopathy improved Resp: History of obstructive sleep apnea - Home CPAP use CV: Hypotension -Patient has been off the vasopressors. Midodrine has been discontinued Fluids/Renal: Acute kidney injury - Discussed with nephrology Hyponatremia: History of prior in past, this may represent acute phase reaction ID: Leukemoid reaction secondary to underlying sepsis Will switch to Keflex today. Anticipate antibiotics for 10 days GI/Nutrition: Tolerating type 2 diabetes carb consistent diet - Heme: Heparin 7500 3 times daily for DVT prophylaxis Endocrine: ICU hyperglycemia protocol Vascular access: Utilize 8 cm catheter at this time, difficulty placing central venous access other sites relatively contraindicated and vasoactive medications are decreasing Code Status: Full code Admission and Anticipated Discharge Date Admission Date: December 16, 2024 Supervising Physician Co-Signing Physician Notes Dr. Quinonez was resident physician during care of patient. I separately evaluated patient for webb portions of the history and the exam. I was present during the critical portion of medical decision making, and I discussed the case with the resident. I generally agree with the findings and plan. Patient has been off pressors for greater than 12 hours. Tolerating diet, creatinine continues to improve electrolytes reassuring, sodium remains low. Pansensitive E. coli however this is a complicated UTI given retained stone. Currently planning for 10 days of antibiotics, can downgrade to oral antibiotic today, transition to Keflex 500 mg 4 times daily. Discontinuing midodrine today, still holding antihypertensives. Stable for downgrade today Subjective Patient reports feeling significantly better this morning. Denies vomiting, abdominal pain, dizziness or chest pain Review of Systems Review of Systems: As per HPI Physical Exam Physical Exam: Constitutional: Alert, nontoxic, morbidly obese HEENT: Mucous membranes moist. Central line in right jugular Lungs: Decreased breath sounds CV: S1-S2, regular Abdomen: Soft, nontender, nondistended Extremities: No significant edema Neuro: No focal deficits generally weak Psych: Cooperative, normal mood Results & Data Results & Data Vital Signs (Past 12 Hours) Vital Signs Temp Pulse Resp BP Pulse Ox O2 Del Method O2 Flow Rate 12/18/24 07:33 36.8 C 12/18/24 07:14 80 18 96 Nasal Cannula 2 12/18/24 06:30 80 20 104/53 L 93 Nasal Cannula 2 12/18/24 05:02 90 24 96 Nasal Cannula 12/18/24 04:35 36.5 C 90 23 96 12/18/24 04:08 93 H 19 95 Nasal Cannula 12/18/24 04:01 150/59 H 12/18/24 04:01 150/59 H 12/18/24 04:01 150/59 H 12/18/24 04:01 150/59 H 12/18/24 04:00 146/74 H 12/18/24 03:59 93 H 20 95 Nasal Cannula 12/18/24 03:30 89 18 97 12/18/24 03:00 89 25 H 97 Nasal Cannula 12/18/24 02:30 83 20 97 12/18/24 02:03 81 23 96 Nasal Cannula 12/18/24 02:01 146/74 H 12/18/24 02:01 146/74 H 12/18/24 02:00 83 21 96 Nasal Cannula 12/18/24 01:33 83 22 97 Nasal Cannula 12/18/24 01:00 82 25 H 96 12/18/24 00:57 81 20 97 Nasal Cannula 12/18/24 00:03 81 18 99 12/18/24 00:01 131/63 12/17/24 23:57 80 12/17/24 23:48 79 24 98 Nasal Cannula 12/17/24 23:36 82 21 99 12/17/24 23:00 74 17 97 12/17/24 22:30 77 17 93 Nasal Cannula 12/17/24 22:09 77 18 94 Nasal Cannula 4 12/17/24 21:30 82 18 92 Nasal Cannula 4 12/17/24 21:13 140/57 L 12/17/24 20:57 80 20 96 Nasal Cannula 4 12/17/24 20:30 Nasal Cannula 12/17/24 20:01 124/61 12/17/24 20:01 124/61 12/17/24 20:00 36.5 C 78 14 96 Nasal Cannula 4 FiO2 12/18/24 07:33 12/18/24 07:14 12/18/24 06:30 12/18/24 05:02 12/18/24 04:35 12/18/24 04:08 12/18/24 04:01 12/18/24 04:01 12/18/24 04:01 12/18/24 04:01 12/18/24 04:00 12/18/24 03:59 12/18/24 03:30 12/18/24 03:00 12/18/24 02:30 12/18/24 02:03 12/18/24 02:01 12/18/24 02:01 12/18/24 02:00 12/18/24 01:33 12/18/24 01:00 12/18/24 00:57 12/18/24 00:03 12/18/24 00:01 12/17/24 23:57 12/17/24 23:48 12/17/24 23:36 12/17/24 23:00 12/17/24 22:30 12/17/24 22:09 12/17/24 21:30 12/17/24 21:13 12/17/24 20:57 12/17/24 20:30 4 12/17/24 20:01 12/17/24 20:01 12/17/24 20:00 Coding Level of Care Code 89184 SUB INP/OBS CARE MIN Diagnoses E. coli bacteremia R78.81; B96.20 Ureteral stone N20.1 Acute kidney injury with acute tubular necrosis N17.0 Morbidly obese E66.01 Acute metabolic encephalopathy G93.41 Severe sepsis with acute organ dysfunction A41.9; R65.20 Demand ischemia of myocardium I24.89 Septic shock due to urinary tract infection A41.9; R65.21; N39.0 Severe sepsis A41.9; R65.20 Elevated troponin R79.89 Acute UTI N39.0 Sepsis A41.9 Nephrolithiasis N20.0 Hypothyroidism E03.9 Hypertension I10 Morbid obesity with BMI of 50.0-59.9, adult E66.01; Z68.43 History of nephrectomy Z90.5 History of neck injury Z87.828 Interstitial cystitis N30.10 Resident Activity Tracking Resident Involvement: Resident Care Provided Care Provided: [facility]
--- NOTE | 2024-12-18 08:22 | Billing Data ---
Date of Service December 18, 2024 Coding Level of Care Code 49169 SUB INP/OBS CARE
--- NOTE | 2024-12-18 10:54 | Hospitalist Progress Note ---
Date of Service December 18, 2024 Assessment & Plan (1) Septic shock due to urinary tract infection: (2) Severe sepsis with acute organ dysfunction: (3) E. coli bacteremia: (4) Demand ischemia of myocardium: (5) Acute kidney injury with acute tubular necrosis: (6) Acute metabolic encephalopathy: (7) Nephrolithiasis: (8) Hypothyroidism: (9) Hypertension: (10) Primary hyperparathyroidism: (11) Diabetes mellitus type 2 in obese: (12) Morbidly obese: Plan Patient 64-year-old female with septic shock due to E. coli bacteremia from UTI. Patient has significantly improved. Patient off Levophed, titrated off midodrine as well. Blood pressure stabilizing. [facility] transfer to [facility] Communication with home health clinical supervisor, will transition to oral antibiotics. Continue monitor laboratory studies Therapies Plan to remove central line Continue to monitor glucose and cover with insulin Continue other oral medications as ordered Incentive spirometry Phone update to patient's sister Michaelle Admission and Anticipated Discharge Date Admission Date: December 16, 2024 Subjective Patient is steadily improving. She reports feeling better again today. Strength starting to improve. Good appetite. Physical Exam Physical Exam: Constitutional: Alert, nontoxic, morbidly obese HEENT: Mucous membranes moist. Central line in right jugular Lungs: Decreased breath sounds CV: S1-S2, regular Abdomen: Soft, nontender, nondistended Extremities: No significant edema Neuro: No focal deficits generally weak Psych: Cooperative, normal mood Results & Data Results & Data Vital Signs (Past 12 Hours) Vital Signs Temp Pulse Resp BP Pulse Ox O2 Del Method O2 Flow Rate 12/18/24 07:38 Nasal Cannula 2 12/18/24 07:33 36.8 C 12/18/24 07:14 80 18 96 Nasal Cannula 2 12/18/24 06:30 80 20 104/53 L 93 Nasal Cannula 2 12/18/24 05:02 90 24 96 Nasal Cannula 12/18/24 04:35 36.5 C 90 23 96 12/18/24 04:08 93 H 19 95 Nasal Cannula 12/18/24 04:01 150/59 H 12/18/24 04:01 150/59 H 12/18/24 04:01 150/59 H 12/18/24 04:01 150/59 H 12/18/24 04:00 146/74 H 12/18/24 03:59 93 H 20 95 Nasal Cannula 12/18/24 03:30 89 18 97 12/18/24 03:00 89 25 H 97 Nasal Cannula 12/18/24 02:30 83 20 97 12/18/24 02:03 81 23 96 Nasal Cannula 12/18/24 02:01 146/74 H 12/18/24 02:01 146/74 H 12/18/24 02:00 83 21 96 Nasal Cannula 12/18/24 01:33 83 22 97 Nasal Cannula 12/18/24 01:00 82 25 H 96 12/18/24 00:57 81 20 97 Nasal Cannula 12/18/24 00:03 81 18 99 12/18/24 00:01 131/63 12/17/24 23:57 80 12/17/24 23:48 79 24 98 Nasal Cannula 12/17/24 23:36 82 21 99 12/17/24 23:00 74 17 97 Diagnostic Findings Reviewed imaging, laboratory and diagnostic studies. Pertinent findings as below. WBCs 28.5, improved Hemoglobin 10.3 Platelets of 131 Sodium 130 Creatinine 1.59, baseline Glucose reviewed Cultures reviewed pansensitive E. coli
--- NOTE | 2024-12-18 11:30 | Nephrology Progress Note ---
Date of Service December 18, 2024 Assessment & Plan Admission and Anticipated Discharge Date Admission Date: December 16, 2024 Subjective Assessment & Plan (1) Acute kidney injury with acute tubular necrosis: KIMBERLY most likely obstructive but given sepsis with bacteremia and low BP could be ATN also. or Some combination of both. BP is now normal on own Now has ureteric stent in her right kidney. She has only one kidney. Avoid Low BP. Avoid contrast agents and NSAIDs. Creat today is less than yesterday and made lot of urine. So good renal recovery. creat 1.59 so not quite back to baseline mag and phos both normal today. na is slightly low at 130 but holding steady. Will follow. hold her home metformin. (2) Sepsis: from urinary source triggered by obstructive ureteric stone. Bp starting to be better so hopefully worse is over. getting Iv abx. Cefepime is sensitive for Klebsiella. this is not really nephrotoxic. (3) Nephrolithiasis: Long standing h/o this. would recommend she attend nephrology clinic for Stone risk assessment and management post discharge. will need urorisk assessment and all but cannot be done inpt with KIMBERLY. Hold cinacalcet for today. S--BP sis normal now. lot of urine and labs better. No new issues, Overall better. Physical Exam Constitutional: + obese; no acute distress Neck: Neck Short and obese. No JVD Respiratory: normal respiratory effort; no respiratory distress and no labored breathing Cardiovascular: Rate/Rhythm: regular rate and regular rhythm Gastrointestinal (Abdomen): Abdomen is soft. No tenderness. Musculoskeletal: No calf tenderness Skin: no rashes Neurologic: moves all extremities Psychiatric: A+Ox3, euthymic affect Genitourinary: CVA tenderness noted right side Results & Data Vital Signs (Past 12 Hours) Vital Signs Temp Pulse Resp BP Pulse Ox O2 Del Method O2 Flow Rate 12/18/24 07:38 Nasal Cannula 2 12/18/24 07:33 36.8 C 12/18/24 07:14 80 18 96 Nasal Cannula 2 12/18/24 06:30 80 20 104/53 L 93 Nasal Cannula 2 12/18/24 05:02 90 24 96 Nasal Cannula 12/18/24 04:35 36.5 C 90 23 96 12/18/24 04:08 93 H 19 95 Nasal Cannula 12/18/24 04:01 150/59 H 12/18/24 04:01 150/59 H 12/18/24 04:01 150/59 H 12/18/24 04:01 150/59 H 12/18/24 04:00 146/74 H 12/18/24 03:59 93 H 20 95 Nasal Cannula 12/18/24 03:30 89 18 97 12/18/24 03:00 89 25 H 97 Nasal Cannula 12/18/24 02:30 83 20 97 12/18/24 02:03 81 23 96 Nasal Cannula 12/18/24 02:01 146/74 H 12/18/24 02:01 146/74 H 12/18/24 02:00 83 21 96 Nasal Cannula 12/18/24 01:33 83 22 97 Nasal Cannula 12/18/24 01:00 82 25 H 96 12/18/24 00:57 81 20 97 Nasal Cannula 12/18/24 00:03 81 18 99 12/18/24 00:01 131/63 12/17/24 23:57 80 12/17/24 23:48 79 24 98 Nasal Cannula 12/17/24 23:36 82 21 99
[2024-12-18] MEDS: cefTRIAXone SODIUM 2,000 MG/50 ML BAG IV SCH (19:39)
[2024-12-18] MEDS: FUROSEMIDE INJ 20 MG/2 ML VIAL IV ONE (19:39)
[2024-12-18] MEDS: ALBUTEROL 0.083% NEBU SOLN 3 ML VIAL NEB PRN (20:14)
[2024-12-19 06:07] LABS: Hematocrit (blood only) 34.0 % (37.0-47.0); Hemoglobin 10.7 g/dl (12.0-16.0); Immature Granulocytes # (auto) 0.16 K/uL (0.01-0.20); Immature Granulocytes % (auto) 1.3 %; Mean Corpuscular Hemoglobin 25.5 pg (25.0-34.0); Mean Corpuscular Volume 81.0 fL (80.0-100.0); Platelet Count 132 K/uL (130-400); RDW Standard Deviation 43.1 fL (36.4-46.3); Red Blood Count 4.20 M/uL (4.20-5.40); White Blood Count 12.72 K/ul (4.8-10.8)
[2024-12-19 06:24] LABS: Anion Gap 5.0 (3-11); Blood Urea Nitrogen 32.0 mg/dl (6-23); Calcium 9.2 mg/dl (8.6-10.3); Carbon Dioxide 29.0 mmol/L (21-32); Chloride 98.0 mmol/L (98-107); Creatinine Clr Calc Pharmacy 65.8 ml/min; Glucose 178.0 mg/dl (70-99(Fasting)); Potassium 4.1 mmol/L (3.5-5.1); Sodium 132.0 mmol/L (136-145)
[2024-12-19] MEDS: FUROSEMIDE 40 MG/4 ML VIAL IV SCH (11:08)
--- NOTE | 2024-12-19 11:41 | Hospitalist Progress Note ---
Date of Service December 19, 2024 Assessment & Plan (1) Septic shock due to urinary tract infection: (2) Severe sepsis with acute organ dysfunction: (3) E. coli bacteremia: (4) Volume overload: (5) Demand ischemia of myocardium: (6) Acute kidney injury with acute tubular necrosis: Plan: At baseline (7) Acute metabolic encephalopathy: Plan: Resolved (8) Nephrolithiasis: (9) Hypothyroidism: (10) Hypertension: (11) Primary hyperparathyroidism: (12) Diabetes mellitus type 2 in obese: (13) Morbidly obese: Plan Patient 64-year-old female steadily improving from E. coli bacteremia from UTI and ureteral stone. Continue IV ceftriaxone based on sensitivities, anticipate transitioning to oral antibiotics within the next 24 to 48 hours Therapies Patient is volume overloaded from her fluid resuscitation that was required for her severe sepsis and septic shock. Patient now needs to be diuresed Lasix IV twice daily, monitor electrolytes and renal function Remove Patino catheter after Lasix this afternoon Encourage activity Continue to monitor glucose and cover with insulin Continue other outpatient medications Anticipate discharge 1 to 2 days Admission and Anticipated Discharge Date Admission Date: December 16, 2024 Subjective Patient experiencing some shortness of breath last night especially with activity. Had used an albuterol inhaler at home in the past. She notes that she is quite swollen and edematous. But she is feeling her strength return Physical Exam Physical Exam: Constitutional: Alert, morbidly obese, nontoxic HEENT: Mucous membranes moist. Lungs: Decreased breath sounds, no wheezes, crackles at bases CV: S1-S2, regular Abdomen: Morbidly obese, edema and abdominal pannus Extremities: Pitting edema in posterior thighs, sacral area Neuro: No focal deficits, strength improving Psych: Cooperative, normal mood Results & Data Results & Data Vital Signs (Past 12 Hours) Vital Signs Temp Pulse Resp BP Pulse Ox O2 Del Method 12/19/24 07:36 77 18 94 Room Air 12/19/24 07:28 37 C 77 20 136/80 93 Room Air Diagnostic Findings Reviewed imaging, laboratory and diagnostic studies. Pertinent findings as below. WBCs 12.7, improved Hemoglobin 10.7, stable Platelets of 132 Sodium 132 Potassium 4.1 Creatinine 0.31, improved Glucose was reviewed
--- NOTE | 2024-12-19 13:12 | Nephrology Progress Note ---
Date of Service December 19, 2024 Assessment & Plan Admission and Anticipated Discharge Date Admission Date: December 16, 2024 Subjective Assessment & Plan (1) Acute kidney injury with acute tubular necrosis: KIMBERLY most likely obstructive but given sepsis with bacteremia and low BP could be ATN also. or Some combination of both. BP is now normal on own Now has ureteric stent in her right kidney. She has only one kidney. Avoid Low BP. Avoid contrast agents and NSAIDs. Creat today is less than yesterday and made lot of urine. So good renal recovery. creat 1.31 so not quite back to baseline but will get there eventually. Agree with Iv lasix 40 iv bid. she had her torsemide held and also got lot of fluid for Sepsis. K is normal. na is slightly low at 132 but holding steady and should rise with iv lasix. Will follow. hold her home metformin. (2) Sepsis: from urinary source triggered by obstructive ureteric stone. Bp starting to be better so hopefully worse is over. getting Iv abx. Cefepime is sensitive for Klebsiella. this is not really nephrotoxic. (3) Nephrolithiasis: Long standing h/o this. would recommend she attend nephrology clinic for Stone risk assessment and management post discharge. will need urorisk assessment and all but cannot be done inpt with KIMBERLY. Not sure whether she is on or not --cinacalcet Anyway no urgent need to do anything currently. Has Parathyroid adenoma on the scan and with this kidney stone problem, I would recommend Surgical treatment. Follows with endocrine so defer to them. S--BP is normal now. lot of urine and labs better. Was Short of breath and feels very overloaded and edematous. . Physical Exam Constitutional: + obese; no acute distress Neck: Neck Short and obese. No JVD Respiratory: normal respiratory effort; no respiratory distress and no labored breathing Cardiovascular: Rate/Rhythm: regular rate and regular rhythm Gastrointestinal (Abdomen): Abdomen is soft. No tenderness. Musculoskeletal: No calf tenderness Skin: no rashes Neurologic: moves all extremities Psychiatric: A+Ox3, euthymic affect Genitourinary: CVA tenderness noted right side Results & Data Vital Signs (Past 12 Hours) Vital Signs Temp Pulse Resp BP Pulse Ox O2 Del Method 12/19/24 11:44 Room Air 12/19/24 07:36 77 18 94 Room Air 12/19/24 07:28 37 C 77 20 136/80 93 Room Air
[2024-12-20 06:36] LABS: Anion Gap 7.0 (3-11); Blood Urea Nitrogen 27.0 mg/dl (6-23); Calcium 9.3 mg/dl (8.6-10.3); Carbon Dioxide 31.0 mmol/L (21-32); Chloride 94.0 mmol/L (98-107); Creatinine Clr Calc Pharmacy 71.9 ml/min; Glucose 171.0 mg/dl (70-99(Fasting)); Potassium 3.9 mmol/L (3.5-5.1); Sodium 132.0 mmol/L (136-145)
--- NOTE | 2024-12-20 09:36 | Hospitalist Progress Note ---
Date of Service December 20, 2024 Assessment & Plan (1) Septic shock due to urinary tract infection: Plan: Resolved (2) Severe sepsis with acute organ dysfunction: Plan: Resolved (3) E. coli bacteremia: (4) Volume overload: (5) Demand ischemia of myocardium: (6) Acute kidney injury with acute tubular necrosis: Plan: At baseline (7) Acute metabolic encephalopathy: Plan: Resolved (8) Nephrolithiasis: (9) Hypothyroidism: (10) Hypertension: (11) Primary hyperparathyroidism: (12) Diabetes mellitus type 2 in obese: (13) Morbidly obese: Plan Patient continues to improve from her E. coli bacteremia septic shock. Shock is resolved. Patient is improving from her volume overload associated with her fluid resuscitation, continue IV Lasix today Replace potassium Encouraged activity Patient agreeable to having Patino removed today Monitor laboratory studies in a.m. Reviewed PT/OT notes, recommending skilled rehab Communication with case management will pursue placement options Norvasc restarted, continue to monitor blood pressure, anticipate blood pressure will improve as she overall improved with her medical condition Increase Lantus tomorrow, as patient's appetite improves and acute illness improves will need to get her closer to her home insulin regimen. Admission and Anticipated Discharge Date Admission Date: December 16, 2024 Subjective Patient feels like her strength is returning. Agreeable to having Patino removed today. Feels that she has had good response to the diuresis. Physical Exam Physical Exam: Constitutional: Alert, morbidly obese, nontoxic, sitting in chair HEENT: Mucous membranes moist. Eschar and ecchymosis on bilateral necks from central lines. Improving Lungs: Decreased breath sounds, no wheezes, few crackles at bases improved CV: S1-S2, regular Abdomen: Soft, morbidly obese, decreased edema and abdominal pannus Extremities: Edema posterior thighs, improved Neuro: No focal deficits Psych: Cooperative, normal mood Results & Data Results & Data Vital Signs (Past 12 Hours) Vital Signs Temp Pulse Resp BP Pulse Ox Pulse Ox O2 Del Method 12/20/24 08:35 93 12/20/24 08:30 Room Air 12/20/24 07:18 36.6 C 74 16 173/76 H 94 Room Air 12/19/24 23:00 36.8 C 68 18 127/81 93 Nasal Cannula O2 Del Method O2 Flow Rate 12/20/24 08:35 Room Air 12/20/24 08:30 12/20/24 07:18 12/19/24 23:00 2 Diagnostic Findings Reviewed imaging, laboratory and diagnostic studies. Pertinent findings as below. Sodium 132 Potassium 3.9 Creatinine 1.2 Glucoses reviewed
--- NOTE | 2024-12-20 11:53 | Nephrology Progress Note ---
Date of Service December 20, 2024 Assessment & Plan (1) Acute kidney injury with acute tubular necrosis: Plan: Stage 1 improving/polyuric KIMBERLY most likely obstructive but given sepsis with bacteremia and low BP could be ATN also. or Some combination of both. Baseline creatinine 0.8. at 1.2 today Peak creatinine 2.7 on 12/16. mild hyponatremia in low 130s, stable since admission Also has ureteric stent in her right kidney and this should help. She has only one kidney. Avoid Low BP. Avoid contrast agents and NSAIDs. BP quite labile > would monitor for now and cont lasix; could use prn hydrlazine if sx Daily labs. -continue lasix 40 mg bid14 hold her home metfromin. (2) Sepsis: Plan: from urinary source triggered by obstructive ureteral stone. E coli bacteremia > last + cx 12/16 Bp starting to be better so hopefully worst is over. h/o klebsiella uti in october on ceftriaxone (3) Nephrolithiasis: Plan: Longstanding h/o this. would recommend she attend nephrology clinic for Stone risk assessment and management post discharge. will need urorisk assessment and all but cannot be done inpt with KIMBERLY. Hold cinacalcet for today. Admission and Anticipated Discharge Date Admission Date: December 16, 2024 Subjective lambert out this am; pt had yet to void when I saw her about 1145; no sob, no edema. no chills, no pain Review of Systems 2 Review of Systems: All systems reviewed & are unremarkable except as noted in Subjective Physical Exam 2 Constitutional: well developed, + morbidly obese and cooperative; no acute distress Eyes: EOM intact bilaterally ENMT: Ears: no external ear abnormality Nose: no external nose abnormality Mouth: + dry oral mucous membranes Neck: no nuchal rigidity Respiratory: normal respiratory effort Auscultation: + diminished lung sounds (markedly) Cardiovascular: Rate/Rhythm: regular rate and regular rhythm Extremities: + edema (trace) Gastrointestinal (Abdomen): Inspection/Auscultation: normal bowel sounds P ercussion/Palpation: abdomen soft; abdomen nontender Musculoskeletal: Extremities: strength 5/5 throughout Skin: no rashes, warm and dry Neurologic: story, fluent speech, no tremor Results & Data Vital Signs (Past 12 Hours) Vital Signs Temp Pulse Resp BP Pulse Ox Pulse Ox O2 Del Method 12/20/24 08:35 93 12/20/24 08:30 Room Air 12/20/24 07:18 36.6 C 74 16 173/76 H 94 Room Air O2 Del Method 12/20/24 08:35 Room Air 12/20/24 08:30 12/20/24 07:18 Laboratory Results 12/19/24 05:40 12/20/24 05:44
[2024-12-20] MEDS: POTASSIUM CHLORIDE CRTAB 20 MEQ TABCR PO STA (11:54)
[2024-12-21 07:40] LABS: Hematocrit (blood only) 33.0 % (37.0-47.0); Hemoglobin 10.9 g/dl (12.0-16.0); Mean Corpuscular Hemoglobin 26.5 pg (25.0-34.0); Mean Corpuscular Volume 80.3 fL (80.0-100.0); Platelet Count 172 K/uL (130-400); RDW Standard Deviation 41.5 fL (36.4-46.3); Red Blood Count 4.11 M/uL (4.20-5.40); White Blood Count 9.62 K/ul (4.8-10.8)
[2024-12-21 07:58] LABS: Anion Gap 8.0 (3-11); Blood Urea Nitrogen 24.0 mg/dl (6-23); Calcium 9.1 mg/dl (8.6-10.3); Carbon Dioxide 33.0 mmol/L (21-32); Chloride 92.0 mmol/L (98-107); Creatinine Clr Calc Pharmacy 77.7 ml/min; Glucose 191.0 mg/dl (70-99(Fasting)); Potassium 3.5 mmol/L (3.5-5.1); Sodium 133.0 mmol/L (136-145)
[2024-12-21] MEDS: LANTUS PER UNIT CHARGE SQ SCH (08:39)
[2024-12-21] MEDS: POTASSIUM CHLORIDE CRTAB 20 MEQ TABCR PO STA (09:29)
--- NOTE | 2024-12-21 13:13 | Hospitalist Progress Note ---
Date of Service December 21, 2024 Assessment & Plan (1) Septic shock due to urinary tract infection: Plan: Resolved (2) Severe sepsis with acute organ dysfunction: Plan: Resolved (3) E. coli bacteremia: (4) Volume overload: Plan: Improving (5) Demand ischemia of myocardium: (6) Acute kidney injury with acute tubular necrosis: Plan: At baseline (7) Acute metabolic encephalopathy: Plan: Resolved (8) Nephrolithiasis: (9) Hypothyroidism: (10) Hypertension: (11) Primary hyperparathyroidism: (12) Diabetes mellitus type 2 in obese: (13) Morbidly obese: Plan Patient 64-year-old female who initially presented in septic shock due to E. coli bacteremia, E. coli UTI due to ureteral stone. Patient is now significantly improved and septic shock has resolved. Has been diuresing well from her volume overloaded from her fluid resuscitation. Patient remains significantly weakened and deconditioned and now is requiring detention facility rehabilitation. Continue IV Rocephin, transition to oral antibiotics, pansensitive E. coli at the time of discharge. Would treat for a total of 14 days and counting days of antibiotics here in the hospital Will continue IV Lasix through today and then start oral Lasix tomorrow Continue to monitor electrolytes and renal function Continue to work with therapies Communication with case management, have authorization for detention facility. [facility] Will need outpatient follow-up with urology For definitive management of ureteral stone and stent Admission and Anticipated Discharge Date Admission Date: December 16, 2024 Subjective Patient reports she is definitely feeling better. Can definitely noticed decreased swelling. However still is extremely deconditioned and weak. Physical Exam Physical Exam: Constitutional: Alert, morbidly obese HEENT: Mucous membranes moist. Lungs: Decreased breath sounds, no wheezes CV: S1-S2, regular Abdomen: Soft, nontender, nondistended, edema and abdominal pannus significantly decreased Extremities: Edema in posterior thighs and lower extremities significantly improved Neuro: No focal deficits, generally weak Psych: Cooperative, normal mood Results & Data Results & Data Vital Signs (Past 12 Hours) Vital Signs Temp Pulse Resp BP Pulse Ox Pulse Ox O2 Del Method 12/21/24 08:09 36.9 C 73 16 172/80 H 96 Nasal Cannula 12/21/24 04:00 96 Nasal Cannula 12/21/24 01:49 98 O2 Del Method O2 Flow Rate O2 Flow Rate 12/21/24 08:09 2 12/21/24 04:00 2 12/21/24 01:49 Nasal Cannula 2 Diagnostic Findings Reviewed imaging, laboratory and diagnostic studies. Pertinent findings as below. WBCs 9.6, improved Hemoglobin 10.9, stable Sodium 133 Carbon dioxide 33 BUN 24 Creatinine 1.1, improved Glucoses reviewed
--- NOTE | 2024-12-21 13:23 | Nephrology Progress Note ---
Date of Service December 21, 2024 Assessment & Plan (1) Acute kidney injury with acute tubular necrosis: Plan: Stage 1 slightly improved / now no longer polyuric KIMBERLY most likely obstructive but given sepsis with bacteremia and low BP could be ATN also or Some combination of both. Baseline creatinine 0.8. at 1.1 today Peak creatinine 2.7 on 12/16. mild hyponatremia in low 130s, stable since admission Also has ureteric stent in her right kidney and this should help. She has only one kidney. Avoid Low BP. Avoid contrast agents and NSAIDs. BP quite labile > would monitor for now and cont lasix; could use prn hydralazine if sx; will also resume cinacalcet which can improve PTH and thereby PTH (so ordered) Daily labs. -continue lasix 40 mg bid14 hold her home metformin. will sign off DX: -Stage I KIMBERLY, obstructive + ATN -nephrolithiasis RX: -resume/continue [employer] cinacalcet, metformin, D3 -would d/c on on 2.5 mg amlodipine and 40 mg daily lasix and 20 mEq daily potassium OTHER F/U CARE : -24 hr urine/urorisk to be ordered by nephro nurse as well as PTH, 25 OHD -BMP to be ordered weekly x 3 by PCP -aim for at least 80 oz daily fluid intake most of which should be water F/U APPTS: -hospital d/c appt w/ myself or Dr Fair for metabolic stone work up and for HTN care care coordinated w/ Dr Chahal via [employer]Text re current BP meds, d/c dispo adn recommendations; we are in agreement (2) Sepsis: Plan: from urinary source triggered by obstructive ureteral stone. E coli bacteremia > last + cx 12/16 Bp starting to be better so hopefully worst is over. h/o klebsiella uti in october on ceftriaxone (3) Nephrolithiasis: Plan: Longstanding h/o this. would recommend she attend nephrology clinic for Stone risk assessment and management post discharge. will need urorisk assessment and all but cannot be done inpt with KIBMERLY. Resume cinacalcet today. (4) Hypertension: Plan: marked as IP > on minimal meds as OP >trial of amlodipine 10 mg daily as IP >>>however would NOT d/c on amlodipine at this high dose and would resume customary OP dose at d/c >OK for now to continue loop diuretic; eventually will transition as OP to TZ >>also added cinacalcet Admission and Anticipated Discharge Date Admission Date: December 16, 2024 Subjective no interval events clinically; still struggling w/ urinary urgency/feeling has to void. no sob, no n/v; some ongoing edema. Review of Systems 2 Review of Systems: All systems reviewed & are unremarkable except as noted in Subjective Physical Exam 2 Constitutional: well developed, + morbidly obese and cooperative; no acute distress Eyes: EOM intact bilaterally ENMT: Ears: no external ear abnormality Nose: no external nose abnormality Mouth: + dry oral mucous membranes Neck: no nuchal rigidity Respiratory: normal respiratory effort Auscultation: + diminished lung sounds (markedly) Cardiovascular: Rate/Rhythm: regular rate and regular rhythm Extremities: + edema (trace) Gastrointestinal (Abdomen): Inspection/Auscultation: normal bowel sounds P ercussion/Palpation: abdomen soft; abdomen nontender Musculoskeletal: Extremities: strength 5/5 throughout Skin: no rashes, warm and dry Results & Data Vital Signs (Past 12 Hours) Vital Signs Temp Pulse Resp BP Pulse Ox Pulse Ox O2 Del Method 12/21/24 13:18 Room Air 12/21/24 08:09 36.9 C 73 16 172/80 H 96 Nasal Cannula 12/21/24 04:00 96 Nasal Cannula 12/21/24 01:49 98 O2 Del Method O2 Flow Rate O2 Flow Rate 12/21/24 13:18 12/21/24 08:09 2 12/21/24 04:00 2 12/21/24 01:49 Nasal Cannula 2 Laboratory Results 12/21/24 06:55 12/21/24 06:55
[2024-12-21] MEDS: CINACALCET HCL 30 MG TAB PO SCH (17:33)
[2024-12-21] MEDS: POTASSIUM CHLORIDE CRTAB 20 MEQ TABCR PO ONE (17:42)
[2024-12-22 07:35] LABS: Anion Gap 6.0 (3-11); Blood Urea Nitrogen 20.0 mg/dl (6-23); Calcium 9.3 mg/dl (8.6-10.3); Carbon Dioxide 34.0 mmol/L (21-32); Chloride 94.0 mmol/L (98-107); Creatinine Clr Calc Pharmacy 86.4 ml/min; Glucose 180.0 mg/dl (70-99(Fasting)); Potassium 3.8 mmol/L (3.5-5.1); Sodium 134.0 mmol/L (136-145)
[2024-12-22] MEDS: FUROSEMIDE 40 MG TAB PO SCH (07:36)
--- NOTE | 2024-12-22 15:32 | Hospitalist Progress Note ---
Date of Service December 22, 2024 Assessment & Plan (1) Septic shock due to urinary tract infection: Plan: Resolved (2) Severe sepsis with acute organ dysfunction: Plan: Resolved (3) E. coli bacteremia: (4) Volume overload: Plan: Improving (5) Demand ischemia of myocardium: (6) Acute kidney injury with acute tubular necrosis: Plan: At baseline (7) Acute metabolic encephalopathy: Plan: Resolved (8) Nephrolithiasis: (9) Hypothyroidism: (10) Hypertension: (11) Primary hyperparathyroidism: (12) Diabetes mellitus type 2 in obese: (13) Morbidly obese: Plan Per prior provider w/addendum: Patient is a 64-year-old female who initially presented in septic shock due to E. coli bacteremia, E. coli UTI due to ureteral stone. Patient is now significantly improved and septic shock has resolved. Has been diuresing well from her volume overloaded from her fluid resuscitation. Patient remains significantly weakened and deconditioned and now is requiring residential facility rehabilitation. Continue IV Rocephin, transition to oral antibiotics, pansensitive E. coli at the time of discharge. Would treat for a total of 14 days and counting days of antibiotics here in the hospital continued IV Lasix, started oral Lasix today Continue to monitor electrolytes and renal function Continue to work with therapies Communication with case management, have authorization for residential facility. Anticipate [facility] to [facility] Will need outpatient follow-up with urology For definitive management of ureteral stone and stent Admission and Anticipated Discharge Date Admission Date: December 16, 2024 Subjective Pt seen in follow up , had complicated hospital course w/ urosepsis and E. coli bacteremia, required ICU admission Currently resolved, sitting up in recliner chair in NAD No chest pain, shortness of breath, no abd. pain except for mild pain in lower abdomen possibly from stent Review of Systems Review of Systems: All systems reviewed & are unremarkable except as noted in Subjective Physical Exam Physical Exam: Constitutional: morbidly obese F in NAD HEENT: Mucous membranes moist. Lungs: Decreased breath sounds, no wheezes CV: S1-S2, regular Abdomen: Soft, nondistended, + mild tenderness in lower abd. quadrants Extremities: Edema in posterior thighs and lower extremities significantly improved Neuro: No focal deficits, generally weak Psych: Cooperative, normal mood Results & Data Results & Data Vital Signs (Past 12 Hours) Vital Signs Temp Pulse Resp BP Pulse Ox O2 Del Method 12/22/24 07:35 Room Air 12/22/24 07:34 36.9 C 62 16 142/75 H 92 Room Air Laboratory Results 12/22/24 12/22/24 12/22/24 Range/Units 16:31 11:07 06:41 Sodium 134 L (136-145) mmol/L Potassium 3.8 (3.5-5.1) mmol/L Chloride 94 L (98-107) mmol/L Carbon Dioxide 34 H (21-32) mmol/L Anion Gap 6 (3-11) BUN 20 (6-23) mg/dl Creatinine 0.99 (0.6-1.2) mg/dl Est Cr Clr Drug Dosing 86.4 ml/min eGFR 63.28 BUN/Creatinine Ratio 20.2 H (10-20) Glucose 180 H (70-99(Fasting)) mg/dl POC Glucose 199 H 195 H (70-99) mg/dl Calcium 9.3 (8.6-10.3) mg/dl 12/21/24 Range/Units 20:16 Sodium (136-145) mmol/L Potassium (3.5-5.1) mmol/L Chloride (98-107) mmol/L Carbon Dioxide (21-32) mmol/L Anion Gap (3-11) BUN (6-23) mg/dl Creatinine (0.6-1.2) mg/dl Est Cr Clr Drug Dosing ml/min eGFR BUN/Creatinine Ratio (10-20) Glucose (70-99(Fasting)) mg/dl POC Glucose 261 H (70-99) mg/dl Calcium (8.6-10.3) mg/dl Medications Administered Current Inpatient Medications Acetaminophen (Acetaminophen 325 Mg Tab) 650 mg PO QID PRN PRN Reason: pain/fever Stop: 01/15/25 02:49 Last Admin: 12/22/24 05:46 Dose: 650 mg Alprazolam (Alprazolam 0.5 Mg Tablet) 0.5 mg PO TID PRN PRN Reason: Anxiety Stop: 01/15/25 02:46 Last Admin: 12/19/24 18:12 Dose: 0.5 mg Amlodipine Besylate (Amlodipine Besylate 5 Mg Tab) [facility] [place] Stop: 01/20/25 08:59 Last Admin: 12/22/24 07:35 Dose: 10 mg Aripiprazole (Aripiprazole 5 Mg Tab) 5 mg PO DAILY ABDULKADIR Stop: 01/15/25 08:59 Last Admin: 12/22/24 07:35 Dose: 5 mg Cinacalcet (Cinacalcet Hcl 30 Mg Tab) 30 mg PO DAILY ABDULKADIR Stop: 01/20/25 16:44 Last Admin: 12/22/24 07:36 Dose: 30 mg Dextrose (Dextrose 50% 50 Ml Syringe) 25 - 50 ml IV UD PRN; Protocol PRN Reason: Hypoglycemia Protocol Stop: 01/15/25 04:27 Furosemide (Furosemide 40 Mg Tab) 40 mg PO QAM ABDULKADIR Stop: 01/21/25 08:59 Last Admin: 12/22/24 07:36 Dose: 40 mg Glucagon (Glucagon For Inj 1 Mg Vial) 1 mg SQ UD PRN; Protocol PRN Reason: Hypoglycemia Protocol Stop: 01/15/25 04:27 Glucose (Glucose 40% Gel 15 Gm Tube) 15 - 30 gm PO UD PRN; Protocol PRN Reason: Hypoglycemia Protocol Stop: 01/15/25 04:27 Glucose (Glucose 10 Tab/Tube) 4 - 8 tab PO UD PRN; Protocol PRN Reason: Hypoglycemia Protocol Stop: 01/15/25 04:27 Heparin Sodium (Porcine) (Heparin Sod 5,000 Unit/0.5 Ml Vial) 7,500 units SQ Q8 ABDULKADIR Stop: 01/15/25 21:59 Last Admin: 12/22/24 14:44 Dose: 7,500 units Ceftriaxone Sodium (Rocephin) 2,000 mg in 50 mls @ 100 mls/hr IV Q24H ABDULKADIR Stop: 01/01/25 19:59 Last Infusion: 12/21/24 21:42 Dose: Infused Insulin Aspart (Insulin Aspart Per Unit Charge) 0 units SC ACHS ABDULKADIR Stop: 01/15/25 16:29 Last Admin: 12/22/24 12:20 Dose: 7 units Insulin Glargine (Lantus Per Unit Charge) 25 units SQ QAM ABDULKADIR Stop: 01/20/25 08:59 Last Admin: 12/22/24 09:21 Dose: 25 units Levothyroxine Sodium (Levothyroxine Sodium 150 Mcg Tablet) 300 mcg PO DAILYBB ABDULKADIR Stop: 01/15/25 06:29 Last Admin: 12/22/24 05:32 Dose: 300 mcg Miscellaneous (Carbohydrates For Hypoglycemia ) 15 - 30 gm PO UD PRN PRN Reason: Hypoglycemia Protocol Stop: 01/15/25 04:27 Oxycodone HCl (Oxycodone Hcl Ir 30 Mg Tab (Immediate Release)) 30 mg PO BID [facility] Stop: 12/30/24 08:59 Last Admin: 12/22/24 09:48 Dose: 30 mg Sertraline HCl (Sertraline Hcl 100 Mg Tablet) 200 mg PO QAM [facility] Stop: 01/15/25 08:59 Last Admin: 12/22/24 07:36 Dose: 200 mg Tamsulosin HCl (Tamsulosin Hcl 0.4 Mg Cap) 0.4 mg PO QAM [facility] Stop: 01/15/25 08:59 Last Admin: 12/22/24 07:37 Dose: 0.4 mg
[2024-12-22] MEDS: SENNA 8.6 MG TAB PO SCH (20:30)
[2024-12-22] MEDS: POLYETHYLENE (MIRALAX) 17 GM PACK PO SCH (20:30)
[2024-12-23] MEDS: PROMETHAZINE 12.5 MG/50.5 ML BAG IV PRN (06:12)
[2024-12-23 07:32] LABS: Hematocrit (blood only) 33.0 % (37.0-47.0); Hemoglobin 10.6 g/dl (12.0-16.0); Mean Corpuscular Hemoglobin 26.2 pg (25.0-34.0); Mean Corpuscular Volume 81.7 fL (80.0-100.0); Platelet Count 207 K/uL (130-400); RDW Standard Deviation 42.3 fL (36.4-46.3); Red Blood Count 4.04 M/uL (4.20-5.40); White Blood Count 7.66 K/ul (4.8-10.8)
[2024-12-23 07:51] LABS: Anion Gap 7.0 (3-11); Blood Urea Nitrogen 17.0 mg/dl (6-23); Calcium 9.2 mg/dl (8.6-10.3); Carbon Dioxide 34.0 mmol/L (21-32); Chloride 94.0 mmol/L (98-107); Creatinine Clr Calc Pharmacy 91.0 ml/min; Glucose 157.0 mg/dl (70-99(Fasting)); Magnesium 1.5 mg/dl (1.7-2.4); Potassium 3.8 mmol/L (3.5-5.1); Sodium 135.0 mmol/L (136-145)
[2024-12-23] MEDS: FUROSEMIDE 40 MG/4 ML VIAL IV ONE (14:22)
--- NOTE | 2024-12-23 17:43 | Hospitalist Progress Note ---
Date of Service December 23, 2024 Assessment & Plan (1) Septic shock due to urinary tract infection: Plan: Resolved (2) Severe sepsis with acute organ dysfunction: Plan: Resolved (3) E. coli bacteremia: (4) Volume overload: Plan: Improving (5) Demand ischemia of myocardium: (6) Acute kidney injury with acute tubular necrosis: Plan: At baseline (7) Acute metabolic encephalopathy: Plan: Resolved (8) Nephrolithiasis: (9) Hypothyroidism: (10) Hypertension: (11) Primary hyperparathyroidism: (12) Diabetes mellitus type 2 in obese: (13) Morbidly obese: Plan Per prior provider w/addendum: Patient is a 64-year-old female who initially presented in septic shock due to E. coli bacteremia, E. coli UTI due to ureteral stone. Patient is now significantly improved and septic shock has resolved. Has been diuresing well from her volume overloaded from her fluid resuscitation. Patient remains significantly weakened and deconditioned and now is [facility]. Continue IV Rocephin, transition to oral antibiotics, pansensitive E. coli at the time of discharge. Would treat for a total of 14 days and counting days of antibiotics here in the hospital continued IV Lasix, will DC on oral Lasix Continue to monitor electrolytes and renal function Continue to work with therapies Communication with case management, have authorization for [facility] facility. Anticipate discharge to [facility] or [facility] when bed available Will need outpatient follow-up with urology For definitive management of ureteral stone and stent Admission and Anticipated Discharge Date Admission Date: December 16, 2024 Subjective Pt seen in follow up , had complicated hospital course w/ urosepsis and E. coli bacteremia, required ICU admission Currently resolved, sitting up in bed in NAD No chest pain, shortness of breath, no abd. pain except for mild pain in lower abdomen possibly from stent Review of Systems Review of Systems: All systems reviewed & are unremarkable except as noted in Subjective Physical Exam Physical Exam: Constitutional: morbidly obese F in NAD HEENT: Mucous membranes moist. Lungs: Decreased breath sounds, no wheezes CV: S1-S2, regular Abdomen: Soft, nondistended, + mild tenderness in lower abd. quadrants Extremities: Edema in posterior thighs and lower extremities significantly improved Neuro: No focal deficits, generally weak Psych: Cooperative, normal mood Results & Data Results & Data Vital Signs (Past 12 Hours) Vital Signs Temp Pulse Resp BP Pulse Ox O2 Del Method 12/23/24 14:27 36.7 C 67 16 115/72 94 Room Air 12/23/24 11:44 37.2 C 12/23/24 07:45 Room Air 12/23/24 07:17 36.7 C 68 16 155/76 H 96 Room Air Laboratory Results 12/23/24 12/23/24 12/23/24 Range/Units 16:42 11:23 07:19 WBC (4.8-10.8) K/ul RBC (4.20-5.40) M/uL Hgb (12.0-16.0) g/dl Hct (37.0-47.0) % MCV (80.0-100.0) fL MCH (25.0-34.0) pg MCHC (32.0-36.0) g/dL RDW Std Deviation (36.4-46.3) fL RDW Coeff of Ada (11.5-14.5) % Plt Count (130-400) K/uL MPV (9.4-12.4) fL Sodium (136-145) mmol/L Potassium (3.5-5.1) mmol/L Chloride (98-107) mmol/L Carbon Dioxide (21-32) mmol/L Anion Gap (3-11) BUN (6-23) mg/dl Creatinine (0.6-1.2) mg/dl Est Cr Clr Drug Dosing ml/min eGFR BUN/Creatinine Ratio (10-20) Glucose (70-99(Fasting)) mg/dl POC Glucose 177 H 202 H 162 H (70-99) mg/dl Calcium (8.6-10.3) mg/dl Phosphorus (2.5-4.9) mg/dl Magnesium (1.7-2.4) mg/dl 12/23/24 12/22/24 Range/Units 06:27 20:22 WBC 7.66 (4.8-10.8) K/ul RBC 4.04 L (4.20-5.40) M/uL Hgb 10.6 L (12.0-16.0) g/dl Hct 33.0 L (37.0-47.0) % MCV 81.7 (80.0-100.0) fL MCH 26.2 (25.0-34.0) pg MCHC 32.1 (32.0-36.0) g/dL RDW Std Deviation 42.3 (36.4-46.3) fL RDW Coeff of Ada 14.4 (11.5-14.5) % Plt Count 207 (130-400) K/uL MPV 10.9 (9.4-12.4) fL Sodium 135 L (136-145) mmol/L Potassium 3.8 (3.5-5.1) mmol/L Chloride 94 L (98-107) mmol/L Carbon Dioxide 34 H (21-32) mmol/L Anion Gap 7 (3-11) BUN 17 (6-23) mg/dl Creatinine 0.94 (0.6-1.2) mg/dl Est Cr Clr Drug Dosing 91.0 ml/min eGFR 67.34 BUN/Creatinine Ratio 18.1 (10-20) Glucose 157 H (70-99(Fasting)) mg/dl POC Glucose 241 H (70-99) mg/dl Calcium 9.2 (8.6-10.3) mg/dl Phosphorus 2.9 (2.5-4.9) mg/dl Magnesium 1.5 L (1.7-2.4) mg/dl Medications Administered Current Inpatient Medications Acetaminophen (Acetaminophen 325 Mg Tab) 650 mg PO QID PRN PRN Reason: pain/fever Stop: 01/15/25 02:49 Last Admin: 12/23/24 17:12 Dose: 650 mg Alprazolam (Alprazolam 0.5 Mg Tablet) 0.5 mg PO TID PRN PRN Reason: Anxiety Stop: 01/15/25 02:46 Last Admin: 12/23/24 11:49 Dose: 0.5 mg Amlodipine Besylate (Amlodipine Besylate 5 Mg Tab) 10 mg PO QAM [facility] Stop: 01/20/25 08:59 Last Admin: 12/23/24 07:45 Dose: 10 mg Aripiprazole (Aripiprazole 5 Mg Tab) 5 mg PO DAILY [facility] Stop: 01/15/25 08:59 Last Admin: 12/23/24 07:45 Dose: 5 mg Cinacalcet (Cinacalcet Hcl 30 Mg Tab) 30 mg PO DAILY [facility] Stop: 01/20/25 16:44 Last Admin: 12/23/24 07:46 Dose: 30 mg Dextrose (Dextrose 50% 50 Ml Syringe) 25 - 50 ml IV UD PRN; Protocol PRN Reason: Hypoglycemia Protocol Stop: 01/15/25 04:27 Furosemide (Furosemide 40 Mg Tab) 40 mg PO QAM [facility] Stop: 01/21/25 08:59 Last Admin: 12/23/24 07:46 Dose: 40 mg Glucagon (Glucagon For Inj 1 Mg Vial) 1 mg SQ UD PRN; Protocol PRN Reason: Hypoglycemia Protocol Stop: 01/15/25 04:27 Glucose (Glucose 40% Gel 15 Gm Tube) 15 - 30 gm PO UD PRN; Protocol PRN Reason: Hypoglycemia Protocol Stop: 01/15/25 04:27 Glucose (Glucose 10 Tab/Tube) 4 - 8 tab PO UD PRN; Protocol PRN Reason: Hypoglycemia Protocol Stop: 01/15/25 04:27 Heparin Sodium (Porcine) (Heparin Sod 5,000 Unit/0.5 Ml Vial) 7,500 units SQ Q8 [facility] Stop: 01/15/25 21:59 Last Admin: 12/23/24 14:22 Dose: 7,500 units Ceftriaxone Sodium (Rocephin) 2,000 mg in 50 mls @ 100 mls/hr IV Q24H [facility] Stop: 01/01/25 19:59 Last Infusion: 12/22/24 21:19 Dose: Infused Promethazine HCl (Phenergan) 12.5 mg in 50.5 mls @ 202 mls/hr IV Q6H PRN PRN Reason: Nausea And Vomiting Stop: 01/22/25 05:31 Last Infusion: 12/23/24 06:41 Dose: Infused Insulin Aspart (Insulin Aspart Per Unit Charge) 0 units SC ACHS [facility] Stop: 01/15/25 16:29 Last Admin: 12/23/24 17:09 Dose: 5 units Insulin Glargine (Lantus Per Unit Charge) 25 units SQ QAM [facility] Stop: 01/20/25 08:59 Last Admin: 12/23/24 08:10 Dose: 25 units Levothyroxine Sodium (Levothyroxine Sodium 150 Mcg Tablet) 300 mcg PO DAILYBB [facility] Stop: 01/15/25 06:29 Last Admin: 12/23/24 05:23 Dose: 300 mcg Miscellaneous (Carbohydrates For Hypoglycemia ) 15 - 30 gm PO UD PRN PRN Reason: Hypoglycemia Protocol Stop: 01/15/25 04:27 Oxycodone HCl (Oxycodone Hcl Ir 30 Mg Tab (Immediate Release)) 30 mg PO BID [facility] Stop: 12/30/24 08:59 Last Admin: 12/23/24 08:10 Dose: 30 mg Polyethylene Glycol (Polyethylene (Miralax) 17 Gm Pack) 17 gm PO DAILY [facility] Stop: 01/21/25 18:44 Last Admin: 12/23/24 07:45 Dose: 17 gm Sennosides (Senna 8.6 Mg Tab) 8.6 mg PO QAM [facility] Stop: 01/21/25 18:44 Last Admin: 12/23/24 07:45 Dose: 8.6 mg Sertraline HCl (Sertraline Hcl 100 Mg Tablet) 200 mg PO QAM [facility] Stop: 01/15/25 08:59 Last Admin: 12/23/24 07:45 Dose: 200 mg Tamsulosin HCl (Tamsulosin Hcl 0.4 Mg Cap) 0.4 mg PO QAM [facility] Stop: 01/15/25 08:59 Last Admin: 12/23/24 07:46 Dose: 0.4 mg
[2024-12-24 06:50] LABS: Hematocrit (blood only) 33.5 % (37.0-47.0); Hemoglobin 10.6 g/dl (12.0-16.0); Mean Corpuscular Hemoglobin 25.5 pg (25.0-34.0); Mean Corpuscular Volume 80.7 fL (80.0-100.0); Platelet Count 218 K/uL (130-400); RDW Standard Deviation 42.1 fL (36.4-46.3); Red Blood Count 4.15 M/uL (4.20-5.40); White Blood Count 6.55 K/ul (4.8-10.8)
[2024-12-24 07:11] LABS: Anion Gap 4.0 (3-11); Blood Urea Nitrogen 18.0 mg/dl (6-23); Calcium 9.1 mg/dl (8.6-10.3); Carbon Dioxide 36.0 mmol/L (21-32); Chloride 93.0 mmol/L (98-107); Creatinine Clr Calc Pharmacy 84.3 ml/min; Glucose 166.0 mg/dl (70-99(Fasting)); Magnesium 1.5 mg/dl (1.7-2.4); Potassium 4.0 mmol/L (3.5-5.1); Sodium 133.0 mmol/L (136-145)
[2024-12-24] MEDS: MAGNESIUM SULFATE / D5W 1 GM/100 ML BAG IV ONE (09:48)
[2024-12-24] MEDS: MAGNESIUM OXIDE 400 MG TAB PO SCH (11:42)
--- NOTE | 2024-12-24 16:40 | Hospitalist Progress Note ---
Date of Service December 24, 2024 Assessment & Plan (1) Septic shock due to urinary tract infection: Plan: Resolved (2) Severe sepsis with acute organ dysfunction: Plan: Resolved (3) E. coli bacteremia: (4) Volume overload: Plan: Improving (5) Demand ischemia of myocardium: (6) Acute kidney injury with acute tubular necrosis: Plan: At baseline (7) Acute metabolic encephalopathy: Plan: Resolved (8) Nephrolithiasis: (9) Hypothyroidism: (10) Hypertension: (11) Primary hyperparathyroidism: (12) Diabetes mellitus type 2 in obese: (13) Morbidly obese: Plan Per prior provider w/addendum: Patient is a 64-year-old female who initially presented in septic shock due to E. coli bacteremia, E. coli UTI due to ureteral stone. Patient is now significantly improved and septic shock has resolved. Has been diuresing well from her volume overloaded from her fluid resuscitation. Patient remains significantly weakened and deconditioned and now is requiring care home facility rehabilitation. Continue IV Rocephin, transition to oral antibiotics, pansensitive E. coli at the time of discharge. Would treat for a total of 14 days and counting days of antibiotics here in the hospital continued IV Lasix, will DC on oral Lasix Continue to monitor electrolytes and renal function Continue to work with therapies Communication with case management, have authorization for care home facility. Anticipate discharge to [facility] or [facility] when bed available - now informed pt will need P2P, will attempt on Friday Will need outpatient follow-up with urology For definitive management of ureteral stone and stent Admission and Anticipated Discharge Date Admission Date: December 16, 2024 Subjective Pt seen in follow up , had complicated hospital course w/ urosepsis and E. coli bacteremia, required ICU admission Currently resolved, sitting up in bed in NAD No chest pain, shortness of breath, no abd. pain except for mild pain in lower abdomen possibly from stent Review of Systems Review of Systems: All systems reviewed & are unremarkable except as noted in Subjective Physical Exam Physical Exam: Constitutional: morbidly obese F in NAD HEENT: Mucous membranes moist. Lungs: Decreased breath sounds, no wheezes CV: S1-S2, regular Abdomen: Soft, nondistended, + mild tenderness in lower abd. quadrants Extremities: Edema in posterior thighs and lower extremities significantly improved Neuro: No focal deficits, generally weak Psych: Cooperative, normal mood Results & Data Results & Data Vital Signs (Past 12 Hours) Vital Signs Temp Pulse Resp BP Pulse Ox O2 Del Method 12/24/24 15:22 36.7 C 86 16 135/60 98 Room Air 12/24/24 08:50 146/69 H 12/24/24 07:31 36.4 C L 67 18 138/69 92 Room Air 12/24/24 07:30 Room Air Laboratory Results 12/24/24 12/24/24 12/24/24 Range/Units 16:20 11:19 07:30 WBC (4.8-10.8) K/ul RBC (4.20-5.40) M/uL Hgb (12.0-16.0) g/dl Hct (37.0-47.0) % MCV (80.0-100.0) fL MCH (25.0-34.0) pg MCHC (32.0-36.0) g/dL RDW Std Deviation (36.4-46.3) fL RDW Coeff of Ada (11.5-14.5) % Plt Count (130-400) K/uL MPV (9.4-12.4) fL Sodium (136-145) mmol/L Potassium (3.5-5.1) mmol/L Chloride (98-107) mmol/L Carbon Dioxide (21-32) mmol/L Anion Gap (3-11) BUN (6-23) mg/dl Creatinine (0.6-1.2) mg/dl Est Cr Clr Drug Dosing ml/min eGFR BUN/Creatinine Ratio (10-20) Glucose (70-99(Fasting)) mg/dl POC Glucose 156 H 281 H 159 H (70-99) mg/dl Calcium (8.6-10.3) mg/dl Phosphorus (2.5-4.9) mg/dl Magnesium (1.7-2.4) mg/dl 12/24/24 12/23/24 12/23/24 Range/Units 06:22 20:15 16:42 WBC 6.55 (4.8-10.8) K/ul RBC 4.15 L (4.20-5.40) M/uL Hgb 10.6 L (12.0-16.0) g/dl Hct 33.5 L (37.0-47.0) % MCV 80.7 (80.0-100.0) fL MCH 25.5 (25.0-34.0) pg MCHC 31.6 L (32.0-36.0) g/dL RDW Std Deviation 42.1 (36.4-46.3) fL RDW Coeff of Ada 14.5 (11.5-14.5) % Plt Count 218 (130-400) K/uL MPV 10.4 (9.4-12.4) fL Sodium 133 L (136-145) mmol/L Potassium 4.0 (3.5-5.1) mmol/L Chloride 93 L (98-107) mmol/L Carbon Dioxide 36 H (21-32) mmol/L Anion Gap 4 (3-11) BUN 18 (6-23) mg/dl Creatinine 1.01 (0.6-1.2) mg/dl Est Cr Clr Drug Dosing 84.3 ml/min eGFR 61.78 BUN/Creatinine Ratio 17.8 (10-20) Glucose 166 H (70-99(Fasting)) mg/dl POC Glucose 188 H 177 H (70-99) mg/dl Calcium 9.1 (8.6-10.3) mg/dl Phosphorus 3.5 (2.5-4.9) mg/dl Magnesium 1.5 L (1.7-2.4) mg/dl Medications Administered Current Inpatient Medications Acetaminophen (Acetaminophen 325 Mg Tab) 650 mg PO QID PRN PRN Reason: pain/fever Stop: 01/15/25 02:49 Last Admin: 12/24/24 14:09 Dose: 650 mg Alprazolam (Alprazolam 0.5 Mg Tablet) 0.5 mg PO TID PRN PRN Reason: Anxiety Stop: 01/15/25 02:46 Last Admin: 12/24/24 13:41 Dose: 0.5 mg Amlodipine Besylate (Amlodipine Besylate 5 Mg Tab) [facility]: 01/20/25 08:59 Last Admin: 12/24/24 08:51 Dose: 10 mg Aripiprazole (Aripiprazole 5 Mg Tab) 5 mg PO DAILY [facility] Stop: 01/15/25 08:59 Last Admin: 12/24/24 08:52 Dose: 5 mg Cinacalcet (Cinacalcet Hcl 30 Mg Tab) 30 mg PO DAILY [facility] Stop: 01/20/25 16:44 Last Admin: 12/24/24 08:52 Dose: 30 mg Dextrose (Dextrose 50% 50 Ml Syringe) 25 - 50 ml IV UD PRN; Protocol PRN Reason: Hypoglycemia Protocol Stop: 01/15/25 04:27 Furosemide (Furosemide 40 Mg Tab) 40 mg PO QAM [facility] Stop: 01/21/25 08:59 Last Admin: 12/24/24 08:53 Dose: 40 mg Furosemide (Furosemide 40 Mg/4 Ml Vial) 40 mg IV ONE ONE Stop: 12/24/24 16:33 Glucagon (Glucagon For Inj 1 Mg Vial) 1 mg SQ UD PRN; Protocol PRN Reason: Hypoglycemia Protocol Stop: 01/15/25 04:27 Glucose (Glucose 40% Gel 15 Gm Tube) 15 - 30 gm PO UD PRN; Protocol PRN Reason: Hypoglycemia Protocol Stop: 01/15/25 04:27 Glucose (Glucose 10 Tab/Tube) 4 - 8 tab PO UD PRN; Protocol PRN Reason: Hypoglycemia Protocol Stop: 01/15/25 04:27 Heparin Sodium (Porcine) (Heparin Sod 5,000 Unit/0.5 Ml Vial) 7,500 units SQ Q8 [facility] Stop: 01/15/25 21:59 Last Admin: 12/24/24 13:43 Dose: 7,500 units Ceftriaxone Sodium (Rocephin) 2,000 mg in 50 mls @ 100 mls/hr IV Q24H [facility] Stop: 01/01/25 19:59 Last Infusion: 12/23/24 22:04 Dose: Infused Promethazine HCl (Phenergan) 12.5 mg in 50.5 mls @ 202 mls/hr IV Q6H PRN PRN Reason: Nausea And Vomiting Stop: 01/22/25 05:31 Last Infusion: 12/23/24 06:41 Dose: Infused Insulin Aspart (Insulin Aspart Per Unit Charge) 0 units SC ACHS [facility] Stop: 01/15/25 16:29 Last Admin: 12/24/24 12:28 Dose: 9 units Insulin Glargine (Lantus Per Unit Charge) 25 units SQ QAM [facility] Stop: 01/20/25 08:59 Last Admin: 12/24/24 09:02 Dose: 25 units Levothyroxine Sodium (Levothyroxine Sodium 150 Mcg Tablet) 300 mcg PO DAILYBB [facility] Stop: 01/15/25 06:29 Last Admin: 12/24/24 05:31 Dose: 300 mcg Magnesium Oxide (Magnesium Oxide 400 Mg Tab) 400 mg PO BID [facility] Stop: 01/23/25 09:29 Last Admin: 12/24/24 11:42 Dose: 400 mg Miscellaneous (Carbohydrates For Hypoglycemia ) 15 - 30 gm PO UD PRN PRN Reason: Hypoglycemia Protocol Stop: 01/15/25 04:27 Oxycodone HCl (Oxycodone Hcl Ir 30 Mg Tab (Immediate Release)) 30 mg PO BID [facility] Stop: 12/30/24 08:59 Last Admin: 12/24/24 09:02 Dose: 30 mg Polyethylene Glycol (Polyethylene (Miralax) 17 Gm Pack) 17 gm PO DAILY [facility] Stop: 01/21/25 18:44 Last Admin: 12/24/24 08:56 Dose: 17 gm Sennosides (Senna 8.6 Mg Tab) 8.6 mg PO QAM [facility] Stop: 01/21/25 18:44 Last Admin: 12/24/24 08:56 Dose: 8.6 mg Sertraline HCl (Sertraline Hcl 100 Mg Tablet) 200 mg PO QAM [facility] Stop: 01/15/25 08:59 Last Admin: 12/24/24 08:53 Dose: 200 mg Tamsulosin HCl (Tamsulosin Hcl 0.4 Mg Cap) 0.4 mg PO QAM [facility] Stop: 01/15/25 08:59 Last Admin: 12/24/24 08:53 Dose: 0.4 mg
[2024-12-24] MEDS: FUROSEMIDE 40 MG/4 ML VIAL IV ONE (16:56)
[2024-12-24] MEDS: GLYCERIN ADULT 12 SUPP/BOX SUPP PR ONE (18:27)
--- NOTE | 2024-12-25 10:30 | Hospitalist Progress Note ---
Date of Service December 25, 2024 Assessment & Plan (1) Septic shock due to urinary tract infection: Plan: Resolved (2) Severe sepsis with acute organ dysfunction: Plan: Resolved (3) E. coli bacteremia: (4) Volume overload: Plan: Improving (5) Demand ischemia of myocardium: (6) Acute kidney injury with acute tubular necrosis: Plan: At baseline (7) Acute metabolic encephalopathy: Plan: Resolved (8) Nephrolithiasis: (9) Hypothyroidism: (10) Hypertension: (11) Primary hyperparathyroidism: (12) Diabetes mellitus type 2 in obese: (13) Morbidly obese: Plan Per prior provider w/addendum: Patient is a 64-year-old female who initially presented in septic shock due to E. coli bacteremia, E. coli UTI due to ureteral stone. Patient is now significantly improved and septic shock has resolved. Has been diuresing well from her volume overloaded from her fluid resuscitation. Patient remains significantly weakened and deconditioned and now is requiring shelter facility rehabilitation. Continue IV Rocephin, transition to oral antibiotics, pansensitive E. coli. Would treat for a total of 14 days and counting days of antibiotics here in the hospital continued IV Lasix, will DC on oral Lasix Continue to monitor electrolytes and renal function Continue to work with therapies Communication with case management, Anticipated discharge to [facility] or [facility] when bed available - now informed pt will need P2P, will plan to attempt on Friday Will need outpatient follow-up with urology For definitive management of ureteral stone and stent Admission and Anticipated Discharge Date Admission Date: December 16, 2024 Subjective Pt seen in follow up , had complicated hospital course w/ urosepsis and E. coli bacteremia, required ICU admission Currently resolved, sitting up in bed in NAD No chest pain, shortness of breath, no abd. pain, no n/v Review of Systems Review of Systems: All systems reviewed & are unremarkable except as noted in Subjective Physical Exam Physical Exam: Constitutional: morbidly obese F in NAD HEENT: Mucous membranes moist. Lungs: Decreased breath sounds, no wheezes CV: S1-S2, regular Abdomen: Soft, nondistended, nontender Extremities: Edema in posterior thighs and lower extremities significantly improved Neuro: No focal deficits, generally weak Psych: Cooperative, normal mood Results & Data Results & Data Vital Signs (Past 12 Hours) Vital Signs Temp Pulse Resp BP BP Pulse Ox O2 Del Method 12/25/24 08:30 Room Air 12/25/24 07:33 36.6 C 68 166/68 H 92 Room Air 12/24/24 23:32 36.3 C L 62 18 148/77 H 96 Room Air Laboratory Results 12/25/24 12/24/24 12/24/24 Range/Units 07:33 20:57 20:47 POC Glucose 148 H 218 H 241 H (70-99) mg/dl 12/24/24 12/24/24 12/24/24 Range/Units 20:45 16:20 11:19 POC Glucose 310 H* 156 H 281 H (70-99) mg/dl Medications Administered Current Inpatient Medications Acetaminophen (Acetaminophen 325 Mg Tab) 650 mg PO QID PRN PRN Reason: pain/fever Stop: 01/15/25 02:49 Last Admin: 12/24/24 14:09 Dose: 650 mg Alprazolam (Alprazolam 0.5 Mg Tablet) 0.5 mg PO TID PRN PRN Reason: Anxiety Stop: 01/15/25 02:46 Last Admin: 12/24/24 13:41 Dose: 0.5 mg Amlodipine Besylate (Amlodipine Besylate 5 Mg Tab) 10 mg PO QAM [facility] Stop: 01/20/25 08:59 Last Admin: 12/25/24 08:33 Dose: 10 mg Aripiprazole (Aripiprazole 5 Mg Tab) 5 mg PO DAILY [facility] Stop: 01/15/25 08:59 Last Admin: 12/25/24 08:33 Dose: 5 mg Cefuroxime Axetil (Cefuroxime Axetil 250 Mg Tablet) 250 mg PO BID [facility] Stop: 01/08/25 20:59 Cinacalcet (Cinacalcet Hcl 30 Mg Tab) 30 mg PO DAILY [facility] Stop: 01/20/25 16:44 Last Admin: 12/25/24 08:35 Dose: 30 mg Dextrose (Dextrose 50% 50 Ml Syringe) 25 - 50 ml IV UD PRN; Protocol PRN Reason: Hypoglycemia Protocol Stop: 01/15/25 04:27 Furosemide (Furosemide 40 Mg Tab) 40 mg PO QAM [facility] Stop: 01/21/25 08:59 Last Admin: 12/25/24 08:34 Dose: 40 mg Furosemide (Furosemide 40 Mg/4 Ml Vial) 40 mg IV ONE ONE Stop: 12/25/24 14:01 Glucagon (Glucagon For Inj 1 Mg Vial) 1 mg SQ UD PRN; Protocol PRN Reason: Hypoglycemia Protocol Stop: 01/15/25 04:27 Glucose (Glucose 40% Gel 15 Gm Tube) 15 - 30 gm PO UD PRN; Protocol PRN Reason: Hypoglycemia Protocol Stop: 01/15/25 04:27 Glucose (Glucose 10 Tab/Tube) 4 - 8 tab PO UD PRN; Protocol PRN Reason: Hypoglycemia Protocol Stop: 01/15/25 04:27 Glycerin (Glycerin Adult 12 Supp/Box Supp) 1 supp [place] NOW ONE Stop: 12/25/24 10:26 Heparin Sodium (Porcine) (Heparin Sod 5,000 Unit/0.5 Ml Vial) 7,500 units SQ Q8 [facility] Stop: 01/15/25 21:59 Last Admin: 12/25/24 05:34 Dose: 7,500 units Promethazine HCl (Phenergan) 12.5 mg in 50.5 mls @ 202 mls/hr IV Q6H PRN PRN Reason: Nausea And Vomiting Stop: 01/22/25 05:31 Last Infusion: 12/23/24 06:41 Dose: Infused Magnesium Sulfate/Dextrose (Magnesium Sulfate / D5w) 1 gm in 100 mls @ 50 mls/hr IV ONE ONE Stop: 12/25/24 12:29 Insulin Aspart (Insulin Aspart Per Unit Charge) 0 units SC ACHS [facility] Stop: 01/15/25 16:29 Last Admin: 12/25/24 08:44 Dose: 5 units Insulin Glargine (Lantus Per Unit Charge) 25 units SQ QAM [facility] Stop: 01/20/25 08:59 Last Admin: 12/25/24 08:44 Dose: 25 units Levothyroxine Sodium (Levothyroxine Sodium 150 Mcg Tablet) 300 mcg PO DAILYBB [facility] Stop: 01/15/25 06:29 Last Admin: 12/25/24 05:34 Dose: 300 mcg Magnesium Oxide (Magnesium Oxide 400 Mg Tab) 400 mg PO BID [facility] Stop: 01/23/25 09:29 Last Admin: 12/25/24 08:35 Dose: 400 mg Miscellaneous (Carbohydrates For Hypoglycemia ) 15 - 30 gm PO UD PRN PRN Reason: Hypoglycemia Protocol Stop: 01/15/25 04:27 Oxycodone HCl (Oxycodone Hcl Ir 30 Mg Tab (Immediate Release)) 30 mg PO BID [facility] Stop: 12/30/24 08:59 Last Admin: 12/25/24 08:43 Dose: 30 mg Polyethylene Glycol (Polyethylene (Miralax) 17 Gm Pack) 17 gm PO DAILY [facility] Stop: 01/21/25 18:44 Last Admin: 12/25/24 08:44 Dose: 17 gm Potassium Chloride (Potassium Chloride Crtab 20 Meq Tabcr) 20 meq PO NOW STA Stop: 12/25/24 10:25 Sennosides (Senna 8.6 Mg Tab) 8.6 mg PO QAM [facility] Stop: 01/21/25 18:44 Last Admin: 12/25/24 08:43 Dose: 8.6 mg Sertraline HCl (Sertraline Hcl 100 Mg Tablet) 200 mg PO QAM [facility] Stop: 01/15/25 08:59 Last Admin: 12/25/24 08:34 Dose: 200 mg Tamsulosin HCl (Tamsulosin Hcl 0.4 Mg Cap) 0.4 mg PO QAM [facility] Stop: 01/15/25 08:59 Last Admin: 12/25/24 08:34 Dose: 0.4 mg
[2024-12-25] MEDS: POTASSIUM CHLORIDE CRTAB 20 MEQ TABCR PO STA (10:43)
[2024-12-25] MEDS: MAGNESIUM SULFATE / D5W 1 GM/100 ML BAG IV ONE (10:43)
[2024-12-25] MEDS: FUROSEMIDE 40 MG/4 ML VIAL IV ONE (13:58)
[2024-12-25] MEDS: GLYCERIN ADULT 12 SUPP/BOX SUPP PR ONE (17:54)
[2024-12-26 07:06] LABS: Hematocrit (blood only) 35.7 % (37.0-47.0); Hemoglobin 11.4 g/dl (12.0-16.0); Mean Corpuscular Hemoglobin 26.2 pg (25.0-34.0); Mean Corpuscular Volume 82.1 fL (80.0-100.0); Platelet Count 228 K/uL (130-400); RDW Standard Deviation 43.7 fL (36.4-46.3); Red Blood Count 4.35 M/uL (4.20-5.40); White Blood Count 6.36 K/ul (4.8-10.8)
[2024-12-26 07:24] LABS: Anion Gap 7.0 (3-11); Blood Urea Nitrogen 17.0 mg/dl (6-23); Calcium 9.2 mg/dl (8.6-10.3); Carbon Dioxide 35.0 mmol/L (21-32); Chloride 92.0 mmol/L (98-107); Creatinine Clr Calc Pharmacy 79.2 ml/min; Glucose 183.0 mg/dl (70-99(Fasting)); Magnesium 1.9 mg/dl (1.7-2.4); Potassium 4.1 mmol/L (3.5-5.1); Sodium 134.0 mmol/L (136-145)
--- NOTE | 2024-12-26 08:52 | Hospitalist Progress Note ---
Date of Service December 26, 2024 Assessment & Plan (1) Septic shock due to urinary tract infection: Plan: Resolved (2) Severe sepsis with acute organ dysfunction: Plan: Resolved (3) E. coli bacteremia: (4) Volume overload: Plan: Improving (5) Demand ischemia of myocardium: (6) Acute kidney injury with acute tubular necrosis: Plan: At baseline (7) Acute metabolic encephalopathy: Plan: Resolved (8) Nephrolithiasis: (9) Hypothyroidism: (10) Hypertension: (11) Primary hyperparathyroidism: (12) Diabetes mellitus type 2 in obese: (13) Morbidly obese: Plan Per prior provider w/addendum: Patient is a 64-year-old female who initially presented in septic shock due to E. coli bacteremia, E. coli UTI due to ureteral stone. Patient is now significantly improved and septic shock has resolved. Has been diuresing well from her volume overloaded from her fluid resuscitation. Patient remains significantly weakened and deconditioned and now [facility] Continued IV Rocephin, transitioned to oral antibiotics, pansensitive E. coli. Would treat for a total of 14 days and counting days of antibiotics here in the hospital continued IV Lasix, will DC on oral Lasix Continue to monitor electrolytes and renal function Continue to work with therapies Communication with case management, [facility] when bed available - now informed pt will need P2P, will plan to attempt on Friday Will need outpatient follow-up with urology For definitive management of ureteral stone and stent Admission and Anticipated Discharge Date Admission Date: December 16, 2024 Subjective Pt seen in follow up , had complicated hospital course w/ urosepsis and E. coli bacteremia, required ICU admission Currently resolved, sitting up in recliner chair in NAD No chest pain, shortness of breath, no abd. pain, no n/v Says she feels very deconditioned, that she gets short of breath when walking to nursing station, very much interested in rehab. Will need to call P2P on Friday (tmrw) Review of Systems Review of Systems: All systems reviewed & are unremarkable except as noted in Subjective Physical Exam Physical Exam: Constitutional: morbidly obese F in NAD HEENT: Mucous membranes moist. Lungs: Decreased breath sounds, no wheezes CV: S1-S2, regular Abdomen: Soft, nondistended, nontender Extremities: Edema in posterior thighs and lower extremities significantly improved Neuro: No focal deficits, generally weak Psych: Cooperative, normal mood Results & Data Results & Data Vital Signs (Past 12 Hours) Vital Signs Temp Pulse Resp BP BP Pulse Ox O2 Del Method 12/26/24 07:26 Room Air 12/26/24 07:08 36.8 C 64 16 176/78 H 91 Room Air 12/25/24 22:06 36.6 C 66 18 140/75 94 Room Air 12/25/24 21:30 Nasal Cannula O2 Flow Rate 12/26/24 07:26 12/26/24 07:08 12/25/24 22:06 12/25/24 21:30 2 Laboratory Results 12/26/24 12/26/24 12/25/24 Range/Units 07:32 06:40 20:25 WBC 6.36 (4.8-10.8) K/ul RBC 4.35 (4.20-5.40) M/uL Hgb 11.4 L (12.0-16.0) g/dl Hct 35.7 L (37.0-47.0) % MCV 82.1 (80.0-100.0) fL MCH 26.2 (25.0-34.0) pg MCHC 31.9 L (32.0-36.0) g/dL RDW Std Deviation 43.7 (36.4-46.3) fL RDW Coeff of Ada 14.7 H (11.5-14.5) % Plt Count 228 (130-400) K/uL MPV 10.1 (9.4-12.4) fL Sodium 134 L (136-145) mmol/L Potassium 4.1 (3.5-5.1) mmol/L Chloride 92 L (98-107) mmol/L Carbon Dioxide 35 H (21-32) mmol/L Anion Gap 7 (3-11) BUN 17 (6-23) mg/dl Creatinine 1.06 (0.6-1.2) mg/dl Est Cr Clr Drug Dosing 79.2 ml/min eGFR 58.30 BUN/Creatinine Ratio 16.0 (10-20) Glucose 183 H (70-99(Fasting)) mg/dl POC Glucose 180 H 180 H (70-99) mg/dl Calcium 9.2 (8.6-10.3) mg/dl Phosphorus 3.2 (2.5-4.9) mg/dl Magnesium 1.9 (1.7-2.4) mg/dl 12/25/24 12/25/24 Range/Units 16:49 11:33 WBC (4.8-10.8) K/ul RBC (4.20-5.40) M/uL Hgb (12.0-16.0) g/dl Hct (37.0-47.0) % MCV (80.0-100.0) fL MCH (25.0-34.0) pg MCHC (32.0-36.0) g/dL RDW Std Deviation (36.4-46.3) fL RDW Coeff of Ada (11.5-14.5) % Plt Count (130-400) K/uL MPV (9.4-12.4) fL Sodium (136-145) mmol/L Potassium (3.5-5.1) mmol/L Chloride (98-107) mmol/L Carbon Dioxide (21-32) mmol/L Anion Gap (3-11) BUN (6-23) mg/dl Creatinine (0.6-1.2) mg/dl Est Cr Clr Drug Dosing ml/min eGFR BUN/Creatinine Ratio (10-20) Glucose (70-99(Fasting)) mg/dl POC Glucose 235 H 206 H (70-99) mg/dl Calcium (8.6-10.3) mg/dl Phosphorus (2.5-4.9) mg/dl Magnesium (1.7-2.4) mg/dl Medications Administered Current Inpatient Medications Acetaminophen (Acetaminophen 325 Mg Tab) 650 mg PO QID PRN PRN Reason: pain/fever Stop: 01/15/25 02:49 Last Admin: 12/26/24 03:43 Dose: 650 mg Alprazolam (Alprazolam 0.5 Mg Tablet) 0.5 mg PO TID PRN PRN Reason: Anxiety Stop: 01/15/25 02:46 Last Admin: 12/25/24 10:50 Dose: 0.5 mg Amlodipine Besylate (Amlodipine Besylate 5 Mg Tab) 10 mg PO QAM [facility] Stop: 01/20/25 08:59 Last Admin: 12/26/24 08:41 Dose: 10 mg Aripiprazole (Aripiprazole 5 Mg Tab) 5 mg PO DAILY [facility] Stop: 01/15/25 08:59 Last Admin: 12/26/24 08:42 Dose: 5 mg Cefuroxime Axetil (Cefuroxime Axetil 250 Mg Tablet) 250 mg PO BID [facility] Stop: 01/08/25 20:59 Last Admin: 12/26/24 08:40 Dose: 250 mg Cinacalcet (Cinacalcet Hcl 30 Mg Tab) 30 mg PO DAILY [facility] Stop: 01/20/25 16:44 Last Admin: 12/26/24 08:42 Dose: 30 mg Dextrose (Dextrose 50% 50 Ml Syringe) 25 - 50 ml IV UD PRN; Protocol PRN Reason: Hypoglycemia Protocol Stop: 01/15/25 04:27 Furosemide (Furosemide 40 Mg Tab) 40 mg PO QAM [facility] Stop: 01/21/25 08:59 Last Admin: 12/26/24 08:41 Dose: 40 mg Glucagon (Glucagon For Inj 1 Mg Vial) 1 mg SQ UD PRN; Protocol PRN Reason: Hypoglycemia Protocol Stop: 01/15/25 04:27 Glucose (Glucose 40% Gel 15 Gm Tube) 15 - 30 gm PO UD PRN; Protocol PRN Reason: Hypoglycemia Protocol Stop: 01/15/25 04:27 Glucose (Glucose 10 Tab/Tube) 4 - 8 tab PO UD PRN; Protocol PRN Reason: Hypoglycemia Protocol Stop: 01/15/25 04:27 Heparin Sodium (Porcine) (Heparin Sod 5,000 Unit/0.5 Ml Vial) 7,500 units SQ Q8 [facility] Stop: 01/15/25 21:59 Last Admin: 12/26/24 05:57 Dose: 7,500 units Promethazine HCl (Phenergan) 12.5 mg in 50.5 mls @ 202 mls/hr IV Q6H PRN PRN Reason: Nausea And Vomiting Stop: 01/22/25 05:31 Last Infusion: 12/23/24 06:41 Dose: Infused Insulin Aspart (Insulin Aspart Per Unit Charge) 0 units SC ACHS [facility] Stop: 01/15/25 16:29 Last Admin: 12/26/24 08:29 Dose: 7 units Insulin Glargine (Lantus Per Unit Charge) 25 units SQ QAM [facility] Stop: 01/20/25 08:59 Last Admin: 12/26/24 08:30 Dose: 25 units Levothyroxine Sodium (Levothyroxine Sodium 150 Mcg Tablet) 300 mcg PO DAILYBB [facility] Stop: 01/15/25 06:29 Last Admin: 12/26/24 05:58 Dose: 300 mcg Magnesium Oxide (Magnesium Oxide 400 Mg Tab) 400 mg PO BID [facility] Stop: 01/23/25 09:29 Last Admin: 12/26/24 08:42 Dose: 400 mg Miscellaneous (Carbohydrates For Hypoglycemia ) 15 - 30 gm PO UD PRN PRN Reason: Hypoglycemia Protocol Stop: 01/15/25 04:27 Oxycodone HCl (Oxycodone Hcl Ir 30 Mg Tab (Immediate Release)) 30 mg PO BID [facility] Stop: 12/30/24 08:59 Last Admin: 12/26/24 08:39 Dose: 30 mg Polyethylene Glycol (Polyethylene (Miralax) 17 Gm Pack) 17 gm PO DAILY [facility] Stop: 01/21/25 18:44 Last Admin: 12/26/24 08:44 Dose: 17 gm Sennosides (Senna 8.6 Mg Tab) 8.6 mg PO QAM [facility] Stop: 01/21/25 18:44 Last Admin: 12/26/24 08:39 Dose: 8.6 mg Sertraline HCl (Sertraline Hcl 100 Mg Tablet) 200 mg PO QAM [facility] Stop: 01/15/25 08:59 Last Admin: 12/26/24 08:40 Dose: 200 mg Tamsulosin HCl (Tamsulosin Hcl 0.4 Mg Cap) 0.4 mg PO QAM [facility] Stop: 01/15/25 08:59 Last Admin: 12/26/24 08:41 Dose: 0.4 mg
[2024-12-26] MEDS: FUROSEMIDE INJ 20 MG/2 ML VIAL IV ONE (11:14)
[2024-12-27 06:43] LABS: Hematocrit (blood only) 35.7 % (37.0-47.0); Hemoglobin 11.0 g/dl (12.0-16.0); Mean Corpuscular Hemoglobin 25.3 pg (25.0-34.0); Mean Corpuscular Volume 82.3 fL (80.0-100.0); Platelet Count 221 K/uL (130-400); RDW Standard Deviation 44.4 fL (36.4-46.3); Red Blood Count 4.34 M/uL (4.20-5.40); White Blood Count 5.87 K/ul (4.8-10.8)
[2024-12-27 07:29] LABS: Anion Gap 6.0 (3-11); Blood Urea Nitrogen 17.0 mg/dl (6-23); Calcium 9.3 mg/dl (8.6-10.3); Carbon Dioxide 35.0 mmol/L (21-32); Chloride 94.0 mmol/L (98-107); Creatinine Clr Calc Pharmacy 74.3 ml/min; Glucose 169.0 mg/dl (70-99(Fasting)); Magnesium 1.9 mg/dl (1.7-2.4); Potassium 4.0 mmol/L (3.5-5.1); Sodium 135.0 mmol/L (136-145)
--- NOTE | 2024-12-27 12:58 | Hospitalist Progress Note ---
Date of Service December 27, 2024 Assessment & Plan (1) Septic shock due to urinary tract infection: Plan: Resolved (2) Severe sepsis with acute organ dysfunction: Plan: Resolved (3) E. coli bacteremia: (4) Volume overload: Plan: Improving (5) Demand ischemia of myocardium: (6) Acute kidney injury with acute tubular necrosis: Plan: At baseline (7) Acute metabolic encephalopathy: Plan: Resolved (8) Nephrolithiasis: (9) Hypothyroidism: (10) Hypertension: (11) Primary hyperparathyroidism: (12) Diabetes mellitus type 2 in obese: (13) Morbidly obese: Plan Per prior provider w/addendum: Patient is a 64-year-old female who initially presented in septic shock due to E. coli bacteremia, E. coli UTI due to ureteral stone. Patient is now significantly improved and septic shock has resolved. Has been diuresing well from her volume overloaded from her fluid resuscitation. Patient remains significantly weakened and deconditioned and now is requiring halfway facility rehabilitation. Continued IV Rocephin, transitioned to oral antibiotics, pansensitive E. coli. Would treat for a total of 14 days and counting days of antibiotics here in the hospital continued IV Lasix, will DC on oral Lasix Continue to monitor electrolytes and renal function Continue to work with therapies Communication with case management, Anticipated [facility] bed available - now informed pt will need P2P, I called P2P today but denial upheld, pt plans to appeal - CM updated. Will need outpatient follow-up with urology For definitive management of ureteral stone and stent Admission and Anticipated Discharge Date Admission Date: December 16, 2024 Subjective Pt seen in follow up , had complicated hospital course w/ urosepsis and E. coli bacteremia, required ICU admission Currently resolved, sitting up in bed in NAD No chest pain, shortness of breath, no abd. pain, no n/v Says she feels very deconditioned, that she gets short of breath when walking to nursing station, very much interested in rehab. I called for P2P today but denial upheld. Pt would like to appeal - CM updated. Review of Systems Review of Systems: All systems reviewed & are unremarkable except as noted in Subjective Physical Exam Physical Exam: Constitutional: morbidly obese F in NAD HEENT: Mucous membranes moist. Lungs: Decreased breath sounds, no wheezes CV: S1-S2, regular Abdomen: Soft, nondistended, nontender Extremities: Edema in posterior thighs and lower extremities significantly improved/ resolved Neuro: No focal deficits, generally weak Psych: Cooperative, normal mood Results & Data Results & Data Vital Signs (Past 12 Hours) Vital Signs Temp Pulse Resp BP Pulse Ox O2 Del Method O2 Flow Rate 12/27/24 08:20 36.3 C L 75 16 137/71 93 Room Air, Nasal Cannula 2 12/27/24 08:08 Room Air, Nasal Cannula 2 Laboratory Results 12/27/24 12/27/24 12/27/24 Range/Units 11:37 07:45 06:19 WBC 5.87 (4.8-10.8) K/ul RBC 4.34 (4.20-5.40) M/uL Hgb 11.0 L (12.0-16.0) g/dl Hct 35.7 L (37.0-47.0) % MCV 82.3 (80.0-100.0) fL MCH 25.3 (25.0-34.0) pg MCHC 30.8 L (32.0-36.0) g/dL RDW Std Deviation 44.4 (36.4-46.3) fL RDW Coeff of Ada 14.9 H (11.5-14.5) % Plt Count 221 (130-400) K/uL MPV 10.1 (9.4-12.4) fL Sodium 135 L (136-145) mmol/L Potassium 4.0 (3.5-5.1) mmol/L Chloride 94 L (98-107) mmol/L Carbon Dioxide 35 H (21-32) mmol/L Anion Gap 6 (3-11) BUN 17 (6-23) mg/dl Creatinine 1.13 (0.6-1.2) mg/dl Est Cr Clr Drug Dosing 74.3 ml/min eGFR 53.99 BUN/Creatinine Ratio 15.0 (10-20) Glucose 169 H (70-99(Fasting)) mg/dl POC Glucose 220 H 167 H (70-99) mg/dl Calcium 9.3 (8.6-10.3) mg/dl Phosphorus 3.2 (2.5-4.9) mg/dl Magnesium 1.9 (1.7-2.4) mg/dl 12/26/24 12/26/24 Range/Units 20:10 16:40 WBC (4.8-10.8) K/ul RBC (4.20-5.40) M/uL Hgb (12.0-16.0) g/dl Hct (37.0-47.0) % MCV (80.0-100.0) fL MCH (25.0-34.0) pg MCHC (32.0-36.0) g/dL RDW Std Deviation (36.4-46.3) fL RDW Coeff of Ada (11.5-14.5) % Plt Count (130-400) K/uL MPV (9.4-12.4) fL Sodium (136-145) mmol/L Potassium (3.5-5.1) mmol/L Chloride (98-107) mmol/L Carbon Dioxide (21-32) mmol/L Anion Gap (3-11) BUN (6-23) mg/dl Creatinine (0.6-1.2) mg/dl Est Cr Clr Drug Dosing ml/min eGFR BUN/Creatinine Ratio (10-20) Glucose (70-99(Fasting)) mg/dl POC Glucose 219 H 185 H (70-99) mg/dl Calcium (8.6-10.3) mg/dl Phosphorus (2.5-4.9) mg/dl Magnesium (1.7-2.4) mg/dl Medications Administered Current Inpatient Medications Acetaminophen (Acetaminophen 325 Mg Tab) 650 mg PO QID PRN PRN Reason: pain/fever Stop: 01/15/25 02:49 Last Admin: 12/27/24 05:52 Dose: 650 mg Alprazolam (Alprazolam 0.5 Mg Tablet) 0.5 mg PO TID PRN PRN Reason: Anxiety Stop: 01/15/25 02:46 Last Admin: 12/25/24 10:50 Dose: 0.5 mg Amlodipine Besylate (Amlodipine Besylate 5 Mg Tab) 10 mg PO QAM [facility] Stop: 01/20/25 08:59 Last Admin: 12/27/24 08:33 Dose: 10 mg Aripiprazole (Aripiprazole 5 Mg Tab) 5 mg PO DAILY [facility] Stop: 01/15/25 08:59 Last Admin: 12/27/24 08:33 Dose: 5 mg Cefuroxime Axetil (Cefuroxime Axetil 250 Mg Tablet) 250 mg PO BID [facility] Stop: 01/08/25 20:59 Last Admin: 12/27/24 08:34 Dose: 250 mg Cinacalcet (Cinacalcet Hcl 30 Mg Tab) 30 mg PO DAILY [facility] Stop: 01/20/25 16:44 Last Admin: 12/27/24 08:34 Dose: 30 mg Dextrose (Dextrose 50% 50 Ml Syringe) 25 - 50 ml IV UD PRN; Protocol PRN Reason: Hypoglycemia Protocol Stop: 01/15/25 04:27 Furosemide (Furosemide 40 Mg Tab) 40 mg PO QAM [facility] Stop: 01/21/25 08:59 Last Admin: 12/27/24 08:34 Dose: 40 mg Glucagon (Glucagon For Inj 1 Mg Vial) 1 mg SQ UD PRN; Protocol PRN Reason: Hypoglycemia Protocol Stop: 01/15/25 04:27 Glucose (Glucose 40% Gel 15 Gm Tube) 15 - 30 gm PO UD PRN; Protocol PRN Reason: Hypoglycemia Protocol Stop: 01/15/25 04:27 Glucose (Glucose 10 Tab/Tube) 4 - 8 tab PO UD PRN; Protocol PRN Reason: Hypoglycemia Protocol Stop: 01/15/25 04:27 Heparin Sodium (Porcine) (Heparin Sod 5,000 Unit/0.5 Ml Vial) 7,500 units SQ Q8 [facility] Stop: 01/15/25 21:59 Last Admin: 12/27/24 05:48 Dose: 7,500 units Promethazine HCl (Phenergan) 12.5 mg in 50.5 mls @ 202 mls/hr IV Q6H PRN PRN Reason: Nausea And Vomiting Stop: 01/22/25 05:31 Last Infusion: 12/23/24 06:41 Dose: Infused Insulin Aspart (Insulin Aspart Per Unit Charge) 0 units SC ACHS [facility] Stop: 01/15/25 16:29 Last Admin: 12/27/24 12:41 Dose: 8 units Insulin Glargine (Lantus Per Unit Charge) 25 units SQ QAM [facility] Stop: 01/20/25 08:59 Last Admin: 12/27/24 08:32 Dose: 25 units Levothyroxine Sodium (Levothyroxine Sodium 150 Mcg Tablet) 300 mcg PO DAILYBB [facility] Stop: 01/15/25 06:29 Last Admin: 12/27/24 05:48 Dose: 300 mcg Magnesium Oxide (Magnesium Oxide 400 Mg Tab) 400 mg PO BID [facility] Stop: 01/23/25 09:29 Last Admin: 12/27/24 08:34 Dose: 400 mg Miscellaneous (Carbohydrates For Hypoglycemia ) 15 - 30 gm PO UD PRN PRN Reason: Hypoglycemia Protocol Stop: 01/15/25 04:27 Oxycodone HCl (Oxycodone Hcl Ir 30 Mg Tab (Immediate Release)) 30 mg PO BID [facility] Stop: 12/30/24 08:59 Last Admin: 12/27/24 08:33 Dose: 30 mg Polyethylene Glycol (Polyethylene (Miralax) 17 Gm Pack) 17 gm PO DAILY [facility] Stop: 01/21/25 18:44 Last Admin: 12/27/24 08:33 Dose: 17 gm Sennosides (Senna 8.6 Mg Tab) 8.6 mg PO QAM [facility] Stop: 01/21/25 18:44 Last Admin: 12/27/24 08:33 Dose: 8.6 mg Sertraline HCl (Sertraline Hcl 100 Mg Tablet) 200 mg PO QAM [facility] Stop: 01/15/25 08:59 Last Admin: 12/27/24 08:33 Dose: 200 mg Tamsulosin HCl (Tamsulosin Hcl 0.4 Mg Cap) 0.4 mg PO QAM [facility] Stop: 01/15/25 08:59 Last Admin: 12/27/24 08:34 Dose: 0.4 mg
--- NOTE | 2024-12-28 14:25 | Hospitalist Progress Note ---
Date of Service December 28, 2024 Assessment & Plan (1) Septic shock due to urinary tract infection: Plan: Resolved (2) Severe sepsis with acute organ dysfunction: Plan: Resolved (3) E. coli bacteremia: (4) Volume overload: Plan: Improving (5) Demand ischemia of myocardium: (6) Acute kidney injury with acute tubular necrosis: Plan: At baseline (7) Acute metabolic encephalopathy: Plan: Resolved (8) Nephrolithiasis: (9) Hypothyroidism: (10) Hypertension: (11) Primary hyperparathyroidism: (12) Diabetes mellitus type 2 in obese: (13) Morbidly obese: Plan Per prior provider w/addendum: Patient is a 64-year-old female who initially presented in septic shock due to E. coli bacteremia, E. coli UTI due to ureteral stone. Patient is now significantly improved and septic shock has resolved. Has been diuresing well from her volume overloaded from her fluid resuscitation. Patient remains significantly weakened and deconditioned and now is requiring senior living facility rehabilitation. Continued IV Rocephin, transitioned to oral antibiotics, pansensitive E. coli. Would treat for a total of 14 days and counting days of antibiotics here in the hospital continued IV Lasix -> switched to oral Lasix Continue to monitor electrolytes and renal function Continue to work with therapies Communication with case management, [facility] bed available - then informed pt needs P2P, I called P2P yesterday but denial upheld, pt wants to appeal - CM updated. Will need outpatient follow-up with urology For definitive management of ureteral stone and stent Admission and Anticipated Discharge Date Admission Date: December 16, 2024 Subjective Pt seen in follow up , had complicated hospital course w/ urosepsis and E. coli bacteremia, required ICU admission Currently resolved, sitting up in recliner chair in NAD No chest pain, shortness of breath, no abd. pain, no n/v Says she feels very deconditioned, that she gets short of breath when walking to nursing station, very much interested in rehab. I called for P2P yesterday but denial upheld. Pt would like to appeal - CM updated. Review of Systems Review of Systems: All systems reviewed & are unremarkable except as noted in Subjective Physical Exam Physical Exam: Constitutional: morbidly obese F in NAD HEENT: Mucous membranes moist. Lungs: Decreased breath sounds, no wheezes CV: S1-S2, regular Abdomen: Soft, nondistended, nontender Extremities: Edema in posterior thighs and lower extremities significantly improved/ resolved Neuro: No focal deficits, generally weak Psych: Cooperative, normal mood Results & Data Results & Data Vital Signs (Past 12 Hours) Vital Signs Temp Pulse Resp BP Pulse Ox O2 Del Method 12/28/24 11:35 Room Air 12/28/24 08:15 36.5 C 102 H 18 150/76 H 93 Room Air Laboratory Results 12/28/24 12/28/24 12/27/24 Range/Units 11:39 07:49 20:12 POC Glucose 174 H 155 H 295 H (70-99) mg/dl 12/27/24 Range/Units 16:39 POC Glucose 147 H (70-99) mg/dl Medications Administered Current Inpatient Medications Acetaminophen (Acetaminophen 325 Mg Tab) 650 mg PO QID PRN PRN Reason: pain/fever Stop: 01/15/25 02:49 Last Admin: 12/27/24 05:52 Dose: 650 mg Alprazolam (Alprazolam 0.5 Mg Tablet) 0.5 mg PO TID PRN PRN Reason: Anxiety Stop: 01/15/25 02:46 Last Admin: 12/25/24 10:50 Dose: 0.5 mg Amlodipine Besylate (Amlodipine Besylate 5 Mg Tab) 10 mg PO QAM [facility] Stop: 01/20/25 08:59 Last Admin: 12/28/24 09:21 Dose: 10 mg Aripiprazole (Aripiprazole 5 Mg Tab) 5 mg PO DAILY [facility] Stop: 01/15/25 08:59 Last Admin: 12/28/24 09:23 Dose: 5 mg Cefuroxime Axetil (Cefuroxime Axetil 250 Mg Tablet) 250 mg PO BID [facility] Stop: 01/08/25 20:59 Last Admin: 12/28/24 09:23 Dose: 250 mg Cinacalcet (Cinacalcet Hcl 30 Mg Tab) 30 mg PO DAILY [facility] Stop: 01/20/25 16:44 Last Admin: 12/28/24 09:24 Dose: 30 mg Dextrose (Dextrose 50% 50 Ml Syringe) 25 - 50 ml IV UD PRN; Protocol PRN Reason: Hypoglycemia Protocol Stop: 01/15/25 04:27 Furosemide (Furosemide 40 Mg Tab) 40 mg PO QAM [facility] Stop: 01/21/25 08:59 Last Admin: 12/28/24 09:22 Dose: 40 mg Glucagon (Glucagon For Inj 1 Mg Vial) 1 mg SQ UD PRN; Protocol PRN Reason: Hypoglycemia Protocol Stop: 01/15/25 04:27 Glucose (Glucose 40% Gel 15 Gm Tube) 15 - 30 gm PO UD PRN; Protocol PRN Reason: Hypoglycemia Protocol Stop: 01/15/25 04:27 Glucose (Glucose 10 Tab/Tube) 4 - 8 tab PO UD PRN; Protocol PRN Reason: Hypoglycemia Protocol Stop: 01/15/25 04:27 Heparin Sodium (Porcine) (Heparin Sod 5,000 Unit/0.5 Ml Vial) 7,500 units SQ Q8 [facility] Stop: 01/15/25 21:59 Last Admin: 12/28/24 12:46 Dose: 7,500 units Promethazine HCl (Phenergan) 12.5 mg in 50.5 mls @ 202 mls/hr IV Q6H PRN PRN Reason: Nausea And Vomiting Stop: 01/22/25 05:31 Last Infusion: 12/27/24 21:49 Dose: Infused Insulin Aspart (Insulin Aspart Per Unit Charge) 0 units SC ACHS [facility] Stop: 01/15/25 16:29 Last Admin: 12/28/24 12:46 Dose: 5 units Insulin Glargine (Lantus Per Unit Charge) 25 units SQ QAM [facility] Stop: 01/20/25 08:59 Last Admin: 12/28/24 09:39 Dose: 25 units Levothyroxine Sodium (Levothyroxine Sodium 150 Mcg Tablet) 300 mcg PO DAILYBB [facility] Stop: 01/15/25 06:29 Last Admin: 12/28/24 06:19 Dose: 300 mcg Magnesium Oxide (Magnesium Oxide 400 Mg Tab) 400 mg PO BID [facility] Stop: 01/23/25 09:29 Last Admin: 12/28/24 09:22 Dose: 400 mg Miscellaneous (Carbohydrates For Hypoglycemia ) 15 - 30 gm PO UD PRN PRN Reason: Hypoglycemia Protocol Stop: 01/15/25 04:27 Oxycodone HCl (Oxycodone Hcl Ir 30 Mg Tab (Immediate Release)) 30 mg PO BID [facility] Stop: 12/30/24 08:59 Last Admin: 12/28/24 09:22 Dose: 30 mg Polyethylene Glycol (Polyethylene (Miralax) 17 Gm Pack) 17 gm PO DAILY [facility] Stop: 01/21/25 18:44 Last Admin: 12/28/24 09:22 Dose: 17 gm Sennosides (Senna 8.6 Mg Tab) 8.6 mg PO QAM [facility] Stop: 01/21/25 18:44 Last Admin: 12/28/24 09:22 Dose: 8.6 mg Sertraline HCl (Sertraline Hcl 100 Mg Tablet) [facility] Stop: 01/15/25 08:59 Last Admin: 12/28/24 09:21 Dose: 200 mg Tamsulosin HCl (Tamsulosin Hcl 0.4 Mg Cap) [facility] Stop: 01/15/25 08:59 Last Admin: 12/28/24 09:22 Dose: 0.4 mg
--- NOTE | 2024-12-29 12:45 | Hospitalist Progress Note ---
Date of Service December 29, 2024 Assessment & Plan (1) Septic shock due to urinary tract infection: Plan: Resolved (2) Severe sepsis with acute organ dysfunction: Plan: Resolved (3) E. coli bacteremia: (4) Volume overload: Plan: Improving (5) Demand ischemia of myocardium: (6) Acute kidney injury with acute tubular necrosis: Plan: At baseline (7) Acute metabolic encephalopathy: Plan: Resolved (8) Nephrolithiasis: (9) Hypothyroidism: (10) Hypertension: (11) Primary hyperparathyroidism: (12) Diabetes mellitus type 2 in obese: (13) Morbidly obese: Plan 64F with PMH hypertension, bronchial asthma, DUTCH, right breast cancer status post surgery/incomplete radiation, upper extremity DVT status post Coumadin, DM 2 insulin requiring, hypothyroidism, primary hyperparathyroidism, urolithiasis status post surgery, migraine headache, morbid obesity, anxiety/mood disorder, chronic pain, past tobacco abuse who presents with septic shock from UTI #UTI -Septic shock resolved -Obstructing R ureteral stone s/p stent placement 12/16 Plan -Continue ceftin through 12/30 -Dispo TBD. SNF P2P denied. patient appealing today -Backup will be home with HC #KIMBERLY -Resolved -Nephro signed off #HTN -Continue home norvasc, lasix #IDDM -Continue current regimen #Mood disorder -Continue home psych regimen #Hx DVT -no longer on coumadin -Continue heparin sq I spent a total of 35 minutes coordinating, documenting, and providing care for this patient excluding time spent in the performance of separately billed services. This included personally reviewing all current laboratories and imaging studies, medical reconciliation, outpatient chart review and discussion with specialists Admission and Anticipated Discharge Date Admission Date: December 16, 2024 Subjective Feeling well today. discussed her options about appealing SNF auth. She has a phone call today with her insurance provider. Patient denies F/C, CP, palpitations, SOB, dyspnea, abd pain, N/V/D Physical Exam Physical Exam: Vitals and labs reviewed General: Well appearing, NAD HEENT: EOMI, PERRLA Neck: Supple Cardiac: RRR no rubs gallops or murmurs Lungs: CTA no rhonchi wheezing or rales Abd: S NT ND BS positive : no lambert MSK: Full ROM. No obvious deformities Ext: trace Edema Skin: Warm, Dry Neuro: AOx3 No focal deficits. Psych: Normal Mood Results & Data Results & Data Vital Signs (Past 12 Hours) Vital Signs Temp Pulse Resp BP Pulse Ox O2 Del Method O2 Flow Rate 12/29/24 07:52 36.5 C 67 18 144/75 H 94 Nasal Cannula 2
--- NOTE | 2024-12-30 09:18 | Discharge Summary ---
Discharge Summary Date of Service December 30, 2024 Principal Dx & Hospital Course #1 = Principal Diagnosis (1) Septic shock due to urinary tract infection: Resolved (2) Severe sepsis with acute organ dysfunction: Resolved (3) E. coli bacteremia: (4) Volume overload: Improving (5) Demand ischemia of myocardium: (6) Acute kidney injury with acute tubular necrosis: At baseline (7) Acute metabolic encephalopathy: Resolved (8) Nephrolithiasis: (9) Hypothyroidism: (10) Hypertension: (11) Primary hyperparathyroidism: (12) Diabetes mellitus type 2 in obese: (13) Morbidly obese: Plan 64F with PMH hypertension, bronchial asthma, DUTCH, right breast cancer status post surgery/incomplete radiation, upper extremity DVT status post Coumadin, DM 2 insulin requiring, hypothyroidism, primary hyperparathyroidism, urolithiasis status post surgery, migraine headache, morbid obesity, anxiety/mood disorder, chronic pain, past tobacco abuse who presents with septic shock from UTI. She was admitted to ICU. She is s/p R ureteral stent placement on 12/16. Sepsis resolved and she was transferred out of ICU. She was maintained on abx and deescalated to ceftin. she completed ceftin today 12/30. Her urology team will reach out to her to schedule stent removal. She requested to go to SNF but was initially denied by insurance. she appealed and was approved. today she feels well and is eager to be discharged. she has no complaints. vitals are stable for dc to snf. #UTI -Septic shock resolved -Obstructing R ureteral stone s/p stent placement 12/16 Plan -Continue ceftin through 12/30 -Dispo TBD. SNF P2P denied. patient appealing today -Backup will be home with HC #KIMBERLY -Resolved -Nephro signed off #HTN -Continue home norvasc, lasix #IDDM -Continue current regimen #Mood disorder -Continue home psych regimen #Hx DVT -no longer on coumadin -Continue heparin sq #Chronic pain -On oxy 30 BID -Reviewed PDMP I spent a total of 41 minutes coordinating, documenting, and providing care for this patient excluding time spent in the performance of separately billed services. This included personally reviewing all current laboratories and imaging studies, medical reconciliation, outpatient chart review and discussion with specialists Notes For Next Care Provider Medication Changes From Visit flomax added Norvasc dose increased to 10mg Admission HPI Per Admitting Provider History obtained from patient and records. Medical history significant for hypertension, bronchial asthma, DUTCH, right breast cancer status post surgery/incomplete radiation, upper extremity DVT status post Coumadin, DM 2 insulin requiring, hypothyroidism, primary hyperparathyroidism, urolithiasis status post surgery, migraine headache, morbid obesity, anxiety/mood disorder, chronic pain, past tobacco abuse. Last confinement October 2023 for complicated UTI and possible pneumonia. Patient feeling ill since last week. Intermittent achy right flank pain which later was noted to be constant. No hematuria. Denies chest pain. SOB from flank pain. Poor appetite with nausea symptoms. Migraine headache from pain. IV cefepime administered at the ER. 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 No obvious deformities Ext: trace Edema Skin: Warm, Dry Neuro: AOx3 No focal deficits. Psych: Normal Mood Updated Medication List Medication Instructions Recorded Confirmed Type albuterol sulfate 90 mcg/actuation 2 puff inhalation Q4H PRN 03/19/18 12/15/24 History aerosol inhaler (Ventolin HFA) Shortness Of Breath Or Wheezing alprazolam 0.5 mg tablet 0.5 mg PO TID PRN Anxiety 03/19/18 12/15/24 History fluticasone 250 mcg-salmeterol 50 1 inh inhalation BID PRN Shortness 03/19/18 12/15/24 History mcg/dose blistr powdr for Of Breath Or Wheezing inhalation (Advair Diskus) levothyroxine 300 mcg tablet 300 mcg PO QAM 03/19/18 12/15/24 History sertraline 100 mg tablet 200 mg PO QAM 01/29/19 12/15/24 History blood-glucose meter (OneTouch #1 ea 10/31/23 12/15/24 Rx Verio Flex Meter) insulin admin supplies #1 ea 10/31/23 12/15/24 Rx lancets [facility] ([facility] 10/31/23 12/15/24 Rx Plus Lancet) hydrocodone 10 mg-acetaminophen 1 tab PO Q8 PRN Pain 03/05/24 12/15/24 History 325 mg tablet oxycodone 30 mg tablet 30 mg PO BID 03/05/24 12/15/24 History amlodipine 2.5 mg tablet 2.5 mg PO DAILY 05/18/24 12/15/24 History aripiprazole 5 mg tablet 5 mg PO DAILY 05/18/24 12/15/24 History cholecalciferol (vitamin D3) 50 50 mcg PO DAILY #90 caps 07/01/24 12/15/24 Rx mcg (2,000 unit) capsule metformin 500 mg tablet,extended 500 mg PO BID #180 tabs 08/03/24 12/15/24 Rx release 24 hr sitagliptin phosphate 100 mg 100 mg PO DAILY #30 tabs 09/13/24 12/15/24 Rx tablet (Januvia) cholecalciferol (vitamin D3) 1,250 50,000 unit PO .COMPLEX #8 caps 10/04/24 12/15/24 Rx mcg (50,000 unit) capsule insulin glargine 100 unit/mL (3 30 unit (0.3 mL) subcut QAM #45 mL 12/02/24 12/15/24 Rx mL) subcutaneous pen (Lantus Solostar U-100 Insulin) cinacalcet 30 mg tablet 30 mg PO DAILY #90 tabs 12/06/24 12/15/24 Rx blood sugar diagnostic ([facility] #100 strips 12/28/24 Rx Verio test strips) alprazolam 0.5 mg tablet (Xanax) 0.5 mg PO TID PRN anxiety 30 days 12/30/24 Rx #10 tabs amlodipine 10 mg tablet 10 mg PO QAM 30 days #30 tabs 12/30/24 Rx oxycodone 30 mg tablet,oral ONLY 30 mg PO BID PRN pain #10 ea 12/30/24 Rx (not feeding tubes) tamsulosin 0.4 mg capsule 0.4 mg PO QAM #10 caps 12/30/24 Rx Hospital Stay Data Consultations 12/16/24 01:39 ED Decision to Admit Stat 12/16/24 05:47 Consult Urology Routine 12/16/24 06:37 Consult Die Holder Routine 12/16/24 10:05 Consult Nephrology Routine Procedures Performed Operation Date: 12/16/24 07:00 Actual Procedures p Cystoscopy, Right Stent Placement(Right) - Craig Brasher MD Diagnostic Imagining Performed 12/16/24 FL KUB Routine 12/16/24 02:47 CT Abd and Pelvis [CT abd pelvis wo con] Stat Pending Results Patient Have Any Pending Studies at Discharge: No Discharge Instructions Given to Patient (Per Discharging Provider) Urology office will contact you for stent removal but if you don't hear from them in a week, please call Dr Brasher's office. Your last day of antibiotics is today. Total Time Total Time Spent Total Time Spent (In Minutes): 41
--- NOTE | 2024-12-30 15:22 | Hospitalist Progress Note ---
Date of Service December 30, 2024 Assessment & Plan (1) Septic shock due to urinary tract infection: Plan: Resolved (2) Severe sepsis with acute organ dysfunction: Plan: Resolved (3) E. coli bacteremia: (4) Volume overload: Plan: Improving (5) Demand ischemia of myocardium: (6) Acute kidney injury with acute tubular necrosis: Plan: At baseline (7) Acute metabolic encephalopathy: Plan: Resolved (8) Nephrolithiasis: (9) Hypothyroidism: (10) Hypertension: (11) Primary hyperparathyroidism: (12) Diabetes mellitus type 2 in obese: (13) Morbidly obese: Plan 64F with PMH hypertension, bronchial asthma, DUTCH, right breast cancer status post surgery/incomplete radiation, upper extremity DVT status post Coumadin, DM 2 insulin requiring, hypothyroidism, primary hyperparathyroidism, urolithiasis status post surgery, migraine headache, morbid obesity, anxiety/mood disorder, chronic pain, past tobacco abuse who presents with septic shock from UTI. She was admitted to ICU. She is s/p R ureteral stent placement on 12/16. Sepsis resolved and she was transferred out of ICU. She was maintained on abx and deescalated to ceftin. she completed ceftin today 12/30. Her urology team will reach out to her to schedule stent removal. She requested to go to SNF but was initially denied by insurance. she appealed and was approved. today she feels well and is eager to be discharged. she has no complaints. vitals are stable for dc to snf. #UTI -Septic shock resolved -Obstructing R ureteral stone s/p stent placement 12/16 Plan -Continue ceftin through 12/30 -Waiting on SNF placement. medically ready for DC #KIMBERLY -Resolved -Nephro signed off #HTN -Continue home norvasc, lasix #IDDM -Continue current regimen #Mood disorder -Continue home psych regimen #Hx DVT -no longer on coumadin -Continue heparin sq #Chronic pain -On oxy 30 BID -Reviewed PDMP I spent a total of 39 minutes coordinating, documenting, and providing care for this patient excluding time spent in the performance of separately billed services. This included personally reviewing all current laboratories and imaging studies, medical reconciliation, outpatient chart review and discussion with specialists Admission and Anticipated Discharge Date Admission Date: December 16, 2024 Subjective Feeling well today and denies any complaints. Patient denies F/C, CP, palpitations, SOB, dyspnea, abd pain, N/V/D Physical Exam Physical Exam: Vitals and labs reviewed General: Well appearing, NAD HEENT: EOMI, PERRLA Neck: Supple Cardiac: RRR no rubs gallops or murmurs Lungs: CTA no rhonchi wheezing or rales Abd: S NT ND BS positive : no lambert MSK: Full ROM. No obvious deformities Ext: trace Edema Skin: Warm, Dry Neuro: AOx3 No focal deficits. Psych: Normal Mood Results & Data Results & Data Vital Signs (Past 12 Hours) Vital Signs Temp Pulse Resp BP BP Pulse Ox O2 Del Method 12/30/24 15:14 36.8 C 71 16 164/82 H 94 Room Air 12/30/24 08:56 36.4 C L 75 16 111/69 94 Room Air
--- NOTE | 2024-12-31 12:01 | Hospitalist Progress Note ---
Date of Service December 31, 2024 Assessment & Plan (1) Septic shock due to urinary tract infection: Plan: Resolved (2) Severe sepsis with acute organ dysfunction: Plan: Resolved (3) E. coli bacteremia: (4) Volume overload: Plan: Improving (5) Demand ischemia of myocardium: (6) Acute kidney injury with acute tubular necrosis: Plan: At baseline (7) Acute metabolic encephalopathy: Plan: Resolved (8) Nephrolithiasis: (9) Hypothyroidism: (10) Hypertension: (11) Primary hyperparathyroidism: (12) Diabetes mellitus type 2 in obese: (13) Morbidly obese: Plan 64F with PMH hypertension, bronchial asthma, DUTCH, right breast cancer status post surgery/incomplete radiation, upper extremity DVT status post Coumadin, DM 2 insulin requiring, hypothyroidism, primary hyperparathyroidism, urolithiasis status post surgery, migraine headache, morbid obesity, anxiety/mood disorder, chronic pain, past tobacco abuse who presents with septic shock from UTI. She was admitted to ICU. She is s/p R ureteral stent placement on 12/16. Sepsis resolved and she was transferred out of ICU. She was maintained on abx and deescalated to ceftin. she completed ceftin today 12/30. Her urology team will reach out to her to schedule stent removal. She requested to go to SNF but was initially denied by insurance. she appealed and was approved. today she feels well and is eager to be discharged. she has no complaints. vitals are stable for dc to snf. #UTI -Septic shock resolved -Obstructing R ureteral stone s/p stent placement 12/16 -Completed ceftin 12/30 Plan -Waiting on SNF placement. medically ready for DC #KIMBERLY -Resolved -Nephro signed off #HTN -Continue home norvasc, lasix #IDDM -Continue current regimen #Mood disorder -Continue home psych regimen #Hx DVT -no longer on coumadin -Continue heparin sq #Chronic pain -On oxy 30 BID -Reviewed PDMP I spent a total of 20 minutes coordinating, documenting, and providing care for this patient excluding time spent in the performance of separately billed services. This included personally reviewing all current laboratories and imaging studies, medical reconciliation, outpatient chart review and discussion with specialists Admission and Anticipated Discharge Date Admission Date: December 16, 2024 Subjective Feeling well today and denies any complaints. Patient denies F/C, CP, palpitations, SOB, dyspnea, abd pain, N/V/D Physical Exam Physical Exam: Vitals and labs reviewed General: Well appearing, NAD HEENT: EOMI, PERRLA Neck: Supple Cardiac: RRR no rubs gallops or murmurs Lungs: CTA no rhonchi wheezing or rales Abd: S NT ND BS positive : no lambert MSK: Full ROM. No obvious deformities Ext: trace Edema Skin: Warm, Dry Neuro: AOx3 No focal deficits. Psych: Normal Mood Results & Data Results & Data Vital Signs (Past 12 Hours) Vital Signs Temp Pulse Resp BP Pulse Ox O2 Del Method 12/31/24 10:21 Room Air 12/31/24 07:36 36.9 C 73 15 138/71 93 Room Air
[2025-01-01 07:29] VITALS: TEMP 98.1
[2025-01-01] MEDS: ALBUT/IPRATROP 3MG/0.5MG NEB 3 ML VIAL NEB PRN (11:21)
[2025-01-01 11:22] VITALS: PULSE 69; RESP 18; O2SAT 93
--- NOTE | 2025-01-01 12:01 | Discharge Summary ---
Discharge Summary Date of Service January 01, 2025 Principal Dx & Hospital Course #1 = Principal Diagnosis (1) Septic shock due to urinary tract infection: Resolved (2) Severe sepsis with acute organ dysfunction: Resolved (3) E. coli bacteremia: (4) Volume overload: Improving (5) Demand ischemia of myocardium: (6) Acute kidney injury with acute tubular necrosis: At baseline (7) Acute metabolic encephalopathy: Resolved (8) Nephrolithiasis: (9) Hypothyroidism: (10) Hypertension: (11) Primary hyperparathyroidism: (12) Diabetes mellitus type 2 in obese: (13) Morbidly obese: Plan 64F with PMH hypertension, bronchial asthma, DUTCH, right breast cancer status post surgery/incomplete radiation, upper extremity DVT status post Coumadin, DM 2 insulin requiring, hypothyroidism, primary hyperparathyroidism, urolithiasis status post surgery, migraine headache, morbid obesity, anxiety/mood disorder, chronic pain, past tobacco abuse who presents with septic shock from UTI. She was admitted to ICU. She is s/p R ureteral stent placement on 12/16. Sepsis resolved and she was transferred out of ICU. She was maintained on abx and deescalated to ceftin. she completed ceftin today 12/30. Her urology team will reach out to her to schedule stent removal. She requested to go to SNF but was initially denied by insurance. she appealed and was approved. today she feels well and is eager to be discharged. she has no complaints. vitals are stable. on room air. For DC to SNF today #UTI -Septic shock resolved -Obstructing R ureteral stone s/p stent placement 12/16 -Completed ceftin 12/30 #KIMBERLY -Resolved -Nephro signed off #HTN -Continue home norvasc, lasix #IDDM -Continue current regimen #Mood disorder -Continue home psych regimen #Hx DVT -no longer on coumadin -Continue heparin sq #Chronic pain -On oxy 30 BID -Reviewed PDMP I spent a total of 45 minutes coordinating, documenting, and providing care for this patient excluding time spent in the performance of separately billed services. This included personally reviewing all current laboratories and imaging studies, medical reconciliation, outpatient chart review and discussion with specialists Notes For Next Care Provider Medication Changes From Visit Janelizabethia held due to cost Admission HPI Per Admitting Provider History obtained from patient and records. Medical history significant for hypertension, bronchial asthma, DUTCH, right breast cancer status post surgery/incomplete radiation, upper extremity DVT status post Coumadin, DM 2 insulin requiring, hypothyroidism, primary hyperparathyroidism, urolithiasis status post surgery, migraine headache, morbid obesity, anxiety/mood disorder, chronic pain, past tobacco abuse. Last confinement October 2023 for complicated UTI and possible pneumonia. Patient feeling ill since last week. Intermittent achy right flank pain which later was noted to be constant. No hematuria. Denies chest pain. SOB from flank pain. Poor appetite with nausea symptoms. Migraine headache from pain. IV cefepime administered at the ER. 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 no rales rhonchi or distress Abd: S NT ND BS positive : Deffered MSK: Full ROM. No obvious deformities Ext: No Edema cyanosis Skin: Warm, Dry Neuro: AOx3 No focal deficits. Psych: Normal Mood Updated Medication List Medication Instructions Recorded Confirmed Type albuterol sulfate 90 mcg/actuation 2 puff inhalation Q4H PRN 03/19/18 12/15/24 History aerosol inhaler (Ventolin HFA) Shortness Of Breath Or Wheezing alprazolam 0.5 mg tablet 0.5 mg PO TID PRN Anxiety 03/19/18 12/15/24 History fluticasone 250 mcg-salmeterol 50 1 inh inhalation BID PRN Shortness 03/19/18 12/15/24 History mcg/dose blistr powdr for Of Breath Or Wheezing inhalation (Advair Diskus) levothyroxine 300 mcg tablet 300 mcg PO QAM 03/19/18 12/15/24 History sertraline 100 mg tablet 200 mg PO QAM 01/29/19 12/15/24 History blood-glucose meter ([employer] #1 ea 10/31/23 12/15/24 Rx Verio Flex Meter) insulin admin supplies #1 ea 10/31/23 12/15/24 Rx lancets 33 gauge (OneTouch Delica #100 ea 10/31/23 12/15/24 Rx Plus Lancet) hydrocodone 10 mg-acetaminophen 1 tab PO Q8 PRN Pain 03/05/24 12/15/24 History 325 mg tablet oxycodone 30 mg tablet 30 mg PO BID 03/05/24 12/15/24 History amlodipine 2.5 mg tablet 2.5 mg PO DAILY 05/18/24 12/15/24 History aripiprazole 5 mg tablet 5 mg PO DAILY 05/18/24 12/15/24 History cholecalciferol (vitamin D3) 50 50 mcg PO DAILY #90 caps 07/01/24 12/15/24 Rx mcg (2,000 unit) capsule metformin 500 mg tablet,extended 500 mg PO BID #180 tabs 08/03/24 12/15/24 Rx release 24 hr sitagliptin phosphate 100 mg 100 mg PO DAILY #30 tabs 09/13/24 12/15/24 Rx tablet (Januvia) cholecalciferol (vitamin D3) 1,250 50,000 unit PO .COMPLEX #8 caps 10/04/24 12/15/24 Rx mcg (50,000 unit) capsule insulin glargine 100 unit/mL (3 30 unit (0.3 mL) subcut QAM #45 mL 12/02/24 12/15/24 Rx mL) subcutaneous pen (Lantus Solostar U-100 Insulin) cinacalcet 30 mg tablet 30 mg PO DAILY #90 tabs 12/06/24 12/15/24 Rx blood sugar diagnostic ([facility] strips 12/28/24 Rx Verio test strips) amlodipine 10 mg tablet 10 mg PO QAM 30 days #30 tabs 12/30/24 Rx tamsulosin 0.4 mg capsule 0.4 mg PO QAM #10 caps 12/30/24 Rx alprazolam 0.5 mg tablet (Xanax) 0.5 mg PO TID PRN anxiety 10 days 12/31/24 Rx #14 tabs oxycodone 30 mg tablet 30 mg PO BID PRN pain 10 days #10 12/31/24 Rx tabs Hospital Stay Data Consultations 12/16/24 01:39 ED Decision to Admit Stat 12/16/24 05:47 Consult Urology Routine 12/16/24 06:37 Consult Analytical Lab Technician Routine 12/16/24 10:05 Consult Nephrology Routine Procedures Performed Operation Date: 12/16/24 07:00 Actual Procedures p Cystoscopy, Right Stent Placement(Right) - Craig Brasher MD Diagnostic Imagining Performed 12/16/24 FL KUB Routine 12/16/24 02:47 CT Abd and Pelvis [CT abd pelvis wo con] Stat Pending Results Patient Have Any Pending Studies at Discharge: No Discharge Instructions Given to Patient (Per Discharging Provider) Urology office will contact you for stent removal but if you don't hear from them in a week, please call Dr Brasher's office. Ok to hold your januvia until you follow up with your PCP after discharge from SNF Total Time Total Time Spent Total Time Spent (In Minutes): 45
[2025-01-01 13:04] VITALS: BP 137/71
== END 2025-01-01 13:39 | DRG 853 ==
LOC: ED 22:44 → 2S 12-16 02:31 → SUATTDRO 12-16 02:31 → 2S 12-16 04:29 → 1E 12-16 06:50 → 3E 12-18 13:14